=== PATIENT | female | born 1970 | race Caucasian/White ===

== ENCOUNTER 2021-01-18 09:29 | Emergency (ER) | payer MEDICARE, BC ==
[2021-01-18 09:35] VITALS: RESP 16
[2021-01-18] MEDS ORDERED: SODIUM CHLORIDE 0.9% 1,000 ML IV STA (10:01)
[2021-01-18] MEDS ORDERED: PANTOPRAZOLE 40 MG/10 ML VIAL IVP STA (10:01)
[2021-01-18] MEDS ORDERED: ONDANSETRON 4 MG/2 ML VIAL IVP STA (10:01)
[2021-01-18] MEDS ORDERED: KETOROLAC 15 MG/ML 1 ML VIAL IVP STA (10:01)
[2021-01-18 10:21] LABS: Appearance,Urine Clear (Clear); Bilirubin,Urine Negative (Negative); Blood,Urine Negative (Negative); Color,Urine Colorless; Glucose,Urine (UA) Negative (Negative); Ketones,Urine Negative (Negative); Leukocyte Esterase,Urine Negative (Negative); Nitrite,Urine Negative (Negative); PH, Urine 6.5 (5.0-8.0); Protein,Urine Negative (Negative); Specific Gravity,Urine 1.006 (1.001-1.035); Urobilinogen,Urine <2.0 mg/dL (<2.0)
[2021-01-18 10:29] LABS: ALT 16 U/L (4-34); AST 25 U/L (14-36); African American GFR (CKD) >90 (>60 ml/min/1.73 sqM); Albumin 5.1 g/dL (3.5-5.0); Alkaline Phosphatase 83 U/L (38-126); Amylase 42 U/L (30-110); Anion Gap 12 mmol/L; Blood Urea Nitrogen 19 mg/dL (7-17); Calcium 10.8 mg/dL (8.4-10.2); Carbon Dioxide 27 mmol/L (22-30); Chloride 100 mmol/L (98-107); Glucose 134 mg/dL (74-99); Lipase 99 U/L (23-300); Non-African American GFR(CKD) >90 (>60 ml/min/1.73 sqM); Potassium 4.8 mmol/L (3.5-5.1); Sodium 139 mmol/L (137-145); Total Bilirubin 0.5 mg/dL (0.2-1.3); Total Protein 8.2 g/dL (6.3-8.2)
[2021-01-18 10:30] LABS: Basophils % (A) 1 %; Eosinophils # (A) 0.1 k/uL (0-0.7); Eosinophils % (A) 1 %; HCT 42.5 % (34.0-46.0); HGB 14.7 gm/dL (11.4-16.0); Lymphocytes # (A) 1.9 k/uL (1.0-4.8); Lymphocytes % (A) 22 %; MCH 31.3 pg (25.0-35.0); MCHC 34.6 g/dL (31.0-37.0); MCV 90.6 fL (80.0-100.0); Monocytes # (A) 0.2 k/uL (0-1.0); Monocytes % (A) 3 %; Neutrophils % (A) 72 %; Platelet Count 350 k/uL (150-450); RBC 4.69 m/uL (3.80-5.40); RDW 12.8 % (11.5-15.5); WBC 8.4 k/uL (3.8-10.6)
--- NOTE | 2021-01-18 10:47 | XR ---
KUB HISTORY: Abdominal pain, gastroparesis Frontal KUB and 2 images correlated to prior abdomen dated 02/23/2013, CT 02/23/2013 Surgical clips are again noted the right upper quadrant. Lung bases are clear. There is a mild spinal curvature. No evident bowel obstruction or pneumoperitoneum. No pathologic calcification, suspect va scular calcifications in the right hemipelvis. IMPRESSION: Nonobstructive bowel gas pattern
--- NOTE | 2021-01-18 11:06 | ED ---
Nausea/Vomiting/Diarrhea HPI - General Chief complaint: Nausea/Vomiting/Diarrhea Stated complaint: ABD PAIN Time Seen by Provider: 01/18/21 09:46 Source: patient Mode of arrival: ambulatory Limitations: no limitations - History of Present Illness Initial comments: Patient is a 50-year-old female with history of recent diagnosis of gastroparesis, presenting to emergency Department with complaints of left-sided abdominal pain as well as some nausea and vomiting over the last 2 days. Patient states she's been having abdominal pain over the past 1-2 years, in the same area states that the little bit worse over the last few days. She does have history of diverticulitis as well but states it does not feel like that. She denies a fever or chills. She denies having diarrhea. Admits to history of cholecystectomy, hysterectomy, no other abdominal surgeries. She states she has an appointment with Dr. Thomas next week regarding possible upper and lower GI scope. She has spoken with a surgeon as well, Dr. Barrientos who referred her to the GI specialist. She denies any chest pain, no shortness of breath. She's been having normal bowel movements. She denies any further complaints at this time. Upon arrival to the ER, her vital signs are stable. - Related Data Home Medications Medication Instructions Recorded Confirmed Gabapentin 600 mg PO TID 02/04/15 01/18/21 metFORMIN HCL ER [Glucophage Xr] 500 mg PO BID 08/05/15 01/18/21 ALPRAZolam [Xanax] 1 mg PO TID PRN 01/18/21 01/18/21 Baclofen [Lioresal] 10 mg PO TID 01/18/21 01/18/21 Budesonide/Formoterol Fumarate 2 puff INHALATION RT-BID 01/18/21 01/18/21 [Symbicort 160-4.5 Mcg Inhaler] Gemfibrozil [Lopid] 600 mg PO BID 01/18/21 01/18/21 Glatiramer Acetate [Copaxone] 40 mg SQ TUTHSA 01/18/21 01/18/21 HYDROcodone/APAP 10-325MG [[place] 1 tab PO QID 01/18/21 01/18/21 10-325] Levothyroxine Sodium [Synthroid] 100 mcg PO DAILY 01/18/21 01/18/21 Magnesium Oxide [Mag-Ox] 400 mg PO DAILY 01/18/21 01/18/21 Meloxicam [Mobic] 15 mg PO DAILY 01/18/21 01/18/21 Previous Rx's Medication Instructions Recorded Ondansetron Odt [Zofran Odt] 4 mg PO Q8HR PRN #10 tab 01/18/21 Allergies Allergy/AdvReac Type Severity Reaction Status Date / Time sulfamethoxazole Allergy Unknown Verified 01/18/21 09:32 [From Bactrim] trimethoprim [From Bactrim] Allergy Unknown Verified 01/18/21 09:32 Review of Systems ROS Statement: Those systems with pertinent positive or pertinent negative responses have been documented in the HPI. ROS Other: All systems not noted in ROS Statement are negative. Past Medical History Past Medical History: Diabetes Mellitus, Fibromyalgia, Hyperlipidemia, Neurologic Disorder, Osteoarthritis (OA), Respiratory Disorder, Thyroid Disorder Additional Past Medical History / Comment(s): COPD. Sleep apnea. Multiple Sclerosis History of Any Multi-Drug Resistant Organisms: None Reported Past Surgical History: Bladder Surgery, Cholecystectomy, Hysterectomy, Or thopedic Surgery Additional Past Surgical History / Comment(s): right knee surgery. bladder sling. Bartholin gland removal Past Psychological History: Anxiety, Depression Smoking Status: Current every day smoker Past Alcohol Use History: None Reported Past Drug Use History: None Reported General Exam - General Exam Comments Initial Comments: GENERAL: Patient is well-developed and well-nourished. Patient is nontoxic and in no acute distress. HEAD: Atraumatic, normocephalic. EYES: Pupils equal round and reactive to light, extraocular movements intact, sclera anicteric, conjunctiva are normal. Eyelids were unremarkable. ENT: TMs normal, nares patent, oropharynx clear without exudates. Moist mucous membranes. NECK: Normal range of motion, supple without lymphadenopathy or JVD. LUNGS: Unlabored respirations. Breath sounds clear to auscultation bilaterally and equal. No wheezes rales or rhonchi. HEART: Regular rate and rhythm without murmurs, rubs or gallops. ABDOMEN: Soft, some mild left-sided tenderness on palpation, normoactive bowel sounds. No guarding, no rebound. No masses appreciated. : Deferred MUSCULOSKELETAL: Normal extremities with adequate strength and normal range of motion, no pitting or edema. No clubbing or cyanosis. NEUROLOGICAL: Patient is alert and oriented x 3. Motor and sensory are also intact. Cranial nerves II through XII grossly intact. Symmetrical smile. Normal speech, normal gait. PSYCH: Normal mood, normal affect. SKIN: Warm, Dry, normal turgor, no rashes or lesions noted. Limitations: no limitations Course Vital Signs 01/18/21 09:33 Temperature 97.6 F Pulse Rate 68 Respiratory 16 Rate Blood Pressure 142/86 O2 Sat by Pulse 98 Oximetry Medical Decision Making - Medical Decision Making Patient is a 50-year-old female here for an increase and left-sided abdominal pain over the past few days as well as some nausea and vomiting. She's had years of abdominal pain, does have an appointment with GI, Dr. Thomas in a few days. Her vital signs are stable. Her labs are stable, no signs of acute process, urine is normal. KUB shows a nonspecific gas pattern. Patient did receive some fluids and pain control. She is resting comfortably, doesn't improve in her symptoms. I discussed with patient her symptoms could be related to gas pains, nausea and vomiting could be viral in nature or related to her gastroparesis. I will give her prescription for Zofran. She will follow up [facility] in a few days. She is stable for discharge and she is in agreement with this plan of care. Return parameters were discussed with the patient she verbalized understanding. Case discussed with Dr. Garcia. - Lab Data Result diagrams: 01/18/21 10:27 01/18/21 10:03 Lab Results 01/18/21 01/18/21 01/18/21 Range/Units 10:03 10:03 10:03 WBC (3.8-10.6) k/uL RBC (3.80-5.40) m/uL Hgb (11.4-16.0) gm/dL Hct (34.0-46.0) % MCV (80.0-100.0) fL MCH (25.0-35.0) pg MCHC (31.0-37.0) g/dL RDW (11.5-15.5) % Plt Count (150-450) k/uL MPV Neutrophils % % Lymphocytes % % Monocytes % % Eosinophils % % Basophils % % Neutrophils # (1.3-7.7) k/uL Lymphocytes # (1.0-4.8) k/uL Monocytes # (0-1.0) k/uL Eosinophils # (0-0.7) k/uL Basophils # (0-0.2) k/uL Sodium 139 (137-145) mmol/L Potassium 4.8 (3.5-5.1) mmol/L Chloride 100 (98-107) mmol/L Carbon Dioxide 27 (22-30) mmol/L Anion Gap 12 mmol/L BUN 19 H (7-17) mg/dL Creatinine 0.68 (0.52-1.04) mg/dL Est GFR (CKD-EPI)AfAm >90 (>60 ml/min/1.73 sqM) Est GFR (CKD-EPI)NonAf >90 (>60 ml/min/1.73 sqM) Glucose 134 H (74-99) mg/dL Plasma Lactic Acid Brent 1.5 (0.7-2.0) mmol/L Calcium 10.8 H (8.4-10.2) mg/dL Total Bilirubin 0.5 (0.2-1.3) mg/dL AST 25 (14-36) U/L ALT 16 (4-34) U/L Alkaline Phosphatase 83 (38-126) U/L Total Protein 8.2 (6.3-8.2) g/dL Albumin 5.1 H (3.5-5.0) g/dL Amylase 42 (30-110) U/L Lipase 99 (23-300) U/L Urine Color Colorless Urine Appearance Clear (Clear) Urine pH 6.5 (5.0-8.0) Ur Specific [place] 1.006 (1.001-1.035) Urine Protein Negative (Negative) Urine Glucose (UA) Negative (Negative) Urine Ketones Negative (Negative) Urine Blood Negative (Negative) Urine Nitrite Negative (Negative) Urine Bilirubin Negative (Negative) Urine Urobilinogen <2.0 (<2.0) mg/dL Ur Leukocyte Esterase Negative (Negative) 01/18/21 Range/Units 10:27 WBC 8.4 (3.8-10.6) k/uL RBC 4.69 (3.80-5.40) m/uL Hgb 14.7 (11.4-16.0) gm/dL Hct 42.5 (34.0-46.0) % MCV 90.6 (80.0-100.0) fL MCH 31.3 (25.0-35.0) pg MCHC 34.6 (31.0-37.0) g/dL RDW 12.8 (11.5-15.5) % Plt Count 350 (150-450) k/uL MPV 8.0 Neutrophils % 72 % Lymphocytes % 22 % Monocytes % 3 % Eosinophils % 1 % Basophils % 1 % Neutrophils # 6.0 (1.3-7.7) k/uL Lymphocytes # 1.9 (1.0-4.8) k/uL Monocytes # 0.2 (0-1.0) k/uL Eosinophils # 0.1 (0-0.7) k/uL Basophils # 0.0 (0-0.2) k/uL Sodium (137-145) mmol/L Potassium (3.5-5.1) mmol/L Chloride (98-107) mmol/L Carbon Dioxide (22-30) mmol/L Anion Gap mmol/L BUN (7-17) mg/dL Creatinine (0.52-1.04) mg/dL Est GFR (CKD-EPI)AfAm (>60 ml/min/1.73 sqM) Est GFR (CKD-EPI)NonAf (>60 ml/min/1.73 sqM) Glucose (74-99) mg/dL Plasma Lactic Acid Brent (0.7-2.0) mmol/L Calcium (8.4-10.2) mg/dL Total Bilirubin (0.2-1.3) mg/dL AST (14-36) U/L ALT (4-34) U/L Alkaline Phosphatase (38-126) U/L Total Protein (6.3-8.2) g/dL Albumin (3.5-5.0) g/dL Amylase (30-110) U/L Lipase (23-300) U/L Urine Color Urine Appearance (Clear) Urine pH (5.0-8.0) Ur Specific [place] (1.001-1.035) Urine Protein (Negative) Urine Glucose (UA) (Negative) Urine Ketones (Negative) Urine Blood (Negative) Urine Nitrite (Negative) Urine Bilirubin (Negative) Urine Urobilinogen (<2.0) mg/dL Ur Leukocyte Esterase (Negative) Disposition Clinical Impression: Nausea & vomiting, Left sided abdominal pain Disposition: HOME SELF-CARE Condition: Stable Instructions (If sedation given, give patient instructions): Acute Nausea and Vomiting (ED) Additional Instructions: Please return to the Emergency Department if symptoms worsen or any other concerns. May take Zofran for any additional nausea. Follow-up with your GI doctor this week as discussed. Prescriptions: Ondansetron Odt [Zofran Odt] 4 mg PO Q8HR PRN #10 tab PRN Reason: Nausea Is patient prescribed a controlled substance at d/c from ED?: No Referrals: Hitesh Woodard MD [Primary Care Provider] - 1-2 days Time of Disposition: 11:22
[2021-01-18 11:55] VITALS: BP 127/82; PULSE 85; TEMP 97.9
== END 2021-01-18 11:53 | disposition home or self-care (01) ==
LOC: EC 09:29
DX: R11.2 Nausea with vomiting, unspecified (principal); R10.9 Unspecified abdominal pain; E11.43 Type 2 diabetes mellitus with diabetic autonomic (poly)neuropathy; E78.5 Hyperlipidemia, unspecified; F17.200 Nicotine dependence, unspecified, uncomplicated; F32.9 Major depressive disorder, single episode, unspecified; F41.9 Anxiety disorder, unspecified; J44.9 Chronic obstructive pulmonary disease, unspecified; M19.90 Unspecified osteoarthritis, unspecified site; Z79.84 Long term (current) use of oral hypoglycemic drugs
CPT/HCPCS: 36415; 80053; 82150; 83605; 83690; 85025; 81003; 74018; 99284; 96374; 96375; 96361; J2405; J1885; C9113

== ENCOUNTER 2021-03-09 07:34 | Day surgery (SDC) | payer MEDICARE, BC ==
[2021-03-06 09:34] VITALS: BMI 32.8
[~2021-03-09 07:34] MED LIST: LACTATED RINGERS 1,000 ML IV SCH; LIDOCAINE 1% (10MG/ML) FOR IV START INTRADERMA PRN
[2021-03-09 08:01] VITALS: TEMP 98
[2021-03-09 08:07] LABS: Glucose,Whole Blood 152 mg/dL (75-99)
[2021-03-09] MEDS ORDERED: ONDANSETRON 4 MG/2 ML VIAL ONE (08:07)
[2021-03-09] MEDS ORDERED: ONDANSETRON 4 MG/2 ML VIAL IVP ONE (08:09)
[2021-03-09] MEDS ORDERED: PROPOFOL 10 MG/ML 20 ML VIAL IV ONE (08:16)
--- NOTE | 2021-03-09 08:36 | P.PCN ---
Date of Procedure: 03/09/21 Description of Procedure: BRIEF HISTORY: Patient is a 50-year-old female presenting for outpatient esophagogastroduodenoscopy for evaluation of nausea with vomiting. Patient seen in the clinic where she reported projectile vomiting 2-3 times per week of food and liquids. Patient on Prilosec daily. She is also on Cambria for pain. She also reported symptoms of bloating and abdominal distention. Last EGD colonoscopy 4 years ago with the surgical service negative for any gastric outlet obstruction or ulcers and colon within normal limits. Patient is on ibuprofen therapy. PROCEDURE PERFORMED: Esophagogastroduodenoscopy with biopsy. PREOPERATIVE DIAGNOSIS: Nausea with vomiting. ESTIMATED BLOOD LOSS: Minimal. IV sedation per anesthesia. PROCEDURE: After informed consent was obtained, the patient was brought into the endoscopy unit. IV sedation was administered by Anesthesia under continuous monitoring. Initially the Olympus GIF-190 video endoscope was inserted into the mouth. Esophagus intubated without any difficulty. It was gradually advanced into the stomach and duodenum and carefully examined. The bulb and the second part of the duodenum appeared normal, with biopsies taken. The scope at this time was withdrawn to the stomach, adequately insufflated with air, and upon careful examination, mucosa of the antrum, body, cardia and the fundus was significant for mild punctate erythema in the antrum body and superficial erythema and linear erosions in the antrum suggestive of moderate gastritis with biopsies of antrum and body taken. There is also a superficial 3 mm linear nonbleeding antral ulcer without high-risk stigmata for bleeding which was biopsied. The scope was then withdrawn into the esophagus. The GE junction was located at 38 cm from the incisors. The esophagus appeared normal, with biopsies of the midesophagus and lower esophagus taken. There were no erosions or ulcerations seen and the patient tolerated the procedure well. IMPRESSION: 1. Small linear nonbleeding superficial antral ulcer. 2. Moderate gastritis. 3. Biopsies of the duodenum, antrum body, antral ulcer, lower esophagus and midesophagus. RECOMMENDATIONS: The findings of this examination were discussed with the patient and her family. Okay to resume diet. Okay to resume medications. Would recommend avoidance of NSAID medications. Continue Prilosec therapy. Await pathology from biopsies. Follow up in the GI clinic as scheduled. Limit Cambria use which can delay gastric emptying.
[2021-03-09 08:58] VITALS: BP 122/81; PULSE 74; RESP 16
[2021-03-09] MEDS ORDERED: MAG HYDROX/AL HYDROX/SIMETH 30 ML CUP PO PRN (09:00)
== END 2021-03-09 09:31 | disposition home or self-care (01) ==
LOC: ORWHC2ENDO 07:34
PROVIDERS: ATTEND Internal Medicine
DX: K25.7 Chronic gastric ulcer without hemorrhage or perforation (principal); J44.9 Chronic obstructive pulmonary disease, unspecified; G35 Multiple sclerosis; E07.9 Disorder of thyroid, unspecified; Z72.0 Tobacco use; Z90.49 Acquired absence of other specified parts of digestive tract; Z90.710 Acquired absence of both cervix and uterus; Z98.890 Other specified postprocedural states; Z85.41 Personal history of malignant neoplasm of cervix uteri; Z79.84 Long term (current) use of oral hypoglycemic drugs; Z79.890 Hormone replacement therapy; Z79.891 Long term (current) use of opiate analgesic; Z79.899 Other long term (current) drug therapy; Z79.51 Long term (current) use of inhaled steroids; Z88.2 Allergy status to sulfonamides
CPT/HCPCS: 81025; 88305; 43239; J2405; J2704

== ENCOUNTER → 2023-02-10 | Outpatient (CLI) | payer MEDICARE, BC ==
--- NOTE | 2023-02-11 09:20 | CT ---
EXAMINATION TYPE: CT left knee - [facility] Protocol DATE OF EXAM: 02/10/2023 COMPARISON: None HISTORY: Pre-surgical planning for Left Knee. CT DLP: 1081 mGycm Automated exposure control for dose reduction was used. Contrast: None Technique: Axial images 1 mm thick sections through the left knee. 2 mm thick sections are obtained t hrough the left ankle and left hip. Reconstructed images in the coronal and sagittal planes are obtai sami. FINDINGS: Left hip: Femoral head articulates with the acetabulum. No acute fractures evident. Osteoarthritic de generative changes noted at the bilateral narrowing of joint spaces. Left knee: Small joint effusion is present. There is loss of the medial compartment joint space. Late ral compartment joint space has some narrowing. Minimal narrowing of the lateral portion of the awan lofemoral joint space may be present. Left ankle: No suspicious acute osseous abnormality. Joint spaces appear preserved. [facility] protocol was utilized. IMPRESSION: 1. DEGENERATIVE CHANGES LEFT KNEE. 2. CT for [facility] SURGERY PLANNING
== END | disposition home or self-care (01) ==
LOC: RADCTMAIN 16:05
PROVIDERS: ATTEND Orthopaedic Surgery
DX: Z01.818 Encounter for other preprocedural examination (principal); M17.0 Bilateral primary osteoarthritis of knee; F17.200 Nicotine dependence, unspecified, uncomplicated; M21.061 Valgus deformity, not elsewhere classified, right knee; M21.062 Valgus deformity, not elsewhere classified, left knee; E11.9 Type 2 diabetes mellitus without complications; G35 Multiple sclerosis; J98.4 Other disorders of lung

== ENCOUNTER → 2023-02-10 | Outpatient (CLI) | payer MEDICARE, BC ==
[2023-02-10 17:20] LABS: INR 0.9 (<1.2); Partial Thromboplastin Time 23.1 sec (22.0-30.0); Prothrombin Time 10.1 sec (9.0-12.0)
[2023-02-10 20:55] LABS: HGB 14.6 g/dL (12.0-15.0); MCH 30.4 pg (27.0-32.0); MCHC 32.4 g/dL (32.0-37.0); MCV 93.6 fL (80.0-97.0); NRBC Per 100 WBC 0 /100 WBCS (0.0-0.0); Platelet Count 288 X 10*3/uL (140-440); RBC 4.81 X 10*6/uL (4.10-5.20); RDW 13.2 % (11.5-14.5); WBC 6.15 X 10*3/uL (4.50-10.00)
[2023-02-10 21:21] LABS: ALT 13 U/L (8-44); AST 13 U/L (13-35); African American GFR (CKD) 97.6 (60.0-200.0); Albumin 4.5 g/dL (3.8-4.9); Albumin/Globulin Ratio 1.96 (1.60-3.17); Alkaline Phosphatase 69 U/L (41-126); BUN/Creat Ratio 21.75 Ratio (12.00-20.00); Blood Urea Nitrogen 17.4 mg/dL (9.0-27.0); Calcium 9.7 mg/dL (8.7-10.3); Carbon Dioxide 26.3 mmol/L (20.0-27.5); Chloride 101 mmol/L (96-109); Globulin 2.3 g/dL (1.6-3.3); Glucose 85 mg/dL (70-110); Non-African American GFR(CKD) 84.2 (60.0-200.0); Potassium 5.3 mmol/L (3.5-5.5); Sodium 140 mmol/L (135-145); Total Bilirubin <0.15 mg/dL (0.30-1.20); Total Protein 6.8 g/dL (6.2-8.2)
[2023-02-10 23:01] LABS: Appearance,Urine Clear (Clear); Bilirubin,Urine Negative (Negative); Blood,Urine Negative (Negative); Color,Urine Yellow (Yellow); Ketones,Urine Trace mg/dL (Negative); Nitrite,Urine Negative (Negative); PH, Urine 5.5 (5.0-8.0); Specific Gravity,Urine 1.025 (1.001-1.030)
[2023-02-10 23:09] LABS: Bacteria,Urine None Seen /HPF (None Seen)
== END | disposition home or self-care (01) ==
LOC: LABPAT 15:11
PROVIDERS: ATTEND Orthopaedic Surgery
DX: Z01.812 Encounter for preprocedural laboratory examination (principal); M17.12 Unilateral primary osteoarthritis, left knee; R94.31 Abnormal electrocardiogram [ECG] [EKG]
CPT/HCPCS: 80053; 81001; 83036; 85027; 85610; 85730; 87070; 93005

== ENCOUNTER 2023-03-02 13:22 | Observation (INO) | payer MEDICARE, BC ==
[~2023-03-02 13:22] MED LIST changes: +ACETAMINOPHEN TAB 500 MG TAB PO PRN; +DEXAMETHASONE SOD PHOSPHATE 10 MG/ML 1 ML VIAL IV PRN; +DOCUSATE 100 MG CAP PO PRN; +FAMOTIDINE 20 MG/2 ML VIAL IVP PRN; +KETOROLAC 15 MG/ML 1 ML VIAL IVP PRN; -LACTATED RINGERS 1,000 ML IV SCH; +MIDAZOLAM 2 MG/2 ML VIAL IV PRN; +ONDANSETRON 4 MG/2 ML VIAL IVP PRN; +TRANEXAMIC ACID IN NACL,ISO-OS 1,000 MG in SALINE 1 100ML.BAG IV PRN; +TRANEXAMIC ACID IN NACL,ISO-OS 1,000 MG in SALINE 1 100ML.BAG IVPB PRN; +fentaNYL (PF) 50 MCG/ML 2 ML AMP IVP PRN; +oxyCODONE ER 10 MG TAB.ER.12H PO PRN
[2023-03-02] MEDS ORDERED: LACTATED RINGERS 1,000 ML IV ONE ×2 (13:41→16:30)
[2023-03-02 14:13] LABS: Glucose,Whole Blood 106 mg/dL (70-110)
[2023-03-02] MEDS ORDERED: fentaNYL (PF) 50 MCG/ML 2 ML AMP IVP ONE (14:44)
[2023-03-02] MEDS ORDERED: MIDAZOLAM 2 MG/2 ML VIAL IVP ONE (14:44)
--- NOTE | 2023-03-02 14:56 | P.ANPRN ---
Procedure Note - Anesthesia - Nerve Block Performed Left Adductor Canal Single Time Out Performed: Yes Date of Procedure: 03/02/23 Procedure Start Time: 14:43 Procedure Stop Time: 14:49 Location of Patient: PreOp Indication: Acute Post-Operative Pain, Requested by Surgeon Specifically requested for management of pain by DrChristi: Kristian Arceo Sedation Type: Sedate with meaningful contact maintained Preparation: Sterile Prep Position: Supine Needle Types: Pajunk Needle Gauge: 21 Ultrasound used to visualize needle placement: Yes Ultrasound used to observe medication spread: Yes Injectate: 0.5% Ropivacaine (see comment for volume) (15 ML +15 ML ns + 4MG dEXAMETHASON) Blood Aspirated: No Pain Paresthesia on Injection Noted: No Resistance on Injection: Normal Image Stored and Saved: Yes Events: Uneventful and Well Tolerated
--- NOTE | 2023-03-02 14:58 | P.ANPRN ---
Procedure Note - Anesthesia - Nerve Block Performed Left iPack Single Time Out Performed: Yes Date of Procedure: 03/02/23 Procedure Start Time: 14:50 Procedure Stop Time: 14:56 Location of Patient: PreOp Indication: Acute Post-Operative Pain, Requested by Surgeon Specifically requested for management of pain by DrChristi: Kristian Arceo Sedation Type: Sedate with meaningful contact maintained Preparation: Sterile Prep Position: Right Lateral Needle Types: Pajunk Needle Gauge: 21 Ultrasound used to visualize needle placement: Yes Ultrasound used to observe medication spread: Yes Injectate: 0.5% Ropivacaine (see comment for volume) (15 ml + 15 ml NS + 4 mg Dexamethason) Blood Aspirated: No Pain Paresthesia on Injection Noted: No Resistance on Injection: Normal Image Stored and Saved: Yes Events: Uneventful and Well Tolerated
[2023-03-02] MEDS ORDERED: ROPIVACAINE 5 MG/ML 30 ML VIAL ONE (15:43)
[2023-03-02] MEDS ORDERED: ePHEDrine 50 MG/ML 1 ML VIAL ONE (15:43)
[2023-03-02] MEDS ORDERED: ROCURONIUM 10 MG/ML (5 ML VIAL) IV ONE (15:43)
[2023-03-02] MEDS ORDERED: KETAMINE 10 MG/ML 20 ML VIAL ONE (15:43)
[2023-03-02] MEDS ORDERED: fentaNYL (PF) 50 MCG/ML 2 ML AMP ONE (15:43)
[2023-03-02] MEDS ORDERED: DEXAMETHASONE SOD PHOSPHATE 4 MG/ML 1 ML VIAL ONE (15:43)
[2023-03-02] MEDS ORDERED: LIDOCAINE 2% INJ 20 MG/ML (2 ML VIAL) ONE (15:43)
[2023-03-02] MEDS ORDERED: NEOSTIGMINE 1 MG/ML 10 ML VIAL ONE (15:43)
[2023-03-02] MEDS ORDERED: LIDOCAINE 4% LTA KIT (4 ML) TOPICAL ONE (15:43)
[2023-03-02] MEDS ORDERED: GLYCOPYRROLATE 0.2 MG/ML 2 ML VIAL ONE (15:43)
[2023-03-02] MEDS ORDERED: PHENYLEPHRINE-0.9% NACL SYG 1,000 MCG/10 ML SYRINGE ONE (15:43)
[2023-03-02] MEDS ORDERED: MIDAZOLAM 2 MG/2 ML VIAL ONE (15:43)
[2023-03-02] MEDS ORDERED: TRANEXAMIC ACID IN NACL,ISO-OS 1,000 MG/100 ML BAG ONE (15:43)
[2023-03-02] MEDS ORDERED: SODIUM CHLORIDE 0.9% (PF) 10 ML VIAL ONE (15:43)
[2023-03-02] MEDS ORDERED: PROPOFOL 10 MG/ML 20 ML VIAL IV ONE (15:43)
[2023-03-02] MEDS ORDERED: SUCCINYLCHOLINE CHLORIDE 200 MG/10 ML VIAL IV ONE (15:43)
[2023-03-02] MEDS: ROPIVACAINE/EPI/CLONIDINE/KET 50 ML SYRINGE MISCELLANE PRN ×2 (16:21→17:02)
--- NOTE | 2023-03-02 17:51 | P.OP ---
Date of Procedure: 03/02/23 Preoperative Diagnosis: 1. Severe left knee osteoarthritis 2. Type 2 diabetes with preoperative hemoglobin A1c level of 6.2 3. Current cigarette smoker (was able to significantly reduce her smoking prior to surgery) 4. Chronic pain on [place] 10/325 at baseline Postoperative Diagnosis: Same Procedure(s) Performed: Left total knee replacement Implants: 1. [place] [employer] CR Femur Size #4 2. [place] [employer] [place] Tibial Base Size #4 3. [place] [employer] CS poly Size #9 4. [place] [employer] all poly patella, Size #29 Anesthesia: GETA, regional Surgeon: Kristian Arceo Banking Services Officer #1: Gail Morales Estimated Blood Loss (ml): 100 IV fluids (ml): 1,100 Pathology: none sent Condition: stable Disposition: PACU Indications for Procedure: I met with the patient preoperatively in the office setting and discussed treatment of their symptomatic knee arthritis. They failed a long course of nonsurgical treatment and requested to proceed with an elective total knee replacement. I long discussion with her and her risk factors including well- controlled type 2 diabetes and smoking. At the time of our first meeting I told the patient to quit smoking prior to having an elective knee replacement. She followed up with me 6 weeks later and had decreased the amount she was smoking, but stated that she was unable to fully quit. She stated that she wanted a knee replacement and understood the elevated risk from smoking. I was very blunt with her and told her that her risk of infection and wound healing is higher. Because she had severe arthritis, had failed nonsurgical treatment, was able to cut down her cigarette smoking, and understood the risks I elected to proceed. Again the patient voiced her understanding of her elevated risk as well as my recommendation to fully quit smoking, but again stated that she was unable to fully quit and requested proceeding with surgery. She was well aware of her elevated risk. The patient was strongly encouraged to quit smoking in the per ioperative period. We also discussed her increased risk of pain control following surgery given that she takes [place] 10/325 at baseline. We discussed that taking her chronic pain medications preoperatively is also a risk factor for having a complication as well as decreased satisfaction. I was again very blunt with her on this. She voiced her understanding of this, but again stated she wanted to proceed with surgery. He made a well-informed decision to proceed with a total knee replacement, and I spent a great deal of time counseling her on her specific risk factors. I discussed the potential risks and complications at length and gave them ample time to ask questions. Risks discussed included: risks from anesthesia, superficial site surgical infection, acute and/or chronic periprosthetic joint infection, delayed wound healing, drainage, wound necrosis, instability, stiffness, stiffness requiring manipulation and/or revision surgery, damage to local blood vessels or nerves, aseptic loosening of the implants, extensor mechanism issues including disruption, patellar maltracking, avascular necrosis etc., continued or worsened knee pain, generalized dissatisfaction with surgical outcome, need for revision surgery, an inability to regain preinjury level of function, DVT, PE, other medical complications, and possibly loss of life or limb. The patient voiced their understanding that while these are the most common complications other less common complications are possible. They provided both their verbal and written consent to go forward with surgery. Operative Findings: Severe full-thickness cartilage loss in the medial and patellofemoral joint space. Partial thickness loss of cartilage in the lateral compartment Description of Procedure: The patient was identified in preoperative holding and the correct operative extremity was verified and marked with a marker. I reviewed the consent form with the patient at length. All of their questions were answered. The patient was given a block by anesthesia. They were then brought back to the operating room. They were transferred onto the operating room table where a general anesthetic, preoperative antibiotics, and tranexamic acid were administered by anesthesia. A tourniquet was applied to the proximal aspect of the operative extremity. The contralateral extremity was padded under the heel and secured to the operating room table with a nonsterile blue towel and tape. The ipsilateral arm was carefully draped across the patient's chest and secured with a pillow and foam. A post was applied over the lateral aspect of the ipsilateral thigh and a bolster was placed under the ipsilateral foot. I verified that the operative extremity was stable and the knee was flexed to 90. The operative extremity was then placed in a leg rock, nonsterile drapes were applied, and the extremity was prepped and draped sterilely in the standard sterile fashion. Prior to starting surgery timeout was performed identifying the correct patient, operative extremity, and procedure. The leg was then elevated, exsanguinated with an Esmarch bandage, and the tourniquet was inflated. An anterior midline incision was made sharply with a scalpel. Once I had dissected deep to the superficial fascial layer medial and lateral flaps were elevated. A medial parapatellar arthrotomy was created. Upon opening the knee joint there were diffuse arthritic changes in all 3 compartments. The anterior horn of the medial meniscus were sharply released and a medial release was performed around the posterior medial corner of the knee to facilitate retractor placement. The fat pad was excised with electrocautery. The patella was found to be severely arthritic and a provisional cut was made with a sagittal saw to facilitate mobilization of the extensor mechanism during the procedure. Remnants of the ACL and PCL were then excised from the notch. 4 mm pins were then placed within the incision in the medial distal femur and proximal tibia. Arrays were applied to the pins and I verified they were completely tightened. The knee was then registered with the [employer] robot and manipulations in implant position were made to balance the knee and opitmize implant position. Using the [employer] robotic saw all cuts were made in accordance with our plan. After all bony fragments had been removed the cuts were verified with the planar probe. The tibia was then subluxed forward and sized. The knee was brought into flexion and a lamina hat ironer was placed to allow removal of the meniscal remnants both medially and laterally as well as posterior osteophytes. Local anesthetic was then infiltrated around the joint capsule. Trial implants were then placed within the knee. Range of motion and collateral ligament tension was then evaluated. Adjustments in implant size and position were then made accordingly. Once the knee was felt to be appropriately balanced the John pins were removed. The patella was then recut, sized, and punched. A trial patellar button was then placed. With the trial components in place, the patella tracked midline. The femur was then drilled and the trial component removed. The trial tibial component was then appropriately rotated, pinned, and prepared for the keel. All trial components were then removed from the knee. The knee was thoroughly irrigated with pulsatile lavage. Cement was prepared via vacuum mixing in a bowl on the back table. I then hand pressurized cement into the femur and tibia and placed the implants beginning with the tibial base tray and poly liner, femoral component, and finally the patellar button. All extruded cement was removed including from the pin sites. Once the cement had hardened the knee was evaluated one final time with the final polyethylene liner in place. The knee had full extension and flexion and felt stable to varus and valgus stress throughout the arc of motion. The tourniquet was released and with the tourniquet down the patella tracked midline. All bleeders were controlled with electrocautery. The knee was then soaked for 3 minutes with a dilute Betadine soak. The knee was thoroughly irrigated using 3 L of sterile saline and pulsatile lavage. The extensor mechanism was then reapproximated using pop off Vicryl sutures followed by a running barbed suture. The knee was then closed in layers with a 0 strata fix for the deep fascial layer, 2-0 strata fix for the superficial subcutaneous layer and Monocryl and Steri-Strips for the skin. A sterile dressing was applied. I verified that all instrument, sponge, and sharp counts were correct. The patient was then transferred off the operating room table, extubated, and brought to recovery having tolerated the procedure well. Gail Morales PA-C was required as a skilled assistant front office manager due to the complexity of the procedure for patient positioning, draping, retraction, placement of hardware, and closure of wound. PLAN: The patient can weight-bear as tolerated on the operative extremity. DVT prophylaxis with aspirin 81 mg twice a day based on preoperative risk stratification. Follow-up in the office in 2 weeks for wound check and x-rays of the knee including an AP and lateral.
[2023-03-02] MEDS ORDERED: NALOXONE 0.4 MG/ML 1 ML VIAL IV PRN (18:06)
[2023-03-02] MEDS ORDERED: hydrOXYzine pamoate 25 MG CAP PO PRN (18:06)
[2023-03-02] MEDS ORDERED: HYDROmorphone 0.5 MG/0.5 ML SYRINGE IVP PRN (18:06)
[2023-03-02] MEDS: HYDROmorphone 0.5 MG/0.5 ML SYRINGE IVP PRN ×2 (18:25→18:36)
--- NOTE | 2023-03-02 18:59 | XR ---
EXAMINATION TYPE: XR knee complete LT DATE OF EXAM: 03/02/2023 6:30 PM INDICATION: Patient age:Female; 52 years old; Reason for study: post op; COMPARISON: CT 02/10/2023. TECHNIQUE: The left knee(s) was examined in Frontal, lateral projections. FINDINGS: Status post total knee arthroplasty changes with hardware in appropriate alignment and in tact. No evidence of fracture. Subcutaneous lucencies and lucencies within the joint consistent with surgical changes. IMPRESSION: Status post total knee arthroplasty changes with hardware intact and appropriate alignment. No fractu res identified.
[2023-03-02] MEDS: HYDROmorphone 1 MG/ML 1 ML SYRINGE IVP PRN ×2 (19:49→22:45)
[2023-03-02] MEDS: LACTATED RINGERS 1,000 ML IV SCH ×2 (19:51→23:10)
[2023-03-02] MEDS: HYDROcodone/APAP 10-325MG 1 EACH TAB PO PRN (20:45)
[2023-03-02] MEDS ORDERED: SENNOSIDES-DOCUSATE SODIUM 1 EACH TAB PO SCH (21:00)
[2023-03-02] MEDS ORDERED: GABAPENTIN 300 MG CAP PO PRN (21:16)
[2023-03-02] MEDS: ASPIRIN 81 MG PO SCH (21:44)
[2023-03-02] MEDS: BACLOFEN 10 MG TAB PO PRN (21:44)
[2023-03-02 21:51] LABS: Glucose,Whole Blood 159 mg/dL (70-110)
[2023-03-02] MEDS ORDERED: MAGNESIUM OXIDE 400 MG TAB PO SCH (22:35)
[2023-03-02] MEDS ORDERED: ALPRAZolam 1 MG TAB PO PRN (23:56)
[2023-03-03] MEDS: LACTATED RINGERS 1,000 ML IV SCH ×3 (00:05→13:29)
[2023-03-03 01:57] VITALS: RESP 16
[2023-03-03] MEDS: HYDROcodone/APAP 10-325MG 1 EACH TAB PO PRN ×2 (02:36→07:37)
[2023-03-03 05:42] LABS: Glucose,Whole Blood 129 mg/dL (70-110)
[2023-03-03] MEDS: HYDROmorphone 0.5 MG/0.5 ML SYRINGE IVP PRN ×2 (06:15→11:51)
[2023-03-03] MEDS ORDERED: LEVOTHYROXINE 112 MCG TAB PO SCH (06:30)
[2023-03-03 07:14] LABS: Basophils % (A) 0 %; Eosinophils % (A) 0 %; HCT 38.5 % (34.0-46.0); HGB 12.5 gm/dL (11.4-16.0); Lymphocytes # (A) 1.3 k/uL (1.0-4.8); Lymphocytes % (A) 10 %; MCH 30.6 pg (25.0-35.0); MCHC 32.6 g/dL (31.0-37.0); MCV 93.9 fL (80.0-100.0); Mean Platelet Volume 8.6; Monocytes # (A) 0.4 k/uL (0-1.0); Monocytes % (A) 3 %; Neutrophils # (A) 11.5 k/uL (1.3-7.7); Neutrophils % (A) 86 %; Platelet Count 259 k/uL (150-450); RDW 13.8 % (11.5-15.5); WBC 13.3 k/uL (3.8-10.6)
[2023-03-03 07:27] VITALS: BP 101/60; PULSE 64; TEMP 98
[2023-03-03] MEDS ORDERED: metFORMIN 500 MG TAB PO SCH (07:30)
[2023-03-03] MEDS ORDERED: PANTOPRAZOLE 40 MG TABLET PO SCH (07:30)
[2023-03-03] MEDS: ASPIRIN 81 MG PO SCH (07:37)
[2023-03-03] MEDS ORDERED: SYMBICORT 160-4.5 MCG INHALER INHALATION SCH (08:00)
[2023-03-03] MEDS ORDERED: oxyCODONE-APAP 5-325MG 1 EACH TAB PO PRN (08:35)
--- NOTE | 2023-03-03 08:51 | P.DS ---
Providers Date of admission: 03/03/23 08:00 Expected date of discharge: 03/03/23 Attending physician: Kristian Arceo Consults: 03/02/23 18:06 Consult Physician Routine Consulting Provider: Gordo Mulligan Consult Reason/Comments: medical management Do you want consulting provider notified?: Yes Primary care physician: Hitesh Woodard [facility] Course: This is a 52-year-old female who has been followed in our office by Dr. Arceo for continued complaints of left knee pain due to left knee osteoarthritis. Treatment options were discussed, and patient elected to undergo a left total knee arthroplasty. Patient was seen pre-operatively by Dr. Woodard and cleared for surgery. Patient underwent a left total knee arthroplasty on 03/02/[address] Arceo. The procedure was performed without complication or sequelae. The patient is doing fairly well postoperatively. Vital signs and labs are stable on postoperative day #1. Patient was examined bedside this morning with Dr. Arceo. Patient states she is well. She is experiencing moderate pain in the knee. She takes chronic [place] 10/325mg as prescribed by Dr. Woodard. Therefore her oral pain medication is increased to Percocet 5/325mg this morning. Patient is comfortable being discharged home today. Patient has no new complaints this morning. On examination, the patient is sitting up in bed in no apparent distress. She is alert and orientated 3. On inspection of the left knee, there is a clean, dry, intact surgical dressing in place. Patient has good strength and ROM of the left ankle and toes. Motor and sensory function is intact of the left lower extremity. The dorsalis pedis pulse is easily palpable, the left lower extremity is warm and well perfused with brisk capillary refill. Calf is soft and non-tender to palpation. Patient is discharged home with home health care today in good condition, pending medical clearance. Patient will follow-up with Dr. Arceo in the office in 2 weeks. Please see med rec for accurate list of discharge medication. Plan - Discharge Summary Discharge Rx Participant: No New Discharge Prescriptions: New Docusate [Colace] 100 mg PO BID #60 capsule Omeprazole 40 mg PO DAILY 30 Days #30 cap Diclofenac Sodium [Voltaren] 75 mg PO BID 30 Days #60 tab Aspirin 81 mg PO BID 30 Days #60 tab No Action Gabapentin 600 mg PO TID PRN PRN Reason: Pain metFORMIN HCL ER [Glucophage Xr] 500 mg PO QAM Levothyroxine Sodium [Synthroid] 112 mcg PO DAILY Baclofen [Lioresal] 20 mg PO TID PRN PRN Reason: muscle spasms ALPRAZolam [Xanax] 1 mg PO TID PRN PRN Reason: Anxiety Budesonide/Formoterol Fumarate [Symbicort 160-4.5 Mcg Inhaler] 2 puff INHALATION RT-BID Magnesium Oxide [Mag-Ox] 400 mg PO HS HYDROcodone/APAP 10-325MG [[place] 10-325] 1 tab PO QID PRN PRN Reason: Pain Ibuprofen 800 mg PO Q8H PRN PRN Reason: Pain Omeprazole Magnesium [PriLOSEC OTC] 20 mg PO QAM Discharge Medication List Gabapentin 600 mg PO TID PRN 02/04/15 [History] metFORMIN HCL ER [Glucophage Xr] 500 mg PO QAM 08/05/15 [History] ALPRAZolam [Xanax] 1 mg PO TID PRN 01/18/21 [History] Baclofen [Lioresal] 20 mg PO TID PRN 01/18/21 [History] Budesonide/Formoterol Fumarate [Symbicort 160-4.5 Mcg Inhaler] 2 puff INHALATION RT-BID 01/18/21 [History] HYDROcodone/APAP 10-325MG [[place] 10-325] 1 tab PO QID PRN 01/18/21 [History] Levothyroxine Sodium [Synthroid] 112 mcg PO DAILY 01/18/21 [History] Magnesium Oxide [Mag-Ox] 400 mg PO HS 01/18/21 [History] Ibuprofen 800 mg PO Q8H PRN 03/06/21 [History] Omeprazole Magnesium [PriLOSEC OTC] 20 mg PO QAM 02/28/23 [History] Aspirin 81 mg PO BID 30 Days #60 tab 03/03/23 [Rx] Diclofenac Sodium [Voltaren] 75 mg PO BID 30 Days #60 tab 03/03/23 [Rx] Docusate [Colace] 100 mg PO BID #60 capsule 03/03/23 [Rx] Omeprazole 40 mg PO DAILY 30 Days #30 cap 03/03/23 [Rx] Follow up Appointment(s)/Referral(s): Kristian Arceo MD [Medical Doctor] - 2 Weeks Activity/Diet/Wound Care/Special Instructions: Weight bear to tolerance on operative extremity with a walker. Keep operative dressing in place until follow-up in the office. Call the office if dressing becomes saturated or falls off. May shower over dressing. Take pain medications as prescribed. If additional pain medication is needed, please call Dr. Woodard's office. Take aspirin 81mg twice a day x 4 weeks for blood clot prevention. Follow-up in the office in two weeks at [facility]. Call the office with any questions or concerns, Discharge Disposition: HOME WITH HOME HEALTH SERVICES
[2023-03-03] MEDS ORDERED: NICOTINE 21MG/24HR PATCH TRANSDERM SCH (09:00)
[2023-03-03] MEDS: BACLOFEN 10 MG TAB PO PRN (10:01)
[2023-03-03 11:16] LABS: Glucose,Whole Blood 121 mg/dL (70-110)
[2023-03-03] MEDS ORDERED: MAGNESIUM OXIDE 400 MG TAB PO SCH (21:00)
[2023-03-04] MEDS ORDERED: LEVOTHYROXINE 112 MCG TAB PO SCH (06:30)
[2023-03-04] MEDS ORDERED: PANTOPRAZOLE 40 MG TABLET PO SCH (07:30)
[2023-03-04] MEDS ORDERED: metFORMIN 500 MG TAB PO SCH (09:00)
== END 2023-03-03 14:16 | disposition home health service (06) ==
LOC: OR 13:22 → 4SSUR 18:06 → OR 03-03 08:00 → 4SSUR 03-03 08:00
PROVIDERS: ADMIT Orthopaedic Surgery; ATTEND Orthopaedic Surgery
DX: M17.12 Unilateral primary osteoarthritis, left knee (principal); G89.18 Other acute postprocedural pain; E11.9 Type 2 diabetes mellitus without complications; G89.29 Other chronic pain; F17.210 Nicotine dependence, cigarettes, uncomplicated; Z79.891 Long term (current) use of opiate analgesic
CPT/HCPCS: 94760; 97162; 64447; 64999; 85025; 73562; 27447; G0378; C1776; C1713; C1751; J2250; J0330; J1100; J2710; J0690 ×2; J2405; J3010; J1170 ×3; J2795; J1885; J2370; J2704; J2001

== ENCOUNTER 2023-03-04 00:36 | Observation (INO) | payer MEDICARE, BC ==
[2023-03-04] MEDS ORDERED: HYDROmorphone 1 MG/ML 1 ML SYRINGE IVP STA (01:13)
[2023-03-04 01:38] LABS: Basophils % (A) 0 %; Eosinophils # (A) 0.1 k/uL (0-0.7); Eosinophils % (A) 1 %; HGB 13.1 gm/dL (11.4-16.0); Lymphocytes % (A) 22 %; MCH 31.6 pg (25.0-35.0); MCHC 34.5 g/dL (31.0-37.0); MCV 91.6 fL (80.0-100.0); Mean Platelet Volume 8.3; Monocytes # (A) 0.4 k/uL (0-1.0); Monocytes % (A) 5 %; Neutrophils # (A) 6.2 k/uL (1.3-7.7); Neutrophils % (A) 70 %; Platelet Count 215 k/uL (150-450); RBC 4.15 m/uL (3.80-5.40); RDW 13.7 % (11.5-15.5); WBC 8.9 k/uL (3.8-10.6)
[2023-03-04 01:57] LABS: ALT 19 U/L (4-34); AST 23 U/L (14-36); African American GFR (CKD) >90 (>60 ml/min/1.73 sqM); Albumin 3.9 g/dL (3.5-5.0); Alkaline Phosphatase 61 U/L (38-126); Anion Gap 9 mmol/L; Blood Urea Nitrogen 18 mg/dL (7-17); Calcium 8.7 mg/dL (8.4-10.2); Carbon Dioxide 26 mmol/L (22-30); Chloride 98 mmol/L (98-107); Glucose 121 mg/dL (74-99); Non-African American GFR(CKD) >90 (>60 ml/min/1.73 sqM); Sodium 133 mmol/L (137-145); Total Bilirubin 0.7 mg/dL (0.2-1.3); Total Protein 6.5 g/dL (6.3-8.2)
[2023-03-04] MEDS ORDERED: NALOXONE 0.4 MG/ML 1 ML VIAL IV PRN (02:04)
--- NOTE | 2023-03-04 02:06 | ED ---
Extremity Problem HPI - General Chief complaint: Extremity Problem,Nontraumatic Stated complaint: Post Op Complication Time Seen by Provider: 03/04/23 01:02 Source: patient Mode of arrival: wheelchair Limitations: no limitations - History of Present Illness Initial comments: Patient is a 52-year-old female presenting with chief complaint of knee pain pos t total arthroplasty. Surgery took place on 03/02 and patient was discharged earlier this afternoon. She states that she was having unmanageable pain at home. She is currently on Percocet. Patient was chronically on [place] prior to this. She does admit to some swelling and bruising which appears consistent with the postop state. Patient states that she left earlier than advised by her surgical team as she was scared of being in the hospital, but wishes to be readmitted for pain management. - Related Data Home Medications Medication Instructions Recorded Confirmed Gabapentin 600 mg PO TID PRN 02/04/15 03/02/23 metFORMIN HCL ER [Glucophage Xr] 500 mg PO QAM 08/05/15 03/02/23 ALPRAZolam [Xanax] 1 mg PO TID PRN 01/18/21 03/02/23 Baclofen [Lioresal] 20 mg PO TID PRN 01/18/21 03/02/23 Budesonide/Formoterol Fumarate 2 puff INHALATION RT-BID 01/18/21 03/02/23 [Symbicort 160-4.5 Mcg Inhaler] HYDROcodone/APAP 10-325MG [[place] 1 tab PO QID PRN 01/18/21 03/02/23 10-325] Levothyroxine Sodium [Synthroid] 112 mcg PO DAILY 01/18/21 03/02/23 Magnesium Oxide [Mag-Ox] 400 mg PO HS 01/18/21 03/02/23 Ibuprofen 800 mg PO Q8H PRN 03/06/21 03/02/23 Omeprazole Magnesium [PriLOSEC OTC] 20 mg PO QAM 02/28/23 03/02/23 Previous Rx's Medication Instructions Recorded Aspirin 81 mg PO BID 30 Days #60 tab 03/03/23 Diclofenac Sodium [Voltaren] 75 mg PO BID 30 Days #60 tab 03/03/23 Docusate [Colace] 100 mg PO BID #60 capsule 03/03/23 Omeprazole 40 mg PO DAILY 30 Days #30 cap 03/03/23 oxyCODONE HCL/ACETAMINOPHEN 1 tab PO Q6HR PRN 7 Days #28 tab 03/03/23 [Percocet 5-325 mg] Allergies Allergy/AdvReac Type Severity Reaction Status Date / Time sulfamethoxazole Allergy Swelling/turned Verified 03/04/23 00:48 [From Bactrim] red trimethoprim [From Bactrim] Allergy swelling/turned Verified 03/04/23 00:48 red Review of Systems ROS Statement: Those systems with pertinent positive or pertinent negative responses have been documented in the HPI. ROS Other: All systems not noted in ROS Statement are negative. Past Medical History Past Medical History: Cancer, COPD, Diabetes Mellitus, Fibromyalgia, Neurologic Disorder, Osteoarthritis (OA), Skin Disorder, Sleep Apnea/CPAP/BIPAP, Thyroid Disorder Additional Past Medical History / Comment(s): Multiple Sclerosis, occasionally has flare up of MS that causes gastroparesis, keratosis pilaris, hx cervical cancer, supposed to uses CPAP History of Any Multi-Drug Resistant Organisms: None Reported Past Surgical History: Bladder Surgery, Cholecystectomy, Hysterectomy, Orthopedic Surgery Additional Past Surgical History / Comment(s): right knee arthroscopy, bladder sling, Bartholin gland removal, colonoscopy Past Anesthesia/Blood Transfusion Reactions: Previous Problems w/ Anesthesia Additional Past Anesthesia/Blood Transfusion Reaction / Comment(s): "I woke up alot with twilight", pt. adopted Past Psychological History: Anxiety Smoking Status: Current every day smoker Past Alcohol Use History: None Reported Past Drug Use History: None Reported - Past Family History Mother History Unknown: Yes Family Medical History: Cancer Additional Family Medical History / Comment(s): esophageal General Exam Limitations: no limitations General appearance: alert, in no apparent distress Head exam: Present: atraumatic, normocephalic, normal inspection Eye exam: Present: normal appearance, EOMI. Absent: scleral icterus, henry orbital swelling Neck exam: Present: normal inspection, full ROM Left Knee exam: Present: tenderness, swelling. Absent: full ROM Neurovascular tendon exam: Present: no vascular compromise Neurological exam: Present: alert, oriented X3, CN II-XII intact Psychiatric exam: Present: normal affect, normal mood Skin exam: Present: warm, dry, intact, normal color. Absent: rash Course Vital Signs 03/04/23 00:44 Temperature 97.7 F Pulse Rate 72 Respiratory 18 Rate Blood Pressure 151/91 O2 Sat by Pulse 98 Oximetry Medical Decision Making - Medical Decision Making Was pt. sent in by a medical professional or institution (DARINEL Reddy, [employer]ETAKER, urgent care, hospital, or prison...) When possible be specific @ -No Did you speak to anyone other than the patient for history (EMS, parent, family, police, friend...)? What history was obtained from this source @ -No Did you review nursing and triage notes (agree or disagree)? Why? @ -I reviewed and agree with nursing and triage notes Were old charts reviewed (outside hosp., previous admission, EMS record, old EKG, old radiological studies, urgent care reports/EKG's, prison records)? Report findings @ -No old charts were reviewed Differential Diagnosis (chest pain, altered mental status, abdominal pain women, abdominal pain men, vaginal bleeding, weakness, fever, dyspnea, syncope, headache, dizziness, GI bleed, back pain, seizure, CVA, palpatations, mental health, musculoskeletal)? @ -Postoperative pain, DVT, arterial occlusion, this is not an all inclusive list EKG interpreted by me (3pts min.). @ -As above X-rays interpreted by me (1pt min.). @ -None done CT interpreted by me (1pt min.). @ -None done U/S interpreted by me (1pt. min.). @ -None done What testing was considered but not performed or refused? (CT, X-rays, U/S, labs)? Why? @ -None What meds were considered but not given or refused? Why? @ -None Did you discuss the management of the patient with other professionals (professionals i.e. DARINEL Reddy, [employer]ER, lab, RT, psych nurse, social science research assistant, supervisor rough end, teacher, physics technical officer, foster care case manager)? Give summary @ -Case discussed with Dr. Ashley who advised admission as an observation for pain management Was smoking cessation discussed for >3mins.? @ -No Was critical care preformed (if so, how long)? @ -No Were there social determinants of health that impacted care today? How? (Homelessness, low income, unemployed, alcoholism, drug addiction, transportation, low edu. Level, literacy, decrease access to med. care, nursing home, rehab)? @ -No Was there de-escalation of care discussed even if they declined (Discuss DNR or withdrawal of care, Hospice)? DNR status @ -No What co-morbidities impacted this encounter? (DM, HTN, Smoking, COPD, CAD, Cancer, CVA, ARF, Chemo, Hep., AIDS, mental health diagnosis, sleep apnea, morbid obesity)? @ -None Was patient admitted / discharged? Hospital course, mention meds given and route, prescriptions, significant lab abnormalities, going to OR and other pertinent info. @ -52-year-old female presenting with chief complaint of left knee pain, she is 2 days postop total left knee arthroplasty. She is currently on Percocet at home which she states is not helping the pain. On physical examination there is some swelling and bruising noted which appears consistent with postop state. Extremity is pink and warm, normal capillary refill and distal pulses. No discharge. Patient claims that she left earlier than her surgical team advised her to leave because she was never spoking in the hospital. Lab work shows no leukocytosis. Case discussed with Dr. Ashley who accepts admission of this patient. Patient is agreeable to this plan. I discussed this case my attending Dr. Oneill. Undiagnosed new problem with uncertain prognosis? @ -No Drug Therapy requiring intensive monitoring for toxicity (Heparin, Nitro, Insulin, Cardizem)? @ -No Were any procedures done? @ -No Diagnosis/symptom? @ -Uncontrolled postop pain Acute, or Chronic, or Acute on Chronic? @ -Acute Uncomplicated (without systemic symptoms) or Complicated (systemic symptoms)? @ -Complicated Side effects of treatment? @ -No Exacerbation, Progression, or Severe Exacerbation? @ -No Poses a threat to life or bodily function? How? (Chest pain, [place], [place], pneumonia, PE, COPD, DKA, ARF, appy, cholecystitis, CVA, Diverticulitis, Homicidal, Suicidal, threat to staff... and all critical care pts) @ -No - Lab Data Result diagrams: 03/04/23 01:27 03/04/23 01:27 Lab Results 03/04/23 03/04/23 Range/Units 01: 01:27 WBC 8.9 (3.8-10.6) k/uL RBC 4.15 (3.80-5.40) m/uL Hgb 13.1 (11.4-16.0) gm/dL Hct 38.0 (34.0-46.0) % MCV 91.6 (80.0-100.0) fL MCH 31.6 (25.0-35.0) pg MCHC 34.5 (31.0-37.0) g/dL RDW 13.7 (11.5-15.5) % Plt Count 215 (150-450) k/uL MPV 8.3 Neutrophils % 70 % Lymphocytes % 22 % Monocytes % 5 % Eosinophils % 1 % Basophils % 0 % Neutrophils # 6.2 (1.3-7.7) k/uL Lymphocytes # 2.0 (1.0-4.8) k/uL Monocytes # 0.4 (0-1.0) k/uL Eosinophils # 0.1 (0-0.7) k/uL Basophils # 0.0 (0-0.2) k/uL Sodium 133 L (137-145) mmol/L Potassium 4.0 (3.5-5.1) mmol/L Chloride 98 (98-107) mmol/L Carbon Dioxide 26 (22-30) mmol/L Anion Gap 9 mmol/L BUN 18 H (7-17) mg/dL Creatinine 0.65 (0.52-1.04) mg/dL Est GFR (CKD-EPI)AfAm >90 (>60 ml/min/1.73 sqM) Est GFR (CKD-EPI)NonAf >90 (>60 ml/min/1.73 sqM) Glucose 121 H (74-99) mg/dL Calcium 8.7 (8.4-10.2) mg/dL Total Bilirubin 0.7 (0.2-1.3) mg/dL AST 23 (14-36) U/L ALT 19 (4-34) U/L Alkaline Phosphatase 61 (38-126) U/L Total Protein 6.5 (6.3-8.2) g/dL Albumin 3.9 (3.5-5.0) g/dL Disposition Clinical Impression: Inadequate pain control Dis[facility] Condition: Good Time of Disposition: 02:06
[2023-03-04] MEDS: HYDROmorphone 1 MG/ML 1 ML SYRINGE IVP PRN ×5 (02:29→20:17)
[2023-03-04] MEDS: NICOTINE 14MG/24HR PATCH TRANSDERM SCH (14:01)
--- NOTE | 2023-03-04 18:51 | P.HPOR ---
History of Present Illness H&P Date: 03/04/23 This patient is a 52- year old female who underwent a left total knee arthroplasty on 03/02/23. There were no complications and the patient tolerated the procedure well. Patient was ultimately discharged home on post-op day #1 after passing physical therapy. Patient was discharged home on Percocet 5/325mg, as she takes [place] 10/325mg q4-6 hours daily as prescribed by her PCP. Patient's PCP is Dr. Woodard and she has a pain contract with him. Patient returned to the emergency department early this morning around 1am due to increasing pain in the knee after her nerve block wore off from anesthesia. Patient was admitted for pain control. Patient is examined bedside this afternoon in the emergency department with Dr. Arceo. Patient states she went home too early yesterday and her pain was difficult to control once she was home. Patient had no falls or injuries. Otherwise she feels well. Her pain is controlled at this time in the emergency department. Past Medical History Past Medical History: Cancer, COPD, Diabetes Mellitus, Fibromyalgia, Neurologic Disorder, Osteoarthritis (OA), Skin Disorder, Sleep Apnea/CPAP/BIPAP, Thyroid Disorder Additional Past Medical History / Comment(s): Multiple Sclerosis, occasionally has flare up of MS that causes gastroparesis, keratosis pilaris, hx cervical cancer, supposed to uses CPAP History of Any Multi-Drug Resistant Organisms: None Reported Past Surgical History: Bladder Surgery, Cholecystectomy, Hysterectomy, Orthopedic Surgery Additional Past Surgical History / Comment(s): right knee arthroscopy, bladder sling, Bartholin gland removal, colonoscopy Past Anesthesia/Blood Transfusion Reactions: Previous Problems w/ Anesthesia Additional Past Anesthesia/Blood Transfusion Reaction / Comment(s): "I woke up alot with twilight", pt. adopted Past Psychological History: Anxiety Smoking Status: Current every day smoker Past Alcohol Use History: None Reported Past Drug Use History: None Reported - Past Family History Mother History Unknown: Yes Family Medical History: Cancer Additional Family Medical History / Comment(s): esophageal Medications and Allergies Home Medications Medication Instructions Recorded Confirmed Type Gabapentin 600 mg PO TID PRN 02/04/15 03/04/23 History ALPRAZolam [Xanax] 1 mg PO TID PRN 01/18/21 03/04/23 History Baclofen [Lioresal] 20 mg PO TID PRN 01/18/21 03/04/23 History Budesonide/Formoterol Fumarate 2 puff INHALATION RT-BID 01/18/21 03/04/23 History [Symbicort 160-4.5 Mcg Inhaler] HYDROcodone/APAP 10-325MG [[place] 1 tab PO QID PRN 01/18/21 03/04/23 History 10-325] Levothyroxine Sodium [Synthroid] 112 mcg PO DAILY 01/18/21 03/04/23 History Magnesium Oxide [Mag-Ox] 400 mg PO HS 01/18/21 03/04/23 History Ibuprofen 800 mg PO Q8H PRN 03/06/21 03/04/23 History Omeprazole Magnesium [PriLOSEC OTC] 20 mg PO QAM 02/28/23 03/04/23 History Aspirin 81 mg PO BID 30 Days #60 tab 03/03/23 03/04/23 Rx Diclofenac Sodium [Voltaren] 75 mg PO BID 30 Days #60 tab 03/03/23 03/04/23 Rx Docusate [Colace] 100 mg PO BID #60 capsule 03/03/23 03/04/23 Rx oxyCODONE HCL/ACETAMINOPHEN 1 tab PO Q6HR PRN 7 Days #28 tab 03/03/23 03/04/23 Rx [Percocet 5-325 mg] Doxycycline Monohydrate 100 mg PO BID 14 Days #28 cap 03/04/23 Rx metFORMIN HCL 500 mg PO DAILY 03/04/23 03/04/23 History Allergies Allergy/AdvReac Type Severity Reaction Status Date / Time sulfamethoxazole Allergy Swelling/turned Verified 03/04/23 07:45 [From Bactrim] red trimethoprim [From Bactrim] Allergy swelling/turned Verified 03/04/23 07:45 red Physical Examination On examination, patient is sitting up on the gurney is no apparent distress. She is alert and orientated x3. is bedside. Her head appears normocephalic and atraumatic. Her breathing appears nonlabored. She appears comfortable. Focused examination of the left knee is conducted. On inspection of the left knee, there is a clean, dry, intact surgical dressing in place with no bleeding or drainage through the dressing. Small area of ecchymosis at the medial knee. Mild swelling. Motor and sensory function is intact of the left lower extremity. Left lower extremity is warm and well perfused with brisk capillary refill distally. Calf is soft and nontender to palpation. Results - Labs Labs: Abnormal Lab Results - Last 24 Hours (Table) 03/04/23 Range/Units 01:27 Sodium 133 L (137-145) mmol/L BUN 18 H (7-17) mg/dL Glucose 121 H (74-99) mg/dL H & H 03/04/23 Range/Units 01:27 Hgb 13.1 (11.4-16.0) gm/dL Hct 38.0 (34.0-46.0) % Result Diagrams: 03/04/23 01:27 03/04/23 01:27 Assessment and Plan Assessment: Status-post left total knee arthroplasty on 03/02/23. Post-op day #3 Chronic pain, managed on [place] 10/325mg per pain contract with Dr. Woodard Plan: - Patient will be admitted overnight for pain control. She was instructed to wean off of IV diluadid as tolerated while inpatient and transition to oral Percocet. - We will consult physical therapy for evaluation while inpatient. Patient may weight bear to tolerance on operative extremity with a walker. - Continue aspirin 81mg BID for DVT prophylaxis. - Patient will be started on doxycycline 100mg BID for wound healing prophylaxis. - Anticipate discharge home tomorrow if pain controlled.
[2023-03-04] MEDS: DOXYCYCLINE 100 MG CAP PO SCH (20:17)
[2023-03-04] MEDS: ASPIRIN 81 MG PO SCH (20:17)
[2023-03-05] MEDS: HYDROmorphone 1 MG/ML 1 ML SYRINGE IVP PRN ×2 (00:42→07:56)
[2023-03-05] MEDS: ASPIRIN 81 MG PO SCH ×2 (08:01→20:16)
[2023-03-05] MEDS: DOXYCYCLINE 100 MG CAP PO SCH ×2 (08:02→20:16)
[2023-03-05] MEDS: NICOTINE 14MG/24HR PATCH TRANSDERM SCH (08:02)
--- NOTE | 2023-03-05 09:53 | P.DS ---
Providers Date of admission: 03/04/23 02:05 Expected date of discharge: 03/05/23 Attending physician: Kristian Arceo Consults: 03/04/23 18:32 Consult Physician Routine Consulting Provider: Hitesh Woodard Consult Reason/Comments: medical management Do you want consulting provider notified?: Yes Primary care physician: Hitesh Chavez Kut - Discharge Diagnosis(es) (1) S/P total knee arthroplasty Current Visit: Yes Status: Acute (2) Inadequate pain control Current Visit: Yes Status: Acute (3) Osteoarthritis of left knee Current Visit: No Status: Acute Hospital Course: This is a 52-year-old female who is status post left total knee arthroplasty on 03/02/[address] Arceo. Patient was admitted on 03/04/2023 for pain control. Patient states that her pain is much more manageable and she has been ambulating well with a walker. On day of discharge patient's knee incision is healing well. There is minimal erythema. There is no drainage noted at this time. There is minimal soft tissue swelling to the knee. Patient has full foot and ankle motion without difficulty or pain. Calf is soft and nontender to palpation. Neurovascular status to the left lower extremity is intact. Patient is discharged home in good condition. Please see med rec for accurate list of home medications. Patient Condition at Discharge: Good Plan - Discharge Summary Discharge Rx Participant: No New Discharge Prescriptions: New Doxycycline Monohydrate 100 mg PO BID 14 Days #28 cap No Action Gabapentin 600 mg PO TID PRN PRN Reason: Pain Levothyroxine Sodium [Synthroid] 112 mcg PO DAILY Baclofen [Lioresal] 20 mg PO TID PRN PRN Reason: muscle spasms ALPRAZolam [Xanax] 1 mg PO TID PRN PRN Reason: Anxiety Docusate [Colace] 100 mg PO BID #60 capsule Diclofenac Sodium [Voltaren] 75 mg PO BID 30 Days #60 tab oxyCODONE HCL/ACETAMINOPHEN [Percocet 5-325 mg] 1 tab PO Q6HR PRN 7 Days #28 tab PRN Reason: Pain metFORMIN HCL 500 mg PO DAILY Budesonide/Formoterol Fumarate [Symbicort 160-4.5 Mcg Inhaler] 2 puff INHALATION RT-BID Magnesium Oxide [Mag-Ox] 400 mg PO HS HYDROcodone/APAP 10-325MG [[place] 10-325] 1 tab PO QID PRN PRN Reason: Pain Ibuprofen 800 mg PO Q8H PRN PRN Reason: Pain Omeprazole Magnesium [PriLOSEC OTC] 20 mg PO QAM Aspirin 81 mg PO BID 30 Days #60 tab Discharge Medication List Gabapentin 600 mg PO TID PRN 02/04/15 [History] ALPRAZolam [Xanax] 1 mg PO TID PRN 01/18/21 [History] Baclofen [Lioresal] 20 mg PO TID PRN 01/18/21 [History] Budesonide/Formoterol Fumarate [Symbicort 160-4.5 Mcg Inhaler] 2 puff INHALATION RT-BID 01/18/21 [History] HYDROcodone/APAP 10-325MG [[place] 10-325] 1 tab PO QID PRN 01/18/21 [History] Levothyroxine Sodium [Synthroid] 112 mcg PO DAILY 01/18/21 [History] Magnesium Oxide [Mag-Ox] 400 mg PO HS 01/18/21 [History] Ibuprofen 800 mg PO Q8H PRN 03/06/21 [History] Omeprazole Magnesium [PriLOSEC OTC] 20 mg PO QAM 02/28/23 [History] Aspirin 81 mg PO BID 30 Days #60 tab 03/03/23 [Rx] Diclofenac Sodium [Voltaren] 75 mg PO BID 30 Days #60 tab 03/03/23 [Rx] Docusate [Colace] 100 mg PO BID #60 capsule 03/03/23 [Rx] oxyCODONE HCL/ACETAMINOPHEN [Percocet 5-325 mg] 1 tab PO Q6HR PRN 7 Days #28 tab 03/03/23 [Rx] Doxycycline Monohydrate 100 mg PO BID 14 Days #28 cap 03/04/23 [Rx] metFORMIN HCL 500 mg PO DAILY 03/04/23 [History] Follow up Appointment(s)/Referral(s): Hitesh Woodard MD [Primary Care Provider] - 1-2 days Kristian Arceo MD [Medical Doctor] - 2 Weeks Activity/Diet/Wound Care/Special Instructions: Weight bear to tolerance on operative extremity with a walker. Keep operative dressing in place until follow-up in the office. Call the office if dressing becomes saturated or falls off. May shower over dressing. Take pain medications as prescribed. If additional pain medication is needed, please call Dr. Woodard. Take aspirin 81mg twice a day x 4 weeks for blood clot prevention. Take antibiotics as prescribed. Ice, elevate operative knee for swelling and pain control. Follow-up in the office at [facility] in two weeks. Call the office with any questions or concerns, Discharge Disposition: HOME WITH HOME HEALTH SERVICES
[2023-03-05] MEDS: oxyCODONE-APAP 5-325MG 1 EACH TAB PO PRN ×2 (10:21→14:24)
[2023-03-05] MEDS ORDERED: ALPRAZolam 1 MG TAB PO PRN (10:43)
[2023-03-05 12:14] VITALS: BMI 30.9
[2023-03-05] MEDS: PANTOPRAZOLE 40 MG TABLET PO SCH (13:01)
[2023-03-05] MEDS: LEVOTHYROXINE 112 MCG TAB PO SCH (13:01)
[2023-03-05 13:21] LABS: Glucose,Whole Blood 207 mg/dL (70-110)
[2023-03-05] MEDS: INSULIN ASPART (NovoLOG) 100 UNIT/ML VIAL SQ SCH ×3 (14:27→20:14)
[2023-03-05 17:23] LABS: Glucose,Whole Blood 104 mg/dL (70-110)
[2023-03-05] MEDS ORDERED: KETOROLAC 15 MG/ML 1 ML VIAL IVP PRN (17:55)
[2023-03-05] MEDS: HYDROmorphone 0.5 MG/0.5 ML SYRINGE IVP PRN ×2 (18:17→21:51)
[2023-03-05 19:09] VITALS: RESP 16
[2023-03-05] MEDS: SYMBICORT 160-4.5 MCG INHALER INHALATION SCH (19:41)
[2023-03-05 20:16] LABS: Glucose,Whole Blood 197 mg/dL (70-110)
[2023-03-05] MEDS ORDERED: GABAPENTIN 300 MG CAP PO PRN (21:04)
--- NOTE | 2023-03-05 21:08 | P.CONS ---
History of Present Illness - Reason for Consult Consult date: 03/05/23 Medical management - Chief Complaint Left knee pain - History of Present Illness Patient is a 52-year-old female with a past medical history of hypothyroidism, diabetes type 2 [id number], fibromyalgia, COPD, osteoarthritis, obstructive sleep apnea on CPAP, multiple sclerosis with occasional flareup of her MS, anxiety and currently everyday smoker presented to ER with complaints of worsening knee pain. Patient had left total knee arthroplasty on 03/02/2023 and was discharged on 03/03/2023. Patient was on nerve block while in the hospital. On the same night patient had worsening pain about 1 AM and return to ER. Patient was discharged on Percocet 01/26/2025. She also takes [place] 10 every every 6 hourly as prescribed by her primary care physician. Patient otherwise denies any worsening swelling of the knee. No fever no chills. No cough or sputum production. No nausea vomiting abdominal pain. No headache or dizziness or lightheadedness. No chest pain or shortness of breath. On admission blood pressure 151/91., Pulse 72 respiratory 18 and pulse ox 98% on room air. Laboratory data showed WBC 8.9 hemoglobin 13.1 and platelets 215. Sodium 133 potassium 4.0 chloride 98 bicarb is 26 BUN 18 and creatinine 0.65 and blood sugar 121. Liver Anjeso not elevated. Patient was admitted to hospital for pain management. Review of Systems Constitutional: Patient denies any fever or chills . no Generalized weakness. Abdomen: Patient denied any nausea or vomiting or abd. pain Cardiovascular: Patient denies any chest pain or short of breath no pal pitations. Respiratory: patient denied any cough . no sputum production. No shortness of breath Neurologic: Patient denied any numbness or tingling headache. Musculoskeletal: Patient denies any complaints of joint swelling or deformity. Left knee pain. Skin: Negative Psychiatric: Negative Endocrine: No heat or cold intolerance. No recent weight gain. Genitourinary: No dysuria or hematuria. All other 14 point ROS negative except the above Past Medical History Past Medical History: Cancer, COPD, Diabetes Mellitus, Fibromyalgia, Neurologic Disorder, Osteoarthritis (OA), Skin Disorder, Sleep Apnea/CPAP/BIPAP, Thyroid Disorder Additional Past Medical History / Comment(s): Multiple Sclerosis, occasionally has flare up of MS that causes gastroparesis, keratosis pilaris, hx cervical cancer, supposed to uses CPAP History of Any Multi-Drug Resistant Organisms: None Reported Past Surgical History: Bladder Surgery, Cholecystectomy, Hysterectomy, Orthopedic Surgery Additional Past Surgical History / Comment(s): right knee arthroscopy, bladder sling, Bartholin gland removal, colonoscopy Past Anesthesia/Blood Transfusion Reactions: Previous Problems w/ Anesthesia Additional Past Anesthesia/Blood Transfusion Reaction / Comm: "I woke up alot with twilight", pt. adopted Past Psychological History: Anxiety Smoking Status: Current every day smoker Past Alcohol Use History: None Reported Additional Past Alcohol Use History / Comment(s): down to 1/2ppd from 1PPD, has smoked for 40 yrs Past Drug Use History: None Reported - Past Family History Mother History Unknown: Yes Family Medical History: Cancer Additional Family Medical History / Comment(s): esophageal Medications and Allergies Home Medications Medication Instructions Recorded Confirmed Type Gabapentin 600 mg PO TID PRN 02/04/15 03/04/23 History ALPRAZolam [Xanax] 1 mg PO TID PRN 01/18/21 03/04/23 History Baclofen [Lioresal] 20 mg PO TID PRN 01/18/21 03/04/23 History Budesonide/Formoterol Fumarate 2 puff INHALATION RT-BID 01/18/21 03/04/23 History [Symbicort 160-4.5 Mcg Inhaler] HYDROcodone/APAP 10-325MG [[place] 1 tab PO QID PRN 01/18/21 03/04/23 History 10-325] Levothyroxine Sodium [Synthroid] 112 mcg PO DAILY 01/18/21 03/04/23 History Magnesium Oxide [Mag-Ox] 400 mg PO HS 01/18/21 03/04/23 History Ibuprofen 800 mg PO Q8H PRN 03/06/21 03/04/23 History Omeprazole Magnesium [PriLOSEC OTC] 20 mg PO QAM 02/28/23 03/04/23 History Aspirin 81 mg PO BID 30 Days #60 tab 03/03/23 03/04/23 Rx Diclofenac Sodium [Voltaren] 75 mg PO BID 30 Days #60 tab 03/03/23 03/04/23 Rx Docusate [Colace] 100 mg PO BID #60 capsule 03/03/23 03/04/23 Rx oxyCODONE HCL/ACETAMINOPHEN 1 tab PO Q6HR PRN 7 Days #28 tab 03/03/23 03/04/23 Rx [Percocet 5-325 mg] Doxycycline Monohydrate 100 mg PO BID 14 Days #28 cap 03/04/23 Rx metFORMIN HCL 500 mg PO DAILY 03/04/23 03/04/23 History Allergies Allergy/AdvReac Type Severity Reaction Status Date / Time sulfamethoxazole Allergy Swelling/turned Verified 03/04/23 07:45 [From Bactrim] red trimethoprim [From Bactrim] Allergy swelling/turned Verified 03/04/23 07:45 red Physical Exam Vitals: Vital Signs Temp Pulse Pulse Resp BP BP Pulse Ox 03/05/23 08:00 83 16 03/05/23 07:00 98.1 F 83 16 132/75 91 L 03/05/23 02:10 98.1 F 79 18 116/72 92 L 03/04/23 23:51 18 03/04/23 20:58 98.2 F 85 16 123/81 95 03/04/23 20:00 88 16 140/78 94 L 03/04/23 18:41 97.9 F 81 18 140/97 94 L 03/04/23 16:00 97.8 F 81 17 131/90 94 L 03/04/23 12:25 97.9 F 83 19 157/92 92 L Intake and Output 03/04/23 03/05/23 03/05/23 22:59 06:59 14:59 Other: Voiding Method Toilet Toilet # Voids 1 Weight 81.647 kg PHYSICAL EXAMINATION: Patient is lying in the bed comfortably, no acute distress, awake alert and oriented.. HEENT: Normocephalic. Neck is supple. Pupils reactive. Nostrils clear. Oral cavity is moist. Neck reveals no JVD, carotid bruits, or thyromegaly. CHEST EXAMINATION: Trachea is central. Symmetrical expansion. Lung robb clear to auscultation and percussion. CARDIAC: Normal S1, S2 with no gallops. No murmurs ABDOMEN: Soft. Bowel sounds present. Nontender. No organomegaly. No abdominal bruits. Extremities: Trace left lower extremity edema. No clubbing or cyanosis Neurologically awake, alert, oriented x3 with well-coordinated movements. No fo vanessa deficits noted Skin: No rash or skin lesions. Psychiatric: Coperative. Nonsuicidal, Musculoskeletal: Left knee surgical site intact. Minimal swelling. Decreased range of motion. No calf tenderness. Results CBC & Chem 7: 03/04/23 01:27 03/04/23 01:27 Assessment and Plan Assessment: Left knee pain. Increased pain after wearing off nerve block. Controlled now. Status post left total knee arthroplasty on 03/02/2023. Uncomplicated course. Chronic pain and fibromyalgia. Patient does take [place] 10 4 times daily at home as needed. Diabetes type 2 [id number] COPD Multiple sclerosis with occasional flareup that Cardis gastroparesis History of cervical cancer Obstructive sleep apnea not using CPAP at home Anxiety Currently everyday smoker DVT prophylaxis with aspirin twice daily Plan: Patient will be continued on Percocet 5 every 4 hourly as needed for pain. Patient was also given IV Dilaudid and will be weaned off. Patient is currently able to ambulate with walker. Encourage incentive spirometry. PT OT consult for evaluation. Continue with insulin sliding scale. Metformin is on hold while in hospital.. GI and DVT prophylaxis. We will continue to follow and further recommendations based on the clinical course. Discussed with the patient and her at bedside in detail. Thank you for your consult.
[2023-03-06] MEDS: HYDROmorphone 0.5 MG/0.5 ML SYRINGE IVP PRN (01:35)
[2023-03-06] MEDS: INSULIN ASPART (NovoLOG) 100 UNIT/ML VIAL SQ SCH (06:12)
[2023-03-06] MEDS: oxyCODONE-APAP 5-325MG 1 EACH TAB PO PRN ×2 (06:12→10:11)
[2023-03-06] MEDS: LEVOTHYROXINE 112 MCG TAB PO SCH (06:13)
[2023-03-06 06:14] LABS: Glucose,Whole Blood 107 mg/dL (70-110)
[2023-03-06 07:59] VITALS: BP 137/74; PULSE 60; TEMP 97.6
[2023-03-06] MEDS: ASPIRIN 81 MG PO SCH (08:00)
[2023-03-06] MEDS: NICOTINE 14MG/24HR PATCH TRANSDERM SCH ×2 (08:00→08:03)
[2023-03-06] MEDS: PANTOPRAZOLE 40 MG TABLET PO SCH (08:00)
[2023-03-06] MEDS: DOXYCYCLINE 100 MG CAP PO SCH (08:00)
--- NOTE | 2023-03-06 08:33 | P.PN ---
Subjective Patient pain is much better this morning. She is comfortable and has no complaints. Objective - Vital Signs Vital signs: Vital Signs Temp 97.6 F 03/06/23 07:00 Pulse 60 03/06/23 07:00 Resp 16 03/06/23 07:00 BP 137/74 03/06/23 07:00 Pulse Ox 93 L 03/06/23 07:00 FiO2 Intake & Output 03/05/23 03/06/23 03/06/23 18:59 06:59 18:59 Intake Total 120 Balance 120 Weight 81.647 kg Intake: Oral 120 Other: Voiding Method Toilet Toilet # Voids 1 2 - Exam The patient is resting comfortably in her bed. She is alert and able to answer questions. A focused exam of the left lower extremity was conducted. On inspection of the knee there is a clean dressing no drainage. There is mild swelling and resolving ecchymosis. She has a minimal effusion. Her thigh and calf are soft. Distally motor and sensory function are intact. - Labs CBC & Chem 7: 03/04/23 01:27 03/04/23 01:27 Labs: Abnormal Lab Results - Last 24 Hours (Table) 03/05/23 03/05/23 Range/Units 13:20 20:01 POC Glucose (mg/dL) 207 H 197 H (70-110) mg/dL Assessment and Plan Plan: Patient seems significantly improve this morning. Her pain is much better controlled. She would like to discharge home later this morning.
[2023-03-06] MEDS: SYMBICORT 160-4.5 MCG INHALER INHALATION SCH (08:54)
== END 2023-03-06 10:39 | disposition home health service (06) ==
LOC: EC 00:36 → 6NMEDSUR 02:05
PROVIDERS: ADMIT Orthopaedic Surgery; ATTEND Orthopaedic Surgery
DX: G89.18 Other acute postprocedural pain (principal); Z96.652 Presence of left artificial knee joint; M17.12 Unilateral primary osteoarthritis, left knee; J44.9 Chronic obstructive pulmonary disease, unspecified; E11.9 Type 2 diabetes mellitus without complications; M79.7 Fibromyalgia; M19.90 Unspecified osteoarthritis, unspecified site; G35 Multiple sclerosis; E03.9 Hypothyroidism, unspecified; G47.33 Obstructive sleep apnea (adult) (pediatric); L85.8 Other specified epidermal thickening; Z85.41 Personal history of malignant neoplasm of cervix uteri; Z90.49 Acquired absence of other specified parts of digestive tract; Z90.710 Acquired absence of both cervix and uterus; Z98.890 Other specified postprocedural states; F41.9 Anxiety disorder, unspecified; F17.210 Nicotine dependence, cigarettes, uncomplicated; Z80.0 Family history of malignant neoplasm of digestive organs; Z79.84 Long term (current) use of oral hypoglycemic drugs; Z79.82 Long term (current) use of aspirin; Z79.890 Hormone replacement therapy; Z79.51 Long term (current) use of inhaled steroids; Z79.899 Other long term (current) drug therapy; Z88.2 Allergy status to sulfonamides
CPT/HCPCS: 96376 ×2; 96367; 96375; 96374; 99284; 36415; 80053; 85025; 83036; G0378 ×3; S4990 ×2; J1170 ×4; J1885

== ENCOUNTER → 2023-03-15 | Outpatient (CLI) | payer MEDICARE, BC ==
--- NOTE | 2023-03-15 15:24 | US ---
EXAMINATION TYPE: US venous doppler duplex LE LT DATE OF EXAM: 03/15/2023 3:05 PM COMPARISON: NONE CLINICAL INDICATION: Female, 52 years old with history of I80.9 PHLEBITI Z47.1 PHLEBITIS AND THROMBOP HLEBITIS OF UNSP; SIDE PERFORMED: Left TECHNIQUE: The lower extremity deep venous system is examined utilizing real time linear array sonog morenita with graded compression, doppler sonography and color-flow sonography. VESSELS IMAGED: Common Femoral Vein Deep Femoral Vein Greater Saphenous Vein * Femoral Vein Popliteal Vein Small Saphenous Vein * Proximal Calf Veins (* superficial vessels) Left Leg: Negative for DVT Schedule Analyst notes: Incidental note is made of very complex fluid collection left pop fossa measuring 5.4 x 1.5 x 3.6 cm. IMPRESSION: 1. No evidence for DVT within the left lower extremity imaged from the groin to the upper calf. 2. 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
== END | disposition home or self-care (01) ==
LOC: RADUSWWP 14:44
PROVIDERS: ATTEND Orthopaedic Surgery
DX: Z48.89 Encounter for other specified surgical aftercare (principal); M71.22 Synovial cyst of popliteal space [Baker], left knee; I80.9 Phlebitis and thrombophlebitis of unspecified site; F17.200 Nicotine dependence, unspecified, uncomplicated; Z47.1 Aftercare following joint replacement surgery

== ENCOUNTER 2023-09-02 17:25 | Inpatient (IN) | payer BC, MEDICARE ==
[2023-09-02] MEDS ORDERED: HEPARIN SODIUM 1,000 UN/ML (10ML VL) IV ONE (17:29)
[2023-09-02] MEDS ORDERED: ATORVASTATIN 80 MG TAB PO STA (17:30)
--- NOTE | 2023-09-02 17:35 | ED ---
Chest Pain HPI - General Chief Complaint: Chest Pain Stated Complaint: CHEST PAIN Time Seen by Provider: 09/02/23 17:29 Source: patient, EMS Mode of arrival: EMS Limitations: no limitations - History of Present Illness Initial Comments: 52-year-old female presents emergency department reporting chest pain. States that she's had some intermittent chest pain for the past 3 weeks however got acutely worse about 2 hours ago. She describes it as a squeezing pressure in her chest with radiation to her jaw and shoulder. She became extremely diaphoretic and called EMS. Originally EKG was normal. Second EKG demonstrated STEMI. Patient has no previous cardiac history. She was given 4 chewable aspirins. Pain is graded as 7 out of 10 at this time. [place] abdominal pain. No ripping or tearing sensation to her back. No shortness of breath. No other alleviating, precipitating or modifying factors - Related Data Home Medications Medication Instructions Recorded Confirmed Gabapentin 600 mg PO Q6H PRN 02/04/15 09/02/23 ALPRAZolam [Xanax] 1 mg PO TID PRN 01/18/21 09/02/23 Baclofen [Lioresal] 20 - 30 mg PO HS PRN 01/18/21 09/02/23 Budesonide/Formoterol Fumarate 2 puff INHALATION RT-BID 01/18/21 09/02/23 [Symbicort 160-4.5 Mcg Inhaler] HYDROcodone/APAP 10-325MG [[place] 1 tab PO QID PRN 01/18/21 09/02/23 10-325] Ibuprofen 800 mg PO Q8H PRN 03/06/21 09/02/23 Omeprazole Magnesium [PriLOSEC OTC] 20 mg PO DAILY 02/28/23 09/02/23 metFORMIN HCL 500 mg PO DAILY 03/04/23 09/02/23 Albuterol Sulfate [Ventolin HFA] 2 puff INHALATION RT-QID PRN 09/02/23 09/02/23 Levothyroxine Sodium [Synthroid] 112 mcg PO DAILY 09/02/23 09/02/23 QUEtiapine [SEROquel] 100 mg PO HS 09/02/23 09/02/23 Allergies Allergy/AdvReac Type Severity Reaction Status Date / Time sulfamethoxazole Allergy Swelling/turned Verified 09/02/23 20:44 [From Bactrim] red trimethoprim [From Bactrim] Allergy swelling/turned Verified 09/02/23 20:44 red Review of Systems ROS Statement: Those systems with pertinent positive or pertinent negative responses have been documented in the HPI. ROS Other: All systems not noted in ROS Statement are negative. Past Medical History Past Medical History: Cancer, COPD, Diabetes Mellitus, Fibromyalgia, Neurologic Disorder, Osteoarthritis (OA), Skin Disorder, Sleep Apnea/CPAP/BIPAP, Thyroid Disorder Additional Past Medical History / Comment(s): Multiple Sclerosis, occasionally has flare up of MS that causes gastroparesis, keratosis pilaris, hx cervical cancer, supposed to uses CPAP History of Any Multi-Drug Resistant Organisms: None Reported Past Surgical History: Bladder Surgery, Cholecystectomy, Hysterectomy, Orthopedic Surgery Additional Past Surgical History / Comment(s): right knee arthroscopy, bladder sling, Bartholin gland removal, colonoscopy Past Anesthesia/Blood Transfusion Reactions: Previous Problems w/ Anesthesia Additional Past Anesthesia/Blood Transfusion Reaction / Comment(s): "I woke up alot with twilight", pt. adopted Past Psychological History: Anxiety Smoking Status: Current every day smoker Past Alcohol Use History: None Reported Past Drug Use History: None Reported - Past Family History Mother History Unknown: Yes Family Medical History: Cancer Additional Family Medical History / Comment(s): esophageal General Exam Limitations: no limitations General appearance: alert, in no apparent distress Head exam: Present: atraumatic, normocephalic, normal inspection Eye exam: Present: normal appearance, PERRL, EOMI. Absent: scleral icterus, conjunctival injection, periorbital swelling ENT exam: Present: normal exam, mucous membranes moist Neck exam: Present: normal inspection. Absent: tenderness, meningismus, lymphadenopathy Respiratory exam: Present: normal lung sounds bilaterally. Absent: respiratory distress, wheezes, rales, rhonchi, stridor Cardiovascular Exam: Present: regular rate, normal rhythm, normal heart sounds. Absent: systolic murmur, diastolic murmur, rubs, gallop, clicks GI/Abdominal exam: Present: soft, normal bowel sounds. Absent: distended, tenderness, guarding, rebound, rigid Extremities exam: Present: normal inspection, full ROM, normal capillary refill. Absent: tenderness, pedal edema, joint swelling, calf tenderness Back exam: Present: normal inspection Neurological exam: Present: alert, oriented X3, CN II-XII intact Psychiatric exam: Present: normal affect, normal mood Skin exam: Present: warm, dry, intact, normal color. Absent: rash Course Vital Signs 09/02/23 09/02/23 17:27 17:35 Pulse Rate 55 L 87 Respiratory 20 20 Rate Blood Pressure 136/86 145/91 O2 Sat by Pulse 96 Oximetry Chest Pain MDM - MDM Was pt. sent in by a medical professional or institution (, PA, DIGITAL COURT REPORTER, urgent care, hospital, or retirement...) When possible be specific @ -No Did you speak to anyone other than the patient for history (EMS, parent, family, police, friend...)? What history was obtained from this source @ -EMS Did you review nursing and triage notes (agree or disagree)? Why? @ -I reviewed and agree with nursing and triage notes Were old charts reviewed (outside hosp., previous admission, EMS record, old EKG, old radiological studies, urgent care reports/EKG's, retirement records)? Report findings @ -No old charts were reviewed Differential Diagnosis (chest pain, altered mental status, abdominal pain women, abdominal pain men, vaginal bleeding, weakness, fever, dyspnea, syncope, headache, dizziness, GI bleed, back pain, seizure, CVA, palpatations, mental health, musculoskeletal)? @ -Differential Chest Pain: Stable Angina, Unstable Angina, STEMI, NSTEMI Aortic Dissection, Pneumothorax, Musculoskeletal, Esophageal Spasm GERD, Cholecystitis, Pancreatitis, Zoster, this is not meant to be an all-inclusive list. EKG interpreted by me (3pts min.). @ -Yes and demonstrates sinus rhythm with a rate of 51. DC interval 127. QRS 106. QTC of 412. ST segment elevation 2, 3, aVF with reciprocal depressions in 1, aVL and V2 X-rays interpreted by me (1pt min.). @ -yes and demonstrates no acute process CT interpreted by me (1pt min.). @ -None done U/S interpreted by me (1pt. min.). @ -None done What testing was considered but not performed or refused? (CT, X-rays, U/S, labs)? Why? @ -None What meds were considered but not given or refused? Why? @ -nitro but patient is inferior wall GA Did you discuss the management of the patient with other professionals (professionals i.e. , PA, DIGITAL COURT REPORTER, lab, RT, psych nurse, health and social care teacher, wire wrapper machine operator, teacher, hydrographical technical officer, ed case manager)? Give summary @ -Dr. delgado Was smoking cessation discussed for >3mins.? @ -No Was critical care preformed (if so, how long)? @ -yes, 35 minutes Were there social determinants of health that impacted care today? How? (Homelessness, low income, unemployed, alcoholism, drug addiction, transportation, low edu. Level, literacy, decrease access to med. care, intermediate, rehab)? @ -No Was there de-escalation of care discussed even if they declined (Discuss DNR or withdrawal of care, Hospice)? DNR status @ -[No What co-morbidities impacted this encounter? (DM, HTN, Smoking, COPD, CAD, Cancer, CVA, ARF, Chemo, Hep., AIDS, mental health diagnosis, sleep apnea, morbid obesity)? @ -None Was patient admitted / discharged? Hospital course, mention meds given and route, prescriptions, significant lab abnormalities, going to OR and other pertinent info. @ -Upon arrival patient was placed in a trauma 1. Thorough history and physical exam was performed. Prehospital EKG demonstrated a STEMI EKG. It STEMI is activated prehospital. Patient does arrive and another EKG is obtained which continues to demonstrate ST segment elevation. Patient did receive 80 mg of atorvastatin, 4000 units of heparin and 4 mg of morphine. Chest x-rays performed. Lab studies are obtained. Dr. Delgado does present to the emergency department. Patient is taken to cath laboratory technician 3 in stable condition Undiagnosed new problem with uncertain prognosis? @ -No Drug Therapy requiring intensive monitoring for toxicity (Heparin, Nitro, Insulin, Cardizem)? @ -heparin Were any procedures done? @ -No Diagnosis/symptom? @ -acute chest pain, stemi Acute, or Chronic, or Acute on Chronic? @ -acute Uncomplicated (without systemic symptoms) or Complicated (systemic symptoms)? @ -complicated Side effects of treatment? @ -No Exacerbation, Progression, or Severe Exacerbation? @ -No Poses a threat to life or bodily function? How? (Chest pain, [place], [place], pneumonia, PE, COPD, DKA, ARF, appy, cholecystitis, CVA, Diverticulitis, Homicidal, Suicidal, threat to staff... and all critical care pts) @ -yes, patient presents with stemi changes Disposition Clinical Impression: Chest pain, ST elevation myocardial infarction (STEMI) Disposition: ADMITTED IP TO THIS HOSP Condition: Serious Is patient prescribed a controlled substance at d/c from ED?: No Time of Disposition: 17:43 Decision to Admit Reason: Admit from EC Decision Date: 09/02/23 Decision Time: 17:43
[2023-09-02] MEDS ORDERED: NALOXONE 0.4 MG/ML 1 ML VIAL IV PRN (17:43)
[2023-09-02] MEDS ORDERED: MORPHINE SULFATE 4 MG/ML SYRINGE IVP STA (17:43)
[2023-09-02] MEDS ORDERED: IV FLUID CONTINUATION 1,000 ML IV ONE (17:50)
[2023-09-02 17:53] LABS: Basophils # (A) 0.1 k/uL (0-0.2); Basophils % (A) 1 %; Eosinophils # (A) 0.1 k/uL (0-0.7); Eosinophils % (A) 1 %; HCT 44.3 % (34.0-46.0); HGB 14.7 gm/dL (11.4-16.0); Lymphocytes # (A) 1.5 k/uL (1.0-4.8); Lymphocytes % (A) 16 %; MCH 30.6 pg (25.0-35.0); MCHC 33.2 g/dL (31.0-37.0); MCV 92.2 fL (80.0-100.0); Mean Platelet Volume 8.1; Monocytes # (A) 0.3 k/uL (0-1.0); Monocytes % (A) 3 %; Neutrophils # (A) 7.5 k/uL (1.3-7.7); Neutrophils % (A) 79 %; Platelet Count 267 k/uL (150-450); RBC 4.81 m/uL (3.80-5.40); RDW 14.1 % (11.5-15.5); WBC 9.5 k/uL (3.8-10.6)
[2023-09-02] MEDS ORDERED: fentaNYL (PF) 50 MCG/ML 2 ML AMP ONE (17:54)
[2023-09-02] MEDS ORDERED: HEPARIN SODIUM 1,000 UN/ML (10ML VL) ONE (17:54)
[2023-09-02] MEDS ORDERED: LIDOCAINE 1% INJ 10MG/ML (20 ML MDV) SQ ONE (17:55)
[2023-09-02] MEDS ORDERED: fentaNYL (PF) 50 MCG/ML 2 ML AMP IVP ONE (17:56)
[2023-09-02] MEDS ORDERED: VERAPAMIL SYRINGE (5 MG/10 ML) INTRAARTER ONE (17:56)
[2023-09-02 17:58] LABS: ALT 14 U/L (4-34); AST 21 U/L (14-36); African American GFR (CKD) >90 (>60 ml/min/1.73 sqM); Albumin 4.4 g/dL (3.5-5.0); Alkaline Phosphatase 83 U/L (38-126); Anion Gap 13 mmol/L; Blood Urea Nitrogen 11 mg/dL (7-17); Calcium 9.3 mg/dL (8.4-10.2); Carbon Dioxide 22 mmol/L (22-30); Chloride 104 mmol/L (98-107); Glucose 209 mg/dL (74-99); INR 0.9 (<1.2); Non-African American GFR(CKD) >90 (>60 ml/min/1.73 sqM); Partial Thromboplastin Time 23.9 sec (22.0-30.0); Prothrombin Time 10.4 sec (10.0-12.5); Sodium 139 mmol/L (137-145); Total Bilirubin 0.5 mg/dL (0.2-1.3); Total Protein 7.1 g/dL (6.3-8.2)
[2023-09-02] MEDS: HEPARIN SODIUM 1,000 UN/ML (10ML VL) IV ONE ×5 (18:02→18:56)
--- NOTE | 2023-09-02 18:02 | XR ---
EXAMINATION TYPE: XR chest 1V portable DATE OF EXAM: 09/02/2023 Comparison: None Clinical History: 52-year-old female chest pain Findings: Heart normal size. Aorta and pulmonary vasculature are within normal limits. Hazy peripheral lung den sities relating to overlying soft tissue. No consolidation or pleural effusion. Impression: No acute cardiopulmonary process.
[2023-09-02] MEDS ORDERED: TICAGRELOR 90 MG TAB ONE (18:05)
[2023-09-02] MEDS ORDERED: TICAGRELOR 90 MG TAB PO ONE (18:07)
[2023-09-02] MEDS: MIDAZOLAM 2 MG/2 ML VIAL IVP ONE ×2 (18:26→18:33)
[2023-09-02] MEDS ORDERED: IOPAMIDOL-370 200ML BTL INJ ONE ×2 (18:51)
[2023-09-02] MEDS ORDERED: RX INFO: IV CONTRAST WAS GIVEN 1 EACH MISC MISCELLANE PRN (19:05)
[2023-09-02] MEDS ORDERED: MAG HYDROX/AL HYDROX/SIMETH 30 ML CUP PO PRN (19:05)
[2023-09-02] MEDS ORDERED: ATROPINE SULFATE 0.1 MG/ML 10ML SYRINGE IV PRN (19:05)
[2023-09-02] MEDS ORDERED: NITROGLYCERIN SL TABS 0.4 MG TAB SUBLINGUAL PRN (19:05)
--- NOTE | 2023-09-02 19:13 | P.CRDCN ---
History of Present Illness Consult date: 09/02/23 History of present illness: History of Present Illness: The patient is a 52-year-old female with known history of MS, diabetes, chronic tobacco use who presented with symptoms of chest discomfort and ST elevation in the inferior leads. The patient has been having discomfort on and off for the last 2 weeks and felt it was related to her MS. Today she had worsening di scomfort, radiating to her jaw with diaphoresis and dizziness. She has no prior documented history of CAD, CHF or significant arrhythmia. She is limited in her activity because of her MS, has mild dyspnea on exertion but no prior history of exertional chest discomfort. She denies any PND, orthopnea or peripheral edema. In the emergency room her EKG showed sinus mechanism with significant ST el evation inferior leads with ST depression anteriorly. She was hemodynamically stable. Medications: Levothyroxine, metformin 500 mg daily, omeprazole, ibuprofen, hydrocodone, Neurontin, Voltaren, aspirin, Xanax Review of Systems: Respiratory: She has a history of dyspnea on exertion and chronic obstructive lung disease GI: No nausea or vomiting . No history of peptic ulcer disease. No recent GI b leed. : No hematuria or dysuria. Nervous System: No stroke or seizure. She has a history of MS Physical Examination: 52-year-old female, alert and oriented in mild to moderate discomfort,Blood pr essure 145/90, Heart rate 80 Head: Normocephalic. Eyes: Sclerae nonicteric. Neck: Good carotid upstroke, no bruit, no jugular venous distention. Lungs: Clear to auscultation. Heart: Regular rate and rhythm, S1-S2, no S3, no rub. No murmur. Abdomen: Soft nontender, positive bowel sounds no organomegaly. Extremities: No edema, intact distal pulses. Labs: Hemoglobin 14.7, potassium 4.0, BUN 11, creatinine 0.61, glucose 209, troponin 0.025. Chest x-ray with no acute infiltrate EKG: Sinus mechanism, rate of [address] elevation in leads [address] depression in 1, aVL V1 and V2 Impression: 1. Acute inferior myocardial infarction 2. History of MS 3. Chronic tobacco use 4. History of diabetes Plan: 1. Proceed with emergent cardiac catheterization 2. The risks and the complications were discussed with the patient and she is in full understanding and agreement 3. Obtain an echocardiogram with Doppler 4. Smoking cessation 5. Depending on her progress further recommendations will be made, thank you for this consult we will follow with you. Past Medical History Past Medical History: Cancer, COPD, Diabetes Mellitus, Fibromyalgia, Neurologic Disorder, Osteoarthritis (OA), Skin Disorder, Sleep Apnea/CPAP/BIPAP, Thyroid Disorder Additional Past Medical History / Comment(s): Multiple Sclerosis, occasionally has flare up of MS that causes gastroparesis, keratosis pilaris, hx cervical cancer, supposed to uses CPAP History of Any Multi-Drug Resistant Organisms: None Reported Past Surgical History: Bladder Surgery, Cholecystectomy, Hysterectomy, Orthopedic Surgery Additional Past Surgical History / Comment(s): right knee arthroscopy, bladder sling, Bartholin gland removal, colonoscopy Past Anesthesia/Blood Transfusion Reactions: Previous Problems w/ Anesthesia Additional Past Anesthesia/Blood Transfusion Reaction / Comment(s): "I woke up alot with twilight", pt. adopted Past Psychological History: Anxiety Smoking Status: Current every day smoker Past Alcohol Use History: None Reported Past Drug Use History: None Reported - Past Family History Mother History Unknown: Yes Family Medical History: Cancer Additional Family Medical History / Comment(s): esophageal Medications and Allergies Home Medications Medication Instructions Recorded Confirmed Type Gabapentin 600 mg PO TID PRN 02/04/15 03/04/23 History ALPRAZolam [Xanax] 1 mg PO TID PRN 01/18/21 03/04/23 History Baclofen [Lioresal] 20 mg PO TID PRN 01/18/21 03/04/23 History Budesonide/Formoterol Fumarate 2 puff INHALATION RT-BID 01/18/21 03/04/23 History [Symbicort 160-4.5 Mcg Inhaler] HYDROcodone/APAP 10-325MG [[place] 1 tab PO QID PRN 01/18/21 03/04/23 History 10-325] Levothyroxine Sodium [Synthroid] 112 mcg PO DAILY 01/18/21 03/04/23 History Magnesium Oxide [Mag-Ox] 400 mg PO HS 01/18/21 03/04/23 History Ibuprofen 800 mg PO Q8H PRN 03/06/21 03/04/23 History Omeprazole Magnesium [PriLOSEC OTC] 20 mg PO QAM 02/28/23 03/04/23 History Aspirin 81 mg PO BID 30 Days #60 tab 03/03/23 03/04/23 Rx Diclofenac Sodium [Voltaren] 75 mg PO BID 30 Days #60 tab 03/03/23 03/04/23 Rx Docusate [Colace] 100 mg PO BID #60 capsule 03/03/23 03/04/23 Rx oxyCODONE HCL/ACETAMINOPHEN 1 tab PO Q6HR PRN 7 Days #28 tab 03/03/23 03/04/23 Rx [Percocet 5-325 mg] Doxycycline Monohydrate 100 mg PO BID 14 Days #28 cap 03/04/23 Rx metFORMIN HCL 500 mg PO DAILY 03/04/23 03/04/23 History Allergies Allergy/AdvReac Type Severity Reaction Status Date / Time sulfamethoxazole Allergy Swelling/turned Verified 03/04/23 07:45 [From Bactrim] red trimethoprim [From Bactrim] Allergy swelling/turned Verified 03/04/23 07:45 red Physical Exam Vitals: Vital Signs Pulse Resp BP Pulse Ox 09/02/23 17:35 87 20 145/91 09/02/23 17:27 55 L 20 136/86 96 Intake and Output 09/02/23 09/02/23 09/02/23 06:59 14:59 22:59 Intake Total 850 Balance 850 Intake: IV 850 Other: Weight 83.915 kg Results 09/02/23 17:33 09/02/23 17:33 Cardiac Enzymes 09/02/23 09/02/23 Range/Units 17:33 17:33 AST 21 (14-36) U/L Troponin I 0.025 (0.000-0.034) ng/mL Coagulation 09/02/23 Range/Units 17:33 PT 10.4 (10.0-12.5) sec APTT 23.9 (22.0-30.0) sec CBC 09/02/23 Range/Units 17:33 WBC 9.5 (3.8-10.6) k/uL RBC 4.81 (3.80-5.40) m/uL Hgb 14.7 (11.4-16.0) gm/dL Hct 44.3 (34.0-46.0) % Plt Count 267 (150-450) k/uL Comprehensive Metabolic Panel 09/02/23 Range/Units 17:33 Sodium 139 (137-145) mmol/L Potassium 4.0 (3.5-5.1) mmol/L Chloride 104 (98-107) mmol/L Carbon Dioxide 22 (22-30) mmol/L BUN 11 (7-17) mg/dL Creatinine 0.61 (0.52-1.04) mg/dL Glucose 209 H (74-99) mg/dL Calcium 9.3 (8.4-10.2) mg/dL AST 21 (14-36) U/L ALT 14 (4-34) U/L Alkaline Phosphatase 83 (38-126) U/L Total Protein 7.1 (6.3-8.2) g/dL Albumin 4.4 (3.5-5.0) g/dL Current Medications Generic Name Dose Route Start Last Admin Trade Name Freq PRN Reason Stop Dose Admin Al Hydroxide/Mg Hydroxide 30 ml 09/02/23 19:05 Mag Hydrox/Al Hydrox/Simeth 30 Ml Cup PO Q4HR PRN Heartburn Atropine Sulfate 0.5 mg 09/02/23 19:05 Atropine Sulfate 0.1 Mg/Ml 10ml Syringe IV ONCE PRN Symptomatic Bradycardia Sodium Chloride 1,000 ml/ IV 1,000 mls @ 83.915 mls/hr 09/02/23 19:15 Solution IV 09/02/23 23:16 .[id number] CINTHIA 1 ML/KG/HR Miscellaneous Information 1 each 09/02/23 19:05 Rx Info: Iv Contrast Was Given 1 Each Misc MISCELLANE 09/04/23 19:05 DAILY PRN Per Protocol Naloxone HCl 0.2 mg 09/02/23 17:43 Naloxone 0.4 Mg/Ml 1 Ml Vial IV Q2M PRN Opioid Reversal Nitroglycerin 0.4 mg 09/02/23 19:05 Nitroglycerin Sl Tabs 0.4 Mg Tab SUBLINGUAL Q5M PRN Chest Pain Zolpidem Tartrate 5 mg 09/02/23 19:05 Zolpidem 5 Mg Tab PO HS PRN Insomnia Intake and Output 09/02/23 09/02/23 09/02/23 06:59 14:59 22:59 Intake Total 850 Balance 850 Intake: IV 850 Other: Weight 83.915 kg Patient Weight 09/03/23 06:59 Weight 83.915 kg 09/02/23 17:33 12/08/23 17:33
[2023-09-02] MEDS ORDERED: SODIUM CHLORIDE 0.9% 1,000 ML in EMPTY BAG 1 BAG IV SCH (19:15)
[2023-09-02 19:20] LABS: Glucose,Whole Blood 139 mg/dL (70-110)
--- NOTE | 2023-09-02 19:21 | P.CARDCATH ---
Date of Procedure: 09/02/23 Description of Procedure: Cardiac Catheterization: The patient is a 52-year-old female with history of MS, diabetes and chronic tobacco use who presented with an acute inferior wall myocardial infarction Recommendations were made regarding cardiac catheterization, the risks and the complications were discussed with the patient who is in full understanding and agreement. Procedure Description: Patient was brought to rn cardiac cath in fasting semi-sedated state after receiving Fentanyl and Benadryl achieiving moderate conscious sedated state. Using Xylocaine Anesthesia and modified Seldinger technique, a 6-American sheath was introduced in the right radial artery . Subsequently, selective coronary angiography was performed using a 6-American FR 4 and 6-American EBU 3.75 guiding catheter. Multiple views of the coronary artery including hemiaxial views were obtained. The 6-American pigtail catheter was used to cross the aortic valve and LVEDP was calculated. PCI: Using the 6-American EBU 3.75 guiding catheter and after cannulating the left main a 0.014 BMW J-wire was positioned in the distal left circumflex. Subsequently 3.0 x 12 mm Treck balloon was advanced and 2 inflations at 8 ailyn were done. Subsequently an [employer] eye IVUS catheter was introduced and imaging were obtained, after removing the catheter 3.5 x 18 mm Xience franklyn point stent was deployed at 16 ailyn. Subsequently repeat IVUS was performed. After removing the catheter a 4.0 x 15 mm NC Treck was advanced and one inflation at 10 ailyn was done. Subsequently the wire was removed and images were obtained and revealed stable successful stenting. Following that, catheter and sheath were removed. Hemostasis was obtained with deployment of vascular band . There was no immediate complication. Patient was returned to room in stable condition. Of note, the patient received a total of 10,000 units of intravenous heparin as well as intra-arterial verapamil. She received an oral loading dose of Brilinta. Her ACT was followed. Her chest discomfort resolved and her EKG changes resolved. Findings: Left main: This is a large-size vessel, bifurcating into LAD and left circumflex, left main has no high-grade stenosis. LAD: This is a large-size vessel, reaching to the apex, giving rise to a large diagonal branch proximally. The LAD and its branches have no evidence of significant obstructive disease Left circumflex: This is a large dominant vessel, giving rise to a large OM in the midsegment it has 20-30% plaque proximally. Prior to the bifurcation distally to PDA and PLV there is a 99% stenosis with slow flow. RCA: This is a nondominant vessel moderate caliber that has a 30-40% plaque in the midsegment prior to the takeoff of the acute marginal branch. The rest of the vessel has no high-grade stenosis Left Ventriculogram: Not performed Hemodynamics: There was no gradient across the aortic valve, LVEDP was 14-16 mmHg Conclusion: 1. Severe stenosis in the distal dominant left circumflex with slow flow distally 2. Mild disease in the mid nondominant right 3. Successful stenting of dominant Circumflex with reduction of stenosis from 99% to less than 5% with intravascular ultrasound imaging Recommendations: The patient will continue on aspirin and Brilinta for one year with no interruption in addition to aggressive coronary risk modification, attempting to maintain LDL below 70 mg/dL. The findings and the recommendations were discussed with the patient and the family and they were in full understanding and agreement. Duration of sedation is 57 minutes.
[2023-09-02] MEDS ORDERED: HYDROcodone/APAP 10-325MG 1 EACH TAB PO PRN (20:37)
[2023-09-02] MEDS ORDERED: BACLOFEN 10 MG TAB PO PRN ×2 (20:38→21:13)
[2023-09-02] MEDS: TICAGRELOR 90 MG TAB PO SCH (21:07)
[2023-09-02] MEDS: METOPROLOL TARTRATE 25 MG TAB PO SCH (21:07)
[2023-09-02] MEDS: ATORVASTATIN 80 MG TAB PO SCH (21:07)
[2023-09-02] MEDS ORDERED: ALBUTEROL NEBULIZED 2.5 MG/3 ML INHALATION PRN (21:13)
[2023-09-02] MEDS ORDERED: ALPRAZolam 1 MG TAB PO PRN (21:13)
[2023-09-02] MEDS: ZOLPIDEM 5 MG TAB PO PRN (21:44)
[2023-09-03] MEDS: GABAPENTIN 300 MG CAP PO PRN ×4 (03:38→21:05)
[2023-09-03] MEDS: ALPRAZolam 1 MG TAB PO PRN ×3 (03:48→18:57)
[2023-09-03] MEDS: QUEtiapine 100 MG TAB PO SCH ×2 (05:58→21:09)
[2023-09-03 06:17] LABS: Chol/HDL Ratio 6.16 Ratio; LDL Cholesterol,Calculated 153.5 mg/dL (0.0-131.0)
[2023-09-03] MEDS ORDERED: LEVOTHYROXINE 100 MCG TAB PO SCH (06:30)
[2023-09-03 06:55] LABS: African American GFR (CKD) >90 (>60 ml/min/1.73 sqM); Anion Gap 7 mmol/L; Blood Urea Nitrogen 9 mg/dL (7-17); Calcium 8.8 mg/dL (8.4-10.2); Carbon Dioxide 24 mmol/L (22-30); Chloride 109 mmol/L (98-107); Glucose 106 mg/dL (74-99); Non-African American GFR(CKD) >90 (>60 ml/min/1.73 sqM); Potassium 3.8 mmol/L (3.5-5.1); Sodium 140 mmol/L (137-145)
[2023-09-03] MEDS: PANTOPRAZOLE 40 MG TABLET PO SCH (08:31)
[2023-09-03] MEDS: LEVOTHYROXINE 112 MCG TAB PO SCH (08:31)
[2023-09-03] MEDS: SYMBICORT 160-4.5 MCG INHALER INHALATION SCH ×2 (08:37→20:02)
[2023-09-03] MEDS ORDERED: Potassium Replacement Protocol 1 EACH MISC MISCELLANE PRN (08:49)
[2023-09-03] MEDS ORDERED: POTASSIUM CHLORIDE ER 20 MEQ TAB.ER PO SCH (09:00)
[2023-09-03 09:20] LABS: HCT 38.4 % (34.0-46.0); HGB 12.9 gm/dL (11.4-16.0); MCHC 33.5 g/dL (31.0-37.0); MCV 92.5 fL (80.0-100.0); Mean Platelet Volume 8.5; Platelet Count 235 k/uL (150-450); RBC 4.15 m/uL (3.80-5.40); RDW 14.2 % (11.5-15.5); WBC 7.1 k/uL (3.8-10.6)
[2023-09-03 09:21] LABS: Magnesium 1.7 mg/dL (1.6-2.3)
--- NOTE | 2023-09-03 09:34 | P.PN ---
Subjective Progress Note Date: 09/03/23 PROGRESS NOTE The patient is a 52-year-old female with history of MS, diabetes and chronic tobacco use who presented with an acute inferior wall myocardial infarction, underwent cardiac catheterization and had subtotal occlusion of the distal dominant circumflex and underwent stenting of that vessel. She is doing well this morning, denied any chest discomfort, dizziness or palpitations. She continues to be in sinus mechanism. Hemodynamically she is stable. Medications: Aspirin, Lipitor 80 mg daily, levothyroxine, metoprolol 25 mg twice a day, Brilinta 90 mg twice a day PHYSICAL EXAMINATION: Blood pressure 139/70 heart rate 60 LUNGS: Clear to auscultation HEART: Regular rate and rhythm, S1, S2. No S3. No systolic murmur ABDOMEN: Soft, nontender, no organomegaly EXTREMETIES: No edema, right radial pulse intact LAB: Potassium 3.8, BUN 9, creatinine 0.51. Hemoglobin 12.9. Cholesterol 231, LDL 153 IMPRESSION: 1. Status post stenting of the distal dominant left circumflex in the setting of an acute myocardial infarction 2. History of MS 3. History of diabetes 4. Chronic tobacco use 5. Hyperlipidemia PLAN: 1. Continue present regimen 2. Start Lisinopril 2.5 mg daily 3. Increase physical activity 4. Obtain an echocardiogram with Doppler 5. Transfer to telemetry 6. Smoking cessation Objective - Vital Signs Vital signs: Vital Signs Temp 98 F 09/03/23 04:00 Pulse 61 09/03/23 09:00 Resp 16 09/03/23 09:00 BP 139/70 09/03/23 09:00 Pulse Ox 94 L 09/03/23 09:00 FiO2 Intake & Output 09/02/23 09/03/23 09/03/23 18:59 06:59 18:59 Intake Total 955 478 4964 Output Total 1650 0 Balance 850 -801 1333 Weight 83.915 kg 86.1 kg Intake: IV 850 1010 Invasive Line 2 10 Sodium Chloride 0.9% 1, 1000 000 ml In Empty Bag 1 bag @ 1 ML/KG/HR 83.915 mls/ hr IV .[id number] [facility] Rx#: [id number] Intake, IV Titration 849 83 Amount Sodium Chloride 0.9% 1, 849 83 000 ml In Empty Bag 1 bag @ 1 ML/KG/HR 83.915 mls/ hr IV .[id number] [facility] Rx#: [id number] Oral 240 Output: Urine 1650 0 Other: Voiding Method Bedside Commode - Labs CBC & Chem 7: 09/03/23 05:56 09/03/23 05:56 Labs: Abnormal Lab Results - Last 24 Hours (Table) 09/02/23 09/02/23 09/02/23 Range/Units 17:33 17:33 19:18 Chloride (98-107) mmol/L Creatinine (0.52-1.04) mg/dL Glucose 209 H (74-99) mg/dL POC Glucose (mg/dL) 139 H (70-110) mg/dL Triglycerides 200.00 H (0.00-149.00) mg/dL Cholesterol 231.00 H (0.00-200.00) mg/dL LDL Cholesterol, Calc 153.5 H (0.0-131.0) mg/dL HDL Cholesterol 37.50 L (40.00-60.00) mg/dL 09/03/23 Range/Units 05:56 Chloride 109 H (98-107) mmol/L Creatinine 0.51 L (0.52-1.04) mg/dL Glucose 106 H (74-99) mg/dL POC Glucose (mg/dL) (70-110) mg/dL Triglycerides (0.00-149.00) mg/dL Cholesterol (0.00-200.00) mg/dL LDL Cholesterol, Calc (0.0-131.0) mg/dL HDL Cholesterol (40.00-60.00) mg/dL
[2023-09-03] MEDS: NICOTINE 21MG/24HR PATCH TRANSDERM SCH (09:48)
[2023-09-03] MEDS: METOPROLOL TARTRATE 25 MG TAB PO SCH ×2 (09:49→21:05)
[2023-09-03] MEDS: TICAGRELOR 90 MG TAB PO SCH ×2 (09:49→21:05)
[2023-09-03] MEDS: HYDROcodone/APAP 10-325MG 1 EACH TAB PO PRN ×3 (09:49→21:06)
[2023-09-03] MEDS: ASPIRIN 81 MG PO SCH (09:50)
[2023-09-03] MEDS ORDERED: Magnesium Replacement Protocol 1 EACH MISC MISCELLANE PRN (09:58)
[2023-09-03] MEDS ORDERED: MAGNESIUM SULFATE-D5W PMX 1 GM in DEXTROSE/WATER 1 100ML.BAG IVPB ONE (10:00)
--- NOTE | 2023-09-03 13:37 | CA ---
Transthoracic Echo Report Name: Chloe Nichols Age: 52 Gender: F : 1970 Exam Date: 09/03/2023 10:56 Exam Location: [place] [facility] Ht (in): 64 Wt (lb): 185 Ordering Physician: Luzmaria Meléndez MD ([id number]) Attending/Referring Phys: Elder Counselor Jannette Jain [facility] Procedure CPT: Indications: [place] Cardiac Hx: Technical Quality: Fair Contrast 1: Definity Total Dose (mL): 6 Contrast 2: Total Dose (mL): MEASUREMENTS (Male / Female) Normal Values 2D ECHO LV Diastolic Diameter PLAX 4.9 cm 4.2 - 5.9 / 3.9 - 5.3 cm LV Systolic Diameter PLAX 3.5 cm IVS Diastolic Thickness 0.9 cm 0.6 - 1.0 / 0.6 - 0.9 cm LVPW Diastolic Thickness 1.0 cm 0.6 - 1.0 / 0.6 - 0.9 cm LV Relative Wall Thickness 0.4 Aortic Root Diameter 3.3 cm M-MODE Aortic Root Diameter MM 2.9 cm LA Systolic Diameter MM 3.6 cm LA Ao Ratio MM 1.2 DOPPLER AV Peak Velocity 126.0 cm/s AV Peak Gradient 6.3 mmHg AV Mean Velocity 92.8 cm/s AV Mean Gradient 3.8 mmHg AV Velocity Time Integral 27.8 cm LVOT Peak Velocity 124.4 cm/s LVOT Peak Gradient 6.2 mmHg LVOT Velocity Time Integral 27.4 cm Mitral E Point Velocity 69.6 cm/s Mitral A Point Velocity 80.6 cm/s Mitral E to A Ratio 0.9 MV Deceleration Time 204.7 ms LV E' Lateral Velocity 9.3 cm/s Mitral E to LV E' Lateral Ratio 7.5 LV E' Septal Velocity 8.1 cm/s Mitral E to LV E' Septal Ratio 8.6 TR Peak Velocity 177.0 cm/s TR Peak Gradient 12.5 mmHg Right Atrial Pressure 15.0 mmHg Pulmonary Artery Systolic Pressu 27.5 mmHg Right Ventricular Systolic Press 27.5 mmHg FINDINGS Left Ventricle Left ventricular cavity size normal. Left ventricular wall thickness normal. Low normal left ventricular systolic function. Left ventricular ejection fraction is estimated at 50-55%. Hypokinetic inferior wall. Inferoseptal wall appears hypoinetic. Right Ventricle Mild right ventricular dilatation. Right Atrium Moderate right atrial dilatation. Left Atrium Left atrial size at the upper limits of normal. Mitral Valve Mild thickening/calcification of the posterior mitral valve leaflet. No mitral regurgitation. Aortic Valve Trileaflet aortic valve. No aortic valve stenosis or regurgitation. Tricuspid Valve Structurally normal tricuspid valve. Trace tricuspid regurgitation. Pulmonic Valve Pulmonic valve not well visualized. Trace pulmonic regurgitation. Pericardium No pericardial effusion. Aorta Normal size aortic root and proximal ascending aorta. CONCLUSIONS Definity ECHO contrast used for improved visualization of the endocardial borders (inadequate visualization of two or more contiguous segments). 1. Normal left ventricular size with mildly impaired left ventricle systolic function with segmental wall motion abnormality 2. Trace tricuspid and pulmonic regurgitation Previewed by: Dr. Luzmaria Meléndez MD (Electronically Signed) Final Date: 03 September 2023 13:36
[2023-09-03 14:18] VITALS: BMI 32.5
--- NOTE | 2023-09-03 15:51 | P.HPIM ---
History of Present Illness H&P Date: 09/02/23 Chief Complaint: Chest discomfort 52-year-old female presents emergency department reporting chest pain. States that she's had some intermittent chest pain for the past 3 weeks however got acutely worse about 2 hours ago. She describes it as a squeezing pressure in her chest with radiation to her jaw and shoulder. She became extremely diaphoretic and called EMS. Originally EKG was normal. Second EKG demonstrated STEMI. Patient has no previous cardiac history. She was given 4 chewable aspirins. Pain is graded as 7 out of 10 at this time. [place] abdominal pain. No ripping or tearing sensation to her back. No shortness of breath. No other alleviating, precipitating or modifying factors Labs: Hemoglobin 14.7, potassium 4.0, BUN 11, creatinine 0.61, glucose 209, troponin 0.025. Chest x-ray with no acute infiltrate EKG: Sinus mechanism, rate of [address] elevation in leads [address] depression in 1, aVL V1 and V2 Given changes on EKG, cardiology recommended emergent cardiac catheterization for acute inferior [place] Past Medical History Past Medical History: Cancer, COPD, Diabetes Mellitus, Fibromyalgia, Neurologic Disorder, Osteoarthritis (OA), Skin Disorder, Sleep Apnea/CPAP/BIPAP, Thyroid Disorder Additional Past Medical History / Comment(s): Multiple Sclerosis, occasionally has flare up of MS that causes gastroparesis, keratosis pilaris, hx cervical cancer, supposed to uses CPAP History of Any Multi-Drug Resistant Organisms: None Reported Past Surgical History: Bladder Surgery, Cholecystectomy, Hysterectomy, Orthope dic Surgery Additional Past Surgical History / Comment(s): right knee arthroscopy, bladder sling, Bartholin gland removal, colonoscopy Past Anesthesia/Blood Transfusion Reactions: Previous Problems w/ Anesthesia Additional Past Anesthesia/Blood Transfusion Reaction / Comment(s): "I woke up alot with twilight", pt. adopted Past Psychological History: Anxiety Smoking Status: Current every day smoker Past Alcohol Use History: None Reported Past Drug Use History: None Reported - Past Family History Mother History Unknown: Yes Family Medical History: Cancer Additional Family Medical History / Comment(s): esophageal Medications and Allergies Home Medications Medication Instructions Recorded Confirmed Type Gabapentin 600 mg PO Q6H PRN 02/04/15 09/02/23 History ALPRAZolam [Xanax] 1 mg PO TID PRN 01/18/21 09/02/23 History Baclofen [Lioresal] 20 - 30 mg PO HS PRN 01/18/21 09/02/23 History Budesonide/Formoterol Fumarate 2 puff INHALATION RT-BID 01/18/21 09/02/23 History [Symbicort 160-4.5 Mcg Inhaler] HYDROcodone/APAP 10-325MG [Hardy 1 tab PO QID PRN 01/18/21 09/02/23 History 10-325] Ibuprofen 800 mg PO Q8H PRN 03/06/21 09/02/23 History Omeprazole Magnesium [PriLOSEC OTC] 20 mg PO DAILY 02/28/23 09/02/23 History metFORMIN HCL 500 mg PO DAILY 03/04/23 09/02/23 History Albuterol Sulfate [Ventolin HFA] 2 puff INHALATION RT-QID PRN 09/02/23 09/02/23 History Levothyroxine Sodium [Synthroid] 112 mcg PO DAILY 09/02/23 09/02/23 History QUEtiapine [SEROquel] 100 mg PO HS 09/02/23 09/02/23 History Allergies Allergy/AdvReac Type Severity Reaction Status Date / Time sulfamethoxazole Allergy Swelling/turned Verified 09/02/23 20:44 [From Bactrim] red trimethoprim [From Bactrim] Allergy swelling/turned Verified 09/02/23 20:44 red Physical Exam Vitals: Vital Signs Pulse Resp BP Pulse Ox 09/02/23 21:00 59 L 13 140/88 97 09/02/23 20:00 70 12 148/100 92 L 09/02/23 19:13 70 15 92 L 09/02/23 17:35 87 20 145/91 09/02/23 17:27 55 L 20 136/86 96 Intake and Output 09/02/23 09/02/23 09/02/23 06:59 14:59 22:59 Intake Total 850 Balance 850 Intake: IV 850 Other: Weight 83.915 kg General appearance: alert, in no apparent distress Head exam: Present: atraumatic, normocephalic, normal inspection Eye exam: Present: normal appearance, PERRL, EOMI. Absent: scleral icterus, conjunctival injection, periorbital swelling ENT exam: Present: normal exam, mucous membranes moist Neck exam: Present: normal inspection. Absent: tenderness, meningismus, lymphadenopathy Respiratory exam: Present: normal lung sounds bilaterally. Absent: respiratory distress, wheezes, rales, rhonchi, stridor Cardiovascular Exam: Present: regular rate, normal rhythm, normal heart sounds. Absent: systolic murmur, diastolic murmur, rubs, gallop, clicks GI/Abdominal exam: Present: soft, normal bowel sounds. Absent: distended, tenderness, guarding, rebound, rigid Extremities exam: Present: normal inspection, full ROM, normal capillary refill. Absent: tenderness, pedal edema, joint swelling, calf tenderness Neurological exam: Present: alert, oriented X3, CN II-XII intact Skin exam: Present: warm, dry, intact, normal color. Absent: rash Results CBC & Chem 7: 09/03/23 05:56 09/03/23 05:56 Labs: Abnormal Lab Results - Last 24 Hours (Table) 09/02/23 09/02/23 Range/Units 17:33 19:18 Glucose 209 H (74-99) mg/dL POC Glucose (mg/dL) 139 H (70-110) mg/dL Assessment and Plan Assessment: 1. Chest pain; acute inferior myocardial infarction - Patient was taken to emergent cardiac catheterization given ST elevation in leads 2, [address] depression in lead 1, aVL, V1 and V2 - Patient is status post cardiac catheterization which reveals severe stenosis and distal dominant left circumflex with slow flow distally - Patient is status post successful stenting of left circumflex with reduction of stenosis from 99% to less than 5% with intravascular ultrasound imaging - Patient is to continue aspirin and Proventil for one year without any interruption with aggressive coronary risk modification; keep the LDL before 70 2. Hyperglycemia without acidosis/diabetes mellitus type 2; patient takes metformin at home which has been placed on hold; monitor Accu-Cheks every before meals and at bedtime insulin sliding scale 3. Hypertension; metoprolol 25 mg twice a day, lisinopril 2.5 mg twice a day 3. Hypothyroidism; levothyroxin 112 MCG daily 4. COPD/asthma; continue home inhalers therapy with Symbicort and albuterol inhaler 5. Fibromyalgia/osteoarthritis; baclofen 20 mg by mouth daily at bedtime when necessary, ibuprofen 800 mg every 8 hours when necessary; Hardy 10 mg by mouth 4 times a day when necessary 6. Insomnia; Seroquel 100 mg by mouth daily at bedtime 7. Hyperlipidemia; patient is currently on Lipitor 80 mg by mouth daily at bedtime DVT prophylaxis; SCDs/IV heparin CODE STATUS; full code
--- NOTE | 2023-09-03 16:22 | P.PN ---
Subjective Progress Note Date: 09/03/23 52-year-old female presents emergency department reporting chest pain. States that she's had some intermittent chest pain for the past 3 weeks however got acutely worse about 2 hours ago. She describes it as a squeezing pressure in her chest with radiation to her jaw and shoulder. She became extremely diaphoretic and called EMS. Originally EKG was normal. Second EKG demonstrated STEMI. Patient has no previous cardiac history. She was given 4 chewable aspirins. Pain is graded as 7 out of 10 at this time. [place] abdominal pain. No ripping or tearing sensation to her back. No shortness of breath. No other alleviating, precipitating or modifying factors Labs: Hemoglobin 14.7, potassium 4.0, BUN 11, creatinine 0.61, glucose 209, troponin 0.025. Chest x-ray with no acute infiltrate EKG: Sinus mechanism, rate of [address] elevation in leads [address] depression in 1, aVL V1 and V2 Given changes on EKG, cardiology recommended emergent cardiac catheterization for acute inferior [place] - Patient was taken to emergent cardiac catheterization given ST elevation in leads 2, [address] depression in lead 1, aVL, V1 and V2 - Patient is status post cardiac catheterization which reveals severe stenosis and distal dominant left circumflex with slow flow distally - Patient is status post successful stenting of left circumflex with reduction of stenosis from 99% to less than 5% with intravascular ultrasound imaging - Patient is to continue aspirin and Proventil for one year without any interruption with aggressive coronary risk modification; keep the LDL before 70 Objective - Vital Signs Vital signs: Vital Signs Temp 98 F 09/03/23 04:00 Pulse 70 09/03/23 08:00 Resp 16 09/03/23 08:00 BP 129/77 09/03/23 08:00 Pulse Ox 94 L 09/03/23 08:00 FiO2 Intake & Output 09/02/23 09/03/23 09/03/23 18:59 06:59 18:59 Intake Total 199 556 8846 Output Total 1650 0 Balance 850 -801 1093 Weight 83.915 kg 86.1 kg Intake: IV 850 1010 Invasive Line 2 10 Sodium Chloride 0.9% 1, 1000 000 ml In Empty Bag 1 bag @ 1 ML/KG/HR 83.915 mls/ hr IV .[id number] [facility] Rx#: [id number] Intake, IV Titration 849 83 Amount Sodium Chloride 0.9% 1, 849 83 000 ml In Empty Bag 1 bag @ 1 ML/KG/HR 83.915 mls/ hr IV .[id number] [facility] Rx#: [id number] Output: Urine 1650 0 Other: Voiding Method Bedside Commode - Exam General appearance: alert, in no apparent distress Head exam: Present: atraumatic, normocephalic, normal inspection Eye exam: Present: normal appearance, PERRL, EOMI. Absent: scleral icterus, conjunctival injection, periorbital swelling ENT exam: Present: normal exam, mucous membranes moist Neck exam: Present: normal inspection. Absent: tenderness, meningismus, lymphadenopathy Respiratory exam: Present: normal lung sounds bilaterally. Absent: respiratory distress, wheezes, rales, rhonchi, stridor Cardiovascular Exam: Present: regular rate, normal rhythm, normal heart sounds. Absent: systolic murmur, diastolic murmur, rubs, gallop, clicks GI/Abdominal exam: Present: soft, normal bowel sounds. Absent: distended, tenderness, guarding, rebound, rigid Extremities exam: Present: normal inspection, full ROM, normal capillary refill. Absent: tenderness, pedal edema, joint swelling, calf tenderness Neurological exam: Present: alert, oriented X3, CN II-XII intact Skin exam: Present: warm, dry, intact, normal color. Absent: rash - Labs CBC & Chem 7: 09/03/23 05:56 09/03/23 05:56 Labs: Abnormal Lab Results - Last 24 Hours (Table) 09/02/23 09/02/23 09/02/23 Range/Units 17:33 17:33 19:18 Chloride (98-107) mmol/L Creatinine (0.52-1.04) mg/dL Glucose 209 H (74-99) mg/dL POC Glucose (mg/dL) 139 H (70-110) mg/dL Triglycerides 200.00 H (0.00-149.00) mg/dL Cholesterol 231.00 H (0.00-200.00) mg/dL LDL Cholesterol, Calc 153.5 H (0.0-131.0) mg/dL HDL Cholesterol 37.50 L (40.00-60.00) mg/dL 09/03/23 Range/Units 05:56 Chloride 109 H (98-107) mmol/L Creatinine 0.51 L (0.52-1.04) mg/dL Glucose 106 H (74-99) mg/dL POC Glucose (mg/dL) (70-110) mg/dL Triglycerides (0.00-149.00) mg/dL Cholesterol (0.00-200.00) mg/dL LDL Cholesterol, Calc (0.0-131.0) mg/dL HDL Cholesterol (40.00-60.00) mg/dL Assessment and Plan Assessment: 1. Chest pain; acute inferior myocardial infarction - Patient was taken to emergent cardiac catheterization given ST elevation in leads 2, [address] depression in lead 1, aVL, V1 and V2 - Patient is status post cardiac catheterization which reveals severe stenosis and distal dominant left circumflex with slow flow distally - Patient is status post successful stenting of left circumflex with reduction of stenosis from 99% to less than 5% with intravascular ultrasound imaging - Patient is to continue aspirin and Proventil for one year without any interr uption with aggressive coronary risk modification; keep the LDL before 70 2. Hyperglycemia without acidosis/diabetes mellitus type 2; patient takes metformin at home which has been placed on hold; monitor Accu-Cheks every before meals and at bedtime insulin sliding scale 3. Hypertension; metoprolol 25 mg twice a day, lisinopril 2.5 mg twice a day 3. Hypothyroidism; levothyroxin 112 MCG daily 4. COPD/asthma; continue home inhalers therapy with Symbicort and albuterol inhaler 5. Fibromyalgia/osteoarthritis; baclofen 20 mg by mouth daily at bedtime when necessary, ibuprofen 800 mg every 8 hours when necessary; [place] 10 mg by mouth 4 times a day when necessary 6. Insomnia; Seroquel 100 mg by mouth daily at bedtime 7. Hyperlipidemia; patient is currently on Lipitor 80 mg by mouth daily at bedtime DVT prophylaxis; SCDs/IV heparin CODE STATUS; full code
[2023-09-03 16:28] LABS: Glucose,Whole Blood 164 mg/dL (70-110)
[2023-09-03] MEDS ORDERED: DEXTROSE 50% SYRINGE 50 ML IVP PRN ×2 (19:33)
[2023-09-03 20:21] LABS: Glucose,Whole Blood 132 mg/dL (70-110)
[2023-09-03] MEDS: INSULIN ASPART (NovoLOG) 100 UNIT/ML VIAL SQ SCH (20:50)
[2023-09-03] MEDS ORDERED: BACLOFEN 10 MG TAB PO PRN (21:00)
[2023-09-03] MEDS: ATORVASTATIN 80 MG TAB PO SCH (21:05)
[2023-09-03] MEDS: ZOLPIDEM 5 MG TAB PO PRN (21:07)
[2023-09-04] MEDS: GABAPENTIN 300 MG CAP PO PRN ×2 (04:31→20:45)
[2023-09-04] MEDS: ALPRAZolam 1 MG TAB PO PRN ×2 (04:32→13:44)
[2023-09-04 06:12] LABS: Glucose,Whole Blood 118 mg/dL (70-110)
[2023-09-04] MEDS: INSULIN ASPART (NovoLOG) 100 UNIT/ML VIAL SQ SCH ×4 (06:21→20:32)
[2023-09-04] MEDS: PANTOPRAZOLE 40 MG TABLET PO SCH (06:21)
[2023-09-04] MEDS: LEVOTHYROXINE 112 MCG TAB PO SCH (06:21)
[2023-09-04] MEDS: HYDROcodone/APAP 10-325MG 1 EACH TAB PO PRN ×2 (08:54→15:35)
[2023-09-04] MEDS: METOPROLOL TARTRATE 25 MG TAB PO SCH ×2 (08:54→20:45)
[2023-09-04] MEDS: TICAGRELOR 90 MG TAB PO SCH ×2 (08:56→20:45)
[2023-09-04] MEDS: ASPIRIN 81 MG PO SCH (08:56)
[2023-09-04] MEDS: NICOTINE 21MG/24HR PATCH TRANSDERM SCH (08:56)
[2023-09-04 09:00] LABS: African American GFR (CKD) >90 (>60 ml/min/1.73 sqM); Anion Gap 9 mmol/L; Blood Urea Nitrogen 10 mg/dL (7-17); Calcium 9.4 mg/dL (8.4-10.2); Carbon Dioxide 24 mmol/L (22-30); Chloride 107 mmol/L (98-107); Glucose 161 mg/dL (74-99); Magnesium 1.7 mg/dL (1.6-2.3); Non-African American GFR(CKD) >90 (>60 ml/min/1.73 sqM); Potassium 4.2 mmol/L (3.5-5.1); Sodium 140 mmol/L (137-145)
[2023-09-04] MEDS: SYMBICORT 160-4.5 MCG INHALER INHALATION SCH ×2 (09:29→20:49)
[2023-09-04 11:39] LABS: Glucose,Whole Blood 123 mg/dL (70-110)
--- NOTE | 2023-09-04 13:40 | P.PN ---
Subjective Progress Note Date: 09/04/23 PROGRESS NOTE The patient is a 52-year-old female with history of MS, diabetes and chronic tobacco use who presented with an acute inferior wall myocardial infarction, underwent cardiac catheterization and had subtotal occlusion of the distal dominant circumflex and underwent stenting of that vessel. She is doing well this morning, denied any chest discomfort, dizziness or palpitations. She continues to be in sinus mechanism. Hemodynamically she is stable. September 04: The patient feels well this morning, she denies any chest discomfort, dizziness or palpitations. She denies any nausea or vomiting. She continues to be in sinus mechanism. Her echocardiogram showed an ejection fraction of 50-55% Medications: Aspirin, Lipitor 80 mg daily, levothyroxine, metoprolol 25 mg twice a day, Brilinta 90 mg twice a day, lisinopril 2.5 mg daily PHYSICAL EXAMINATION: Blood pressure 137/83 heart rate 62 LUNGS: Clear to auscultation HEART: Regular rate and rhythm, S1, S2. No S3. No systolic murmur ABDOMEN: Soft, nontender, no organomegaly EXTREMETIES: No edema, LAB: Potassium 4.2, BUN 10, creatinine 0.61. IMPRESSION: 1. Status post stenting of the distal dominant left circumflex in the setting of an acute myocardial infarction 2. History of MS 3. History of diabetes 4. Chronic tobacco use 5. Hyperlipidemia PLAN: 1. Continue present regimen 2. Increase physical activity 3. If stable discharged home tomorrow in follow-up as an outpatient. Objective - Vital Signs Vital signs: Vital Signs Temp 98.0 F 09/04/23 08:48 Pulse 62 09/04/23 11:30 Resp 18 09/04/23 11:30 BP 137/83 09/04/23 11:30 Pulse Ox 95 09/04/23 11:30 FiO2 Intake & Output 09/03/23 09/04/23 09/04/23 18:59 06:59 18:59 Intake Total 1943 354 Output Total 500 0 Balance 1443 0 354 Weight 86.1 kg Intake: IV 1020 Invasive Line 2 10 Invasive Line 3 10 Sodium Chloride 0.9% 1, 1000 000 ml In Empty Bag 1 bag @ 1 ML/KG/HR 83.915 mls/ hr IV .[id number] [facility] Rx#: [id number] Intake, IV Titration 83 Amount Sodium Chloride 0.9% 1, 83 000 ml In Empty Bag 1 bag @ 1 ML/KG/HR 83.915 mls/ hr IV .[id number] [facility] Rx#: [id number] Oral 840 354 Output: Urine 500 0 Other: Voiding Method Toilet Toilet # Voids 4 - Labs CBC & Chem 7: 09/03/23 05:56 09/04/23 08:05 Labs: Abnormal Lab Results - Last 24 Hours (Table) 09/03/23 09/03/23 09/04/23 Range/Units 16:25 20:19 06:11 Glucose (74-99) mg/dL POC Glucose (mg/dL) 164 H 132 H 118 H (70-110) mg/dL 09/04/23 09/04/23 Range/Units 08:05 11:37 Glucose 161 H (74-99) mg/dL POC Glucose (mg/dL) 123 H (70-110) mg/dL
[2023-09-04 16:38] LABS: Glucose,Whole Blood 109 mg/dL (70-110)
[2023-09-04 20:18] LABS: Glucose,Whole Blood 137 mg/dL (70-110)
[2023-09-04] MEDS: QUEtiapine 100 MG TAB PO SCH (20:45)
[2023-09-04] MEDS: ATORVASTATIN 80 MG TAB PO SCH (20:45)
[2023-09-04] MEDS: ZOLPIDEM 5 MG TAB PO PRN (23:09)
[2023-09-04 23:58] VITALS: RESP 18
--- NOTE | 2023-09-05 05:37 | P.PN ---
Subjective Progress Note Date: 09/04/23 52-year-old female presents emergency department reporting chest pain. States that she's had some intermittent chest pain for the past 3 weeks however got acutely worse about 2 hours ago. She describes it as a squeezing pressure in her chest with radiation to her jaw and shoulder. She became extremely diaphoretic and called EMS. Originally EKG was normal. Second EKG demonstrated STEMI. Patient has no previous cardiac history. She was given 4 chewable aspirins. Pain is graded as 7 out of 10 at this time. [place] abdominal pain. No ripping or tearing sensation to her back. No shortness of breath. No other alleviating, precipitating or modifying factors Labs: Hemoglobin 14.7, potassium 4.0, BUN 11, creatinine 0.61, glucose 209, troponin 0.025. Chest x-ray with no acute infiltrate EKG: Sinus mechanism, rate of [address] elevation in leads [address] depression in 1, aVL V1 and V2 Given changes on EKG, cardiology recommended emergent cardiac catheterization for acute inferior [place] - Patient was taken to emergent cardiac catheterization given ST elevation in leads 2, [address] depression in lead 1, aVL, V1 and V2 - Patient is status post cardiac catheterization which reveals severe stenosis and distal dominant left circumflex with slow flow distally - Patient is status post successful stenting of left circumflex with reduction of stenosis from 99% to less than 5% with intravascular ultrasound imaging - Patient is to continue aspirin and Proventil for one year without any interruption with aggressive coronary risk modification; keep the LDL before 70 09/04/2023 patient is seen and evaluated in room at bedside; feels well this morning, she denies any chest discomfort, dizziness or palpitations. She denies any nausea or vomiting. She continues to be in sinus mechanism. Her echocardiogram showed an ejection fraction of 50-55% VS are reviwed and remain stable Cardiology recommending to increase activity; DC in next 24 hrs Objective - Vital Signs Vital signs: Vital Signs Temp 98.0 F 09/04/23 08:48 Pulse 62 09/04/23 11:30 Resp 18 09/04/23 11:30 BP 137/83 09/04/23 11:30 Pulse Ox 95 09/04/23 11:30 FiO2 Intake & Output 09/03/23 09/04/23 09/04/23 18:59 06:59 18:59 Intake Total 1943 354 Output Total 500 0 Balance 1443 0 354 Weight 86.1 kg Intake: IV 1020 Invasive Line 2 10 Invasive Line 3 10 Sodium Chloride 0.9% 1, 1000 000 ml In Empty Bag 1 bag @ 1 ML/KG/HR 83.915 mls/ hr IV .[id number] [facility] Rx#: [id number] Intake, IV Titration 83 Amount Sodium Chloride 0.9% 1, 83 000 ml In Empty Bag 1 bag @ 1 ML/KG/HR 83.915 mls/ hr IV .[id number] [facility] Rx#: [id number] Oral 840 354 Output: Urine 500 0 Other: Voiding Method Toilet Toilet # Voids 4 - Exam General appearance: alert, in no apparent distress Head exam: Present: atraumatic, normocephalic, normal inspection Eye exam: Present: normal appearance, PERRL, EOMI. Absent: scleral icterus, conjunctival injection, periorbital swelling ENT exam: Present: normal exam, mucous membranes moist Neck exam: Present: normal inspection. Absent: tenderness, meningismus, lymphadenopathy Respiratory exam: Present: normal lung sounds bilaterally. Absent: respiratory distress, wheezes, rales, rhonchi, stridor Cardiovascular Exam: Present: regular rate, normal rhythm, normal heart sounds. Absent: systolic murmur, diastolic murmur, rubs, gallop, clicks GI/Abdominal exam: Present: soft, normal bowel sounds. Absent: distended, tenderness, guarding, rebound, rigid Extremities exam: Present: normal inspection, full ROM, normal capillary refill. Absent: tenderness, pedal edema, joint swelling, calf tenderness Neurological exam: Present: alert, oriented X3, CN II-XII intact Skin exam: Present: warm, dry, intact, normal color. Absent: rash - Labs CBC & Chem 7: 09/03/23 05:56 09/04/23 08:05 Labs: Abnormal Lab Results - Last 24 Hours (Table) 09/03/23 09/03/23 09/04/23 Range/Units 16:25 20:19 06:11 Glucose (74-99) mg/dL POC Glucose (mg/dL) 164 H 132 H 118 H (70-110) mg/dL 12/10/23 12/10/23 Range/Units 08:05 11:37 Glucose 161 H (74-99) mg/dL POC Glucose (mg/dL) 123 H (70-110) mg/dL Assessment and Plan Assessment: 1. Chest pain; acute inferior myocardial infarction - Patient was taken to emergent cardiac catheterization given ST elevation in leads 2, [address] depression in lead 1, aVL, V1 and V2 - Patient is status post cardiac catheterization which reveals severe stenosis and distal dominant left circumflex with slow flow distally - Patient is status post successful stenting of left circumflex with reduction of stenosis from 99% to less than 5% with intravascular ultrasound imaging - Patient is to continue aspirin and Proventil for one year without any interruption with aggressive coronary risk modification; keep the LDL before 70 2. Hyperglycemia without acidosis/diabetes mellitus type 2; patient takes metformin at home which has been placed on hold; monitor Accu-Cheks every before meals and at bedtime insulin sliding scale 3. Hypertension; metoprolol 25 mg twice a day, lisinopril 2.5 mg twice a day 3. Hypothyroidism; levothyroxin 112 MCG daily 4. COPD/asthma; continue home inhalers therapy with Symbicort and albuterol inhaler 5. Fibromyalgia/osteoarthritis; baclofen 20 mg by mouth daily at bedtime when necessary, ibuprofen 800 mg every 8 hours when necessary; [place] 10 mg by mouth 4 times a day when necessary 6. Insomnia; Seroquel 100 mg by mouth daily at bedtime 7. Hyperlipidemia; patient is currently on Lipitor 80 mg by mouth daily at bedtime DVT prophylaxis; SCDs/IV heparin CODE STATUS; full code
[2023-09-05 06:02] LABS: Glucose,Whole Blood 112 mg/dL (70-110)
[2023-09-05] MEDS: INSULIN ASPART (NovoLOG) 100 UNIT/ML VIAL SQ SCH (06:16)
[2023-09-05] MEDS: LEVOTHYROXINE 112 MCG TAB PO SCH (06:16)
[2023-09-05] MEDS: PANTOPRAZOLE 40 MG TABLET PO SCH (06:16)
[2023-09-05] MEDS: SYMBICORT 160-4.5 MCG INHALER INHALATION SCH (07:45)
[2023-09-05] MEDS: ASPIRIN 81 MG PO SCH (08:47)
[2023-09-05] MEDS: NICOTINE 21MG/24HR PATCH TRANSDERM SCH (08:48)
[2023-09-05] MEDS: METOPROLOL TARTRATE 25 MG TAB PO SCH (08:48)
[2023-09-05] MEDS: TICAGRELOR 90 MG TAB PO SCH (08:48)
[2023-09-05] MEDS: GABAPENTIN 300 MG CAP PO PRN (08:52)
[2023-09-05] MEDS: HYDROcodone/APAP 10-325MG 1 EACH TAB PO PRN (08:52)
[2023-09-05 08:59] VITALS: BP 143/84; PULSE 67; TEMP 97.9
[2023-09-05] MEDS: ALPRAZolam 1 MG TAB PO PRN (09:13)
[2023-09-05 11:28] LABS: Glucose,Whole Blood 111 mg/dL (70-110)
--- NOTE | 2023-09-05 13:22 | P.PN ---
Subjective HISTORY OF PRESENT ILLNESS: The patient is a 52-year-old female with history of MS, diabetes and chronic tobacco use who presented with an acute inferior wall myocardial infarction, underwent cardiac catheterization and had subtotal occlusion of the distal dominant circumflex and underwent stenting of that vessel. She is doing well this morning, denied any chest discomfort, dizziness or palpitations. She continues to be in sinus mechanism. Hemodynamically she is stable. September 04: The patient feels well this morning, she denies any chest discomfort, dizziness or palpitations. She denies any nausea or vomiting. She continues to be in sinus mechanism. Her echocardiogram showed an ejection fraction of 50-55% 09/05/2023 Patient examined this morning at the bedside. Sitting up in chair. Patient's spouse is present. Patient denies chest pain or pressure. She reports mild shortness of breath. Echocardiogram completed revealing ejection fraction 50- 55% PHYSICAL EXAM: VITAL SIGNS: Reviewed. GENERAL: Well-developed in no acute distress. NECK: Supple. No JVD or thyromegaly LUNGS: Respirations even and unlabored. Lungs essentially clear to auscultation bilaterally. HEART: Regular rate and rhythm. S1 and S2 heard. EXTREMITIES: Normal range of motion. No clubbing or cyanosis. Peripheral pulses intact. No lower extremity edema ASSESSMENT: 1. Status post stenting of the distal dominant left circumflex in the setting of an acute myocardial infarction 2. History of MS 3. History of diabetes 4. Chronic tobacco use 5. Hyperlipidemia PLAN: Patient is complaining of mild shortness of breath this morning. This may be secondary to Brilinta. We will continue Brilinta at this time and this can be reevaluated on an outpatient basis Continue aspirin and statin therapy Continue additional cardiac medications Patient is stable for discharge home today from a cardiac standpoint She is to follow up post discharge in the office Nurse practitioner note has been reviewed by physician. Signing provider agrees with the documented findings, assessment, and plan of care. Objective - Vital Signs Vital signs: Vital Signs Temp 97.9 F 09/05/23 08:00 Pulse 67 09/05/23 08:00 Resp 18 09/05/23 08:00 BP 143/84 09/05/23 08:00 Pulse Ox 96 09/05/23 08:00 FiO2 Intake & Output 09/04/23 09/05/23 09/05/23 18:59 06:59 18:59 Intake Total 590 10 Balance 590 10 Intake: IV 10 0.9 10 Oral 590 Other: Voiding Method Toilet Toilet # Voids 4 1 - Labs CBC & Chem 7: 09/03/23 05:56 09/04/23 08:05 Labs: Abnormal Lab Results - Last 24 Hours (Table) 09/04/23 09/04/23 09/04/23 Range/Units 08:05 11:37 20:16 Glucose 161 H (74-99) mg/dL POC Glucose (mg/dL) 123 H 137 H (70-110) mg/dL 09/05/23 Range/Units 06:00 Glucose (74-99) mg/dL POC Glucose (mg/dL) 112 H (70-110) mg/dL
--- NOTE | 2023-09-07 20:47 | P.DS ---
Providers Date of admission: 09/02/23 17:43 Attending physician: Sushil Egan MD Consults: 09/02/23 17:29 Consult Physician Stat Consulting Provider: Mckayal Cardenas Consult Reason/Comments: stemi Do you want consulting provider notified?: Already Contacted 09/02/23 19:05 Consult Physician Routine Consulting Provider: Mckayla Cardenas Consult Reason/Comments: Post Interventional Patient Do you want consulting provider notified?: Already Contacted Primary care physician: Hitesh Woodard [facility] Course: Final Diagnosis -Chest pain; acute inferior myocardial infarction with stenting to the distal circumflex. -Hyperglycemia without acidosis/diabetes mellitus type 2 -Hypertension -Hypothyroidism -COPD/asthma -Fibromyalgia/osteoarthritis -Insomnia -Hyperlipidemia -Chronic tobacco use counseled on smoking cessation -History of MS Discharge Disposition Patient is stable for discharge home. Has been cleared by cardiology and recommending close follow up outpatient in 1 to 2 weeks. Patient will discharge on dual antiplatelet therapy with aspirin and brilinta in addition to high intensity statin therapy. Recommend total smoking cessation. Follow up with PCP 1 to 2 days. Hospital Course This is a 52-year-old female presents emergency department reporting chest pain. States that she's had some intermittent chest pain for the past 3 weeks however got acutely worse. She describes it as a squeezing pressure in her chest with radiation to her jaw and shoulder. She became extremely diaphoretic and called EMS. Originally EKG was normal. Second EKG demonstrated STEMI. Patient has no previous cardiac history. She was given 4 chewable aspirins. Pain is graded as 7 out of 10 at this time. On admission, Hemoglobin 14.7, potassium 4.0, BUN 11, creatinine 0.61, glucose 209, troponin 0.025. Chest x-ray with no acute infiltrate. EKG:Sinus mechanism, rate of [address] elevation in leads [address] depression in 1, aVL V1 and V2 Given changes on EKG, cardiology recommended emergent cardiac catheterization for acute inferior IA. Patient was taken for emergent cath with findings of subtotal occlusion of the distal dominant circumflex and underwent stenting of the distal circumflex. She is on dual antiplatelet therapy with aspirin 81 mg daily and brilinta 90 mg BID. Patient had echocardiogram done revealing EF 50- 55%. She was monitored post cath with no further reports of chest pain. No shortness of breath. Lungs are clear, S1 S2 auscultated alert x 3 no focal neurological deficits. Discharged home. Please see medication reconciliation for a list of current medications. Thank you for allowing us to participate in the care of this patient. The impression and plan of care has been dictated by Cece Hernandez, Nurse Practitioner as directed. Dr. Bobby MD I have performed a history and physical examination and medical decision making of this patient, discussed the same with the dictator, and agree with the dictators assessment and plan as written, documented as a scribe. Based on total visit time, I have performed more than 50% of this visit. Patient Condition at Discharge: Stable Plan - Discharge Summary New Discharge Prescriptions: New Atorvastatin [Lipitor] 80 mg PO HS 30 Days #30 tab lisinopriL [Zestril] 2.5 mg PO BID 30 Days #30 tab Aspirin 81 mg PO DAILY tab Ticagrelor [Brilinta] 90 mg PO BID 30 Days #60 tab Metoprolol Tartrate [Lopressor] 25 mg PO BID 30 Days #60 tab Continue Gabapentin 600 mg PO Q6H PRN PRN Reason: Pain Baclofen [Lioresal] 20 - 30 mg PO HS PRN PRN Reason: muscle spasms ALPRAZolam [Xanax] 1 mg PO TID PRN PRN Reason: Anxiety metFORMIN HCL 500 mg PO DAILY QUEtiapine [SEROquel] 100 mg PO HS Levothyroxine Sodium [Synthroid] 112 mcg PO DAILY Budesonide/Formoterol Fumarate [Symbicort 160-4.5 Mcg Inhaler] 2 puff INHALATION RT-BID HYDROcodone/APAP 10-325MG [[place] 10-325] 1 tab PO QID PRN PRN Reason: Pain Ibuprofen 800 mg PO Q8H PRN PRN Reason: Pain Omeprazole Magnesium [PriLOSEC OTC] 20 mg PO DAILY Albuterol Sulfate [Ventolin HFA] 2 puff INHALATION RT-QID PRN PRN Reason: Shortness Of Breath Discharge Medication List Gabapentin 600 mg PO Q6H PRN 02/04/15 [History] ALPRAZolam [Xanax] 1 mg PO TID PRN 01/18/21 [History] Baclofen [Lioresal] 20 - 30 mg PO HS PRN 01/18/21 [History] Budesonide/Formoterol Fumarate [Symbicort 160-4.5 Mcg Inhaler] 2 puff INHALATION RT-BID 01/18/21 [History] HYDROcodone/APAP 10-325MG [[place] 10-325] 1 tab PO QID PRN 01/18/21 [History] Ibuprofen 800 mg PO Q8H PRN 03/06/21 [History] Omeprazole Magnesium [PriLOSEC OTC] 20 mg PO DAILY 02/28/23 [History] metFORMIN HCL 500 mg PO DAILY 03/04/23 [History] Albuterol Sulfate [Ventolin HFA] 2 puff INHALATION RT-QID PRN 09/02/23 [History] Levothyroxine Sodium [Synthroid] 112 mcg PO DAILY 09/02/23 [History] QUEtiapine [SEROquel] 100 mg PO HS 09/02/23 [History] Aspirin 81 mg PO DAILY tab 09/04/23 [Rx] Atorvastatin [Lipitor] 80 mg PO HS 30 Days #30 tab 09/04/23 [Rx] Metoprolol Tartrate [Lopressor] 25 mg PO BID 30 Days #60 tab 09/04/23 [Rx] Ticagrelor [Brilinta] 90 mg PO BID 30 Days #60 tab 09/04/23 [Rx] lisinopriL [Zestril] 2.5 mg PO BID 30 Days #30 tab 09/04/23 [Rx] Follow up Appointment(s)/Referral(s): Luzmaria Meléndez MD [STAFF PHYSICIAN] - 1 Week Hitesh Woodard [Primary Care Provider] - 1-2 days Patient Instructions/Handouts: *[facility] - After Heart Catheterization - Science Specialist Instructions Discharge Disposition: HOME SELF-CARE
== END 2023-09-05 13:01 | disposition home or self-care (01) | DRG 322 ==
LOC: EC 17:25 → SUPCPDRO 17:25 → 2SICU 17:43 → 3SCARD 09-03 21:34
PROVIDERS: ADMIT Internal Medicine; ATTEND Internal Medicine
PROC: B240ZZ3 Ultrasonography of Single Coronary Artery, Intravascular (ICD-10-PCS; 2023-09-02)
PROC: 027034Z Dilation of Coronary Artery, One Artery with Drug-eluting Intraluminal Device, Percutaneous Approach (ICD-10-PCS; principal; 2023-09-02 17:41)
PROC: 4A023N7 Measurement of Cardiac Sampling and Pressure, Left Heart, Percutaneous Approach (ICD-10-PCS; 2023-09-02 17:41)
PROC: B2111ZZ Fluoroscopy of Multiple Coronary Arteries using Low Osmolar Contrast (ICD-10-PCS; 2023-09-02 17:41)
DX: I21.19 ST elevation (STEMI) myocardial infarction involving other coronary artery of inferior wall (principal); F17.210 Nicotine dependence, cigarettes, uncomplicated; E03.9 Hypothyroidism, unspecified; K31.84 Gastroparesis; G35 Multiple sclerosis; E11.65 Type 2 diabetes mellitus with hyperglycemia; Z79.84 Long term (current) use of oral hypoglycemic drugs; E78.5 Hyperlipidemia, unspecified; F41.9 Anxiety disorder, unspecified; G47.00 Insomnia, unspecified; I25.10 Atherosclerotic heart disease of native coronary artery without angina pectoris; G47.30 Sleep apnea, unspecified; I10 Essential (primary) hypertension; J44.9 Chronic obstructive pulmonary disease, unspecified; M79.7 Fibromyalgia; M19.90 Unspecified osteoarthritis, unspecified site; Z71.3 Dietary counseling and surveillance; Z28.310 Unvaccinated for COVID-19; Z85.41 Personal history of malignant neoplasm of cervix uteri; Z79.82 Long term (current) use of aspirin; Z79.899 Other long term (current) drug therapy; Z79.890 Hormone replacement therapy; Z79.51 Long term (current) use of inhaled steroids; Z90.710 Acquired absence of both cervix and uterus
CPT/HCPCS: 36415; 71045; 80048; 80053; 80061; 83036; 83735; 84443; 84484; 85025; 85027; 85610; 85730; 92978; 93306; 93458; 94640; 96374; 96375; 99291

== ENCOUNTER 2023-11-02 16:26 | Inpatient (IN) | payer MEDICARE, OTHER ==
--- NOTE | 2023-11-02 17:04 | ED ---
General Adult HPI - General Chief complaint: Shortness of Breath Stated complaint: sob, weakness Time Seen by Provider: 11/02/23 16:45 Source: patient, family, RN notes reviewed, old records reviewed Mode of arrival: wheelchair Limitations: no limitations - History of Present Illness Initial comments: Is a 52-year-old female who presents emergency department complaining of shortness of breath. Has been ongoing for the last 2 weeks. Is a history sign ificant for diabetes, COPD, prior AL with 1 cardiac stent. States she is completing a course of steroids as well as finished a course of azithromycin last week for bronchitis. States she is once again getting worse. Endorses a nonproductive cough currently but was previously productive. Had fevers last week but those have also resolved. Is more short of breath with any form of exertion. Is not on oxygen at home. Denies any chest pain. Denies any abdominal pain, nausea, vomiting, diarrhea. Denies any other acute complaints at this time. Does endorse rhinorrhea. Presents for further evaluation. States she has been compliant with all medications. Denies any lower extremity edema or swelling. - Related Data Home Medications Medication Instructions Recorded Confirmed Gabapentin 600 mg PO Q6H 02/04/15 11/02/23 ALPRAZolam [Xanax] 1 mg PO TID PRN 01/18/21 11/02/23 Baclofen [Lioresal] 20 - 30 mg PO HS PRN 01/18/21 11/02/23 Budesonide/Formoterol Fumarate 2 puff INHALATION RT-BID 01/18/21 11/02/23 [Symbicort 160-4.5 Mcg Inhaler] HYDROcodone/APAP 10-325MG [[place] 1 tab PO Q4H PRN MDD 5 tabs 01/18/21 11/02/23 10-325] Omeprazole Magnesium [PriLOSEC OTC] 20 mg PO DAILY 02/28/23 11/02/23 metFORMIN HCL 500 mg PO DAILY 03/04/23 11/02/23 Albuterol Sulfate [Ventolin HFA] 2 puff INHALATION RT-QID PRN 09/02/23 11/02/23 Levothyroxine Sodium [Synthroid] 112 mcg PO DAILY 09/02/23 11/02/23 Codeine Phosphate/Guaifenesin 5 ml PO Q6H PRN 11/02/23 11/02/23 [Codeine Phosphate/Guaifenesin 10-100 mg/5 ml] Magnesium Oxide [Magox 400] 400 mg PO HS 11/02/23 11/02/23 Nitroglycerin Sl Tabs [Nitrostat] 0.4 mg SUBLINGUAL Q5M PRN 11/02/23 11/02/23 QUEtiapine FUMARATE [SEROquel] 200 mg PO HS 11/02/23 11/02/23 lisinopriL [Zestril] 5 mg PO HS 11/02/23 11/02/23 predniSONE See Taper PO DIRECTED 11/02/23 11/02/23 Previous Rx's Medication Instructions Recorded Aspirin 81 mg PO DAILY tab 09/04/23 Atorvastatin [Lipitor] 80 mg PO HS 30 Days #30 tab 09/04/23 Metoprolol Tartrate [Lopressor] 25 mg PO BID 30 Days #60 tab 09/04/23 Ticagrelor [Brilinta] 90 mg PO BID 30 Days #60 tab 09/04/23 Allergies Allergy/AdvReac Type Severity Reaction Status Date / Time sulfamethoxazole Allergy Swelling/turned Verified 11/02/23 21:01 [From Bactrim] red trimethoprim [From Bactrim] Allergy swelling/turned Verified 11/02/23 21:01 red Review of Systems ROS Statement: Those systems with pertinent positive or pertinent negative responses have been documented in the HPI. Review of Systems: CONST: Denies fever EYES: Denies blurry vision ENT: Denies nasal congestion C/V: Denies Chest pain RESP: Endorses shortness of breath GI: Denies abdominal pain : Denies dysuria SKIN: Denies rash. MSK: Denies joint pain. NEURO: Denies headache ROS Other: All systems not noted in ROS Statement are negative. Past Medical History Past Medical History: Cancer, COPD, Diabetes Mellitus, Fibromyalgia, Myocardial Infarction (AL), Neurologic Disorder, Osteoarthritis (OA), Skin Disorder, Sleep Apnea/CPAP/BIPAP, Thyroid Disorder Additional Past Medical History / Comment(s): Multiple Sclerosis, occasionally has flare up of MS that causes gastroparesis, keratosis pilaris, hx cervical cancer, supposed to uses CPAP History of Any Multi-Drug Resistant Organisms: None Reported Past Surgical History: Bladder Surgery, Cholecystectomy, Heart Catheterization With Stent, Hysterectomy, Orthopedic Surgery Additional Past Surgical History / Comment(s): right knee arthroscopy, bladder sling, Bartholin gland removal, colonoscopy Past Anesthesia/Blood Transfusion Reactions: Previous Problems w/ Anesthesia Additional Past Anesthesia/Blood Transfusion Reaction / Comment(s): "I woke up alot with twilight", pt. adopted Past Psychological History: Anxiety Smoking Status: Current every day smoker Past Alcohol Use History: None Reported Past Drug Use History: None Reported - Past Family History Mother History Unknown: Yes Family Medical History: Cancer Additional Family Medical History / Comment(s): esophageal General Exam - General Exam Comments Initial Comments: General: Appears in no acute distress. HEAD: Normal with no signs of head trauma. EYES: PERRLA, EOMI, conjunctiva normal, no discharge. ENT: Hearing grossly intact, normal oropharynx. RESPIRATORY: Diminished breath sounds bilaterally with bilateral end expiratory wheezing. Hypoxia on room air 91 to 93%. No significant increased work of breathing at rest. C/V: Regular rate and rhythm. S1 and S2 auscultated, no edema, peripheral pulses 2+ and intact throughout ABD: Abd is soft, nontender, nondistended EXT: Normal range of motion, no obvious deformity SKIN: No rashes or lesions observed on exposed skin. NEURO: Alert and oriented x 4. Limitations: no limitations Course Vital Signs 11/02/23 11/02/23 11/02/23 16:35 17:47 18:54 Temperature 99.1 F Pulse Rate 72 64 67 Respiratory 16 22 22 Rate Blood Pressure 155/93 129/96 150/99 O2 Sat by Pulse 91 L 91 L 88 L Oximetry 11/02/23 11/02/23 11/02/23 19:00 20:00 20:07 Temperature Pulse Rate 85 88 Respiratory Rate Blood Pressure O2 Sat by Pulse 92 L Oximetry 11/02/23 11/02/23 20:51 21:45 Temperature Pulse Rate 72 75 Respiratory 20 22 Rate Blood Pressure 158/88 151/94 O2 Sat by Pulse 90 L 91 L Oximetry Medical Decision Making - Medical Decision Making Was pt. sent in by a medical professional or institution (, PA, MANUFACTURING ENGINEERING TECHNICIAN, urgent care, hospital, or correction...) When possible be specific @ -No Did you speak to anyone other than the patient for history (EMS, parent, family, police, friend...)? What history was obtained from this source @ -No Did you review nursing and triage notes (agree or disagree)? Why? @ -I reviewed and agree with nursing and triage notes Were old charts reviewed (outside hosp., previous admission, EMS record, old EKG, old radiological studies, urgent care reports/EKG's, correction records)? Report findings @ -Old chart reviewed Differential Diagnosis (chest pain, altered mental status, abdominal pain women, abdominal pain men, vaginal bleeding, weakness, fever, dyspnea, syncope, headache, dizziness, GI bleed, back pain, seizure, CVA, palpatations, mental health, musculoskeletal)? @ -Differential Dyspnea: Coronary syndrome, arrhythmia, tamponade, asthma, COPD, pulmonary embolism, pneumonia, pneumothorax, pulmonary effusion, anaphylaxis, diabetic ketoacidosis, flailed chest, pulmonary contusion, diaphragmatic rupture, anemia, neuromuscula r, this is not meant to be an all-inclusive list. EKG interpreted by me (3pts min.). @ -As above X-rays interpreted by me (1pt min.). @ -Chest x-ray reveals no obvious acute cardiopulmonary process. CT interpreted by me (1pt min.). @ -None done U/S interpreted by me (1pt. min.). @ -None done What testing was considered but not performed or refused? (CT, X-rays, U/S, labs)? Why? @ -None What meds were considered but not given or refused? Why? @ -None Did you discuss the management of the patient with other professionals (professionals i.e. , PA, MANUFACTURING ENGINEERING TECHNICIAN, lab, RT, psych nurse, high school social science teacher, provider network analyst, teacher, public records officer, case packer)? Give summary @ -Spoke with the admitting physician, Dr. Gotti who accepted the admission and was in agreement with the plan. Was smoking cessation discussed for >3mins.? @ -No Was critical care preformed (if so, how long)? @ -Yes, 36 minutes. Were there social determinants of health that impacted care today? How? (Homelessness, low income, unemployed, alcoholism, drug addiction, transportation, low edu. Level, literacy, decrease access to med. care, snf, rehab)? @ -No Was there de-escalation of care discussed even if they declined (Discuss DNR or withdrawal of care, Hospice)? DNR status @ -No What co-morbidities impacted this encounter? (DM, HTN, Smoking, COPD, CAD, Cancer, CVA, ARF, Chemo, Hep., AIDS, mental health diagnosis, sleep apnea, morbid obesity)? @ -None Was patient admitted / discharged? Hospital course, mention meds given and route, prescriptions, significant lab abnormalities, going to OR and other pertinent info. @ -Based on the patient's presentation and physical exam, presents with what appears to be infectious etiology versus COPD exacerbation for current symptoms. She was mildly hypoxic on room air with diminished breath sounds and diffuse wheezing throughout both lungs robb. Patient will be given IV Solu-Medrol, breathing treatments, small fluid bolus as well as IV magnesium. Patient was in agreement this plan. We will obtain cardiopulmonary workup. Patient was in agreement this plan. Vital signs other than any mild hypoxia are within acceptable limits. EKG shows no signs of acute ischemia.Chest x-ray shows no obvious acute cardiopulmonary process. Patient's laboratory studies remarkable for mild leukocytosis of 14.3, mild hypomagnesemia of 1.5 which was replenished. Remainder of labs unremarkable. On reevaluation patient remains wheezy. Is now requiring oxygen at 2 to 4 L to maintain adequate oxygenation above 91 to 92%. I discussed with the patient and I would like to admit the patient for hypoxic respiratory failure secondary to COPD exacerbation. She was in agreement this plan. Will continue with DuoNebs, IV steroids, admit the patient with pulmonology consulted. She was in agreement this plan. I spoke with Dr. Gotti who accepted the admission. Undiagnosed new problem with uncertain prognosis? @ -No Drug Therapy requiring intensive monitoring for toxicity (Heparin, Nitro, Insulin, Cardizem)? @ -No Were any procedures done? @ -No Diagnosis/symptom? @ -COPD exacerbation, hypoxic respiratory failure Acute, or Chronic, or Acute on Chronic? @ -Acute Uncomplicated (without systemic symptoms) or Complicated (systemic symptoms)? @ -Complicated Side effects of treatment? @ -None Exacerbation, Progression, or Severe Exacerbation] @ -Exacerbation Poses a threat to life or bodily function? @ -Yes - Lab Data Result diagrams: 11/02/23 17:35 11/02/23 17:35 Lab Results 11/02/23 11/02/23 11/02/23 Range/Units 17:35 17:35 17:35 WBC 14.3 H (3.8-10.6) k/uL RBC 4.28 (3.80-5.40) m/uL Hgb 13.3 (11.4-16.0) gm/dL Hct 38.6 (34.0-46.0) % MCV 90.3 (80.0-100.0) fL MCH 31.2 (25.0-35.0) pg MCHC 34.5 (31.0-37.0) g/dL RDW 13.3 (11.5-15.5) % Plt Count 381 (150-450) k/uL MPV 7.6 Neutrophils % 85 % Lymphocytes % 12 % Monocytes % 3 % Eosinophils % 0 % Basophils % 0 % Neutrophils # 12.1 H (1.3-7.7) k/uL Lymphocytes # 1.7 (1.0-4.8) k/uL Monocytes # 0.4 (0-1.0) k/uL Eosinophils # 0.0 (0-0.7) k/uL Basophils # 0.0 (0-0.2) k/uL PT 10.4 (10.0-12.5) sec INR 0.9 (<1.2) APTT 22.0 (22.0-30.0) sec Sodium 141 (137-145) mmol/L Potassium 3.9 (3.5-5.1) mmol/L Chloride 111 H (98-107) mmol/L Carbon Dioxide 21 L (22-30) mmol/L Anion Gap 9 mmol/L BUN 13 (7-17) mg/dL Creatinine 0.54 (0.52-1.04) mg/dL Est GFR (CKD-EPI)AfAm >90 (>60 ml/min/1.73 sqM) Est GFR (CKD-EPI)NonAf >90 (>60 ml/min/1.73 sqM) Glucose 133 H (74-99) mg/dL Plasma Lactic Acid Brent (0.7-2.0) mmol/L Calcium 9.0 (8.4-10.2) mg/dL Magnesium 1.5 L (1.6-2.3) mg/dL Total Bilirubin 0.6 (0.2-1.3) mg/dL AST 17 (14-36) U/L ALT 14 (4-34) U/L Alkaline Phosphatase 94 (38-126) U/L NT-Pro-B Natriuret Pep 180 pg/mL Total Protein 6.7 (6.3-8.2) g/dL Albumin 3.8 (3.5-5.0) g/dL Urine Color Urine Appearance (Clear) Urine pH (5.0-8.0) Ur Specific [place] (1.001-1.035) Urine Protein (Negative) Urine Glucose (UA) (Negative) Urine Ketones (Negative) Urine Blood (Negative) Urine Nitrite (Negative) Urine Bilirubin (Negative) Urine Urobilinogen (<2.0) mg/dL Ur Leukocyte Esterase (Negative) Influenza Type A (PCR) (Not Detectd) Influenza Type B (PCR) (Not Detectd) RSV (PCR) (Not Detectd) SARS-CoV-2 (PCR) (Not Detectd) 11/02/23 11/02/23 11/02/23 Range/Units 17:35 17:35 18:53 WBC (3.8-10.6) k/uL RBC (3.80-5.40) m/uL Hgb (11.4-16.0) gm/dL Hct (34.0-46.0) % MCV (80.0-100.0) fL MCH (25.0-35.0) pg MCHC (31.0-37.0) g/dL RDW (11.5-15.5) % Plt Count (150-450) k/uL MPV Neutrophils % % Lymphocytes % % Monocytes % % Eosinophils % % Basophils % % Neutrophils # (1.3-7.7) k/uL Lymphocytes # (1.0-4.8) k/uL Monocytes # (0-1.0) k/uL Eosinophils # (0-0.7) k/uL Basophils # (0-0.2) k/uL PT (10.0-12.5) sec INR (<1.2) APTT (22.0-30.0) sec Sodium (137-145) mmol/L Potassium (3.5-5.1) mmol/L Chloride (98-107) mmol/L Carbon Dioxide (22-30) mmol/L Anion Gap mmol/L BUN (7-17) mg/dL Creatinine (0.52-1.04) mg/dL Est GFR (CKD-EPI)AfAm (>60 ml/min/1.73 sqM) Est GFR (CKD-EPI)NonAf (>60 ml/min/1.73 sqM) Glucose (74-99) mg/dL Plasma Lactic Acid Brent 1.2 (0.7-2.0) mmol/L Calcium (8.4-10.2) mg/dL Magnesium (1.6-2.3) mg/dL Total Bilirubin (0.2-1.3) mg/dL AST (14-36) U/L ALT (4-34) U/L Alkaline Phosphatase (38-126) U/L NT-Pro-B Natriuret Pep pg/mL Total Protein (6.3-8.2) g/dL Albumin (3.5-5.0) g/dL Urine Color Yellow Urine Appearance Clear (Clear) Urine pH 6.0 (5.0-8.0) Ur Specific [place] 1.021 (1.001-1.035) Urine Protein Trace H (Negative) Urine Glucose (UA) Negative (Negative) Urine Ketones Negative (Negative) Urine Blood Negative (Negative) Urine Nitrite Negative (Negative) Urine Bilirubin Negative (Negative) Urine Urobilinogen <2.0 (<2.0) mg/dL Ur Leukocyte Esterase Negative (Negative) Influenza Type A (PCR) Not Detected (Not Detectd) Influenza Type B (PCR) Not Detected (Not Detectd) RSV (PCR) Not Detected (Not Detectd) SARS-CoV-2 (PCR) Not Detected (Not Detectd) - EKG Data -: EKG Interpreted by Me EKG Comments: 12-lead Electrocardiogram Interpretation Note EKG was reviewed and interpreted by myself. 12-lead ECG performed at 1655 is interpreted by me as revealing normal sinus rhythm at a rate of 65 beats per minute. [place] is normal. [place] interval is 146 ms, QRS duration is 89 ms, QTc is 425 ms.. There were no ST or T wave abnormalities to suggest myocardial ischemia or injury. R wave progression across the precordium was satisfactory. By my interpretation this EKG is non-diagnostic for acute ischemia. Critical Care Time Critical Care Time: Yes Total Critical Care Time: 36 Disposition Clinical Impression: COPD (chronic obstructive pulmonary disease), Hypoxic respiratory failure Disposition: ADMITTED IP TO THIS HOSP Condition: Stable Time of Disposition: 20:25
[2023-11-02] MEDS: SODIUM CHLORIDE 0.9% 500 ML 500 ML IV STA (17:39)
[2023-11-02] MEDS: methylPREDNISolone SOD SUCCI 125 MG/2 ML VIAL IV STA (17:41)
[2023-11-02] MEDS: MAGNESIUM SULFATE-D5W PMX 1 GM in DEXTROSE/WATER 1 100ML.BAG IVPB STA (17:46)
[2023-11-02 18:06] LABS: Basophils % (A) 0 %; Eosinophils % (A) 0 %; HCT 38.6 % (34.0-46.0); HGB 13.3 gm/dL (11.4-16.0); Lymphocytes # (A) 1.7 k/uL (1.0-4.8); Lymphocytes % (A) 12 %; MCH 31.2 pg (25.0-35.0); MCHC 34.5 g/dL (31.0-37.0); MCV 90.3 fL (80.0-100.0); Mean Platelet Volume 7.6; Monocytes # (A) 0.4 k/uL (0-1.0); Monocytes % (A) 3 %; Neutrophils # (A) 12.1 k/uL (1.3-7.7); Neutrophils % (A) 85 %; Platelet Count 381 k/uL (150-450); RBC 4.28 m/uL (3.80-5.40); RDW 13.3 % (11.5-15.5); WBC 14.3 k/uL (3.8-10.6)
[2023-11-02 18:23] LABS: ALT 14 U/L (4-34); AST 17 U/L (14-36); African American GFR (CKD) >90 (>60 ml/min/1.73 sqM); Albumin 3.8 g/dL (3.5-5.0); Alkaline Phosphatase 94 U/L (38-126); Anion Gap 9 mmol/L; Blood Urea Nitrogen 13 mg/dL (7-17); Carbon Dioxide 21 mmol/L (22-30); Chloride 111 mmol/L (98-107); Glucose 133 mg/dL (74-99); Magnesium 1.5 mg/dL (1.6-2.3); Non-African American GFR(CKD) >90 (>60 ml/min/1.73 sqM); Potassium 3.9 mmol/L (3.5-5.1); Sodium 141 mmol/L (137-145); Total Bilirubin 0.6 mg/dL (0.2-1.3); Total Protein 6.7 g/dL (6.3-8.2)
[2023-11-02 18:31] LABS: NT-Pro-B-Type Natriuretic Pept 180 pg/mL
--- NOTE | 2023-11-02 18:33 | XR ---
EXAMINATION TYPE: XR chest 2V DATE OF EXAM: 11/02/2023 5:59 PM CLINICAL INDICATION:Female, 52 years old with history of difficulty breathing; [facility] COMPARISON: Chest radiographs from 09/02/2023 TECHNIQUE: XR chest 2V Frontal and lateral views of the chest. FINDINGS: Lungs/Pleura: There is flattening of the diaphragm with increased lucency of the lungs. No evidence o f pneumothorax, pleural effusion or focal consolidation. Pulmonary vascularity: Unremarkable. Heart/mediastinum: Cardiomediastinal silhouette is unremarkable. Musculoskeletal: No acute osseous pathology. IMPRESSION: 1. No acute cardiopulmonary disease process. 2. COPD changes.
[2023-11-02 18:35] LABS: INR 0.9 (<1.2); Prothrombin Time 10.4 sec (10.0-12.5)
[2023-11-02] MEDS: IPRATROPIUM-ALBUTEROL 3 ML NEB INHALATION STA ×2 (19:05→20:00)
[2023-11-02 19:12] LABS: Appearance,Urine Clear (Clear); Bilirubin,Urine Negative (Negative); Blood,Urine Negative (Negative); Color,Urine Yellow; Glucose,Urine (UA) Negative (Negative); Ketones,Urine Negative (Negative); Leukocyte Esterase,Urine Negative (Negative); Nitrite,Urine Negative (Negative); Protein,Urine Trace (Negative); Specific Gravity,Urine 1.021 (1.001-1.035); Urobilinogen,Urine <2.0 mg/dL (<2.0)
[2023-11-02] MEDS ORDERED: ACETAMINOPHEN TAB 325 MG TAB PO PRN (20:53)
[2023-11-02] MEDS ORDERED: NALOXONE 0.4 MG/ML 1 ML VIAL IV PRN (20:53)
[2023-11-02] MEDS ORDERED: IPRATROPIUM-ALBUTEROL 3 ML NEB INHALATION PRN (21:16)
[2023-11-02] MEDS: methylPREDNISolone SOD SUCCI 40 MG/ML 1 ML VIAL IV SCH (21:38)
[2023-11-02] MEDS: GABAPENTIN 300 MG CAP PO SCH (21:49)
[2023-11-02] MEDS: ALPRAZolam 1 MG TAB PO PRN (21:49)
[2023-11-02] MEDS: HYDROcodone/APAP 10-325MG 1 EACH TAB PO PRN (21:50)
[2023-11-03] MEDS ORDERED: IPRATROPIUM-ALBUTEROL 3 ML NEB INHALATION SCH
[2023-11-03] MEDS: QUEtiapine 200 MG TAB PO SCH (00:02)
[2023-11-03] MEDS: HEPARIN SODIUM,PORCINE 5,000 UNIT/ML 1 ML VIAL SQ SCH (00:24)
[2023-11-03] MEDS: AZITHROMYCIN 500 MG in SODIUM CHLORIDE 0.9% 250 ML IVPB STA (01:12)
--- NOTE | 2023-11-03 03:12 | P.CNPUL ---
History of Present Illness Consult date: 11/03/23 Requesting physician: Levy Oneill Reason for consult: COPD Chief complaint: Shortness of breath History of present illness: I am seeing this patient in no consultation today November 03 2023 in the emergency room after she failed outpatient treatment for suspected acute bronchitis and COPD exacerbation. Patient is a 52-year-old white female with past medical history significant for COPD, coronary artery disease with recent heart catheterization and stent, diabetes mellitus, hypertension, hyperlipidemia, hypothyroidism, obstructive sleep apnea noncompliant with CPAP, fibromyalgia, multiple sclerosis, and current ongoing tobacco smoker. Her primary care provider is Dr. Woodard. Patient states that over the last 2 weeks she has been short of breath especially on exertion. She cannot walk further than from the couch to the bathroom without severe distress. She has had a couple ne ar syncopal events on exertion and when short of breath. Significant other is at bedside and reports that she had hallucinations when short of breath earlier. She has been wheezing, and "cannot get enough air even when taking a deep breath". Endorses cough that originally was productive with green sputum, but now is minimally productive with clear sputum. She reports high fevers earlier in the week of greater than 101 F, but is afebrile currently. She has history of COPD. She continues smoke 1 pack/day. She is not oxygen dependent at home. She utilizes a combination of Symbicort maintenance inhaler and as needed albuterol rescue inhaler. She did originally go to her primary care provider for these symptoms and was given a course of azithromycin and prednisone. Her cough and purulent sputum have improved, otherwise, still short of breath and presented to emergency room yesterday evening. She was found to be hypoxic on arrival, and is currently on 5 L nasal cannula. She is comfortable. Not in any distress. Chest x-ray on arrival did not show any acute cardiopulmonary infi ltrates. Negative for influenza, RSV, COVID. CBC on arrival: WC count of 14.3, hemoglobin 13.3, hematocrit 38.6, platelets 381. BMP on arrival: Sodium 141, potassium 3.9, chloride 111, serum bicarb 21, BUN 13, creatinine 0.54, glucose 133. Lactic acid level 1.2. Troponin less than 0.012. NT proBNP 180. EKG on arrival shows normal sinus rhythm, no obvious acute ischemic changes. Urinalysis remarkable. Vital signs are stable. Review of Systems REVIEW OF SYSTEMS: CONSTITUTIONAL: Denies any recent significant weight loss or weight gain. EYES: Denies change in vision. EARS, NOSE, MOUTH, THROAT: Denies headaches, denies sore throat. CARDIOVASCULAR: Denies chest pain, palpitations or syncopal episodes. Denies orthopnea, PND, or lower extremity swelling. Admits a couple of near syncopal events with exertion earlier in the week. RESPIRATORY: see HPI. GASTROINTESTINAL: Admits reduced appetite. Denies abdominal pain, nausea and vomiting, or diarrhea GENITOURINARY: Denies hematuria, denies infections. MUSKULOSKELETAL: Denies pain, denies swelling. INTEGUMENTARY: Denies rash, denies eczema. NEUROLOGICAL: Denies recent memory loss, no recent seizure activity. PSYCHIATRIC: Denies anxiety, denies depression. HEMATOLOGIC/LYMPHATIC: Denies anemia, denies enlarged lymph node Past Medical History Past Medical History: Cancer, COPD, Diabetes Mellitus, Fibromyalgia, Myocardial Infarction ([place]), Neurologic Disorder, Osteoarthritis (OA), Skin Disorder, Sleep Apnea/CPAP/BIPAP, Thyroid Disorder Additional Past Medical History / Comment(s): Multiple Sclerosis, occasionally has flare up of MS that causes gastroparesis, keratosis pilaris, hx cervical cancer, supposed to uses CPAP, chronic back and knee pain Last Myocardial Infarction Date:: 09/02/2023 History of Any Multi-Drug Resistant Organisms: None Reported Past Surgical History: Bladder Surgery, Cholecystectomy, Heart Catheterization With Stent, Hysterectomy, Orthopedic Surgery Additional Past Surgical History / Comment(s): left knee arthroscopy, bladder sling, Bartholin gland removal, colonoscopy Past Anesthesia/Blood Transfusion Reactions: Previous Problems w/ Anesthesia Additional Past Anesthesia/Blood Transfusion Reaction / Comment(s): "I woke up alot with twilight", pt. adopted Date of Last Stent Placement:: 09/02/2023 Past Psychological History: Anxiety Smoking Status: Current every day smoker Past Alcohol Use History: None Reported Additional Past Alcohol Use History / Comment(s): down to 1/2ppd from 1PPD, has smoked for 40 yrs Past Drug Use History: None Reported - Past Family History Mother History Unknown: Yes Family Medical History: Cancer Additional Family Medical History / Comment(s): esophageal Medications and Allergies Home Medications Medication Instructions Recorded Confirmed Type Gabapentin 600 mg PO Q6H 02/04/15 11/02/23 History ALPRAZolam [Xanax] 1 mg PO TID PRN 01/18/21 11/02/23 History Baclofen [Lioresal] 20 - 30 mg PO HS PRN 01/18/21 11/02/23 History Budesonide/Formoterol Fumarate 2 puff INHALATION RT-BID 01/18/21 11/02/23 Hist ory [Symbicort 160-4.5 Mcg Inhaler] HYDROcodone/APAP 10-325MG [[place] 1 tab PO Q4H PRN MDD 5 tabs 01/18/21 11/02/23 History 10-325] Omeprazole Magnesium [PriLOSEC OTC] 20 mg PO DAILY 02/28/23 11/02/23 History metFORMIN HCL 500 mg PO DAILY 03/04/23 11/02/23 History Albuterol Sulfate [Ventolin HFA] 2 puff INHALATION RT-QID PRN 09/02/23 11/02/23 History Levothyroxine Sodium [Synthroid] 112 mcg PO DAILY 09/02/23 11/02/23 History Aspirin 81 mg PO DAILY tab 09/04/23 11/02/23 Rx Atorvastatin [Lipitor] 80 mg PO HS 30 Days #30 tab 09/04/23 11/02/23 Rx Metoprolol Tartrate [Lopressor] 25 mg PO BID 30 Days #60 tab 09/04/23 11/02/23 Rx Ticagrelor [Brilinta] 90 mg PO BID 30 Days #60 tab 09/04/23 11/02/23 Rx Codeine Phosphate/Guaifenesin 5 ml PO Q6H PRN 11/02/23 11/02/23 History [Codeine Phosphate/Guaifenesin 10-100 mg/5 ml] Magnesium Oxide [Magox 400] 400 mg PO HS 11/02/23 11/02/23 History Nitroglycerin Sl Tabs [Nitrostat] 0.4 mg SUBLINGUAL Q5M PRN 11/02/23 11/02/23 History QUEtiapine FUMARATE [SEROquel] 200 mg PO HS 11/02/23 11/02/23 History lisinopriL [Zestril] 5 mg PO HS 11/02/23 11/02/23 History predniSONE See Taper PO DIRECTED 11/02/23 11/02/23 History Allergies Allergy/AdvReac Type Severity Reaction Status Date / Time sulfamethoxazole Allergy Swelling/turned Verified 11/02/23 21:01 [From Bactrim] red trimethoprim [From Bactrim] Allergy swelling/turned Verified 11/02/23 21:01 red Physical Exam Vitals: Vital Signs Temp Pulse Pulse Resp BP BP Pulse Ox 11/03/23 00:58 97.7 F 74 16 150/92 91 L 11/02/23 23:30 68 22 149/92 90 L 11/02/23 22:00 76 22 156/87 90 L 11/02/23 21:45 75 22 151/94 91 L 11/02/23 20:51 72 20 158/88 90 L 11/02/23 20:07 88 11/02/23 20:00 85 11/02/23 19:00 92 L 11/02/23 18:54 67 22 150/99 88 L 11/02/23 17:47 64 22 129/96 91 L 11/02/23 16:35 99.1 F 72 16 155/93 91 L Intake and Output 11/02/23 11/02/23 11/03/23 14:59 22:59 06:59 Other: Weight 81.647 kg 81.647 kg GENERAL EXAM: Alert, 52-year-old white female, comfortable in no apparent distress. HEAD: Normocephalic and atraumatic EYES: Normal reaction of pupils, equal size. NOSE: Clear with pink turbinates. THROAT: No erythema or exudates. NECK: No masses, no JVD. CHEST: No chest wall deformity. LUNGS: Equal air entry with mild expiratory wheezes heard throughout. On 5 L/min nasal cannula. No conversational dyspnea or accessory muscle use while at rest.. CVS: S1 and S2 normal with no audible murmur, regular rhythm. No extra heart sounds ABDOMEN: No hepatosplenomegaly, active bowel sounds, no guarding or rigidity. SPINE: No scoliosis or deformity SKIN: No rashes CENTRAL NERVOUS SYSTEM: No focal deficits, tone is normal in all 4 extremities. EXTREMITIES: There is no peripheral edema, clubbing, or cyanosis. Peripheral pulses are intact. Results - Laboratory Findings CBC and BMP: 11/02/23 17:35 11/02/23 17:35 PT/INR, D-dimer PT 10.4 sec (10.0-12.5) 11/02/23 17:35 INR 0.9 (<1.2) 11/02/23 17:35 Abnormal lab findings: Abnormal Labs 11/02/23 11/02/23 11/02/23 17:35 17:35 18:53 WBC 14.3 H Neutrophils # 12.1 H Chloride 111 H Carbon Dioxide 21 L Glucose 133 H Magnesium 1.5 L Urine Protein Trace H - Diagnostic Findings Chest x-ray: image reviewed Assessment and Plan Assessment: Acute hypoxemic respiratory failure, secondary to acute COPD exacerbation and acute tracheobronchitis. Chest x-ray shows no acute cardiopulmonary process. No focal infiltrates or evidence of pneumonia. Negative for influenza, RSV, COVID. Leukocytosis Coronary artery disease, with recent heart catheterization done on 09/02/23, and successful stenting to the left circumflex artery. Maintained on dual antiplatelet medications Diabetes mellitus type 2 Hyperlipidemia Hypertension Hypothyroidism Obstructive sleep apnea, noncompliant with CPAP Obesity, with a BMI of 30.9 kg/m History of multiple sclerosis Chronic ongoing tobacco dependence, with over 90-[id number] history. Plan: Patient's medications, labs, chest x-ray reviewed Continue supplemental oxygen to maintain oxygen saturation greater than 92%. Patient started on medications including DuoNebs [id number], Symbicort inhaler, and IV Solu-Medrol Empiric antibiotic was added, procalcitonin level pending. Smoking cessation counseling performed. Nicotine replacement offered. Dual antiplatelet medications have been resumed. Will continue to follow I have personally seen and examined the patient, performed the documentation and the assessment and plan as written. Number of minutes spent on the visit:20 Time with Patient: Greater than 30
[2023-11-03] MEDS: methylPREDNISolone SOD SUCCI 40 MG/ML 1 ML VIAL IV SCH (03:55)
[2023-11-03] MEDS: LEVOTHYROXINE 112 MCG TAB PO SCH (06:07)
[2023-11-03 06:08] LABS: Basophils % (A) 0 %; Eosinophils % (A) 0 %; HCT 37.4 % (34.0-46.0); HGB 12.6 gm/dL (11.4-16.0); Lymphocytes # (A) 1.2 k/uL (1.0-4.8); Lymphocytes % (A) 14 %; MCHC 33.6 g/dL (31.0-37.0); MCV 92.3 fL (80.0-100.0); Mean Platelet Volume 7.6; Monocytes # (A) 0.1 k/uL (0-1.0); Monocytes % (A) 2 %; Neutrophils # (A) 7.3 k/uL (1.3-7.7); Neutrophils % (A) 84 %; Platelet Count 383 k/uL (150-450); RBC 4.05 m/uL (3.80-5.40); RDW 13.2 % (11.5-15.5); WBC 8.6 k/uL (3.8-10.6)
[2023-11-03 06:24] LABS: African American GFR (CKD) >90 (>60 ml/min/1.73 sqM); Anion Gap 6 mmol/L; Blood Urea Nitrogen 15 mg/dL (7-17); Calcium 8.9 mg/dL (8.4-10.2); Carbon Dioxide 21 mmol/L (22-30); Chloride 111 mmol/L (98-107); Glucose 143 mg/dL (74-99); Non-African American GFR(CKD) >90 (>60 ml/min/1.73 sqM); Potassium 4.6 mmol/L (3.5-5.1); Sodium 138 mmol/L (137-145)
[2023-11-03] MEDS ORDERED: DEXTROSE 50% SYRINGE 50 ML IVP PRN ×2 (07:51)
[2023-11-03] MEDS: SYMBICORT 160-4.5 MCG INHALER INHALATION SCH (08:41)
[2023-11-03] MEDS: IPRATROPIUM-ALBUTEROL 3 ML NEB INHALATION SCH (08:41)
[2023-11-03] MEDS: ASPIRIN 81 MG PO SCH (09:51)
[2023-11-03] MEDS: NICOTINE 21MG/24HR PATCH TRANSDERM SCH (09:51)
[2023-11-03] MEDS: metFORMIN 500 MG TAB PO SCH (09:51)
[2023-11-03] MEDS: TICAGRELOR 90 MG TAB PO SCH (09:51)
[2023-11-03] MEDS: METOPROLOL TARTRATE 25 MG TAB PO SCH (09:51)
[2023-11-03] MEDS ORDERED: NITROGLYCERIN SL TABS 0.4 MG TAB SUBLINGUAL PRN (10:48)
[2023-11-03 11:02] VITALS: BMI 30.9
--- NOTE | 2023-11-03 11:58 | HP ---
HISTORY AND PHYSICAL CHIEF COMPLAINT: Shortness of breath and hallucinations. HISTORY OF PRESENT ILLNESS: A 52-year-old woman with a past medical history of multiple medical problems, was being followed by primary care physician. The patient has increased shortness of breath. The patient came to [facility], is being treated for COPD exacerbation. Chest x-ray, which I reviewed personally showed increased bronchovascular markings without evidence of definite pneumonia. The COVID-19 and viral titers have been negative at this time. The patient also had hallucinations and some change in mental status also, so a CT scan of the brain has been ordered. There is no history of any fever, rigors, or chills. PAST MEDICAL HISTORY: Reviewed, include COPD, diabetes mellitus, fibromyalgia, multiple sclerosis. The rest of the history and chart was also reviewed. HOME MEDICATIONS: Reviewed, include Zestril, dose and rest of medications reviewed. ALLERGIES: Reviewed, include Bactrim. FAMILY HISTORY: History of esophageal cancer. SOCIAL HISTORY: History of anxiety, smoking. REVIEW OF SYSTEMS: 14-point review is negative as mentioned. PHYSICAL EXAMINATION: VITAL SIGNS: Pulse is 85, blood pressure n HEENT: Conjunctivae normal. NECK: No jugular venous distention. Breathing efforts are markedly increased. ABDOMEN: Soft. Nontender NERVOUS SYSTEM: Diffusely weak. SKIN: No ulcer, rash, bleeding. JOINTS: No active deforming arthropathy. LABORATORY DATA: Reviewed. Chest x-ray reviewed personally. ASSESSMENT: 1. Chronic obstructive pulmonary disease, acute exacerbation, acute hypoxic respiratory failure. 2. Change in mental status, metabolic encephalopathy. 3. Increased WBC. 4. Diabetes type 2. 5. History of multiple sclerosis. 6. History of sleep apnea. 7. History of coronary artery disease, stent. 8. Multiple complex medical issues. RECOMMENDATIONS AND DISCUSSION: This 52-year-old woman presented with multiple complex medical issues, we will monitor the patient closely. We will institute intensive bronchodilator treatment as well as IV steroids, Pulmonary consultation. The patient also has some hallucinations. Exact etiology is unknown at this time. The patient is severely hypoxic, but however, I would recommend a CT brain and assess neuro checks and as well as Neurology consultation, also to rule out the possibility of acute stroke. Otherwise, home medications will be continued once they are confirmed. Overall prognosis extremely guarded because of the multiple complex medical issues as listed above, and the patient will require definitely inpatient stay with more than 2 nights and further recommendations to follow. The patient is severely hypoxic at this time with significant respiratory issues MMODL / IJN: [id number] / OMAYRA
[2023-11-03 12:37] LABS: Glucose,Whole Blood 145 mg/dL (70-110)
[2023-11-03] MEDS: INSULIN ASPART (NovoLOG) 100 UNIT/ML VIAL SQ SCH (12:39)
--- NOTE | 2023-11-03 12:52 | CT ---
EXAMINATION TYPE: CT brain wo con CT DLP: 1121 mGycm, Automated exposure control for dose reduction was used. DATE OF EXAM: 11/03/2023 12:15 PM COMPARISON: None. CLINICAL INDICATION:Female, 52 years old with history of stroke, stroke TECHNIQUE: Brain: Axial CT images of the brain were obtained with coronal and sagittal reformats created and rev iewed. Contrast used: None. Oral contrast used: None. FINDINGS: Brain: Extra-axial spaces: No abnormal extra-axial fluid collections. Calcification within the pineal gland. Ventricular system: Within normal limits calcified lesion in the floor the fourth ventricle. Possibly relating to intraventricular calcified meningioma. Cerebral parenchyma: No acute intraparenchymal hemorrhage or mass effect. The rees-white junction is well differentiated. Cerebellum: Unremarkable. Mass effect: No evidence of midline shift. Intracranial vasculature: unremarkable Soft tissues: Normal. Calvarium/osseous structures: No depressed skull fracture. Paranasal sinuses and mastoid air cells: Mild scattered paranasal sinus disease. Visualized orbits: Orbital contents are intact. IMPRESSION: 1. No acute intracranial process. 2. calcified lesion in the floor the fourth ventricle. Possibly relating to intraventricular calcifi ed meningioma.
[2023-11-03] MEDS: LORazepam 1 MG TAB PO PRN (14:18)
--- NOTE | 2023-11-03 15:34 | P.CNPUL ---
History of Present Illness Consult date: 11/03/23 Reason for consult: dyspnea History of present illness: I am seeing this patient for worsening shortness of breath and COPD exacerbation. The patient is known to have COPD. She is presenting with increased dyspnea cough chest tightness and wheezing. She is a chronic smoker and she was smoking up to 2 packs of cigarettes a day and currently she is down to 1 pack of cigarettes a day as the patient had a recent coronary event, acute myocardial infarction requiring cardiac catheterization and stenting. The patient also has history of obstructive sleep apnea intolerant to CPAP therapy, history of diabetes mellitus type 2, hypertension hyperlipidemia and hypothyroidism and history of fibromyalgia. She is also known to have multiple sclerosis. In terms of her COPD, the patient started having some sickness approximately a week ago. She was having fevers on outpatient basis with a Tmax of 101 and currently she is afebrile. No nausea. No emesis. No hemoptysis or pleurisy. Her viral panel at the time of admission was negative. CBC was showing a white cell count of 14.3 which dropped down to 8.6 with a hemoglobin 12.6 and a platelet count of 383. BUN is a 50 with a creatinine of 0.5And his sodium level is at 138. Procalcitonin level is negative. Troponin less than 0.01. Meanwhile, the patient also given a chest x-ray that showed no acute abnormalities and the patient chest x-ray was consistent with COPD. CAT scan of the brain was also done on 11/03/2023 and a CAT scan of the brain showed no acute intracranial process. The patient did have also a calcified lesion in the floor of the fourth ventricle probably a calcified meningioma. At this point in time, the patient is on DuoNeb updrafts, Symbicort as maintenance, IV Solu-Medrol 40 mg every 8 hours and she was also offered a nicotine patch. Her outpatient med ication will resume including the aspirin and Brilinta as the patient has undergone a recent cardiac evaluation and stenting and she has a fresh stent in place. Catheterization was done on 09/02/2023 and the patient was found to have severe stenosis in the distal dominant circumflex and the patient underwent a successful stenting of the circumflex. Review of Systems CONSTITUTIONAL: Denies any recent significant weight loss or weight gain. EYES: Denies change in vision. EARS, NOSE, MOUTH, THROAT: Denies headaches, denies sore throat. CARDIOVASCULAR: Denies chest pain, palpitations or syncopal episodes. Denies orthopnea, PND, or lower extremity swelling. Admits a couple of near syncopal events with exertion earlier in the week. RESPIRATORY: see HPI. GASTROINTESTINAL: Admits reduced appetite. Denies abdominal pain, nausea and vomiting, or diarrhea GENITOURINARY: Denies hematuria, denies infections. MUSKULOSKELETAL: Denies pain, denies swelling. INTEGUMENTARY: Denies rash, denies eczema. NEUROLOGICAL: Denies recent memory loss, no recent seizure activity. PSYCHIATRIC: Denies anxiety, denies depression. HEMATOLOGIC/LYMPHATIC: Denies anemia, denies enlarged lymph node Past Medical History Past Medical History: Coronary Artery Disease (CAD), Cancer, COPD, Diabetes Mellitus, Fibromyalgia, Myocardial Infarction ([place]), Neurologic Disorder, Osteoarthritis (OA), Skin Disorder, Sleep Apnea/CPAP/BIPAP, Thyroid Disorder Additional Past Medical History / Comment(s): Multiple Sclerosis, occasionally has flare up of MS that causes gastroparesis, keratosis pilaris, hx cervical cancer, supposed to uses CPAP, chronic back and knee pain Last Myocardial Infarction Date:: 09/02/2023 History of Any Multi-Drug Resistant Organisms: None Reported Past Surgical History: Bladder Surgery, Cholecystectomy, Heart Catheterization With Stent, Hysterectomy, Orthopedic Surgery Additional Past Surgical History / Comment(s): left knee arthroscopy, bladder sling, Bartholin gland removal, colonoscopy Past Anesthesia/Blood Transfusion Reactions: Previous Problems w/ Anesthesia Additional Past Anesthesia/Blood Transfusion Reaction / Comment(s): "I woke up a lot with twilight", pt. adopted Date of Last Stent Placement:: 09/02/2023 Past Psychological History: Anxiety Smoking Status: Current every day smoker Past Alcohol Use History: None Reported Additional Past Alcohol Use History / Comment(s): down to 1/2ppd from 1PPD, has smoked for 40 yrs Past Drug Use History: None Reported - Past Family History Mother History Unknown: Yes Family Medical History: Cancer Additional Family Medical History / Comment(s): esophageal Medications and Allergies Home Medications Medication Instructions Recorded Confirmed Type Gabapentin 600 mg PO Q6H 02/04/15 11/02/23 History ALPRAZolam [Xanax] 1 mg PO TID PRN 01/18/21 11/02/23 History Baclofen [Lioresal] 20 - 30 mg PO HS PRN 01/18/21 11/02/23 History Budesonide/Formoterol Fumarate 2 puff INHALATION RT-BID 01/18/21 11/02/23 History [Symbicort 160-4.5 Mcg Inhaler] HYDROcodone/APAP 10-325MG [[place] 1 tab PO Q4H PRN MDD 5 tabs 01/18/21 11/02/23 History 10-325] Omeprazole Magnesium [PriLOSEC OTC] 20 mg PO DAILY 02/28/23 11/02/23 History metFORMIN HCL 500 mg PO DAILY 03/04/23 11/02/23 History Albuterol Sulfate [Ventolin HFA] 2 puff INHALATION RT-QID PRN 09/02/23 11/02/23 History Levothyroxine Sodium [Synthroid] 112 mcg PO DAILY 09/02/23 11/02/23 History Aspirin 81 mg PO DAILY tab 09/04/23 11/02/23 Rx Atorvastatin [Lipitor] 80 mg PO HS 30 Days #30 tab 09/04/23 11/02/23 Rx Metoprolol Tartrate [Lopressor] 25 mg PO BID 30 Days #60 tab 09/04/23 11/02/23 Rx Ticagrelor [Brilinta] 90 mg PO BID 30 Days #60 tab 09/04/23 11/02/23 Rx Codeine Phosphate/Guaifenesin 5 ml PO Q6H PRN 11/02/23 11/02/23 History [Codeine Phosphate/Guaifenesin 10-100 mg/5 ml] Magnesium Oxide [Magox 400] 400 mg PO HS 11/02/23 11/02/23 History Nitroglycerin Sl Tabs [Nitrostat] 0.4 mg SUBLINGUAL Q5M PRN 11/02/23 11/02/23 History QUEtiapine FUMARATE [SEROquel] 200 mg PO HS 11/02/23 11/02/23 History lisinopriL [Zestril] 5 mg PO HS 11/02/23 11/02/23 History predniSONE See Taper PO DIRECTED 11/02/23 11/02/23 History Allergies Allergy/AdvReac Type Severity Reaction Status Date / Time sulfamethoxazole Allergy Swelling/turned Verified 11/02/23 21:01 [From Bactrim] red trimethoprim [From Bactrim] Allergy swelling/turned Verified 11/02/23 21:01 red Physical Exam Vitals: Vital Signs Temp Pulse Pulse Resp BP BP Pulse Ox 11/03/23 08:52 86 11/03/23 08:42 85 90 L 11/03/23 07:34 97.8 F 77 16 155/91 93 L 11/03/23 01:00 16 11/03/23 00:58 97.7 F 74 16 150/92 91 L 11/02/23 23:30 68 22 149/92 90 L 11/02/23 22:00 76 22 156/87 90 L 11/02/23 21:45 75 22 151/94 91 L 11/02/23 20:51 72 20 158/88 90 L 11/02/23 20:07 88 11/02/23 20:00 85 11/02/23 19:00 92 L 11/02/23 18:54 67 22 150/99 88 L 11/02/23 17:47 64 22 129/96 91 L 11/02/23 16:35 99.1 F 72 16 155/93 91 L Intake and Output 11/03/23 11/03/23 11/03/23 06:59 14:59 22:59 Intake Total 750 Balance 750 Intake: Intake, IV Titration 250 Amount Azithromycin 500 mg In 250 Sodium Chloride 0.9% 250 ml @ 250 mls/hr IVPB ONCE STA Rx#:[id number] Oral 500 Other: Voiding Method Toilet Toilet # Voids 1 Weight 81.647 kg 81.647 kg GENERAL EXAM: Alert, 52-year-old white female, comfortable in no apparent distress. HEAD: Normocephalic and atraumatic EYES: Normal reaction of pupils, equal size. NOSE: Clear with pink turbinates. THROAT: No erythema or exudates. NECK: No masses, no JVD. CHEST: No chest wall deformity. LUNGS: Equal air entry with mild expiratory wheezes heard throughout. On 5 L/min nasal cannula. No conversational dyspnea or accessory muscle use while at rest.. CVS: S1 and S2 normal with no audible murmur, regular rhythm. No extra heart sounds ABDOMEN: No hepatosplenomegaly, active bowel sounds, no guarding or rigidity. SPINE: No scoliosis or deformity SKIN: No rashes CENTRAL NERVOUS SYSTEM: No focal deficits, tone is normal in all 4 extremities. EXTREMITIES: There is no peripheral edema, clubbing, or cyanosis. Peripheral pulses are intact. Results - Laboratory Findings CBC and BMP: 11/03/23 05:30 11/03/23 05:30 PT/INR, D-dimer PT 10.4 sec (10.0-12.5) 11/02/23 17:35 INR 0.9 (<1.2) 11/02/23 17:35 Abnormal lab findings: Abnormal Labs 11/02/23 11/02/23 11/02/23 17:35 17:35 18:53 WBC 14.3 H Neutrophils # 12.1 H Chloride 111 H Carbon Dioxide 21 L Creatinine Glucose 133 H POC Glucose (mg/dL) Magnesium 1.5 L Urine Protein Trace H 11/03/23 11/03/23 05:30 12:34 WBC Neutrophils # Chloride 111 H Carbon Dioxide 21 L Creatinine 0.50 L Glucose 143 H POC Glucose (mg/dL) 145 H Magnesium Urine Protein - Diagnostic Findings Chest x-ray: image reviewed Assessment and Plan Plan: Acute exacerbation of COPD with secondary shortness of breath. The patient is known to have COPD and her current presentation is typical of acute COPD exacerbation. Viral panel has been negative. Chest x-ray showing no acute cardiopulmonary process. Acute hypoxic respiratory failure the patient is currently on 5 L of oxygen by nasal cannula with a pulse ox of 90%. Shortness of breath secondary to above History of smoking Diabetes mellitus type 2 Coronary artery disease with recent cardiac catheterization and stenting of a dominant critical lesion of the circumflex with good results and the patient is currently on a combination of aspirin and Brilinta Hypertension Hyperlipidemia Hypothyroidism Obstructive sleep apnea the patient is not tolerant to CPAP therapy History of multiple sclerosis Fibromyalgia Plan The patient will be titrated on oxygen flow to maintain saturation above 90%. Continue bronchodilators with DuoNeb updrafts [id number] 4 times a day Continue IV Solu-Medrol 40 mg every 6 hours Empiric antibiotic coverage and the patient is currently on Zithromax monitor the blood sugars and watch for any signs of hyperglycemia new cessation with systemic steroid use Resume home medication of significance the cardiac medication including aspirin and Brilinta and the patient will be kept on metoprolol 25 mg p.o. twice a day Continue thyroid hormone replacement Add Symbicort as maintenance and the patient will need outpatient PFT and further adjustments on the maintenance medications based on the severity of her COPD. Smoking cessation counseling was done. She was offered a nicotine patch. Will continue to follow.
[2023-11-03 17:48] LABS: Glucose,Whole Blood 177 mg/dL (70-110)
[2023-11-03 20:25] LABS: Glucose,Whole Blood 225 mg/dL (70-110)
[2023-11-03] MEDS: lisinopriL 5 MG TAB PO SCH (21:22)
[2023-11-03] MEDS: MAGNESIUM OXIDE 400 MG TAB PO SCH (21:23)
[2023-11-03] MEDS: ATORVASTATIN 80 MG TAB PO SCH (21:23)
[2023-11-04] MEDS: AZITHROMYCIN 500 MG in SODIUM CHLORIDE 0.9% 250 ML IVPB SCH (00:09)
[2023-11-04 07:02] LABS: Glucose,Whole Blood 183 mg/dL (70-110)
[2023-11-04] MEDS: PANTOPRAZOLE 40 MG TABLET PO SCH (08:14)
--- NOTE | 2023-11-04 08:54 | P.CNNES ---
History of Present Illness Consult date: 11/03/23 Requesting physician: Gordo Mulligan Reason for Consult: Hallucinations History of Present Illness: Patient is a 52-year-old female with history of COPD, tobacco use, diabetes, came to the hospital because of worsening shortness of breath. Patient states that 2 weeks ago, on 10/21/2023 at around 1 PM patient became acutely confused. Patient states that the day before, on she suffered from sinus infection, saw her primary physician, who gave her a Z-Og. Has been also had fever that day. Patient remembers that on 10/21/2023, she was sleeping, woke up and could not get out of bed. Got onto the knees, started taking bed sheets off and was walking on her knees, could not stand up. She spoke to her on the phone, and apparently she was not making sense. She does not remember what he was asking, and what she was saying. Patient's mentions that nothing she was saying was making any sense, like she was in her own world. The words were correct, and there was no slurred speech, but she was just talking out of context. Apparently patient had a fever of 103 at that time. Patient was home alone at that time, just went back to the bed and slept. When she woke up later, she was mentally fine. Patient denies any slurred speech, facial droop, loss of vision, focal numbness, tingling or focal weakness. She continued to have temperature between 100-103.8 on Tuesday and Tuesday, and by 10/24/2023, the fever had gone. Patient was doing well, but developed some difficulty breathing for the last 4 days, which progressively got worse, to the point that she was not able to go or walk from 1 room to another. She was afraid to go to sleep, as she was gasping, like drowning in the pool. Therefore she came to the ER. Neurology was consulted for that episode of confusion, which happened 2 weeks ago. Patient has history of diabetes for 10 years on metformin. Denies hypertension. Patient has COPD. She has smoked 1 pack/day for 43 years, denies any alcohol use. Patient's blood test shows WBC 14.3 hemoglobin 13.3 platelets are normal. PT PTT normal. Electrolytes are normal, renal functions, hepatic panel, troponin, UA is normal. Influenza screen, RSV and coronavirus PCR normal. CT head revealed no acute intracranial process. Calcified lesion in the floor of the fourth ventricle. Possible relating to intraventricular calcified meningioma. I personally reviewed CT head and agree with the findings. This calcification is present in the previous MRI of the brain from 2014 and 2012 as well. No hydrocephalus. Patient states that she has been diagnosed with multiple sclerosis in 2009 although symptoms have been present for a long time before. Patient follows up with Dr. Carlson, at the [facility]. Patient was started on Copaxone in 2012, which she took for about 7-1/2 years. She stopped taking it after COVID. Patient used to get a lot of pneumonia while taking Copaxone and she stopped having pneumonia since then. Patient uses a walking stick for last 10 years. Review of Systems Constitutional: Denies chills, Denies fever Eyes: denies blurred vision, denies diplopia, denies pain, denies loss of peripheral vision Ears: deny: decreased hearing, ear discharge Ears, nose, mouth and throat: Reports sore throat, Denies headache, Denies vertigo Cardiovascular: Reports shortness of breath, Denies chest pain Respiratory: Reports cough, Reports cough with sputum, Denies excessive sputum Gastrointestinal: Denies abdominal pain, Denies diarrhea, Denies nausea, Denies vomiting Genitourinary: Denies dysuria, Denies hematuria, Denies urgency, Denies urinary frequency Musculoskeletal: Reports low back pain, Denies myalgias, Denies neck pain Integumentary: Denies pruritus, Denies rash Neurological: Reports as per HPI, Reports balance difficulties, Denies visual changes Psychiatric: Reports anxiety, Denies depression Endocrine: Reports fatigue, Denies weight change Past Medical History Past Medical History: Cancer, COPD, Diabetes Mellitus, Fibromyalgia, Myocardial Infarction ([place]), Neurologic Disorder, Osteoarthritis (OA), Skin Disorder, Sleep Apnea/CPAP/BIPAP, Thyroid Disorder Additional Past Medical History / Comment(s): Multiple Sclerosis, occasionally has flare up of MS that causes gastroparesis, keratosis pilaris, hx cervical cancer, supposed to uses CPAP, chronic back and knee pain Last Myocardial Infarction Date:: 09/02/2023 History of Any Multi-Drug Resistant Organisms: None Reported Past Surgical History: Bladder Surgery, Cholecystectomy, Heart Catheterization With Stent, Hysterectomy, Orthopedic Surgery Additional Past Surgical History / Comment(s): left knee arthroscopy, bladder sling, Bartholin gland removal, colonoscopy Past Anesthesia/Blood Transfusion Reactions: Previous Problems w/ Anesthesia Additional Past Anesthesia/Blood Transfusion Reaction / Comment(s): "I woke up alot with twilight", pt. adopted Date of Last Stent Placement:: 09/02/2023 Past Psychological History: Anxiety Smoking Status: Current every day smoker Past Alcohol Use History: None Reported Additional Past Alcohol Use History / Comment(s): down to 1/2ppd from 1PPD, has smoked for 40 yrs Past Drug Use History: None Reported - Past Family History Mother History Unknown: Yes Family Medical History: Cancer Additional Family Medical History / Comment(s): esophageal Medications and Allergies Home Medications Medication Instructions Recorded Confirmed Type Gabapentin 600 mg PO Q6H 02/04/15 11/02/23 History ALPRAZolam [Xanax] 1 mg PO TID PRN 01/18/21 11/02/23 History Baclofen [Lioresal] 20 - 30 mg PO HS PRN 01/18/21 11/02/23 History Budesonide/Formoterol Fumarate 2 puff INHALATION RT-BID 01/18/21 11/02/23 History [Symbicort 160-4.5 Mcg Inhaler] HYDROcodone/APAP 10-325MG [Grant 1 tab PO Q4H PRN MDD 5 tabs 01/18/21 11/02/23 History 10-325] Omeprazole Magnesium [PriLOSEC OTC] 20 mg PO DAILY 02/28/23 11/02/23 History metFORMIN HCL 500 mg PO DAILY 03/04/23 11/02/23 History Albuterol Sulfate [Ventolin HFA] 2 puff INHALATION RT-QID PRN 09/02/23 11/02/23 History Levothyroxine Sodium [Synthroid] 112 mcg PO DAILY 09/02/23 11/02/23 History Aspirin 81 mg PO DAILY tab 09/04/23 11/02/23 Rx Atorvastatin [Lipitor] 80 mg PO HS 30 Days #30 tab 09/04/23 11/02/23 Rx Metoprolol Tartrate [Lopressor] 25 mg PO BID 30 Days #60 tab 09/04/23 11/02/23 Rx Ticagrelor [Brilinta] 90 mg PO BID 30 Days #60 tab 09/04/23 11/02/23 Rx Codeine Phosphate/Guaifenesin 5 ml PO Q6H PRN 11/02/23 11/02/23 History [Codeine Phosphate/Guaifenesin 10-100 mg/5 ml] Magnesium Oxide [Magox 400] 400 mg PO HS 11/02/23 11/02/23 History Nitroglycerin Sl Tabs [Nitrostat] 0.4 mg SUBLINGUAL Q5M PRN 11/02/23 11/02/23 History QUEtiapine FUMARATE [SEROquel] 200 mg PO HS 11/02/23 11/02/23 History lisinopriL [Zestril] 5 mg PO HS 11/02/23 11/02/23 History predniSONE See Taper PO DIRECTED 11/02/23 11/02/23 History Allergies Allergy/AdvReac Type Severity Reaction Status Date / Time sulfamethoxazole Allergy Swelling/turned Verified 11/02/23 21:01 [From Bactrim] red trimethoprim [From Bactrim] Allergy swelling/turned Verified 11/02/23 21:01 red Physical Examination - Vital Signs Vital Signs: Vital Signs Temp Pulse Pulse Resp BP BP Pulse Ox 11/03/23 08:52 86 11/03/23 08:42 85 90 L 11/03/23 07:34 97.8 F 77 16 155/91 93 L 11/03/23 01:00 16 11/03/23 00:58 97.7 F 74 16 150/92 91 L 11/02/23 23:30 68 22 149/92 90 L 11/02/23 22:00 76 22 156/87 90 L 11/02/23 21:45 75 22 151/94 91 L 11/02/23 20:51 72 20 158/88 90 L 11/02/23 20:07 88 11/02/23 20:00 85 11/02/23 19:00 92 L 11/02/23 18:54 67 22 150/99 88 L 11/02/23 17:47 64 22 129/96 91 L 11/02/23 16:35 99.1 F 72 16 155/93 91 L Intake and Output 11/02/23 11/03/23 11/03/23 22:59 06:59 14:59 Intake Total 750 Balance 750 Intake: Intake, IV Titration 250 Amount Azithromycin 500 mg In 250 Sodium Chloride 0.9% 250 ml @ 250 mls/hr IVPB ONCE STA Rx#:[id number] Oral 500 Other: Voiding Method Toilet Toilet # Voids 1 Weight 81.647 kg 81.647 kg 81.647 kg Patient is a middle aged female, very pleasant, in no acute distress. She is slightly short of breath, and using oxygen by nasal cannula Patient is alert awake oriented to time place and person. Patient knows it is October and the year is 2023 and that she is in [facility] in [place]. She knows name of the current president. Speech and language functions are normal. Patient can name and repeat very well. No aphasia or dysarthria. Attention, concentration and fund of knowledge is adequate. On cranial nerve examination, pupils are equal, round and reacting to light, visual robb are full on confrontation, with no neglect on double simultaneous stimulation. Extraocular muscles are intact with no nystagmus. Face is symmetric, tongue protrudes to the midline. Palatal elevation and sensation normal, hearing and shoulder shrug normal, facial sensation normal. On muscle strength testing, there is no pronator drift and the strength is normal in arms and legs distally and proximally. Deep tendon reflexes are symmetric 1+ to 2+ and plantars downgoing. Sensory to touch is equal with no neglect on double simultaneous stimulation. Cerebellar function showed no ataxia for [id number] testing. No dysdiadochokinesia. No ataxia for [id number] testing on either side. Tone and bulk of muscles normal. Gait deferred.. On general examination, there is no carotid bruit or murmur, S1-S2 audible. Chest is clear on consultation. Abdomen is soft nontender. No organomegaly, bowel sounds present. Peripheral pulses are present. No peripheral edema. Results - Laboratory Findings CBC and BMP: 11/03/23 05:30 11/03/23 05:30 Abnormal Lab Findings: Abnormal Labs 11/02/23 11/02/23 11/02/23 17:35 17:35 18:53 WBC 14.3 H Neutrophils # 12.1 H Chloride 111 H Carbon Dioxide 21 L Creatinine Glucose 133 H POC Glucose (mg/dL) Magnesium 1.5 L Urine Protein Trace H 11/03/23 11/03/23 05:30 12:34 WBC Neutrophils # Chloride 111 H Carbon Dioxide 21 L Creatinine 0.50 L Glucose 143 H POC Glucose (mg/dL) 145 H Magnesium Urine Protein Assessment and Plan Assessment: * 52-year-old female, came with 4-day history of shortness of breath, likely due to COPD exacerbation. Patient had an episode of acute confusion, most likely delirium about 2 weeks ago on 10/21/2023, likely due to acute viral infection with high fever of 103. The delirium was short lasting and resolved after she went to sleep and woke up. At present her examination is nonfocal. * History of multiple sclerosis * Acute exacerbation of COPD * Diabetes * Hypertension * COPD * CAD * Tobacco use Plan: * Patient had a delirium, likely due to acute viral infection with high fever. Patient did not have any focal neurological symptoms otherwise with it. Patient's current neurological examination is normal. CT head was reviewed, showed no acute process. * No other neurological workup needed at this time. * Recommend patient follow-up with her neurologist as routine for her MS. No need for expedited appointment. * Neurologically clear. We will sign off. Thank you for the consult.
[2023-11-04 11:02] LABS: Basophils # (A) 0 X 10*3/uL (0.00-0.10); Basophils % (A) 0 %; Eosinophils # (A) 0 X 10*3/uL (0.04-0.35); Eosinophils % (A) 0 %; HCT 35.5 % (37.2-46.3); HGB 11.6 g/dL (12.0-15.0); Lymphocytes # (A) 0.89 X 10*3/uL (0.90-5.00); Lymphocytes % (A) 7.2 %; MCH 30.2 pg (27.0-32.0); MCHC 32.7 g/dL (32.0-37.0); MCV 92.4 FL (80.0-97.0); Mean Platelet Volume 10.1 FL (9.5-12.2); Monocytes # (A) 0.17 X 10*3/uL (0.20-1.00); Monocytes % (A) 1.4 %; NRBC Per 100 WBC 0 X 10*3/uL (0.00-0.01); Neutrophils # (A) 11.31 X 10*3/uL (1.80-7.70); Platelet Count 355 X 10*3/uL (140-440); RBC 3.84 X 10*6/uL (4.10-5.20); RDW 13.6 % (11.5-14.5); WBC 12.42 X 10*3/uL (4.50-10.00)
[2023-11-04 11:27] LABS: BUN/Creat Ratio 24.67 Ratio (12.00-20.00); Blood Urea Nitrogen 14.8 mg/dL (9.0-27.0); Calcium 9.5 mg/dL (8.7-10.3); Carbon Dioxide 22.9 mmol/L (21.6-31.8); Chloride 105 mmol/L (96-109); Glucose 190 mg/dL (70-110); Potassium 5.3 mmol/L (3.5-5.5); Sodium 140 mmol/L (135-145)
[2023-11-04 12:10] LABS: Glucose,Whole Blood 222 mg/dL (70-110)
--- NOTE | 2023-11-04 12:31 | CDI ---
Documentation Clarification Form Date: From: Ursula Cruz Phone: [phone] Admit Date: 11/02/2023 08:58:00 PM Patient Name: Chloe Nichols Visit Number: [id number] Discharge Date: ATTENTION: The Clinical Documentation Specialists (CDI) and [facility] Coding Staff appreciate your assistance in clarifying documentation. Please respond to the clarification below the line at the bottom and electronically sign. The CDI & [facility] Coding staff will review the response and follow-up if needed. Please note: Queries are made part of the Legal Health Record. If you have any questions, please contact the author of this message via ITS. Dr. Gordo Mulligan Conflicting documentation has been found in the medical record. As attending physician, please provide clarification. "Change in mental status, metabolic encephalopathy." - Per H&P on 11/03 "delirium" - Per Neurology Consult note on Note on 11/03 History/Risk Factors: "52-year-old woman with a past medical history of multiple medical problems, was being followed by primary care physician. The patient has increased shortness of breath. The patient came to [facility], is being treated for COPD exacerbation." - Per H&P on 11/03 Clinical Indicators: "Patient had a delirium, likely due to acute viral infection with high fever. Patient did not have any focal neurological symptoms otherwise with it. Patient's current neurological examination is normal. CT head was reviewed, showed no acute process." - Per Neurology Consult note on 11/03 "reports high fevers earlier in the week of greater than 101 F, but is afebrile currently." - Per Pulmonology note on 11/03 "patient also had hallucinations and some change in mental status" " patient is severely hypoxic" - Per H&P on 11/03 Treatment: Per Pulmonology note on 11/03 "Continue supplemental oxygen to maintain oxygen saturation greater than 92%. Patient started on medications including DuoNebs [id number], Symbicort inhaler, and IV Solu-Medrol Empiric antibiotic was added, procalcitonin level pending" "No other neurological workup needed at this time" - Per Neurology note on 11/03 Please clarify which diagnosis is most appropriate: [ ] Delerium [ ] Metabolic Encephalopathy [ ] Other (please specify) [ ] Unable to determine Delerium MTDD
--- NOTE | 2023-11-04 15:05 | P.PN ---
Subjective Progress Note Date: 11/04/23 I am seeing this patient for worsening shortness of breath and COPD exacerbation. The patient is known to have COPD. She is presenting with increased dyspnea cough chest tightness and wheezing. She is a chronic smoker and she was smoking up to 2 packs of cigarettes a day and currently she is down to 1 pack of cigarettes a day as the patient had a recent coronary event, acute myocardial infarction requiring cardiac catheterization and stenting. The patient also has history of obstructive sleep apnea intolerant to CPAP therapy, history of diabetes mellitus type 2, hypertension hyperlipidemia and hypothyroidism and history of fibromyalgia. She is also known to have multiple sclerosis. In terms of her COPD, the patient started having some sickness approximately a week ago. She was having fevers on outpatient basis with a Tmax of 101 and currently she is afebrile. No nausea. No emesis. No hemoptysis or pleurisy. Her viral panel at the time of admission was negative. CBC was showing a white cell count of 14.3 which dropped down to 8.6 with a hemoglobin 12.6 and a platelet count of 383. BUN is a 50 with a creatinine of 0.5And his sodium level is at 138. Procalcitonin level is negative. Troponin less than 0.01. Meanwhile, the patient also given a chest x-ray that showed no acute abnormalities and the patient chest x-ray was consistent with COPD. CAT scan of the brain was also done on 11/03/2023 and a CAT scan of the brain showed no acute intracranial process. The patient did have also a calcified lesion in the floor of the fourth ventricle probably a calcified meningioma. At this point in time, the patient is on DuoNeb updrafts, Symbicort as maintenance, IV Solu-Medrol 40 mg every 8 hours and she was also offered a nicotine patch. Her outpatient medication will resume including the aspirin and Brilinta as the patient has undergone a recent cardiac evaluation and stenting and she has a fresh stent in place. Catheterization was done on 09/02/2023 and the patient was found to have severe stenosis in the distal dominant circumflex and the patient underwent a succ essful stenting of the circumflex. On today's evaluation of 11/04/2023, the patient is being seen for a follow-up. The patient is feeling slightly improved compared to yesterday. No chest pain. She is predominantly hospitalized for an acute stroke exacerbation she remains on bronchodilators and steroids.Her D-dimer is at 0.75. Sodium is at 140 with a potassium level of 5.3, BUN is at 14 with a creatinine of 0.6. The white cell count is at 12.4 with a hemoglobin of 11.6 and a platelet count of 355. Remains on DuoNeb updrafts, IV Solu-Medrol 40 every 8 hours and the rest of the cardiac medications remain unchanged. Objective - Vital Signs Vital signs: Vital Signs Temp 97.8 F 11/04/23 07:02 Pulse 90 11/04/23 08:09 Resp 17 11/04/23 07:02 BP 114/70 11/04/23 07:02 Pulse Ox 91 L 11/04/23 07:02 FiO2 Intake & Output 11/03/23 11/04/23 11/04/23 18:59 06:59 18:59 Intake Total 850 Balance 850 Weight 81.647 kg Intake: Intake, IV Titration 250 Amount Azithromycin 500 mg In 250 Sodium Chloride 0.9% 250 ml @ 250 mls/hr IVPB DAILY@0000 [facility] Rx#: [id number] Oral 600 Other: Voiding Method Toilet Toilet Toilet # Voids 2 2 - Exam GENERAL EXAM: Alert, 52-year-old white female, comfortable in no apparent distress. HEAD: Normocephalic and atraumatic EYES: Normal reaction of pupils, equal size. NOSE: Clear with pink turbinates. THROAT: No erythema or exudates. NECK: No masses, no JVD. CHEST: No chest wall deformity. LUNGS: Equal air entry with mild expiratory wheezes heard throughout. On 5 L/min nasal cannula. No conversational dyspnea or accessory muscle use while at rest.. CVS: S1 and S2 normal with no audible murmur, regular rhythm. No extra heart sounds ABDOMEN: No hepatosplenomegaly, active bowel sounds, no guarding or rigidity. SPINE: No scoliosis or deformity SKIN: No rashes CENTRAL NERVOUS SYSTEM: No focal deficits, tone is normal in all 4 extremities. EXTREMITIES: There is no peripheral edema, clubbing, or cyanosis. Peripheral pulses are intact. - Labs CBC & Chem 7: 11/04/23 06:42 11/04/23 06:42 Labs: Abnormal Lab Results - Last 24 Hours (Table) 11/03/23 11/03/23 11/03/23 Range/Units 12:34 17:43 20:23 POC Glucose (mg/dL) 145 H 177 H 225 H (70-110) mg/dL 11/04/23 Range/Units 07:02 POC Glucose (mg/dL) 183 H (70-110) mg/dL Assessment and Plan Plan: Acute exacerbation of COPD with secondary shortness of breath. The patient is known to have COPD and her current presentation is typical of acute COPD exacerbation. Viral panel has been negative. Chest x-ray showing no acute cardiopulmonary process. Clinically improving compared to yesterday Acute hypoxic respiratory failure the patient is currently on 5 L of oxygen by nasal cannula with a pulse ox of 90%. Shortness of breath secondary to above History of smoking Diabetes mellitus type 2 Coronary artery disease with recent cardiac catheterization and stenting of a dominant critical lesion of the circumflex with good results and the patient is currently on a combination of aspirin and Brilinta Hypertension Hyperlipidemia Hypothyroidism Obstructive sleep apnea the patient is not tolerant to CPAP therapy History of multiple sclerosis Fibromyalgia Plan Clinically improving and will continue the same treatment for now without any significant changes. The patient will be titrated on oxygen flow to maintain saturation above 90%. Continue bronchodilators with DuoNeb updrafts [id number] 4 times a day Continue IV Solu-Medrol 40 mg every 6 hours Continue empiric antibiotic coverage and the patient is currently on Zithromax Continue to monitor the blood sugars and watch for any signs of hyperglycemia new cessation with systemic steroid use Resume home medication of significance the cardiac medication including aspirin and Brilinta and the patient will be kept on metoprolol 25 mg p.o. twice a day Continue thyroid hormone replacement Continue Symbicort as maintenance and the patient will need outpatient PFT and further adjustments on the maintenance medications based on the severity of her COPD. Smoking cessation counseling was done. She was offered a nicotine patch. Will continue to follow.
[2023-11-04 17:22] LABS: Glucose,Whole Blood 217 mg/dL (70-110)
[2023-11-04 20:09] LABS: Glucose,Whole Blood 274 mg/dL (70-110)
--- NOTE | 2023-11-04 20:51 | PN ---
PROGRESS NOTE DATE OF SERVICE: 11/04/2023 SUBJECTIVE: This is a 52-year-old woman who was admitted with COPD exacerbation, still on 5 L nasal cannula. No chest pain, no palpitations, no fever. CT brain was not showing any acute abnormality. PHYSICAL EXAMINATION: VITAL SIGNS: Pulse is 84, blood pressure is 140/70, respirations 17. CHEST: Clear to auscultation. CARDIOVASCULAR: S1, S2. ABDOMEN: Soft. CHEST: Bilateral scattered rhonchi and crackles. ABDOMEN: Soft. NERVOUS SYSTEM: No focal deficits. LABORATORY DATA: WBC 12.4, rest of the labs are noted. ASSESSMENT: 1. Chronic obstructive pulmonary disease acute exacerbation with acute hypoxic respiratory failure. 2. Change in mental status and acute metabolic encephalopathy. 3. Metabolic encephalopathy with delirium. 4. Increased WBC. 5. Diabetes mellitus, type 2. 6. History of multiple sclerosis. 7. History of sleep apnea. 8. History of CAD stent. 9. Multiple complex medical issues. RECOMMENDATIONS: Recommended to continue current management, continue symptomatic treatment, otherwise continue with IV steroids. I will repeat labs, guarded prognosis. Further recommendations to follow. MMODL / IJN: [id number] /
[2023-11-05 07:48] LABS: Glucose,Whole Blood 204 mg/dL (70-110)
[2023-11-05 08:52] VITALS: BP 109/64; RESP 17; TEMP 97.7
[2023-11-05 09:21] VITALS: PULSE 92
[2023-11-05 11:38] LABS: Basophils # (A) 0 X 10*3/uL (0.00-0.10); Basophils % (A) 0 %; Eosinophils # (A) 0 X 10*3/uL (0.04-0.35); Eosinophils % (A) 0 %; HGB 11.6 g/dL (12.0-15.0); Lymphocytes # (A) 0.92 X 10*3/uL (0.90-5.00); Lymphocytes % (A) 7.4 %; MCH 31.1 pg (27.0-32.0); MCHC 33.1 g/dL (32.0-37.0); MCV 93.8 FL (80.0-97.0); Mean Platelet Volume 10.4 FL (9.5-12.2); Monocytes # (A) 0.31 X 10*3/uL (0.20-1.00); Monocytes % (A) 2.5 %; NRBC Per 100 WBC 0 X 10*3/uL (0.00-0.01); Neutrophils # (A) 11.09 X 10*3/uL (1.80-7.70); Neutrophils % (A) 89.5 %; Platelet Count 333 X 10*3/uL (140-440); RBC 3.73 X 10*6/uL (4.10-5.20); RDW 13.7 % (11.5-14.5)
--- NOTE | 2023-11-05 12:12 | P.PN ---
Subjective Progress Note Date: 11/05/23 I am seeing this patient for worsening shortness of breath and COPD exacerbation. The patient is known to have COPD. She is presenting with increased dyspnea cough chest tightness and wheezing. She is a chronic smoker and she was smoking up to 2 packs of cigarettes a day and currently she is down to 1 pack of cigarettes a day as the patient had a recent coronary event, acute myocardial infarction requiring cardiac catheterization and stenting. The patient also has history of obstructive sleep apnea intolerant to CPAP therapy, history of diabetes mellitus type 2, hypertension hyperlipidemia and hypothyroidism and history of fibromyalgia. She is also known to have multiple sclerosis. In terms of her COPD, the patient started having some sickness approximately a week ago. She was having fevers on outpatient basis with a Tmax of 101 and currently she is afebrile. No nausea. No emesis. No hemoptysis or pleurisy. Her viral panel at the time of admission was negative. CBC was showing a white cell count of 14.3 which dropped down to 8.6 with a hemoglobin 12.6 and a platelet count of 383. BUN is a 50 with a creatinine of 0.5And his sodium level is at 138. Procalcitonin level is negative. Troponin less than 0.01. Meanwhile, the patient also given a chest x-ray that showed no acute abnormalities and the patient chest x-ray was consistent with COPD. CAT scan of the brain was also done on 11/03/2023 and a CAT scan of the brain showed no acute intracranial process. The patient did have also a calcified lesion in the floor of the fourth ventricle probably a calcified meningioma. At this point in time, the patient is on DuoNeb updrafts, Symbicort as maintenance, IV Solu-Medrol 40 mg every 8 hours and she was also offered a nicotine patch. Her outpatient medication will resume including the aspirin and Brilinta as the patient has undergone a recent cardiac evaluation and stenting and she has a fresh stent in place. Catheterization was done on 09/02/2023 and the patient was found to have severe stenosis in the distal dominant circumflex and the patient underwent a succ essful stenting of the circumflex. On today's evaluation of 11/04/2023, the patient is being seen for a follow-up. The patient is feeling slightly improved compared to yesterday. No chest pain. She is predominantly hospitalized for an acute stroke exacerbation she remains on bronchodilators and steroids.Her D-dimer is at 0.75. Sodium is at 140 with a potassium level of 5.3, BUN is at 14 with a creatinine of 0.6. The white cell count is at 12.4 with a hemoglobin of 11.6 and a platelet count of 355. Remains on DuoNeb updrafts, IV Solu-Medrol 40 every 8 hours and the rest of the cardiac medications remain unchanged. On 11/05/2023, I am seeing the patient for a follow-up. The patient is feeling better. Less short of breath is progressing and wheezing the patient is currently on room air oxygen. No chest pain. No other complaints. The patient seems to be ready to go home today. She has a nebulizer at home and she is also using Symbicort as maintenance and she will be utilizing a prednisone burst taper at time of discharge.Labs from today shows WC count 12.4 with a hemoglobin 11.6 and a platelet count of 333. Objective - Vital Signs Vital signs: Vital Signs Temp 97.7 F 11/05/23 07:23 Pulse 92 11/05/23 09:06 Resp 17 11/05/23 07:23 BP 109/64 11/05/23 07:23 Pulse Ox 96 11/05/23 07:23 FiO2 Intake & Output 11/04/23 11/05/23 11/05/23 18:59 06:59 18:59 Output Total 400 Balance -400 Weight 79.8 kg Output: Urine 400 Other: Voiding Method Toilet Toilet Toilet # Voids 1 - Exam GENERAL EXAM: Alert, 52-year-old white female, comfortable in no apparent distress. HEAD: Normocephalic and atraumatic EYES: Normal reaction of pupils, equal size. NOSE: Clear with pink turbinates. THROAT: No erythema or exudates. NECK: No masses, no JVD. CHEST: No chest wall deformity. LUNGS: Equal air entry with mild expiratory wheezes heard throughout. . No conversational dyspnea or accessory muscle use while at rest.. CVS: S1 and S2 normal with no audible murmur, regular rhythm. No extra heart sounds ABDOMEN: No hepatosplenomegaly, active bowel sounds, no guarding or rigidity. SPINE: No scoliosis or deformity SKIN: No rashes CENTRAL NERVOUS SYSTEM: No focal deficits, tone is normal in all 4 extremities. EXTREMITIES: There is no peripheral edema, clubbing, or cyanosis. Peripheral pulses are intact. - Labs CBC & Chem 7: 11/05/23 06:32 11/04/23 06:42 Labs: Abnormal Lab Results - Last 24 Hours (Table) 11/04/23 11/04/23 11/04/23 Range/Units 06:42 06:42 06:42 WBC 12.42 H (4.50-10.00) X 10*3/uL RBC 3.84 L (4.10-5.20) X 10*6/uL Hgb 11.6 L (12.0-15.0) g/dL Hct 35.5 L (37.2-46.3) % Immature Gran # 0.05 H (0.00-0.04) X 10*3/uL Neutrophils # 11.31 H (1.80-7.70) X 10*3/uL Lymphocytes # 0.89 L (0.90-5.00) X 10*3/uL Monocytes # 0.17 L (0.20-1.00) X 10*3/uL Eosinophils # 0 L (0.04-0.35) X 10*3/uL D-Dimer (<0.60) mg/L FEU Anion Gap 12.10 H (4.00-12.00) mmol/L BUN/Creatinine Ratio 24.67 H (12.00-20.00) Ratio Glucose 190 H (70-110) mg/dL POC Glucose (mg/dL) (70-110) mg/dL Hemoglobin A1c 7.0 H (<=6.0) % 11/04/23 11/04/23 11/04/23 Range/Units 12:08 13:15 17:21 WBC (4.50-10.00) X 10*3/uL RBC (4.10-5.20) X 10*6/uL Hgb (12.0-15.0) g/dL Hct (37.2-46.3) % Immature Gran # (0.00-0.04) X 10*3/uL Neutrophils # (1.80-7.70) X 10*3/uL Lymphocytes # (0.90-5.00) X 10*3/uL Monocytes # (0.20-1.00) X 10*3/uL Eosinophils # (0.04-0.35) X 10*3/uL D-Dimer 0.75 H (<0.60) mg/L FEU Anion Gap (4.00-12.00) mmol/L BUN/Creatinine Ratio (12.00-20.00) Ratio Glucose (70-110) mg/dL POC Glucose (mg/dL) 222 H 217 H (70-110) mg/dL Hemoglobin A1c (<=6.0) % 11/04/23 11/05/23 Range/Units 19:56 07:21 WBC (4.50-10.00) X 10*3/uL RBC (4.10-5.20) X 10*6/uL Hgb (12.0-15.0) g/dL Hct (37.2-46.3) % Immature Gran # (0.00-0.04) X 10*3/uL Neutrophils # (1.80-7.70) X 10*3/uL Lymphocytes # (0.90-5.00) X 10*3/uL Monocytes # (0.20-1.00) X 10*3/uL Eosinophils # (0.04-0.35) X 10*3/uL D-Dimer (<0.60) mg/L FEU Anion Gap (4.00-12.00) mmol/L BUN/Creatinine Ratio (12.00-20.00) Ratio Glucose (70-110) mg/dL POC Glucose (mg/dL) 274 H 204 H (70-110) mg/dL Hemoglobin A1c (<=6.0) % Assessment and Plan Plan: Acute exacerbation of COPD with secondary shortness of breath. The patient is known to have COPD and her current presentation is typical of acute COPD exacerbation. Viral panel has been negative. Chest x-ray showing no acute cardiopulmonary process. Clinically much improved over the past 48 hours Acute hypoxic respiratory failure secondary to COPD exacerbation and patient saturations improved and she is currently on room air Shortness of breath secondary to above History of smoking Diabetes mellitus type 2 Coronary artery disease with recent cardiac catheterization and stenting of a dominant critical lesion of the circumflex with good results and the patient is currently on a combination of aspirin and Brilinta Hypertension Hyperlipidemia Hypothyroidism Obstructive sleep apnea the patient is not tolerant to CPAP therapy History of multiple sclerosis Fibromyalgia Plan Patient is to be discharged home today Continue bronchodilators with DuoNeb updrafts [id number] 4 times a day Prednisone burst taper Symbicort as maintenance Smoking cessation counseling was done. She was offered a nicotine patch. Will continue to follow.
[2023-11-05 12:38] LABS: Blood Urea Nitrogen 14.7 mg/dL (9.0-27.0); Calcium 9.3 mg/dL (8.7-10.3); Carbon Dioxide 22.4 mmol/L (21.6-31.8); Chloride 104 mmol/L (96-109); Glucose 189 mg/dL (70-110); Potassium 5.1 mmol/L (3.5-5.5); Sodium 140 mmol/L (135-145)
--- NOTE | 2023-11-05 18:52 | DS ---
DISCHARGE SUMMARY FINAL DIAGNOSES: 1. Chronic obstructive pulmonary disease acute exacerbation with acute hypoxic respiratory failure. 2. Change in mental status and acute metabolic encephalopathy, multifactorial. 3. Delirium, acute. 4. Increased WBC. 5. Diabetes mellitus, type 2. 6. History of multiple sclerosis. 7. History of sleep apnea. 8. History of CAD stent. 9. Multiple complex medical issues. DISCHARGE DISPOSITION: The patient will be discharged in stable condition and guarded prognosis. The patient is extremely keen on going home. HISTORY OF PRESENT ILLNESS: A 52-year-old woman with a past medical history of multiple medical problems, admitted with COPD acute exacerbation, treated with bronchodilators, steroids, antibiotics, improved significantly. Dr. Pryor saw the patient. PHYSICAL EXAMINATION: VITAL SIGNS: Stable. CARDIOVASCULAR: S1, S2. RESPIRATIONS: A few scattered rhonchi and crackles. The patient will be discharged home in stable condition and guarded prognosis. Pulse ox was 89% to 90% on room air. Recommend to follow up with Dr. Woodard and recommend to continue with bronchodilators and taper steroids and Zithromax. Follow up with Dr. Pryor as recommended. MMODL / IJN: [id number] /
== END 2023-11-05 11:50 | disposition home or self-care (01) | DRG 189 ==
LOC: EC 16:26 → 5NMEDONC 20:58
PROVIDERS: ADMIT Internal Medicine; ATTEND Internal Medicine
DX: J96.01 Acute respiratory failure with hypoxia (principal); G93.41 Metabolic encephalopathy; F05 Delirium due to known physiological condition; J44.0 Chronic obstructive pulmonary disease with (acute) lower respiratory infection; J44.1 Chronic obstructive pulmonary disease with (acute) exacerbation; E11.43 Type 2 diabetes mellitus with diabetic autonomic (poly)neuropathy; K31.84 Gastroparesis; G35 Multiple sclerosis; E03.9 Hypothyroidism, unspecified; I10 Essential (primary) hypertension; E66.9 Obesity, unspecified; Z68.30 Body mass index [BMI] 30.0-30.9, adult; D32.9 Benign neoplasm of meninges, unspecified; Z28.310 Unvaccinated for COVID-19; J20.9 Acute bronchitis, unspecified; I25.10 Atherosclerotic heart disease of native coronary artery without angina pectoris; E78.5 Hyperlipidemia, unspecified; E83.42 Hypomagnesemia; G47.33 Obstructive sleep apnea (adult) (pediatric); M79.7 Fibromyalgia; I25.2 Old myocardial infarction; F41.9 Anxiety disorder, unspecified; G89.29 Other chronic pain; M54.9 Dorsalgia, unspecified; M25.569 Pain in unspecified knee; M19.90 Unspecified osteoarthritis, unspecified site; Z91.199 Patient's noncompliance with other medical treatment and regimen due to unspecified reason; F17.210 Nicotine dependence, cigarettes, uncomplicated; Z79.82 Long term (current) use of aspirin; Z79.51 Long term (current) use of inhaled steroids; Z79.890 Hormone replacement therapy; Z79.02 Long term (current) use of antithrombotics/antiplatelets; Z79.84 Long term (current) use of oral hypoglycemic drugs; Z79.899 Other long term (current) drug therapy; Z95.5 Presence of coronary angioplasty implant and graft; Z85.41 Personal history of malignant neoplasm of cervix uteri; Z71.3 Dietary counseling and surveillance; Z88.1 Allergy status to other antibiotic agents; Z88.2 Allergy status to sulfonamides
CPT/HCPCS: 36415; 70450; 71046; 80048; 80053; 81003; 83036; 83605; 83735; 83880; 84145; 84484; 85025; 85379; 85610; 85730; 87636; 93005; 94640; 94760; 96365; 96375; 99291

== ENCOUNTER → 2023-11-23 | Outpatient (CLI) | payer MEDICARE, OTHER ==
--- NOTE | 2023-11-24 19:43 | MM ---
Reason for Exam: Screening (asymptomatic). Last mammogram was performed 2 year(s) and 1 month(s) ago. Patient History: Menarche at age 8. First Full-Term at age 29. Late child-bearing (after 29). Left ovary removed at age 39. Right ovary removed at age 39. Hysterectomy at age 39. Postmenopausal. Risk Values: [place] 5 year model risk: 1.7%. NCI Lifetime model risk: 12.6%. Prior Study Comparison: 04/22/2017 Bilateral Screening Mammogram, [facility]. 10/19/2021 Bilateral Screening Mammogram, [facility]. Tissue Density: The breast tissue is heterogeneously dense. This may lower the sensitivity of mammography. Findings: Analyzed By CAD. There is no suspicious group of microcalcifications or new suspicious mass in either breast. Overall Assessment: Negative, BI-RAD 1 Management: Screening Mammogram of both breasts in 1 year. . Patient should continue monthly self-breast exams. A clinical breast exam by your physician is recommended on an annual basis. This exam should not preclude additional follow-up of suspicious palpable abnormalities. Note on [place] scores and lifetime risk: 1. A [place] score greater than 3% is considered moderate risk. If this is the case, consider specialist referral to assess eligibility for a risk reducing agent. 2. If overall lifetime risk for the development of breast cancer is 20% or higher, the patient may qualify for future screening with alternating mammogram and breast MRI. Electronically signed and approved by: Jorge Infante M.D. Radiologist
== END | disposition home or self-care (01) ==
LOC: RADMAMWWP 14:27
PROVIDERS: ATTEND Family Medicine
DX: Z12.31 Encounter for screening mammogram for malignant neoplasm of breast (principal); Z78.0 Asymptomatic menopausal state
CPT/HCPCS: 77063; 77067

== ENCOUNTER → 2023-12-19 | Outpatient (CLI) | payer MEDICARE, OTHER ==
[2023-12-19 22:25] LABS: ALT 10 U/L (8-44); AST 14 U/L (13-35); Albumin 4.3 g/dL (3.8-4.9); Albumin/Globulin Ratio 1.87 Ratio (1.60-3.17); Alkaline Phosphatase 93 U/L (41-126); BUN/Creat Ratio 15.86 Ratio (12.00-20.00); Blood Urea Nitrogen 11.1 mg/dL (9.0-27.0); Calcium 9.8 mg/dL (8.7-10.3); Chloride 107 mmol/L (96-109); Chol/HDL Ratio 3.64 Ratio; Globulin 2.3 g/dL (1.6-3.3); Glucose 112 mg/dL (70-110); LDL Cholesterol,Calculated 76.9 mg/dL (0.0-131.0); Potassium 4.5 mmol/L (3.5-5.5); Sodium 145 mmol/L (135-145); Total Bilirubin 0.3 mg/dL (0.3-1.2); Total Protein 6.6 g/dL (6.2-8.2)
== END | disposition home or self-care (01) ==
LOC: LABWHC1 14:50
PROVIDERS: ATTEND Internal Medicine Interventional Cardiology
DX: E78.2 Mixed hyperlipidemia (principal)
CPT/HCPCS: 36415; 80053; 80061

== ENCOUNTER → 2024-02-06 | Outpatient (CLI) | payer MEDICARE, OTHER ==
--- NOTE | 2024-02-06 13:41 | XR ---
EXAMINATION TYPE: XR chest 2V DATE OF EXAM: 02/06/2024 1:28 PM CLINICAL INDICATION:Female, 53 years old with history of J44.9 CHRONIC OBS PULM DISEASE; COMPARISON: Chest radiographs from 11/02/2023 TECHNIQUE: XR chest 2V Frontal and lateral views of the chest. FINDINGS: Lungs/Pleura: There is no evidence of pleural effusion, focal consolidation, or pneumothorax. Pulmonary vascularity: Unremarkable. Heart/mediastinum: Cardiomediastinal silhouette is unremarkable. Musculoskeletal: No acute osseous pathology. IMPRESSION: No acute cardiopulmonary disease/process.
--- NOTE | 2024-02-06 14:18 | CTL ---
EXAMINATION TYPE: CT Low Dose Lung DATE OF EXAM ORDERED: 02/06/2024 HISTORY: . Low Dose CT Lung Screening CT DLP: 135.[address] CTDI: 3.8 mGy IV CONTRAST USED: None. SCREENING VISIT: First visit COMPARISON: None. TECHNIQUE: Low dose computed tomography scan was performed through the chest at 1 millimeter thick se ctions and reconstructed images in the coronal plane at [address] DIAGNOSTIC QUALITY: Satisfactory FINDINGS: LUNG NODULES: Left superiorly measuring 5.6 mm image 54. No additional distinct pulmonary nodule seen at this time. LUNGS: COPD: Severity: Mild Fibrosis: Severity:None Lymph nodes: None Other findings: None RIGHT PLEURAL SPACE: Effusion: None Calcification: None Thickening: None Pneumothorax: None LEFT PLEURAL SPACE: Effusion: None Calcification: None Thickening: None Pneumothorax: None HEART: Heart Size: Mildly enlarged Coronary calcification: Mild Pericardial effusion: None OTHER FINDINGS: Upper abdomen: No significant abnormality Bony thorax: Degenerative changes Supraclavicular region: No significant abnormalityOther: No significant abnormalityI IMPRESSION: Nodule left upper lobe measuring less than [address] CHEST RECOMMENDATION: Follow-up screening in one year CT LUNG RAD: LUNG RAD CATEGORY 2 benign appearance and/or behavior.
== END | disposition home or self-care (01) ==
LOC: RADCTMAIN 13:04
PROVIDERS: ATTEND Family Medicine
DX: Z12.2 Encounter for screening for malignant neoplasm of respiratory organs (principal); J44.9 Chronic obstructive pulmonary disease, unspecified; F17.210 Nicotine dependence, cigarettes, uncomplicated; R91.1 Solitary pulmonary nodule
CPT/HCPCS: 71046; 71271

== ENCOUNTER → 2024-03-07 | Outpatient (CLI) | payer MEDICARE, OTHER ==
[2024-03-07 14:44] VITALS: BP 131/84; PULSE 68; RESP 16; TEMP 97.9
--- NOTE | 2024-03-07 15:22 | P.SLEEP ---
History of Present Illness DATE: 03/07/2024 CONSULTATION/NEW PATIENT EVALUATION HISTORY OF PRESENT ILLNESS/SLEEP-WAKE EVALUATION: 53-year-old lady had been e valuated in the sleep center for possible obstructive sleep apnea hypopnea syndrome. Patient has history of obstructive sleep apnea diagnosed in another institution about 14 years ago, but at that time she was not able to use CPAP treatment. SLEEP SCHEDULE: Usually sleep schedule from 1011 PM to 11 AM. FALLING ASLEEP: Patient has significant problems with falling asleep, improved while on treatment with Seroquel at bedtime. DURING SLEEP: Patient snores and wakes up from sleep up to 3 times with nocturia. Positive history of hypnogogical hallucinations and sleep off paralysis, no cataplexy. DURING THE DAY/WAKE STATE: During the day patient has difficulties to pay attention, has problems with memory, concentration, anxiety. [place] sleepiness scale is 3. Usually patient does not take naps. PAST MEDICAL HISTORY: Coronary artery disease, COPD, MS. PAST SURGICAL HISTORY: Please see below. MEDICATIONS: Please see below. SOCIAL HISTORY: Please see below, positive history of smoking for 40 pack years, continues to smoke. FAMILY HISTORY: Please see below. REVIEW OF SYSTEMS: Snoring, multiple awakenings from sleep. No fevers. No double vision. No recent chest pain. No shortness of breath. No abdominal pain. No bleeding episodes. No blood in urine. No seizure episodes. PHYSICAL EXAMINATION: GENERAL: A pleasant patient without any distress. VITAL SIGNS: Please see below, weight 180 pounds, BMI 33.1. HEENT: PERRLA, EOMI. Evaluation of oropharynx showed tongue protrudes midline, low position of soft palate Mallampati 3. NECK: Supple. No JVD. Thyroid is not palpable. 17 inches in circumference. LUNGS: Clear to percussion and to auscultation. Good air exchange. No wheezing or rhonchi. HEART: S1, S2 regular. No murmurs, gallops or rubs. ABDOMEN: Soft and nontender. Bowel sounds are present. No organomegaly appreciated. EXTREMITIES: No clubbing or cyanosis. GATE KEEPER: Awake, alert, and oriented x3. Cranial nerves 2 to 7 intact. There is no fasciculation or atrophy noted. No focal deficits observed. ASSESSMENT: 1. Snoring, multiple awakenings from sleep, low position of soft palate Mallampati 3, wide neck 17 inches in circumference, history of obstructive sleep apnea in the past. Obstructive sleep apnea hypopnea syndrome. 2. History of coronary artery disease, status post heart attack. 3. Smoker for 40 pack years, continues to smoke, COPD. 4. History of MS. 5 history of sleep off paralysis. 6 . History of hypnogogical hallucinations. 7. History of nasal septum deviation. 8. Status post total hysterectomy. 9 . Status post left knee replacement. 10. Status post cholecystectomy. PLAN: 1. Home sleep apnea test Polysomnography for evaluation of patient's breathing during sleep. 2. CPAP/BiPAP titration if sleep study confirms obstructive sleep apnea- hypopnea syndrome. 3. Preferable position during sleep on the side. 4. No driving if patient feels any sleepiness. Patient is aware of civil and criminal liability for unsafe driving. 5. Sleep hygiene with regular sleep time for at least 7.5-8 hours. 6. Watching weight. Thank you very much for referring this patient for consultation. Sincerely, Glen Landry MD, PhD, FAASM. Diplomat of [place] [employer], Sleep Medicine Board by [place] [employer] [place] [employer] Manager of [facility] [place] Past Medical History Past Medical History: Cancer, COPD, Diabetes Mellitus, Fibromyalgia, Myocardial Infarction ([place]), Neurologic Disorder, Osteoarthritis (OA), Skin Disorder, Sleep Apnea/CPAP/BIPAP, Thyroid Disorder Additional Past Medical History / Comment(s): Multiple Sclerosis, occasionally has flare up of MS that causes gastroparesis, keratosis pilaris, hx cervical cancer, supposed to uses CPAP, chronic back and knee pain Last Myocardial Infarction Date:: 09/02/2023 History of Any Multi-Drug Resistant Organisms: None Reported Past Surgical History: Bladder Surgery, Cholecystectomy, Heart Catheterization With Stent, Hysterectomy, Orthopedic Surgery Additional Past Surgical History / Comment(s): left knee arthroscopy, bladder sling, Bartholin gland removal, colonoscopy Past Anesthesia/Blood Transfusion Reactions: Previous Problems w/ Anesthesia Additional Past Anesthesia/Blood Transfusion Reaction / Comment(s): "I woke up alot with twilight", pt. adopted Date of Last Stent Placement:: 09/02/2023 Past Psychological History: Anxiety Smoking Status: Current every day smoker Past Alcohol Use History: None Reported Additional Past Alcohol Use History / Comment(s): down to 1/2ppd from 1PPD, has smoked for 40 yrs Past Drug Use History: None Reported - Past Family History Mother History Unknown: Yes Family Medical History: Cancer Additional Family Medical History / Comment(s): esophageal Medications and Allergies Home Medications Medication Instructions Recorded Confirmed Type Gabapentin 600 mg PO Q6H 02/04/15 03/07/24 History ALPRAZolam [Xanax] 1 mg PO TID PRN 01/18/21 03/07/24 History Baclofen [Lioresal] 20 - 30 mg PO HS PRN 01/18/21 03/07/24 History Budesonide/Formoterol Fumarate 2 puff INHALATION RT-BID 01/18/21 03/07/24 History [Symbicort 160-4.5 Mcg Inhaler] HYDROcodone/APAP 10-325MG [[place] 1 tab PO Q4H PRN MDD 5 tabs 01/18/21 03/07/24 History 10-325] Omeprazole Magnesium [PriLOSEC OTC] 20 mg PO DAILY 02/28/23 03/07/24 History metFORMIN HCL 500 mg PO DAILY 03/04/23 03/07/24 History Albuterol Sulfate [Ventolin HFA] 2 puff INHALATION RT-QID PRN 09/02/23 11/02/23 History Levothyroxine Sodium [Synthroid] 112 mcg PO DAILY 09/02/23 03/07/24 History Aspirin 81 mg PO DAILY tab 09/04/23 11/02/23 Rx Atorvastatin [Lipitor] 80 mg PO HS 30 Days #30 tab 09/04/23 03/07/24 Rx Metoprolol Tartrate [Lopressor] 25 mg PO BID 30 Days #60 tab 09/04/23 03/07/24 Rx Ticagrelor [Brilinta] 90 mg PO BID 30 Days #60 tab 09/04/23 11/02/23 Rx Codeine Phosphate/Guaifenesin 5 ml PO Q6H PRN 11/02/23 11/02/23 History [Codeine Phosphate/Guaifenesin 10-100 mg/5 ml] Magnesium Oxide [Magox 400] 400 mg PO HS 11/02/23 03/07/24 History Nitroglycerin Sl Tabs [Nitrostat] 0.4 mg SUBLINGUAL Q5M PRN 11/02/23 11/02/23 History QUEtiapine FUMARATE [SEROquel] 200 mg PO HS 11/02/23 03/07/24 History lisinopriL [Zestril] 5 mg PO HS 11/02/23 11/02/23 History Azithromycin [Zithromax] 500 mg IV DAILY #5 each 11/05/23 Rx Ipratropium-Albuterol Nebulize 3 ml INHALATION RT-QID #120 each 11/05/23 Rx [Duoneb 0.5 mg-3 mg/3 ml Soln] predniSONE 10 mg PO DIRECTED #30 tab 11/05/23 Rx predniSONE See Taper PO DIRECTED #0 11/05/23 11/02/23 Rx Aspirin EC [Ecotrin Low Dose] 81 mg PO DAILY 03/07/24 03/07/24 History Ezetimibe [Zetia] 10 mg PO DAILY 03/07/24 03/07/24 History Ticagrelor [Brilinta] 90 mg PO BID 03/07/24 03/07/24 History Allergies Allergy/AdvReac Type Severity Reaction Status Date / Time sulfamethoxazole Allergy Swelling/turned Verified 11/02/23 21:01 [From Bactrim] red trimethoprim [From Bactrim] Allergy swelling/turned Verified 11/02/23 21:01 red Physical Exam Vitals: Vital Signs Temp Pulse Resp BP Pulse Ox 03/07/24 14:43 97.9 F 68 16 131/84 94 L Intake and Output 03/07/24 03/07/24 03/07/24 06:59 14:59 22:59 Other: Weight 81.647 kg Sleep Note - Sleep Data ESS Total: 3 - Sleep Note Sleep Note: Temperature: 97.9 F Pulse Rate: 68 Respiratory Rate: 16 Blood Pressure: 131/84 SpO2: 94 Height: 5 ft 2 in Weight: 81.647 kg BMI: Neck Circumference: 17
== END ==
LOC: 3 N SLEEP 14:15
PROVIDERS: ATTEND Internal Medicine
DX: G47.33 Obstructive sleep apnea (adult) (pediatric) (principal); J44.9 Chronic obstructive pulmonary disease, unspecified; F17.210 Nicotine dependence, cigarettes, uncomplicated; Z86.79 Personal history of other diseases of the circulatory system; Z90.49 Acquired absence of other specified parts of digestive tract; Z87.39 Personal history of other diseases of the musculoskeletal system and connective tissue; Z90.710 Acquired absence of both cervix and uterus; Z96.652 Presence of left artificial knee joint; Z87.09 Personal history of other diseases of the respiratory system; Z86.59 Personal history of other mental and behavioral disorders; Z79.899 Other long term (current) drug therapy; Z79.51 Long term (current) use of inhaled steroids; Z88.2 Allergy status to sulfonamides; Z88.1 Allergy status to other antibiotic agents
CPT/HCPCS: 99211

== ENCOUNTER → 2024-03-30 | Outpatient (CLI) | payer MEDICARE, OTHER ==
[2024-03-30 19:19] LABS: ALT 15 U/L (8-44); AST 21 U/L (13-35); LDL Cholesterol,Calculated 41.2 mg/dL (0.0-131.0)
== END | disposition home or self-care (01) ==
LOC: LABWHC1 11:56
PROVIDERS: ATTEND Internal Medicine Interventional Cardiology
DX: E11.9 Type 2 diabetes mellitus without complications (principal); E78.2 Mixed hyperlipidemia; E55.9 Vitamin D deficiency, unspecified
CPT/HCPCS: 36415; 80061; 82306; 83036; 84450; 84460

== ENCOUNTER 2024-04-08 19:42 | Outpatient (CLI) | payer MEDICARE, OTHER ==
--- NOTE | 2024-04-11 11:32 | P.PCN ---
Description of Procedure: POLYSOMNOGRAPHY REPORT PROCEDURE(S)/DATE(S): Polysomnography 04/08/2024 CLINICAL: Patient has been seen in the sleep center for evaluation of obstructive sleep apnea-hypopnea syndrome. Please see my consultation. Sleep study has been done for evaluation of patient breathing during the sleep. PROCEDURE: The standard montage for clinical polysomnography included the electroencephalogram, the electrooculogram, the mentalis surface electromyography and Lead II cardiography. The respiratory battery consisted of measurements of nasal/buccal air flow, pressure transducer measurements from nose, thoracic and/or abdominal effort and intercostal surface electromyography. Video monitoring has been done to check for any parasomnia events. Nocturnal oxyhemoglobin saturations were obtained by finger oximetry. Step-soto titration with positive airway pressure was utilized to control the respiratory events, if necessary. RESULTS: During the diagnostic sleep study sleep efficiency was normal 88.8%. Latency to sleep onset was normal 18.5 min. Sleep architecture showed stage NI was slightly short 4.3%, Delta sleep was short 2.1%, REM sleep was short 9.3%. Respiratory channel showed 89 obstructive apneas, 0 mixed apneas, 1 central apneas, 132 hypopneas with lowest oxygen level 82%. Total apnea hypopnea index was 31.0. Heart rate was in the range between 55 and 63, average 59 by computer calculation. EMG showed 0 periodic limb movements per hour with 0 micro-arousals per hour. IMPRESSIONS: 1. Severe obstructive sleep apnea hypopnea syndrome. 2. No significant periodic limb movements have been documented. 3. Loud snoring have been documented. Please see other impressions from consultation PLAN: 1. The patient will have PAP titration for correction of respiratory abnormalities during the sleep. 2. Losing weight program. 3. Sleep hygiene with regular time in bed for at least 7-1/2 hours. 4. No driving if feeling sleepiness. Thank you very much for allowing me to participate in the management of your patient. Sincerely, Glen Landry MD, PhD, FAASM. Diplomat of [place] [employer], Sleep Medicine Board by [place] [employer] Grade Setter of [facility] [place]
== END 2024-04-09 05:30 | disposition home or self-care (01) ==
LOC: 3 N SLEEP 19:42
PROVIDERS: ATTEND Internal Medicine
DX: G47.33 Obstructive sleep apnea (adult) (pediatric) (principal); F17.200 Nicotine dependence, unspecified, uncomplicated; Z88.2 Allergy status to sulfonamides; Z88.1 Allergy status to other antibiotic agents
CPT/HCPCS: 95810

== ENCOUNTER 2024-04-29 19:45 | Outpatient (CLI) | payer MEDICARE, OTHER ==
--- NOTE | 2024-05-18 15:58 | SLS ---
SLEEP STUDY NAME OF PROCEDURE: CPAP titration. CLINICAL: Titration with positive air pressure has been done for correction of respiratory abnormalities during sleep. DESCRIPTION OF PROCEDURE: The standard montage for clinical polysomnography included the electroencephalogram, the electroculogram, the mentalis surface electromyography, and lead II cardiography. The respiratory battery consisted of measurements of nasal/buccal air flow, pressure transducer measurements from nose, thoracic, and abdominal effort. Video monitoring has been done to check for any parasomnia events. Nocturnal oxyhemoglobin saturations were obtained by finger oximetry. Stepwise CPAP titration has been done for correction of respiratory abnormalities during sleep. Raw data of sleep recording has been reviewed and is adequate. RESULTS: Total recording time 473 minutes. Total sleep time 419 minutes. Sleep efficiency close to the normal 88.5%. Latency to sleep onset was normal at 15.5 minutes. Sleep architecture showed short stage I of sleep, only 1.1%. Delta sleep, in good range, 17.2%. REM sleep was decreased to 8.5%. CPAP titration done up to the pressure 11 cm of water, then the patient was switched to BiPAP. BiPAP titrated from 10 over 5 cm of water to 12 over 8 cm of water. At the pressure 6, apnea-hypopnea index was 4.7, but the patient was at that pressure only for 12 minutes. With the high pressure, the patient developed more central apneas. EMG did not show any significant periodic limb movements. Heart rate in the range between 48 and 71, average 60. IMPRESSION: 1. Severe obstructive sleep apnea-hypopnea syndrome. Apnea-hypopnea index 31 with oxygen desaturation to 82%, improved on CPAP. With high level of pressure, the patient developed more central apneas. 2. No significant periodic limb movements have been documented. PLAN: 1. We will start treatment with AutoPAP with a low range of pressure, 5 to 10 cm of water. 2. I will see the patient for followup visit to evaluate clinical response on treatment, compliance with treatment, and make any necessary adjustments related to mask fitting, pressure, and humidification. 3. If the patient will have central sleep apneas on treatment with CPAP, the patient will need a test with BiPAP ST mode unit. 4. Sleep hygiene with time in bed for at least 8 hours. 5. No driving if feeling sleepiness. 6. Watching and losing weight. Thank you very much for allowing me to participate in management of your patient. Sincerely, Glen Landry MD, PhD, FAASM Diplomat of [employer] Sleep Medicine Board of [place] Radiology Technologist [facility] [place]. MMODL / ANGELN: [id number] / MTDD
== END 2024-04-30 05:20 | disposition home or self-care (01) ==
LOC: 3 N SLEEP 19:45
PROVIDERS: ATTEND Internal Medicine
CPT/HCPCS: 95811

== ENCOUNTER 2024-06-03 18:48 | Observation (INO) | payer MEDICARE, OTHER ==
[2024-06-03 18:56] VITALS: TEMP 97.8
--- NOTE | 2024-06-03 19:23 | XR ---
EXAMINATION TYPE: XR chest 2V DATE OF EXAM: 06/03/2024 7:19 PM CLINICAL INDICATION: Female, 53 years old with history of Chest Pain; COMPARISON: Chest radiographs from 02/06/2024 TECHNIQUE: XR chest 2V Frontal view of the chest. FINDINGS: Lungs/Pleura: There is no evidence of pleural effusion, focal consolidation, or pneumothorax. Pulmonary vascularity: Unremarkable. Heart/mediastinum: Cardiomediastinal silhouette is unremarkable. Musculoskeletal: No acute osseous pathology. Other findings: None IMPRESSION: No acute cardiopulmonary disease/process.
--- NOTE | 2024-06-03 19:29 | ED ---
General Adult HPI - General Chief complaint: Chest Pain Stated complaint: heart issues/R side jaw pain Time Seen by Provider: 06/03/24 18:56 Source: patient, RN notes reviewed, old records reviewed Mode of arrival: ambulatory Limitations: no limitations - History of Present Illness Initial comments: 53-year-old female with history of CAD, diabetes, current smoker presenting for evaluation of chest pain and jaw pain. Pain has been intermittent with exertion over the past 1 week. Patient has taken 9 total doses of nitroglycerin this week with some improvement. Patient is compliant with aspirin and Brilinta which she takes after acute LA in August 2023 with stent placed in the circumflex artery. Patient reports associated diaphoresis. No lower extremity pain or swelling. - Related Data Home Medications Medication Instructions Recorded Confirmed Gabapentin 600 mg PO Q6H 02/04/15 06/03/24 ALPRAZolam [Xanax] 1 mg PO TID PRN 01/18/21 06/03/24 Baclofen [Lioresal] 20 mg PO TID PRN 01/18/21 06/03/24 Budesonide/Formoterol Fumarate 2 puff INHALATION RT-BID 01/18/21 06/03/24 [Symbicort 160-4.5 Mcg Inhaler] HYDROcodone/APAP 10-325MG [[place] 1 tab PO 5XD 01/18/21 06/03/24 10-325] Omeprazole Magnesium [PriLOSEC OTC] 20 mg PO DAILY@89902/28/23 06/03/24 metFORMIN HCL 500 mg PO DAILY@89903/04/23 06/03/24 Albuterol Sulfate [Ventolin HFA] 2 puff INHALATION RT-QID PRN 09/02/23 06/03/24 Levothyroxine Sodium [Synthroid] 112 mcg PO DAILY@89909/02/23 06/03/24 Magnesium Oxide [Magox 400] 400 mg PO HS 11/02/23 06/03/24 Nitroglycerin Sl Tabs [Nitrostat] 0.4 mg SUBLINGUAL Q5M PRN 11/02/23 06/03/24 QUEtiapine FUMARATE [SEROquel] 200 mg PO HS@209911/02/23 06/03/24 Ezetimibe [Zetia] 10 mg PO HS@209903/07/24 06/03/24 Aspirin 81 mg PO DAILY@89906/03/24 06/03/24 Atorvastatin [Lipitor] 80 mg PO HS@209906/03/24 06/03/24 Ipratropium-Albuterol Nebulize 3 ml INHALATION RT-QID PRN 06/03/24 06/03/24 [Duoneb 0.5 mg-3 mg/3 ml Soln] Metoprolol Tartrate [Lopressor] 25 mg PO BID@899,209906/03/24 06/03/24 Ondansetron Odt [Zofran Odt] 4 mg PO Q8H PRN 06/03/24 06/03/24 Ticagrelor [Brilinta] 90 mg PO BID@899,209906/03/24 06/03/24 Allergies Allergy/AdvReac Type Severity Reaction Status Date / Time sulfamethoxazole Allergy Swelling/turned Verified 06/03/24 19:48 [From Bactrim] red trimethoprim [From Bactrim] Allergy swelling/turned Verified 06/03/24 19:48 red Review of Systems ROS Statement: Those systems with pertinent positive or pertinent negative responses have been documented in the HPI. ROS Other: All systems not noted in ROS Statement are negative. Past Medical History Past Medical History: Cancer, COPD, Diabetes Mellitus, Fibromyalgia, Myocardial Infarction (LA), Neurologic Disorder, Osteoarthritis (OA), Skin Disorder, Sleep Apnea/CPAP/BIPAP, Thyroid Disorder Additional Past Medical History / Comment(s): Multiple Sclerosis, occasionally has flare up of MS that causes gastroparesis, keratosis pilaris, hx cervical cancer, supposed to uses CPAP, chronic back and knee pain Last Myocardial Infarction Date:: 09/02/2023 History of Any Multi-Drug Resistant Organisms: None Reported Past Surgical History: Bladder Surgery, Cholecystectomy, Heart Catheterization With Stent, Hysterectomy, Orthopedic Surgery Additional Past Surgical History / Comment(s): left knee arthroscopy, bladder sling, Bartholin gland removal, colonoscopy Past Anesthesia/Blood Transfusion Reactions: Previous Problems w/ Anesthesia Additional Past Anesthesia/Blood Transfusion Reaction / Comment(s): "I woke up alot with twilight", pt. adopted Date of Last Stent Placement:: 09/02/2023 Past Psychological History: Anxiety Smoking Status: Current every day smoker Past Alcohol Use History: None Reported Past Drug Use History: None Reported - Past Family History Mother History Unknown: Yes Family Medical History: Cancer Additional Family Medical History / Comment(s): esophageal General Exam Limitations: no limitations General appearance: alert, in no apparent distress Head exam: Present: atraumatic, normocephalic Eye exam: Present: normal appearance, PERRL ENT exam: Present: normal exam Neck exam: Present: normal inspection. Absent: tenderness, meningismus Respiratory exam: Present: normal lung sounds bilaterally. Absent: respiratory distress, wheezes Cardiovascular Exam: Present: regular rate, normal rhythm GI/Abdominal exam: Present: soft. Absent: distended, tenderness, guarding Extremities exam: Present: normal inspection, normal capillary refill. Absent: pedal edema, calf tenderness Neurological exam: Present: alert, oriented X3, CN II-XII intact. Absent: motor sensory deficit Psychiatric exam: Present: normal affect, normal mood Skin exam: Present: warm, dry, intact. Absent: cyanosis, diaphoretic Course Vital Signs 06/03/24 06/03/24 06/03/24 18:54 19:25 20:08 Temperature 97.8 F Pulse Rate 69 68 Pulse Rate [ 65 Testing And Regulating Technician ] Respiratory 20 18 Rate Blood Pressure 131/74 110/79 O2 Sat by Pulse 99 Oximetry Medical Decision Making - Medical Decision Making Was pt. sent in by a medical professional or institution (DARIENL Reddy, FINISHED CARPET INSPECTOR, urgent care, hospital, or assisted...) When possible be specific @ -No Did you speak to anyone other than the patient for history (EMS, parent, family, police, friend...)? What history was obtained from this source @ -No Did you review nursing and triage notes (agree or disagree)? Why? @ -I reviewed and agree with nursing and triage notes Were old charts reviewed (outside hosp., previous admission, EMS record, old EKG, old radiological studies, urgent care reports/EKG's, assisted records)? Report findings @ -No old charts were reviewed Differential Chest Pain: Stable Angina, Unstable Angina, STEMI, NSTEMI Aortic Dissection, Pneumothorax, Musculoskeletal, Esophageal Spasm GERD, Cholecystitis, Pancreatitis, Zoster, this is not meant to be an all-inclusive list. EKG interpreted by me (3pts min.). @ -Sinus rhythm with a rate of 72, IL interval 141, QRS duration 90, QTc 434 X-rays interpreted by me (1pt min.). @ -Chest x-ray negative for acute cardiopulmonary disease CT interpreted by me (1pt min.). @ -None done U/S interpreted by me (1pt. min.). @ -None done What testing was considered but not performed or refused? (CT, X-rays, U/S, labs)? Why? @ -None What meds were considered but not given or refused? Why? @ -None Did you discuss the management of the patient with other professionals (professionals i.e. , PA, FINISHED CARPET INSPECTOR, lab, RT, psych nurse, socially responsible investment adviser, forder operator, teacher, strike warfare/missile systems officer, shoe caser)? Give summary @ -Mila KEYS Was smoking cessation discussed for >3mins.? @ -No Was critical care preformed (if so, how long)? @ -No Were there social determinants of health that impacted care today? How? (Homelessness, low income, unemployed, alcoholism, drug addiction, transportation, low edu. Level, literacy, decrease access to med. care, group home, rehab)? @ -No Was there de-escalation of care discussed even if they declined (Discuss DNR or withdrawal of care, Hospice)? DNR status @ -No What co-morbidities impacted this encounter? (DM, HTN, Smoking, COPD, CAD, Cancer, CVA, ARF, Chemo, Hep., AIDS, mental health diagnosis, sleep apnea, morbid obesity)? @ -CAD, diabetes, tobacco use Was patient admitted / discharged? Hospital course, mention meds given and route, prescriptions, significant lab abnormalities, going to OR and other pertinent info. @53-year-old female presenting with chest pain throughout the past week. EKG is sinus without ST segment changes or definitive signs of ischemia. Chest x-ray is clear. She has normal CBC, normal CMP, negative troponin. Patient has significant risk factors. She is chest pain-free while in the emergency department. She will be observed overnight for serial cardiac enzymes, telemetry, cardiology consultation. Undiagnosed new problem with uncertain prognosis? @ -No Drug Therapy requiring intensive monitoring for toxicity (Heparin, Nitro, Insulin, Cardizem)? @ -No Were any procedures done? @ -No Diagnosis/symptom? @ -Chest pain rule out Acute, or Chronic, or Acute on Chronic? @ -[Acute Uncomplicated (without systemic symptoms) or Complicated (systemic symptoms)? @ -Default Side effects of treatment? @ -No Exacerbation, Progression, or Severe Exacerbation? @ -No Poses a threat to life or bodily function? How? (Chest pain, USA, LA, pneumonia, PE, COPD, DKA, ARF, appy, cholecystitis, CVA, Diverticulitis, Homicidal, Suicidal, threat to staff... and all critical care pts) @ -Yes, ACS, LA - Lab Data Result diagrams: 06/03/24 19:31 06/03/24 19:31 Lab Results 06/03/24 06/03/24 06/03/24 Range/Units 19:31 19:31 19:31 WBC 6.5 (3.8-10.6) k/uL RBC 4.17 (3.80-5.40) m/uL Hgb 13.5 (11.4-16.0) gm/dL Hct 39.7 (34.0-46.0) % MCV 95.3 (80.0-100.0) fL MCH 32.3 (25.0-35.0) pg MCHC 33.9 (31.0-37.0) g/dL RDW 14.3 (11.5-15.5) % Plt Count 290 (150-450) k/uL MPV 7.7 Neutrophils % 61 % Lymphocytes % 29 % Monocytes % 4 % Eosinophils % 3 % Basophils % 1 % Neutrophils # 4.0 (1.3-7.7) k/uL Lymphocytes # 1.9 (1.0-4.8) k/uL Monocytes # 0.3 (0-1.0) k/uL Eosinophils # 0.2 (0-0.7) k/uL Basophils # 0.1 (0-0.2) k/uL PT 10.0 (10.0-12.5) sec INR 0.9 (<1.2) APTT 24.1 (22.0-30.0) sec Sodium 138 (137-145) mmol/L Potassium 4.5 (3.5-5.1) mmol/L Chloride 106 (98-107) mmol/L Carbon Dioxide 28 (22-30) mmol/L Anion Gap 4 mmol/L BUN 11 (7-17) mg/dL Creatinine 0.70 (0.52-1.04) mg/dL Est GFR (CKD-EPI)AfAm >90 (>60 ml/min/1.73 sqM) Est GFR (CKD-EPI)NonAf >90 (>60 ml/min/1.73 sqM) Glucose 93 (74-99) mg/dL Calcium 9.1 (8.4-10.2) mg/dL Magnesium 1.8 (1.6-2.3) mg/dL Total Bilirubin 0.8 (0.2-1.3) mg/dL AST 31 (14-36) U/L ALT 20 (4-34) U/L Alkaline Phosphatase 69 (38-126) U/L Troponin I (0.000-0.034) ng/mL Total Protein 6.4 (6.3-8.2) g/dL Albumin 4.0 (3.5-5.0) g/dL 06/03/24 Range/Units 19:31 WBC (3.8-10.6) k/uL RBC (3.80-5.40) m/uL Hgb (11.4-16.0) gm/dL Hct (34.0-46.0) % MCV (80.0-100.0) fL MCH (25.0-35.0) pg MCHC (31.0-37.0) g/dL RDW (11.5-15.5) % Plt Count (150-450) k/uL MPV Neutrophils % % Lymphocytes % % Monocytes % % Eosinophils % % Basophils % % Neutrophils # (1.3-7.7) k/uL Lymphocytes # (1.0-4.8) k/uL Monocytes # (0-1.0) k/uL Eosinophils # (0-0.7) k/uL Basophils # (0-0.2) k/uL PT (10.0-12.5) sec INR (<1.2) APTT (22.0-30.0) sec Sodium (137-145) mmol/L Potassium (3.5-5.1) mmol/L Chloride (98-107) mmol/L Carbon Dioxide (22-30) mmol/L Anion Gap mmol/L BUN (7-17) mg/dL Creatinine (0.52-1.04) mg/dL Est GFR (CKD-EPI)AfAm (>60 ml/min/1.73 sqM) Est GFR (CKD-EPI)NonAf (>60 ml/min/1.73 sqM) Glucose (74-99) mg/dL Calcium (8.4-10.2) mg/dL Magnesium (1.6-2.3) mg/dL Total Bilirubin (0.2-1.3) mg/dL AST (14-36) U/L ALT (4-34) U/L Alkaline Phosphatase (38-126) U/L Troponin I <0.012 (0.000-0.034) ng/mL Total Protein (6.3-8.2) g/dL Albumin (3.5-5.0) g/dL Disposition Clinical Impression: Chest pain Disposition: ADMITTED IP TO THIS [facility] Condition: Stable Is patient prescribed a controlled substance at d/c from ED?: No Referrals: Hitesh Woodard [Primary Care Provider] - 1-2 days Time of Disposition: 20:16
[2024-06-03 19:40] LABS: Basophils # (A) 0.1 k/uL (0-0.2); Basophils % (A) 1 %; Eosinophils # (A) 0.2 k/uL (0-0.7); Eosinophils % (A) 3 %; HCT 39.7 % (34.0-46.0); HGB 13.5 gm/dL (11.4-16.0); Lymphocytes # (A) 1.9 k/uL (1.0-4.8); Lymphocytes % (A) 29 %; MCH 32.3 pg (25.0-35.0); MCHC 33.9 g/dL (31.0-37.0); MCV 95.3 fL (80.0-100.0); Mean Platelet Volume 7.7; Monocytes # (A) 0.3 k/uL (0-1.0); Monocytes % (A) 4 %; Neutrophils % (A) 61 %; Platelet Count 290 k/uL (150-450); RBC 4.17 m/uL (3.80-5.40); RDW 14.3 % (11.5-15.5); WBC 6.5 k/uL (3.8-10.6)
[2024-06-03 19:52] LABS: ALT 20 U/L (4-34); AST 31 U/L (14-36); African American GFR (CKD) >90 (>60 ml/min/1.73 sqM); Alkaline Phosphatase 69 U/L (38-126); Anion Gap 4 mmol/L; Blood Urea Nitrogen 11 mg/dL (7-17); Calcium 9.1 mg/dL (8.4-10.2); Carbon Dioxide 28 mmol/L (22-30); Chloride 106 mmol/L (98-107); Glucose 93 mg/dL (74-99); INR 0.9 (<1.2); Magnesium 1.8 mg/dL (1.6-2.3); Non-African American GFR(CKD) >90 (>60 ml/min/1.73 sqM); Partial Thromboplastin Time 24.1 sec (22.0-30.0); Potassium 4.5 mmol/L (3.5-5.1); Sodium 138 mmol/L (137-145); Total Bilirubin 0.8 mg/dL (0.2-1.3); Total Protein 6.4 g/dL (6.3-8.2)
[2024-06-03] MEDS: ASPIRIN 325 MG TAB PO STA (20:04)
[2024-06-03] MEDS: NICOTINE 21MG/24HR PATCH TRANSDERM STA (20:09)
[2024-06-03] MEDS ORDERED: ACETAMINOPHEN TAB 325 MG TAB PO PRN (20:11)
[2024-06-03] MEDS ORDERED: ONDANSETRON 4 MG/2 ML VIAL IVP PRN (20:11)
[2024-06-03] MEDS ORDERED: NALOXONE 0.4 MG/ML 1 ML VIAL IV PRN (20:11)
[2024-06-03] MEDS ORDERED: MORPHINE SULFATE 4 MG/ML SYRINGE IV PRN (20:11)
[2024-06-03] MEDS ORDERED: NITROGLYCERIN SL TABS 0.4 MG TAB SUBLINGUAL PRN (20:12)
[2024-06-03] MEDS ORDERED: IPRATROPIUM-ALBUTEROL 3 ML NEB INHALATION PRN (20:13)
[2024-06-03] MEDS: ATORVASTATIN 80 MG TAB PO SCH (20:24)
[2024-06-03] MEDS: TICAGRELOR 90 MG TAB PO SCH (20:24)
[2024-06-03] MEDS: EZETIMIBE 10 MG TAB PO SCH (20:25)
[2024-06-03] MEDS: QUEtiapine 200 MG TAB PO SCH (20:25)
[2024-06-03] MEDS: METOPROLOL TARTRATE 25 MG TAB PO SCH (20:25)
[2024-06-03] MEDS: MAGNESIUM OXIDE 400 MG TAB PO SCH (20:25)
[2024-06-03] MEDS: GABAPENTIN 300 MG CAP PO SCH (20:26)
[2024-06-03 20:34] VITALS: BP 145/81; PULSE 66; RESP 16
[2024-06-03 22:53] LABS: Glucose,Whole Blood 102 mg/dL (70-110)
[2024-06-04] MEDS ORDERED: SYMBICORT 160-4.5 MCG INHALER INHALATION SCH (08:00)
[2024-06-04] MEDS ORDERED: NICOTINE 21MG/24HR PATCH TRANSDERM SCH (09:00)
[2024-06-04] MEDS ORDERED: LEVOTHYROXINE 112 MCG TAB PO SCH (09:00)
[2024-06-04] MEDS ORDERED: metFORMIN 500 MG TAB PO SCH (09:00)
[2024-06-04] MEDS ORDERED: ASPIRIN 81 MG PO SCH (09:00)
== END 2024-06-03 23:00 | disposition left against medical advice (07) ==
LOC: EC 18:48 → 6NMEDSUR 20:11
PROVIDERS: ADMIT Hospitalist; ATTEND Hospitalist
DX: R07.89 Other chest pain (principal); R68.84 Jaw pain; R61 Generalized hyperhidrosis; I25.10 Atherosclerotic heart disease of native coronary artery without angina pectoris; E11.9 Type 2 diabetes mellitus without complications; F17.200 Nicotine dependence, unspecified, uncomplicated; I25.2 Old myocardial infarction; Z79.51 Long term (current) use of inhaled steroids; Z79.84 Long term (current) use of oral hypoglycemic drugs; Z79.890 Hormone replacement therapy; Z79.82 Long term (current) use of aspirin; Z79.02 Long term (current) use of antithrombotics/antiplatelets; Z79.891 Long term (current) use of opiate analgesic; Z79.899 Other long term (current) drug therapy; Z88.1 Allergy status to other antibiotic agents; Z88.2 Allergy status to sulfonamides; Z53.29 Procedure and treatment not carried out because of patient's decision for other reasons
CPT/HCPCS: 36415; 71046; 80053; 83735; 84484; 85025; 85610; 85730; 93005; 99285

== ENCOUNTER 2024-06-04 20:01 | Observation (INO) | payer MEDICARE, OTHER ==
--- NOTE | 2024-06-04 20:54 | ED ---
Chest Pain HPI - General Source: patient, RN notes reviewed Mode of arrival: wheelchair Limitations: no limitations <Angelique Gaviria - Last Filed: 06/04/24 20:51> <Sheryl Lakhani - Last Filed: 06/05/24 01:26> - General Chief Complaint: Chest Pain Stated Complaint: Dizziness,Jaw Pain Time Seen by Provider: 06/04/24 20:51 - History of Present Illness Initial Comments: Quick [id number] female presenting with chest pain x 1 day. States she was having sharp pain in the center of her chest yesterday which brought her to the ER for evaluation. States she left AMA before workup was complete. Today, she began to have the chest pain again this afternoon with radiation to the jaw. States she took 3 nitroglycerin at home which relieved the chest pain. She does have a history of [place] with stent placement 10 months ago. She is on thinners. (Angelique Gaviria) Patient is a 53-year-old female past medical history of fibromyalgia, multiple sclerosis, CAD status post stenting, current smoker presenting today for chest pain. Patient states she presented yesterday for similar, was admitted and ultimately left AGAINST MEDICAL ADVICE due to not receiving her requested Xanax. States that in August of last year she had a heart attack and sees Dr. Meléndez. Over the last week has had multiple episodes of left-sided chest pain that have radiated down from her jaw. This afternoon at 6 PM she began having right sided jaw pain that radiated down to her chest and across her shoulders. She took 3 sublingual nitroglycerin which relieved her pain. Takes Brilinta. Has an appointment scheduled with Dr. Meléndez this coming today however is concerned due to the amount of times she has had chest pain this week. She is a current smoker and states that she will only stop smoking when she dies. Endorses associated shortness of breath. Denies cough, fevers, nausea, abdominal pain. Endorses lower extremity swelling and diaphoresis. No new focal numbness or weakness though does note that earlier this week when she had chest pain she did feel it radiating down her left arm with associated numbness that has since resolved. (Sheryl Lakhani) - Related Data Home Medications Medication Instructions Recorded Confirmed Gabapentin 600 mg PO Q6H 02/04/15 06/03/24 ALPRAZolam [Xanax] 1 mg PO TID PRN 01/18/21 06/03/24 Baclofen [Lioresal] 20 mg PO TID PRN 01/18/21 06/03/24 Budesonide/Formoterol Fumarate 2 puff INHALATION RT-BID 01/18/21 06/03/24 [Symbicort 160-4.5 Mcg Inhaler] HYDROcodone/APAP 10-325MG [[place] 1 tab PO 5XD 01/18/21 06/03/24 10-325] Omeprazole Magnesium [PriLOSEC OTC] 20 mg PO DAILY@89902/28/23 06/03/24 metFORMIN HCL 500 mg PO DAILY@89903/04/23 06/03/24 Albuterol Sulfate [Ventolin HFA] 2 puff INHALATION RT-QID PRN 09/02/23 06/03/24 Levothyroxine Sodium [Synthroid] 112 mcg PO DAILY@89909/02/23 06/03/24 Magnesium Oxide [Magox 400] 400 mg PO HS 11/02/23 06/03/24 Nitroglycerin Sl Tabs [Nitrostat] 0.4 mg SUBLINGUAL Q5M PRN 11/02/23 06/03/24 QUEtiapine FUMARATE [SEROquel] 200 mg PO HS@209911/02/23 06/03/24 Ezetimibe [Zetia] 10 mg PO HS@209903/07/24 06/03/24 Aspirin 81 mg PO DAILY@89906/03/24 06/03/24 Atorvastatin [Lipitor] 80 mg PO HS@209906/03/24 06/03/24 Ipratropium-Albuterol Nebulize 3 ml INHALATION RT-QID PRN 06/03/24 06/03/24 [Duoneb 0.5 mg-3 mg/3 ml Soln] Metoprolol Tartrate [Lopressor] 25 mg PO BID@899,209906/03/24 06/03/24 Ondansetron Odt [Zofran Odt] 4 mg PO Q8H PRN 06/03/24 06/03/24 Ticagrelor [Brilinta] 90 mg PO BID@899,209906/03/24 06/03/24 Allergies Allergy/AdvReac Type Severity Reaction Status Date / Time sulfamethoxazole Allergy Swelling/turned Verified 06/04/24 20:12 [From Bactrim] red trimethoprim [From Bactrim] Allergy swelling/turned Verified 06/04/24 20:12 red Review of Systems ROS Other: All systems not noted in ROS Statement are negative. <Angelique Gaviria - Last Filed: 06/04/24 20:51> ROS Other: All systems not noted in ROS Statement are negative. <Sheryl Lakhani - Last Filed: 06/05/24 01:26> ROS Statement: Those systems with pertinent positive or pertinent negative responses have been documented in the HPI. EKG Findings - EKG Comments: EKG Findings:: Sinus rhythm, 70 bpm, [place] interval 143 ms, QRS duration 88 ms, QT/QTc 419/440 ms, normal axis, no ST elevations or depressions, no arrhythmia, no Brugada pattern <Sheryl Lakhani - Last Filed: 06/05/24 01:26> Past Medical History Past Medical History: Cancer, COPD, Diabetes Mellitus, Fibromyalgia, Myocardial Infarction ([place]), Neurologic Disorder, Osteoarthritis (OA), Skin Disorder, Sleep Apnea/CPAP/BIPAP, Thyroid Disorder Additional Past Medical History / Comment(s): Multiple Sclerosis, occasionally has flare up of MS that causes gastroparesis, keratosis pilaris, hx cervical cancer, supposed to uses CPAP, chronic back and knee pain Last Myocardial Infarction Date:: 09/02/2023 History of Any Multi-Drug Resistant Organisms: None Reported Past Surgical History: Bladder Surgery, Cholecystectomy, Heart Catheterization With Stent, Hysterectomy, Orthopedic Surgery Additional Past Surgical History / Comment(s): left knee arthroscopy, bladder sling, Bartholin gland removal, colonoscopy Past Anesthesia/Blood Transfusion Reactions: Previous Problems w/ Anesthesia Additional Past Anesthesia/Blood Transfusion Reaction / Comment(s): "I woke up alot with twilight", pt. adopted Date of Last Stent Placement:: 09/02/2023 Past Psychological History: Anxiety Smoking Status: Current every day smoker Past Alcohol Use History: None Reported Past Drug Use History: None Reported - Past Family History Mother History Unknown: Yes Family Medical History: Cancer Additional Family Medical History / Comment(s): esophageal <GaviriaAngelique - Last Filed: 06/04/24 20:51> General Exam Limitations: no limitations <GaivriaAngelique - Last Filed: 06/04/24 20:51> <Sheryl Lakhani - Last Filed: 06/05/24 01:26> - General Exam Comments Initial Comments: Visual Physical Exam Vital signs reviewed General: Well-appearing, nontoxic, no acute distress. Head: Normocephalic, atraumatic Eyes: PERRLA, EOMI ENT: Airway patent Chest: Nonlabored breathing Skin: No visual rash, normal skin tone Neuro: Alert and oriented 3 Musculoskeletal: No gross abnormalities (Angelique Gaviria) PE: CONSTITUTIONAL: No apparent distress, well appearing SKIN: Warm, dry, no jaundice, hives or petechiae EYES: Pupils are equally round, extraocular movements intact without nystagmus, clear conjunctiva, non-icteric sclera HENT: Normocephalic, atraumatic, moist mucus membranes, oropharynx clear without exudates NECK: , Full range of motion, normal appearance PULMONARY: Clear to auscultation without wheezes, rhonchi, or rales, normal excursion, no accessory muscle use and no stridor CARDIOVASCULAR: Regular rate, rhythm, normal S1 and S2. No appreciated murmurs, rubs or gallops. Strong radial pulses with intact distal perfusion. No lower extremity edema GASTROINTESTINAL: Soft, non-tender, non-distended, no palpable masses, no rebound or guarding. No hepatosplenomegaly GENITOURINARY: MUSCULOSKELETAL: Extremities have no gross deformity, no edema, redness, or swelling. NEUROLOGIC:_a/o x 3, GCS 15, normal mentation and speech. Moves all extremities x 4 without motor or sensory deficit PSYCHIATRIC:_normal mood and affect, thought process is clear and linear (Sheryl Lakhani) Course Vital Signs 06/04/24 06/04/24 06/05/24 20:12 23:00 00:00 Temperature 98.7 F Pulse Rate 74 68 57 L Pulse Rate [ Machine Stamper ] Respiratory 18 18 16 Rate Blood Pressure 154/89 94/66 O2 Sat by Pulse 96 96 93 L Oximetry 06/05/24 06/05/24 01:00 01:08 Temperature Pulse Rate 56 L Pulse Rate [ 57 L Machine Stamper ] Respiratory 16 Rate Blood Pressure 116/97 O2 Sat by Pulse 93 L Oximetry Chest Pain MDM <Angelique Gaviria - Last Filed: 06/04/24 20:51> <Sheryl Lakhani - Last Filed: 06/05/24 01:26> - MDM I completed the quick note portion of this chart signed Angelique Gaviria PA-C (Angelique Gaviria) Was pt. sent in by a medical professional or institution (DARINEL Reddy, DOCUMENT ADVISOR, urgent care, hospital, or intermediate...) When possible be specific @ -No Did you speak to anyone other than the patient for history (EMS, parent, family, police, friend...)? What history was obtained from this source @ -No Did you review nursing and triage notes (agree or disagree)? Why? @ -I reviewed and agree with nursing and triage notes Were old charts reviewed (outside hosp., previous admission, EMS record, old EKG, old radiological studies, urgent care reports/EKG's, intermediate records)? Report findings @ -Reviewed EKG from yesterday, did not show any significant changes from today Differential Diagnosis (chest pain, altered mental status, abdominal pain women, abdominal pain men, vaginal bleeding, weakness, fever, dyspnea, syncope, headache, dizziness, GI bleed, back pain, seizure, CVA, palpatations, mental health, musculoskeletal)? @Differential diagnosis remains broad over top considerations include ACS, peric arditis, pleuritis, costochondritis, pneumothorax, musculoskeletal, pneumonia, GERD, this is not all-inclusive list EKG interpreted by me (3pts min.). @Sinus rhythm, no ST elevations or depressions X-rays interpreted by me (1pt min.). @ -No cardiomegaly consolidations or pleural effusions CT interpreted by me (1pt min.). @ -None done U/S interpreted by me (1pt. min.). @ -None done What testing was considered but not performed or refused? (CT, X-rays, U/S, labs)? Why? @ -None What meds were considered but not given or refused? Why? @ -None Did you discuss the management of the patient with other professionals (professionals i.e. DARINEL Reddy, DOCUMENT ADVISOR, lab, RT, psych nurse, manager social responsibility, precinct police sergeant, teacher, workplace rehabilitation officer, ed case manager)? Give summary @ -No Was smoking cessation discussed for >3mins.? @ -No Was critical care preformed (if so, how long)? @ -No Were there social determinants of health that impacted care today? How? (Homelessness, low income, unemployed, alcoholism, drug addiction, tr ansportation, low edu. Level, literacy, decrease access to med. care, prison, rehab)? @ -No Was there de-escalation of care discussed even if they declined (Discuss DNR or withdrawal of care, Hospice)? @ -No What co-morbidities impacted this encounter? (DM, HTN, Smoking, COPD, CAD, Cancer, CVA, ARF, Chemo, Hep., AIDS, mental health diagnosis, sleep apnea, morbid obesity)? @ -CAD Was patient admitted / discharged? Hospital course, mention meds given and route, prescriptions, significant lab abnormalities, going to OR and other pertinent info. @ -Admitted, patient is a 53-year-old female past medical history of fibromyalgia, multiple sclerosis, CAD, current smoker presenting for chest pain that began in her jaw and radiated down to her chest and across her shoulders resolved with sublingual nitroglycerin. Admitted yesterday for the same but ultimately discharge AGAINST MEDICAL ADVICE after she did not receive requested Xanax. Troponin negative here. EKG without concerning findings or changes from prior. Discussed admission for observation due to elevated heart score of 4 versus discharge for close follow-up with Dr. Mar on Tuesday as scheduled, patient preferred admission. Discussed with Nathan Murrieta PA-C with [facility]. He kindly accepts for admission. Patient stated that her medications were reconciled yesterday and prior to her admission medications to be up-to-date. Home meds ordered. Of note after admission, pt's RN presented urine sample that was bright red. Pt reported to her started yesterday and endorsed associated dysuria. UA ordered in addition to renal ultrasound, pending at time of admission. Undiagnosed new problem with uncertain prognosis? @ -No Drug Therapy requiring intensive monitoring for toxicity (Heparin, Nitro, Insulin, Cardizem)? @ -No Were any procedures done? @ -No Diagnosis/symptom? @ -Chest pain Acute, or Chronic, or Acute on Chronic? @ -Acute Uncomplicated (without systemic symptoms) or Complicated (systemic symptoms)? @ -Complicated Side effects of treatment? @ -No Exacerbation, Progression, or Severe Exacerbation? @ -No Poses a threat to life or bodily function? How? (Chest pain, [place], [place], pneumonia, PE, COPD, DKA, ARF, appy, cholecystitis, CVA, Diverticulitis, Homicidal, Suicidal, threat to staff... and all critical care pts) @ -Potentially, if secondary to ACS (Sheryl Lakhani) Disposition <Angelique Gaviria - Last Filed: 06/04/24 20:51> <Sheryl Lakhani - Last Filed: 06/05/24 01:26> Clinical Impression: Chest pain, Hematuria Disposition: ADMITTED IP TO THIS HOSP Condition: Good
[2024-06-04 21:02] LABS: Basophils # (A) 0.1 k/uL (0-0.2); Basophils % (A) 1 %; Eosinophils # (A) 0.2 k/uL (0-0.7); Eosinophils % (A) 3 %; HCT 42.1 % (34.0-46.0); HGB 14.1 gm/dL (11.4-16.0); Lymphocytes % (A) 35 %; MCH 31.6 pg (25.0-35.0); MCHC 33.5 g/dL (31.0-37.0); MCV 94.6 fL (80.0-100.0); Mean Platelet Volume 8.4; Monocytes # (A) 0.2 k/uL (0-1.0); Monocytes % (A) 4 %; Neutrophils # (A) 3.2 k/uL (1.3-7.7); Neutrophils % (A) 55 %; Platelet Count 311 k/uL (150-450); RBC 4.45 m/uL (3.80-5.40); RDW 14.5 % (11.5-15.5); WBC 5.8 k/uL (3.8-10.6)
[2024-06-04 21:18] LABS: ALT 20 U/L (4-34); AST 27 U/L (14-36); African American GFR (CKD) >90 (>60 ml/min/1.73 sqM); Albumin 4.5 g/dL (3.5-5.0); Alkaline Phosphatase 85 U/L (38-126); Anion Gap 9 mmol/L; Blood Urea Nitrogen 10 mg/dL (7-17); Calcium 9.6 mg/dL (8.4-10.2); Carbon Dioxide 28 mmol/L (22-30); Chloride 103 mmol/L (98-107); Glucose 103 mg/dL (74-99); Magnesium 1.7 mg/dL (1.6-2.3); Non-African American GFR(CKD) >90 (>60 ml/min/1.73 sqM); Potassium 4.5 mmol/L (3.5-5.1); Sodium 140 mmol/L (137-145); Total Bilirubin 0.7 mg/dL (0.2-1.3); Total Protein 6.9 g/dL (6.3-8.2)
[2024-06-04 21:20] LABS: INR 0.9 (<1.2); Partial Thromboplastin Time 24.8 sec (22.0-30.0); Prothrombin Time 10.1 sec (10.0-12.5)
--- NOTE | 2024-06-04 21:23 | XR ---
EXAMINATION TYPE: XR chest 2V DATE OF EXAM: 06/04/2024 9:10 PM CLINICAL INDICATION: Female, 53 years old with history of Chest Pain; COMPARISON: Chest radiographs from 06/03/2024 TECHNIQUE: XR chest 2V Frontal view of the chest. FINDINGS: Lungs/Pleura: There is no evidence of pleural effusion, focal consolidation, or pneumothorax. Pulmonary vascularity: Unremarkable. Heart/mediastinum: Cardiomediastinal silhouette is unremarkable. Musculoskeletal: No acute osseous pathology. IMPRESSION: No acute cardiopulmonary disease/process.
[2024-06-04] MEDS ORDERED: NALOXONE 0.4 MG/ML 1 ML VIAL IV PRN (23:43)
[2024-06-04] MEDS ORDERED: ONDANSETRON 4 MG/2 ML VIAL IVP PRN (23:43)
[2024-06-04] MEDS ORDERED: CALCIUM CARBONATE 500 MG CHEWABLE PO PRN (23:43)
[2024-06-04] MEDS ORDERED: ACETAMINOPHEN TAB 325 MG TAB PO PRN (23:43)
[2024-06-04] MEDS ORDERED: NITROGLYCERIN SL TABS 0.4 MG TAB SUBLINGUAL PRN (23:44)
[2024-06-05] MEDS ORDERED: ALBUTEROL NEBULIZED 2.5 MG/3 ML INHALATION PRN
[2024-06-05] MEDS ORDERED: ONDANSETRON ODT 4 MG TAB PO PRN
[2024-06-05] MEDS ORDERED: MAG HYDROX/AL HYDROX/SIMETH 30 ML CUP PO PRN
[2024-06-05] MEDS: HYDROcodone/APAP 10-325MG 1 EACH TAB PO SCH (00:34)
[2024-06-05] MEDS: GABAPENTIN 300 MG CAP PO SCH (00:52)
[2024-06-05] MEDS: NICOTINE 21MG/24HR PATCH TRANSDERM SCH (00:52)
[2024-06-05 01:15] LABS: Glucose,Whole Blood 124 mg/dL (70-110)
[2024-06-05 01:20] LABS: Appearance,Urine Clear (Clear); Bacteria,Urine Rare /hpf; Bilirubin,Urine Negative (Negative); Blood,Urine Large (Negative); Color,Urine Light Red; Glucose,Urine (UA) Negative (Negative); Ketones,Urine Negative (Negative); Leukocyte Esterase,Urine Negative (Negative); Mucus,Urine Rare /hpf; Nitrite,Urine Negative (Negative); Protein,Urine Trace (Negative); RBC,Urine >182 /hpf (0-5); Specific Gravity,Urine 1.013 (1.001-1.035); Squamous Epithelial Cell,Urine 1 /hpf (0-4); Urobilinogen,Urine <2.0 mg/dL (<2.0); WBC,Urine 16 /hpf (0-5)
[2024-06-05] MEDS: LEVOTHYROXINE 112 MCG TAB PO SCH (06:24)
[2024-06-05] MEDS: BACLOFEN 10 MG TAB PO PRN (06:38)
[2024-06-05 08:10] LABS: Glucose,Whole Blood 139 mg/dL (70-110)
[2024-06-05] MEDS: SYMBICORT 160-4.5 MCG INHALER INHALATION SCH (08:18)
--- NOTE | 2024-06-05 08:22 | US ---
EXAMINATION TYPE: US renals and bladder DATE OF EXAM: 06/05/2024 COMPARISON: NONE CLINICAL INDICATION: Female, 53 years old with history of hematuria; UTI, hematuria EXAM MEASUREMENTS: Right Kidney: 11.3 x 5.0 x 5.9 cm Left Kidney: 13.2 x 4.2 x 4.5 cm Right Kidney: No evidence of hydro Left Kidney: No evidence of hydro, possible double collecting system. The lower pole obscured by brianne l gas shadowing and not well assessed. Bladder: wnl Bilateral Jets seen: Yes Slightly echogenic liver parenchyma may reflect mild fatty infiltration. IMPRESSION: 1. No hydronephrosis. Possible duplex left renal collecting system. 2. Incidentally, there may be mild hepatic steatosis
[2024-06-05] MEDS ORDERED: ALPRAZolam 0.25 MG TAB PO PRN (08:51)
[2024-06-05] MEDS ORDERED: ALPRAZolam 0.5 MG TAB PO PRN (08:51)
[2024-06-05] MEDS ORDERED: NITROGLYCERIN SL TABS 0.4 MG TAB SUBLINGUAL PRN (08:51)
[2024-06-05] MEDS ORDERED: ASPIRIN 81 MG PO SCH (09:00)
[2024-06-05] MEDS: ATORVASTATIN 80 MG TAB PO STA (09:13)
[2024-06-05] MEDS: ASPIRIN 325 MG TAB PO STA (09:13)
[2024-06-05] MEDS: TICAGRELOR 90 MG TAB PO SCH (09:13)
[2024-06-05] MEDS: METOPROLOL TARTRATE 25 MG TAB PO SCH (09:13)
[2024-06-05] MEDS: PANTOPRAZOLE 40 MG TABLET PO SCH (09:13)
[2024-06-05] MEDS: metFORMIN 500 MG TAB PO SCH (09:14)
[2024-06-05] MEDS ORDERED: IPRATROPIUM-ALBUTEROL 3 ML NEB INHALATION PRN (09:20)
--- NOTE | 2024-06-05 09:26 | P.HPIM ---
History of Present Illness He, patient is a 53-year-old presenting with complaints of chest pain sharp in nature radiating from the jaw to the chest left side of the chest EKG is within normal limits patient chest pain is exertional. Patient patient took multiple nitroglycerin which relieved her chest pain patient had an NC with stents and patient takes Brilinta at home. Patient's troponins are negative. Patient had associated diaphoresis with the chest pain. Patient is a smoker continues to smoke. As per the patient patient had some EKG changes while she was ambulating when EMS arrived. REVIEW OF SYSTEMS: All other systems are negative except those mentioned in the HPI PHYSICAL EXAMINATION: GENERAL: The patient is alert and oriented x3, not in any acute distress. Well developed, well nourished. HEENT: Pupils are round and equally reacting to light. EOMI. No scleral icterus. No conjunctival pallor. Normocephalic, atraumatic. No pharyngeal erythema. No thyromegaly. CARDIOVASCULAR: S1 and S2 present. No murmurs, rubs, or gallops. PULMONARY: Chest is clear to auscultation, expiratory wheezing on exam ABDOMEN: Soft, nontender, nondistended, normoactive bowel sounds. No palpable organomegaly. MUSCULOSKELETAL: No joint swelling or deformity. EXTREMITIES: No cyanosis, clubbing, or pedal edema. NEUROLOGICAL: Gross neurological examination did not reveal any focal deficits. SKIN: No rashes. Assessment and plan -Typical chest pain possibility of unstable angina: Cardiology evaluated the patient and patient is undergoing cardiac authorization today patient will be resumed on antiplatelet therapy statins. Smoking cessation counseling was provided -COPD with mild acute exacerbation patient will continue on inhaled steroids and we will order a DuoNeb nebulizations -Asymptomatic bacteriuria and hematuria. Patient had an ultrasound of the kidney which is within normal limits patient will not require antibiotics will require repeat urinalysis as an outpatient because of RBCs in the urine. -Type 2 diabetes mellitus metformin will be held and patient will be on sliding scale insulin -Fibromyalgia -Mild history of multiple sclerosis not in acute exacerbation but patient has frequent muscle spasms and patient is on high-dose of as needed muscle relaxers which will be resumed and continue -Sleep apnea -Hypothyroidism resume levothyroxine -Coronary disease with stents in the past DVT prophylaxis: Early ambulation Past Medical History Past Medical History: Cancer, COPD, Diabetes Mellitus, Fibromyalgia, Myocardial Infarction ([place]), Neurologic Disorder, Osteoarthritis (OA), Skin Disorder, Sleep Apnea/CPAP/BIPAP, Thyroid Disorder Additional Past Medical History / Comment(s): Multiple Sclerosis, occasionally has flare up of MS that causes gastroparesis, keratosis pilaris, hx cervical cancer, supposed to uses CPAP, chronic back and knee pain Last Myocardial Infarction Date:: 09/02/2023 History of Any Multi-Drug Resistant Organisms: None Reported Past Surgical History: Bladder Surgery, Cholecystectomy, Heart Catheterization With Stent, Hysterectomy, Orthopedic Surgery Additional Past Surgical History / Comment(s): left knee arthroscopy, bladder sling, Bartholin gland removal, colonoscopy Past Anesthesia/Blood Transfusion Reactions: Previous Problems w/ Anesthesia Additional Past Anesthesia/Blood Transfusion Reaction / Comment(s): "I woke up alot with twilight", pt. adopted Date of Last Stent Placement:: 09/02/2023 Past Psychological History: Anxiety Smoking Status: Current every day smoker Past Alcohol Use History: None Reported Past Drug Use History: None Reported - Past Family History Mother History Unknown: Yes Family Medical History: Cancer Additional Family Medical History / Comment(s): esophageal Medications and Allergies Home Medications Medication Instructions Recorded Confirmed Type Gabapentin 600 mg PO Q6H 02/04/15 06/05/24 History ALPRAZolam [Xanax] 1 mg PO TID PRN 01/18/21 06/05/24 History Baclofen [Lioresal] 20 mg PO TID PRN 01/18/21 06/05/24 History Budesonide/Formoterol Fumarate 2 puff INHALATION RT-BID 01/18/21 06/05/24 History [Symbicort 160-4.5 Mcg Inhaler] HYDROcodone/APAP 10-325MG [[place] 1 tab PO 5XD 01/18/21 06/05/24 History 10-325] Omeprazole Magnesium [PriLOSEC OTC] 20 mg PO DAILY@89902/28/23 06/05/24 History metFORMIN HCL 500 mg PO DAILY@89903/04/23 06/05/24 History Albuterol Sulfate [Ventolin HFA] 2 puff INHALATION RT-QID PRN 09/02/23 06/05/24 History Levothyroxine Sodium [Synthroid] 112 mcg PO DAILY@89909/02/23 06/05/24 History Magnesium Oxide [Magox 400] 400 mg PO HS 11/02/23 06/05/24 History Nitroglycerin Sl Tabs [Nitrostat] 0.4 mg SUBLINGUAL Q5M PRN 11/02/23 06/05/24 History QUEtiapine FUMARATE [SEROquel] 200 mg PO HS@209911/02/23 06/05/24 History Ezetimibe [Zetia] 10 mg PO HS@209903/07/24 06/05/24 History Aspirin 81 mg PO DAILY@89906/03/24 06/05/24 History Atorvastatin [Lipitor] 80 mg PO HS@209906/03/24 06/05/24 History Ipratropium-Albuterol Nebulize 3 ml INHALATION RT-QID PRN 06/03/24 06/05/24 History [Duoneb 0.5 mg-3 mg/3 ml Soln] Metoprolol Tartrate [Lopressor] 25 mg PO BID@899,209906/03/24 06/05/24 History Ondansetron Odt [Zofran Odt] 4 mg PO Q8H PRN 06/03/24 06/05/24 History Ticagrelor [Brilinta] 90 mg PO BID@00,209906/03/24 06/05/24 History Allergies Allergy/AdvReac Type Severity Reaction Status Date / Time sulfamethoxazole Allergy Swelling/turned Verified 06/05/24 08:02 [From Bactrim] red trimethoprim [From Bactrim] Allergy swelling/turned Verified 06/05/24 08:02 red Physical Exam Vitals: Vital Signs Temp Pulse Pulse Resp BP Pulse Ox 06/05/24 09:15 87 18 135/89 94 L 06/05/24 08:17 94 L 06/05/24 06:00 66 16 107/82 92 L 06/05/24 03:18 69 16 108/81 91 L 06/05/24 03:00 62 17 99/83 93 L 06/05/24 02:00 56 L 18 99/53 92 L 06/05/24 01:51 16 06/05/24 01:08 57 L 06/05/24 01:00 56 L 16 116/97 93 L 06/05/24 00:00 57 L 16 94/66 93 L 06/04/24 23:00 68 18 96 06/04/24 20:12 98.7 F 74 18 154/89 96 Intake and Output 06/04/24 06/05/24 06/05/24 22:59 06:59 14:59 Other: Weight 81.647 kg Results CBC & Chem 7: 06/04/24 20:27 06/04/24 20:27 Labs: Abnormal Lab Results - Last 24 Hours (Table) 06/04/24 06/04/24 06/05/24 Range/Units 20:27 23:30 01:14 Glucose 103 H (74-99) mg/dL POC Glucose (mg/dL) 124 H (70-110) mg/dL Urine Protein Trace H (Negative) Urine Blood Large H (Negative) Urine RBC >182 H (0-5) /hpf Urine WBC 16 H (0-5) /hpf Urine Bacteria Rare H (None) /hpf Urine Mucus Rare H (None) /hpf 06/05/24 Range/Units 08:08 Glucose (74-99) mg/dL POC Glucose (mg/dL) 139 H (70-110) mg/dL Urine Protein (Negative) Urine Blood (Negative) Urine RBC (0-5) /hpf Urine WBC (0-5) /hpf Urine Bacteria (None) /hpf Urine Mucus (None) /hpf
--- NOTE | 2024-06-05 09:30 | P.CRDCN ---
History of Present Illness History of present illness: HISTORY OF PRESENT ILLNESS: This is a 53-year-old female with a past medical history significant for coronary artery disease, hypertension, and hyperlipidemia. Patient follows in the office with Dr. Meléndez. We have been asked to see the patient in consultation for chest pain. Patient examined at the bedside in the emergency room. Patient presented to the hospital with a chief complaint of chest discomfort. She states her chest pain started last week. She reports having 2 episodes of chest pain that were very similar to the pain she experienced in August 2023 when she required stenting. She states that she took nitro at home with relief of her chest pain. She states this is the first time she has had to take her nitro since having her stent placed last year. At the time of examination, she denies chest pain or pressure. Vital signs are stable. DIAGNOSTICS: - EKG reveals sinus mechanism with no signs of acute ischemia - Chest xray negative for acute process - Laboratory data: WBC 5.8. Hemoglobin 14.1. Platelet count 311. Sodium 140. Potassium 4.5. BUN 10. Creatinine 0.70. Magnesium 1.7. Troponin negative x 3 - Current home cardiac medications include Brilinta 90 mg twice a day, metoprolol tartrate 25 mg twice a day, Zetia 10 mg at night, Lipitor 80 mg at night, aspirin 81 mg daily - Most recent echocardiogram obtained in August 2023 revealed ejection fraction 50 to 55%, hypokinetic inferior wall, inferior septal wall appears hypokinetic, trace tricuspid regurgitation - Cardiac catheterization history: August 2023 with stenting of the distal circumflex REVIEW OF SYSTEMS: At the time of my exam: CONSTITUTIONAL: Denies fever or chills. HEENT: Denies blurred vision, vision changes, or eye pain. Denies hemoptysis CARDIOVASCULAR: Denies chest pain. Denies orthopnea. Denies PND. Denies palpitations RESPIRATORY: Denies shortness of breath. GASTROINTESTINAL: Denies abdominal pain. Denies nausea or vomiting. HEMATOLOGIC: Denies bleeding disorders. GENITOURINARY: Denies any blood in urine. SKIN: Denies pruitis. Denies rash. PHYSICAL EXAM: VITAL SIGNS: Reviewed. GENERAL: Well-developed in no acute distress. HEENT: Head is normocephalic. Pupils are equal, round. Sclerae anicteric. Mucous membranes of the mouth are moist. Neck supple. No JVD or thyromegaly LUNGS: Respirations even and unlabored. Lungs essentially clear to auscultation bilaterally. HEART: Regular rate and rhythm. S1 and S2 heard. ABDOMEN: Soft. Nondistended. Nontender. EXTREMITIES: Normal range of motion. No clubbing or cyanosis. Peripheral pulses intact. No lower extremity edema NEUROLOGIC: Awake and alert. Oriented x 3. ASSESSMENT: Chest pain/unstable angina Coronary artery disease with previous stenting of the distal circumflex, 08/2023 Hypertension Hyperlipidemia Nicotine dependence PLAN: An acute coronary event has been ruled out Resume home cardiac medications Patient to undergo cardiac catheterization today with Dr. Meléndez Further recommendations pending patient course Nurse practitioner note has been reviewed by physician. Signing provider agrees with the documented findings, assessment, and plan of care documented by ROPE RIDER as a scribe. Past Medical History Past Medical History: Cancer, COPD, Diabetes Mellitus, Fibromyalgia, Myocardial Infarction (LA), Neurologic Disorder, Osteoarthritis (OA), Skin Disorder, Sleep Apnea/CPAP/BIPAP, Thyroid Disorder Additional Past Medical History / Comment(s): Multiple Sclerosis, occasionally has flare up of MS that causes gastroparesis, keratosis pilaris, hx cervical cancer, supposed to uses CPAP, chronic back and knee pain Last Myocardial Infarction Date:: 09/02/2023 History of Any Multi-Drug Resistant Organisms: None Reported Past Surgical History: Bladder Surgery, Cholecystectomy, Heart Catheterization With Stent, Hysterectomy, Orthopedic Surgery Additional Past Surgical History / Comment(s): left knee arthroscopy, bladder sling, Bartholin gland removal, colonoscopy Past Anesthesia/Blood Transfusion Reactions: Previous Problems w/ Anesthesia Additional Past Anesthesia/Blood Transfusion Reaction / Comment(s): "I woke up alot with twilight", pt. adopted Date of Last Stent Placement:: 09/02/2023 Past Psychological History: Anxiety Smoking Status: Current every day smoker Past Alcohol Use History: None Reported Past Drug Use History: None Reported - Past Family History Mother History Unknown: Yes Family Medical History: Cancer Additional Family Medical History / Comment(s): esophageal Medications and Allergies Home Medications Medication Instructions Recorded Confirmed Type Gabapentin 600 mg PO Q6H 02/04/15 06/05/24 History ALPRAZolam [Xanax] 1 mg PO TID PRN 01/18/21 06/05/24 History Baclofen [Lioresal] 20 mg PO TID PRN 01/18/21 06/05/24 History Budesonide/Formoterol Fumarate 2 puff INHALATION RT-BID 01/18/21 06/05/24 History [Symbicort 160-4.5 Mcg Inhaler] HYDROcodone/APAP 10-325MG [[place] 1 tab PO 5XD 01/18/21 06/05/24 History 10-325] Omeprazole Magnesium [PriLOSEC OTC] 20 mg PO DAILY@89902/28/23 06/05/24 History metFORMIN HCL 500 mg PO DAILY@89903/04/23 06/05/24 History Albuterol Sulfate [Ventolin HFA] 2 puff INHALATION RT-QID PRN 09/02/23 06/05/24 History Levothyroxine Sodium [Synthroid] 112 mcg PO DAILY@89909/02/23 06/05/24 History Magnesium Oxide [Magox 400] 400 mg PO HS 11/02/23 06/05/24 History Nitroglycerin Sl Tabs [Nitrostat] 0.4 mg SUBLINGUAL Q5M PRN 11/02/23 06/05/24 History QUEtiapine FUMARATE [SEROquel] 200 mg PO HS@209911/02/23 06/05/24 History Ezetimibe [Zetia] 10 mg PO HS@209903/07/24 06/05/24 History Aspirin 81 mg PO DAILY@89906/03/24 06/05/24 History Atorvastatin [Lipitor] 80 mg PO HS@209906/03/24 06/05/24 History Ipratropium-Albuterol Nebulize 3 ml INHALATION RT-QID PRN 06/03/24 06/05/24 History [Duoneb 0.5 mg-3 mg/3 ml Soln] Metoprolol Tartrate [Lopressor] 25 mg PO BID@899,209906/03/24 06/05/24 History Ondansetron Odt [Zofran Odt] 4 mg PO Q8H PRN 06/03/24 06/05/24 History Ticagrelor [Brilinta] 90 mg PO BID@899,209906/03/24 06/05/24 History Allergies Allergy/AdvReac Type Severity Reaction Status Date / Time sulfamethoxazole Allergy Swelling/turned Verified 06/05/24 08:02 [From Bactrim] red trimethoprim [From Bactrim] Allergy swelling/turned Verified 06/05/24 08:02 red Physical Exam Vitals: Vital Signs Temp Pulse Pulse Resp BP Pulse Ox 06/05/24 09:15 87 18 135/89 94 L 06/05/24 08:17 94 L 06/05/24 06:00 66 16 107/82 92 L 06/05/24 03:18 69 16 108/81 91 L 06/05/24 03:00 62 17 99/83 93 L 06/05/24 02:00 56 L 18 99/53 92 L 06/05/24 01:51 16 06/05/24 01:08 57 L 06/05/24 01:00 56 L 16 116/97 93 L 06/05/24 00:00 57 L 16 94/66 93 L 06/04/24 23:00 68 18 96 06/04/24 20:12 98.7 F 74 18 154/89 96 Intake and Output 06/04/24 06/05/24 06/05/24 22:59 06:59 14:59 Other: Weight 81.647 kg Results 06/04/24 20:27 06/04/24 20:27 Cardiac Enzymes 06/04/24 06/04/24 06/05/24 Range/Units 20:27 20:27 01:00 AST 27 (14-36) U/L Troponin I <0.012 <0.012 (0.000-0.034) ng/mL 06/05/24 Range/Units 02:25 AST (14-36) U/L Troponin I <0.012 (0.000-0.034) ng/mL Coagulation 06/04/24 Range/Units 20:27 PT 10.1 (10.0-12.5) sec APTT 24.8 (22.0-30.0) sec CBC 06/04/24 Range/Units 20:27 WBC 5.8 (3.8-10.6) k/uL RBC 4.45 (3.80-5.40) m/uL Hgb 14.1 (11.4-16.0) gm/dL Hct 42.1 (34.0-46.0) % Plt Count 311 (150-450) k/uL Comprehensive Metabolic Panel 06/04/24 Range/Units 20:27 Sodium 140 (137-145) mmol/L Potassium 4.5 (3.5-5.1) mmol/L Chloride 103 (98-107) mmol/L Carbon Dioxide 28 (22-30) mmol/L BUN 10 (7-17) mg/dL Creatinine 0.70 (0.52-1.04) mg/dL Glucose 103 H (74-99) mg/dL Calcium 9.6 (8.4-10.2) mg/dL AST 27 (14-36) U/L ALT 20 (4-34) U/L Alkaline Phosphatase 85 (38-126) U/L Total Protein 6.9 (6.3-8.2) g/dL Albumin 4.5 (3.5-5.0) g/dL Current Medications Generic Name Dose Route Start Last Admin Trade Name Freq PRN Reason Stop Dose Admin Acetaminophen 650 mg 06/04/24 23:43 Acetaminophen Tab 325 Mg Tab PO Q6HR PRN Mild Pain or Fever > 100.5 Hydrocodone Bitart/Acetaminophen 1 each 06/05/24 00:00 06/05/24 05:14 Hydrocodone/Apap 10-325mg 1 Each Tab PO Not Given 5XD CINTHIA Al Hydroxide/Mg Hydroxide 15 ml 06/05/24 00:00 Mag Hydrox/Al Hydrox/Simeth 30 Ml Cup PO Q6HR PRN Indigestion Albuterol/Ipratropium 3 ml 06/05/24 09:20 Ipratropium-Albuterol 3 Ml Neb INHALATION RT-QID PRN Shortness Of Breath Or Wheezing Alprazolam 1 mg 06/05/24 00:00 Alprazolam 1 Mg Tab PO TID PRN Anxiety Alprazolam 0.25 mg 06/05/24 08:51 Alprazolam 0.25 Mg Tab PO Q6HR PRN Mild Anxiety Alprazolam 0.5 mg 06/05/24 08:51 Alprazolam 0.5 Mg Tab PO Q6HR PRN Moderate Anxiety Aspirin 81 mg 06/06/24 09:00 Aspirin 81 Mg PO DAILY@0900 [facility] Atorvastatin Calcium 80 mg 06/05/24 21:00 Atorvastatin 80 Mg Tab PO HS@2100 [facility] Baclofen 20 mg 06/05/24 00:00 06/05/24 06:38 Baclofen 10 Mg Tab PO 20 mg TID PRN Administration Muscle Spasm Budesonide/Formoterol Fumarate 2 puff 06/05/24 08:00 06/05/24 08:18 Symbicort 160-4.5 Mcg Inhaler INHALATION Not Given RT-BID [facility] Calcium Carbonate/Glycine 1,000 mg 06/04/24 23:43 Calcium Carbonate 500 Mg Chewable PO Q4HR PRN Dyspepsia Ezetimibe 10 mg 06/05/24 21:00 Ezetimibe 10 Mg Tab PO HS@2100 [facility] Gabapentin 600 mg 06/05/24 00:00 06/05/24 06:25 Gabapentin 300 Mg Cap PO Not Given Q6H [facility] Heparin Sodium (Porcine) 10, 1,001 mls @ 999 mls/hr 06/06/24 07:00 000 unit/ Sodium Chloride IRRIGATION 06/06/24 23:00 ONCE PRN INTRA-OP Heparin Sodium (Porcine) 2,500 250.5 mls @ 250 mls/hr 06/06/24 07:00 unit/ Sodium Chloride IRRIGATION 06/06/24 23:00 ONCE PRN INTRA-OP Sodium Chloride 1,000 ml/ IV 1,000 mls @ 81.647 mls/hr 06/05/24 09:00 Solution IV .[id number] [facility] 1 ML/KG/HR Levothyroxine Sodium 112 mcg 06/05/24 06:30 06/05/24 06:24 Levothyroxine 112 Mcg Tab PO 112 mcg DAILY@0630 [facility] Administration Magnesium Oxide 400 mg 06/05/24 21:00 Magnesium Oxide 400 Mg Tab PO HS [facility] Metoprolol Tartrate 25 mg 06/05/24 09:00 06/05/24 09:13 Metoprolol Tartrate 25 Mg Tab PO 25 mg BID@0900,2100 [facility] Administration Naloxone HCl 0.2 mg 06/04/24 23:43 Naloxone 0.4 Mg/Ml 1 Ml Vial IV Q2M PRN Opioid Reversal Nicotine 1 patch 06/05/24 00:00 06/05/24 09:14 Nicotine 21mg/24hr Patch TRANSDERM Not Given DAILY [facility] Nitroglycerin 0.4 mg 06/04/24 23:44 Nitroglycerin Sl Tabs 0.4 Mg Tab SUBLINGUAL Q5M PRN Chest Pain Nitroglycerin 0.4 mg 06/05/24 08:51 Nitroglycerin Sl Tabs 0.4 Mg Tab SUBLINGUAL Q5M PRN Chest Pain Ondansetron HCl 4 mg 06/04/24 23:43 Ondansetron 4 Mg/2 Ml Vial IVP Q8HR PRN Nausea And Vomiting Ondansetron HCl 4 mg 06/05/24 00:00 Ondansetron Odt 4 Mg Tab PO Q8H PRN Nausea Pantoprazole Sodium 40 mg 06/05/24 09:00 06/05/24 09:13 Pantoprazole 40 Mg Tablet PO 40 mg DAILY@0900 [facility] Administration Quetiapine Fumarate 200 mg 06/05/24 21:00 Quetiapine 200 Mg Tab PO HS@2100 [facility] Ticagrelor 90 mg 06/05/24 09:00 06/05/24 09:13 Ticagrelor 90 Mg Tab PO 90 mg BID@0900,2100 [facility] Administration Intake and Output 06/04/24 06/05/24 06/05/24 22:59 06:59 14:59 Other: Weight 81.647 kg 06/04/24 20:27 06/04/24 20:27
[2024-06-05] MEDS: SODIUM CHLORIDE 0.9% 1,000 ML in EMPTY BAG 1 BAG IV SCH (09:33)
[2024-06-05] MEDS ORDERED: VERAPAMIL 2.5 MG/ML 2 ML AMP ONE (11:56)
[2024-06-05] MEDS ORDERED: LIDOCAINE 1% INJ 10MG/ML (20 ML MDV) ONE (11:56)
[2024-06-05] MEDS: IV FLUID CONTINUATION 1,000 ML IV ONE (12:11)
[2024-06-05] MEDS ORDERED: fentaNYL (PF) 50 MCG/ML 2 ML AMP ONE (12:14)
[2024-06-05] MEDS ORDERED: HEPARIN SODIUM 1,000 UN/ML (10ML VL) ONE (12:14)
[2024-06-05] MEDS: HEPARIN SODIUM,PORCINE 10,000 UNIT in SODIUM CHLORIDE 0.9% 1,000 ML IRRIGATION PRN (12:22)
[2024-06-05] MEDS: HEPARIN SODIUM,PORCINE (1 ML) 2,500 UNIT in SODIUM CHLORIDE 0.9% 250 ML IRRIGATION PRN (12:23)
[2024-06-05] MEDS: fentaNYL (PF) 50 MCG/ML 2 ML AMP IVP ONE (12:26)
[2024-06-05] MEDS: LIDOCAINE 1% INJ 10MG/ML (20 ML MDV) SQ ONE (12:31)
[2024-06-05] MEDS: VERAPAMIL SYRINGE (5 MG/10 ML) INTRAARTER ONE (12:34)
[2024-06-05] MEDS: HEPARIN SODIUM 1,000 UN/ML (10ML VL) IVP ONE (12:35)
[2024-06-05] MEDS: MIDAZOLAM 2 MG/2 ML VIAL IVP ONE (12:35)
[2024-06-05] MEDS: IOPAMIDOL-370 200ML BTL INJ ONE (12:42)
[2024-06-05] MEDS ORDERED: RX INFO: IV CONTRAST WAS GIVEN 1 EACH MISC MISCELLANE PRN (12:54)
--- NOTE | 2024-06-05 13:01 | P.CARDCATH ---
Date of Procedure: 06/05/24 Description of Procedure: Cardiac Catheterization: The patient is a 53-year-old female with known history of multiple sclerosis, diabetes, hypertension and hyperlipidemia, chronic tobacco use who presented in August 2023 with an acute myocardial infarction and underwent stenting of her dominant left circumflex. She has been complaining of chest discomfort for the last week, reminding her of the way she felt prior to her PCI and has used nitroglycerin sublingually for the first time. Her cardiac enzymes and EKG did not show any evidence of acute changes. She was evaluated by Dr. Thomas and recommendations were made regarding cardiac catheterization, the risks and the complications were discussed with the patient who is in full understanding and agreement. 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 Using Xylocaine Anesthesia and modified Seldinger technique, a 6-[place] sheath was introduced in the right radial artery . Subsequently, selective coronary angiography was performed using a 5-[place] 3.5 bend Jose Manuel catheter. Multiple views of the coronary artery including hemiaxial views were obtained. The right Jose Manuel catheter was used to cross the aortic valve and LVEDP was calculated. Following that, catheter and sheath were removed. Hemostasis was obtained with deployment of vascular band . There was no immediate complication. Patient was returned to room in stable condition. Of note, the patient received a total of 4500 units of intravenous heparin as well as intra-arterial verapamil. Findings: Left main: This is a short size vessel, bifurcating into LAD and left circumflex, left main has no obstructive disease. LAD: This is a large size vessel, reaching to the apex, tapers down in the distal third. It gives rise to a large diagonal branch proximally. After the takeoff of the diagonal branch there is a 20 to 30% plaque, the rest of the vessel has no high-grade stenosis Left circumflex: This is a large dominant vessel, bifurcating distally to PDA and PLV. The vessel gives rise to a large obtuse marginal branch in the proximal segment. The stented segment distally is patent with no evidence of in-stent restenosis. Proximal to the stent there is a 20 to 30% plaque with no high-grade stenosis. RCA: This is a nondominant vessel, small in caliber giving rise to an acute marginal branch. The mid RCA has a 40 to 50% plaque with no high-grade stenosis. Left Ventriculogram: Not performed Hemodynamics: There was no gradient across the aortic valve, LVEDP was 18-20 mmHg Conclusion: 1. Patent stent in the left circumflex with no evidence of in-stent restenosis 2. Mild disease in the RCA and mild to moderate disease in the small nondominant right 3. Left dominance Recommendations: I see no evidence of progression of disease. I have recommended to continue medical therapy with the aggressive coronary risks modification initiated including smoking cessation. The findings and the recommendations were discussed with the patient the she was in full understanding and agreement. Duration of sedation is 14 minutes.
[2024-06-05 13:48] VITALS: RESP 16
[2024-06-05] MEDS: INSULIN ASPART (NovoLOG) 100 UNIT/ML VIAL SQ SCH (14:36)
[2024-06-05] MEDS: SODIUM CHLORIDE 0.9% 1,000 ML IV SCH (14:36)
[2024-06-05] MEDS: ALPRAZolam 1 MG TAB PO PRN (14:44)
[2024-06-05] MEDS: ISOSORBIDE MONONITRATE ER 30 MG TAB.ER.24H PO SCH (14:44)
[2024-06-05 19:47] VITALS: BP 121/78; PULSE 80; TEMP 97.8
[2024-06-05] MEDS ORDERED: QUEtiapine 200 MG TAB PO SCH (21:00)
[2024-06-05] MEDS ORDERED: ATORVASTATIN 80 MG TAB PO SCH (21:00)
[2024-06-05] MEDS ORDERED: MAGNESIUM OXIDE 400 MG TAB PO SCH (21:00)
[2024-06-05] MEDS ORDERED: EZETIMIBE 10 MG TAB PO SCH (21:00)
[2024-06-06] MEDS ORDERED: ASPIRIN 81 MG PO SCH (09:00)
--- NOTE | 2024-06-06 15:01 | P.DS ---
Providers Date of admission: 06/04/24 23:46 Attending physician: Gordo Mulligan Consults: 06/04/24 23:43 Consult Physician Routine Consulting Provider: Luzmaria Meléndez Consult Reason/Comments: Chest pain Do you want consulting provider notified?: Yes, Notify in am Primary care physician: Hitesh Woodard [facility] Course: Final Diagnosis -Typical chest pain possibility of unstable angina: Cardiology evaluated the patient and patient is undergoing cardiac authorization today patient will be resumed on antiplatelet therapy statins. Smoking cessation counseling was provided -COPD with mild acute exacerbation patient will continue on inhaled steroids and we will order a DuoNeb nebulizations -Asymptomatic bacteriuria and hematuria. Patient had an ultrasound of the kidney which is within normal limits patient will not require antibiotics will require repeat urinalysis as an outpatient because of RBCs in the urine. -Type 2 diabetes mellitus metformin will be held and patient will be on sliding scale insulin -Fibromyalgia -Mild history of multiple sclerosis not in acute exacerbation but patient has frequent muscle spasms and patient is on high-dose of as needed muscle relaxers which will be resumed and continue -Sleep apnea -Hypothyroidism resume levothyroxine -Coronary disease with stents in the past Discharge Disposition For discharge home follow-up with cardiology and PCP outpatient. Hospital Course THis is a 53-year-old presenting with complaints of chest pain sharp in nature radiating from the jaw to the chest left side of the chest EKG is within normal limits patient chest pain is exertional. Patient patient took multiple nitroglycerin which relieved her chest pain patient had an WI with stents and patient takes Brilinta at home. Patient's troponins are negative. Patient had associated diaphoresis with the chest pain. Patient is a smoker continues to smoke. As per the patient patient had some EKG changes while she was ambulating when EMS arrived. Patient was admitted to the hospital with a consult placed to cardiology services. Patient underwent cardiac catheterization with findings of a patent stent in the left circumflex with no evidence of in-stent restenosis. There is mild disease in the RCA and mild to moderate disease in the small nondominant right. Left dominance. Per cardiology there is no evidence of disease progression they are recommending to continue medical therapy with the aggressive coronary risk factor modifications including smoking cessation. Patient be cleared for discharge home to continue all same home medications. Please see medication reconciliation for a list of current medications. Thank you for allowing us to participate in the care of this patient. The impression and plan of care has been dictated by Cece Hernandez Nurse Practitioner as directed. Dr. Bobby MD I have performed a history and physical examination and medical decision making of this patient, discussed the same with the dictator, and agree with the dictators assessment and plan as written, documented as a scribe. Based on total visit time, I have performed more than 50% of this visit. Patient Condition at Discharge: Good Plan - Discharge Summary New Discharge Prescriptions: New Isosorbide Mononitrate ER [Imdur] 30 mg PO DAILY #30 tab Continue Gabapentin 600 mg PO Q6H Baclofen [Lioresal] 20 mg PO TID PRN PRN Reason: Muscle Spasm ALPRAZolam [Xanax] 1 mg PO TID PRN PRN Reason: Anxiety metFORMIN HCL 500 mg PO DAILY@0900 Levothyroxine Sodium [Synthroid] 112 mcg PO DAILY@0900 Nitroglycerin Sl Tabs [Nitrostat] 0.4 mg SUBLINGUAL Q5M PRN PRN Reason: Chest Pain Ezetimibe [Zetia] 10 mg PO HS@2100 Atorvastatin [Lipitor] 80 mg PO HS@2100 Metoprolol Tartrate [Lopressor] 25 mg PO BID@0900,2100 Ticagrelor [Brilinta] 90 mg PO BID@0900,2100 Budesonide/Formoterol Fumarate [Symbicort 160-4.5 Mcg Inhaler] 2 puff INHALATION RT-BID HYDROcodone/APAP 10-325MG [[place] 10-325] 1 tab PO 5XD Omeprazole Magnesium [PriLOSEC OTC] 20 mg PO DAILY@0900 Albuterol Sulfate [Ventolin HFA] 2 puff INHALATION RT-QID PRN PRN Reason: Shortness Of Breath Magnesium Oxide [Magox 400] 400 mg PO HS QUEtiapine FUMARATE [SEROquel] 200 mg PO HS@2100 Aspirin 81 mg PO DAILY@0900 Ipratropium-Albuterol Nebulize [Duoneb 0.5 mg-3 mg/3 ml Soln] 3 ml INHALATION RT-QID PRN PRN Reason: Shortness Of Breath Ondansetron Odt [Zofran ODT] 4 mg PO Q8H PRN PRN Reason: Nausea Discharge Medication List Gabapentin 600 mg PO Q6H 02/04/15 [History] ALPRAZolam [Xanax] 1 mg PO TID PRN 01/18/21 [History] Baclofen [Lioresal] 20 mg PO TID PRN 01/18/21 [History] Budesonide/Formoterol Fumarate [Symbicort 160-4.5 Mcg Inhaler] 2 puff INHALATION RT-BID 01/18/21 [History] HYDROcodone/APAP 10-325MG [[place] 10-325] 1 tab PO 5XD 01/18/21 [History] Omeprazole Magnesium [PriLOSEC OTC] 20 mg PO DAILY@89902/28/23 [History] metFORMIN HCL 500 mg PO DAILY@89903/04/23 [History] Albuterol Sulfate [Ventolin HFA] 2 puff INHALATION RT-QID PRN 09/02/23 [History] Levothyroxine Sodium [Synthroid] 112 mcg PO DAILY@89909/02/23 [History] Magnesium Oxide [Magox 400] 400 mg PO HS 11/02/23 [History] Nitroglycerin Sl Tabs [Nitrostat] 0.4 mg SUBLINGUAL Q5M PRN 11/02/23 [History] QUEtiapine FUMARATE [SEROquel] 200 mg PO HS@209911/02/23 [History] Ezetimibe [Zetia] 10 mg PO HS@209903/07/24 [History] Aspirin 81 mg PO DAILY@89906/03/24 [History] Atorvastatin [Lipitor] 80 mg PO HS@209906/03/24 [History] Ipratropium-Albuterol Nebulize [Duoneb 0.5 mg-3 mg/3 ml Soln] 3 ml INHALATION RT-QID PRN 06/03/24 [History] Metoprolol Tartrate [Lopressor] 25 mg PO BID@899,209906/03/24 [History] Ondansetron Odt [Zofran ODT] 4 mg PO Q8H PRN 06/03/24 [History] Ticagrelor [Brilinta] 90 mg PO BID@0900,209906/03/24 [History] Isosorbide Mononitrate ER [Imdur] 30 mg PO DAILY #30 tab 06/05/24 [Rx] Follow up Appointment(s)/Referral(s): Luzmaria Meléndez MD [STAFF PHYSICIAN] - 1 Week Hitesh Woodard [Primary Care Provider] - 1-2 days Patient Instructions/Handouts: Heart Catheterization (DC) Activity/Diet/Wound Care/Special Instructions: Resume Metformin in 48 hours Discharge Disposition: HOME SELF-CARE
== END 2024-06-05 20:54 | disposition home or self-care (01) ==
LOC: EC 20:01 → 6NMEDSUR 23:46
PROVIDERS: ADMIT Hospitalist; ATTEND Hospitalist
DX: R07.89 Other chest pain (principal); R68.84 Jaw pain; J44.1 Chronic obstructive pulmonary disease with (acute) exacerbation; I25.10 Atherosclerotic heart disease of native coronary artery without angina pectoris; E11.9 Type 2 diabetes mellitus without complications; M79.7 Fibromyalgia; I10 Essential (primary) hypertension; E78.5 Hyperlipidemia, unspecified; I07.1 Rheumatic tricuspid insufficiency; G47.30 Sleep apnea, unspecified; E03.9 Hypothyroidism, unspecified; G35 Multiple sclerosis; M25.512 Pain in left shoulder; M25.511 Pain in right shoulder; R61 Generalized hyperhidrosis; R30.0 Dysuria; R31.9 Hematuria, unspecified; R82.71 Bacteriuria; R22.40 Localized swelling, mass and lump, unspecified lower limb; I25.2 Old myocardial infarction; F17.200 Nicotine dependence, unspecified, uncomplicated; Z79.02 Long term (current) use of antithrombotics/antiplatelets; Z79.51 Long term (current) use of inhaled steroids; Z79.84 Long term (current) use of oral hypoglycemic drugs; Z79.890 Hormone replacement therapy; Z79.82 Long term (current) use of aspirin; Z79.899 Other long term (current) drug therapy; Z79.891 Long term (current) use of opiate analgesic; Z88.1 Allergy status to other antibiotic agents; Z88.2 Allergy status to sulfonamides; Z95.5 Presence of coronary angioplasty implant and graft; I25.110 Atherosclerotic heart disease of native coronary artery with unstable angina pectoris; Z71.6 Tobacco abuse counseling
CPT/HCPCS: 36415; 71046; 76770; 80053; 81001; 83735; 84484; 85025; 85610; 85730; 87077; 87086; 87186; 93005; 93458; 94760; 99285

== ENCOUNTER 2024-08-11 21:02 | Emergency (ER) | payer MEDICARE, OTHER ==
[2024-08-11 21:09] VITALS: TEMP 97.4
--- NOTE | 2024-08-11 21:23 | ED ---
Weakness HPI - General Chief complaint: Urogenital Stated complaint: abd pain, dizzy, stumbling Time Seen by Provider: 08/11/24 21:21 Source: patient, RN notes reviewed, old records reviewed, Caregiver Mode of arrival: wheelchair Limitations: no limitations - History of Present Illness Initial comments: This is a 53-year-old female to ER with complicated medical history including MS history of heart disease and heart attack recent history of urine urinary bladder evaluation in regards to blood in the urine, uterine prolapse and bladder prolapse, patient comes in with abdominal pain concern for chronic UTI increasing weakness increasing fatigue and episodes of syncope unknown, concern for possible seizures MD Complaint: generalized weakness, lack of energy, difficulty walking -: week(s) Location: generalized Severity: moderate Severity scale (1-10): 4 Consistency: intermittent Improves with: none Worsens with: none Context: history of similar Associated Symptoms: confusion, syncope - Related Data Home Medications Medication Instructions Recorded Confirmed Gabapentin 600 mg PO Q6H 02/04/15 06/05/24 ALPRAZolam [Xanax] 1 mg PO TID PRN 01/18/21 06/05/24 Baclofen [Lioresal] 20 mg PO TID PRN 01/18/21 06/05/24 Budesonide/Formoterol Fumarate 2 puff INHALATION RT-BID 01/18/21 06/05/24 [Symbicort 160-4.5 Mcg Inhaler] HYDROcodone/APAP 10-325MG [[place] 1 tab PO 5XD 01/18/21 06/05/24 10-325] Omeprazole Magnesium [PriLOSEC OTC] 20 mg PO DAILY@89902/28/23 06/05/24 metFORMIN HCL 500 mg PO DAILY@89903/04/23 06/05/24 Albuterol Sulfate [Ventolin HFA] 2 puff INHALATION RT-QID PRN 09/02/23 06/05/24 Levothyroxine Sodium [Synthroid] 112 mcg PO DAILY@89909/02/23 06/05/24 Magnesium Oxide [Magox 400] 400 mg PO HS 11/02/23 06/05/24 Nitroglycerin Sl Tabs [Nitrostat] 0.4 mg SUBLINGUAL Q5M PRN 11/02/23 06/05/24 QUEtiapine FUMARATE [SEROquel] 200 mg PO HS@2100 11/02/24 09/10/24 Ezetimibe [Zetia] 10 mg PO HS@209903/07/24 06/05/24 Aspirin 81 mg PO DAILY@89906/03/24 06/05/24 Atorvastatin [Lipitor] 80 mg PO HS@209906/03/24 06/05/24 Ipratropium-Albuterol Nebulize 3 ml INHALATION RT-QID PRN 06/03/24 06/05/24 [Duoneb 0.5 mg-3 mg/3 ml Soln] Metoprolol Tartrate [Lopressor] 25 mg PO BID@0900,209906/03/24 06/05/24 Ondansetron Odt [Zofran ODT] 4 mg PO Q8H PRN 06/03/24 06/05/24 Ticagrelor [Brilinta] 90 mg PO BID@0900,209906/03/24 06/05/24 Previous Rx's Medication Instructions Recorded Isosorbide Mononitrate ER [Imdur] 30 mg PO DAILY #30 tab 06/05/24 Allergies Allergy/AdvReac Type Severity Reaction Status Date / Time sulfamethoxazole Allergy Swelling/turned Verified 08/11/24 21:06 [From Bactrim] red trimethoprim [From Bactrim] Allergy swelling/turned Verified 08/11/24 21:06 red Review of Systems ROS Statement: Those systems with pertinent positive or pertinent negative responses have been documented in the HPI. ROS Other: All systems not noted in ROS Statement are negative. Past Medical History Past Medical History: Cancer, COPD, Diabetes Mellitus, Fibromyalgia, Myocardial Infarction (IN), Neurologic Disorder, Osteoarthritis (OA), Skin Disorder, Sleep Apnea/CPAP/BIPAP, Thyroid Disorder Additional Past Medical History / Comment(s): Multiple Sclerosis, occasionally has flare up of MS that causes gastroparesis, keratosis pilaris, hx cervical cancer, supposed to uses CPAP, chronic back and knee pain Last Myocardial Infarction Date:: 09/02/2023 History of Any Multi-Drug Resistant Organisms: None Reported Past Surgical History: Bladder Surgery, Cholecystectomy, Heart Catheterization With Stent, Hysterectomy, Orthopedic Surgery Additional Past Surgical History / Comment(s): left knee arthroscopy, bladder sling, Bartholin gland removal, colonoscopy Past Anesthesia/Blood Transfusion Reactions: Previous Problems w/ Anesthesia Additional Past Anesthesia/Blood Transfusion Reaction / Comment(s): "I woke up alot with twilight", pt. adopted Date of Last Stent Placement:: 09/02/2023 Past Psychological History: Anxiety Smoking Status: Current every day smoker Past Alcohol Use History: None Reported Past Drug Use History: None Reported - Past Family History Mother History Unknown: Yes Family Medical History: Cancer Additional Family Medical History / Comment(s): esophageal General Exam Limitations: no limitations General appearance: alert, in no apparent distress Head exam: Present: atraumatic, normocephalic, normal inspection Eye exam: Present: normal appearance, PERRL, EOMI. Absent: scleral icterus, conjunctival injection, periorbital swelling ENT exam: Present: normal exam, mucous membranes moist Neck exam: Present: normal inspection. Absent: tenderness, meningismus, lymphadenopathy Respiratory exam: Present: normal lung sounds bilaterally. Absent: respiratory distress, wheezes, rales, rhonchi, stridor Cardiovascular Exam: Present: regular rate, normal rhythm, normal heart sounds. Absent: systolic murmur, diastolic murmur, rubs, gallop, clicks GI/Abdominal exam: Present: soft, normal bowel sounds. Absent: distended, tenderness, guarding, rebound, rigid Extremities exam: Present: normal inspection, full ROM, normal capillary refill. Absent: tenderness, pedal edema, joint swelling, calf tenderness Back exam: Present: normal inspection Neurological exam: Present: alert, oriented X3, CN II-XII intact Psychiatric exam: Present: normal affect, normal mood Skin exam: Present: warm, dry, intact, normal color. Absent: rash Course Vital Signs 08/11/24 08/12/24 21:06 01:28 Temperature 97.4 F L Pulse Rate 73 60 Respiratory 18 18 Rate Blood Pressure 103/67 114/65 O2 Sat by Pulse 92 L 94 L Oximetry - Reevaluation(s) Reevaluation #1: 08/11/24 21:22 Medical records reviewed Reevaluation #4: Was pt. sent in by a medical professional or institution (, PA, FIREARMS EXPERT, urgent care, hospital, or prison...) When possible be specific @ -no Did you speak to anyone other than the patient for history (EMS, parent, family, police, friend...)? What history was obtained from this source @ -no Did you review nursing and triage notes (agree or disagree)? Why? @ -agree Are old charts reviewed (outside hosp., previous admission, EMS record, old EKG, old radiological studies, urgent care reports/EKG's, prison records)? Report findings @ -yes Differential Diagnosis (chest pain, altered mental status, abdominal pain women, abdominal pain men, vaginal bleeding, weakness, fever, dyspnea, syncope, headache, dizziness, GI bleed, back pain, seizure, CVA, palpatations, mental health, musculoskeletal)? @ -prior EKG interpreted by me (3pts min.). @ -yes X-rays interpreted by me (1pt min.). @ -yes negative for acute disease CT interpreted by me (1pt min.). @ -no U/S interpreted by me (1pt. min.). @ -no What testing was considered but not performed or refused? (CT, X-rays, U/S, labs)? Why? @ -none What meds were considered but not given or refused? Why? @ -none Did you discuss the management of the patient with other professionals (professionals i.e. , PA, FIREARMS EXPERT, lab, RT, psych nurse, social studies department chair, microfilm technician, teacher, rating officer, director case)? Give summary @ -no Was smoking cessation discussed for >3mins.? @ -no Was critical care preformed (if so, how long)? @ -no Were there social determinants of health that impacted care today? How? (Homelessness, low income, unemployed, alcoholism, drug addiction, transportation, low edu. Level, literacy, decrease access to med. care, half-way, rehab)? @ -none Was there de-escalation of care discussed even if they declined (Discuss DNR or withdrawal of care, Hospice)? DNR status @ -no What co-morbidities impacted this encounter? (DM, HTN, Smoking, COPD, CAD, Cancer, CVA, ARF, Chemo, Hep., AIDS, mental health diagnosis, sleep apnea, morbid obesity)? @ -none Was patient admitted / discharged? Hospital course, mention meds given and route, prescriptions, significant lab abnormalities, going to OR and other pertinent info. @ - Undiagnosed new problem with uncertain prognosis? @ -no Drug Therapy requiring intensive monitoring for toxicity (Heparin, Nitro, Insulin, Cardizem)? @ -no Were any procedures done? @ -no Diagnosis/symptom? @ - Acute, or Chronic, or Acute on Chronic? @ -Acute Uncomplicated (without systemic symptoms) or Complicated (systemic symptoms)? @ -Complicated Side effects of treatment? @ -no Exacerbation, Progression, or Severe Exacerbation? @ -exacerbation Poses a threat to life or bodily function? How? (Chest pain, [place], [place], pneumonia, PE, COPD, DKA, ARF, appy, cholecystitis, CVA, Diverticulitis, Homicidal, Suicidal, threat to staff... and all critical care pts) @ -yes Reevaluation #5: Differential Weakness: Hypoglycemia, shock, sepsis, hyponatremia, anemia, infection, [place], ETOH, adverse medicine reaction, overdose, stroke, this is not meant to be an all-inclusive list. EKG Findings - EKG Comments: EKG Findings:: EKG is sinus 66 [address] 155 QRS 111 QTc 455 - EKG Results: EKG: interpreted by YUDITH Medical Decision Making - Lab Data Result diagrams: 08/11/24 21:29 08/11/24 21:29 Lab Results 08/11/24 08/11/24 08/11/24 Range/Units 21:29 21:29 21:29 WBC 8.7 (3.8-10.6) k/uL RBC 4.20 (3.80-5.40) m/uL Hgb 12.6 (11.4-16.0) gm/dL Hct 40.1 (34.0-46.0) % MCV 95.5 (80.0-100.0) fL MCH 30.0 (25.0-35.0) pg MCHC 31.4 (31.0-37.0) g/dL RDW 13.0 (11.5-15.5) % Plt Count 281 (150-450) k/uL MPV 7.7 Neutrophils % 74 % Lymphocytes % 20 % Monocytes % 3 % Eosinophils % 2 % Basophils % 0 % Neutrophils # 6.4 (1.3-7.7) k/uL Lymphocytes # 1.8 (1.0-4.8) k/uL Monocytes # 0.2 (0-1.0) k/uL Eosinophils # 0.2 (0-0.7) k/uL Basophils # 0.0 (0-0.2) k/uL PT 10.2 (10.0-12.5) sec INR 0.9 (<1.2) APTT 24.0 (22.0-30.0) sec Sodium 139 (137-145) mmol/L Potassium 4.1 (3.5-5.1) mmol/L Chloride 108 H (98-107) mmol/L Carbon Dioxide 23 (22-30) mmol/L Anion Gap 8 mmol/L BUN 19 H (7-17) mg/dL Creatinine 1.36 H (0.52-1.04) mg/dL Est GFR (CKD-EPI)AfAm 51 (>60 ml/min/1.73 sqM) Est GFR (CKD-EPI)NonAf 44 (>60 ml/min/1.73 sqM) Glucose 123 H (74-99) mg/dL Plasma Lactic Acid Brent (0.7-2.0) mmol/L Calcium 9.3 (8.4-10.2) mg/dL Phosphorus 6.1 H (2.5-4.5) mg/dL Magnesium 1.7 (1.6-2.3) mg/dL Total Bilirubin 0.3 (0.2-1.3) mg/dL AST 24 (14-36) U/L ALT 14 (4-34) U/L Alkaline Phosphatase 81 (38-126) U/L Troponin I (0.000-0.034) ng/mL NT-Pro-B Natriuret Pep 90 pg/mL Total Protein 6.7 (6.3-8.2) g/dL Albumin 4.2 (3.5-5.0) g/dL TSH 0.391 L (0.465-4.680) mIU/L Urine Color Urine Appearance (Clear) Urine pH (5.0-8.0) Ur Specific [place] (1.001-1.035) Urine Protein (Negative) Urine Glucose (UA) (Negative) Urine Ketones (Negative) Urine Blood (Negative) Urine Nitrite (Negative) Urine Bilirubin (Negative) Urine Urobilinogen (<2.0) mg/dL Ur Leukocyte Esterase (Negative) Urine RBC (0-5) /hpf Urine WBC (0-5) /hpf Ur Squamous Epith Cells (0-4) /hpf Amorphous Sediment (None) /hpf Hyaline Casts (0-2) /lpf Urine Mucus (None) /hpf 08/11/24 08/11/24 08/12/24 Range/Units 21:29 21:29 02:00 WBC (3.8-10.6) k/uL RBC (3.80-5.40) m/uL Hgb (11.4-16.0) gm/dL Hct (34.0-46.0) % MCV (80.0-100.0) fL MCH (25.0-35.0) pg MCHC (31.0-37.0) g/dL RDW (11.5-15.5) % Plt Count (150-450) k/uL MPV Neutrophils % % Lymphocytes % % Monocytes % % Eosinophils % % Basophils % % Neutrophils # (1.3-7.7) k/uL Lymphocytes # (1.0-4.8) k/uL Monocytes # (0-1.0) k/uL Eosinophils # (0-0.7) k/uL Basophils # (0-0.2) k/uL PT (10.0-12.5) sec INR (<1.2) APTT (22.0-30.0) sec Sodium (137-145) mmol/L Potassium (3.5-5.1) mmol/L Chloride (98-107) mmol/L Carbon Dioxide (22-30) mmol/L Anion Gap mmol/L BUN (7-17) mg/dL Creatinine (0.52-1.04) mg/dL Est GFR (CKD-EPI)AfAm (>60 ml/min/1.73 sqM) Est GFR (CKD-EPI)NonAf (>60 ml/min/1.73 sqM) Glucose (74-99) mg/dL Plasma Lactic Acid Brent 1.1 (0.7-2.0) mmol/L Calcium (8.4-10.2) mg/dL Phosphorus (2.5-4.5) mg/dL Magnesium (1.6-2.3) mg/dL Total Bilirubin (0.2-1.3) mg/dL AST (14-36) U/L ALT (4-34) U/L Alkaline Phosphatase (38-126) U/L Troponin I <0.012 (0.000-0.034) ng/mL NT-Pro-B Natriuret Pep pg/mL Total Protein (6.3-8.2) g/dL Albumin (3.5-5.0) g/dL TSH (0.465-4.680) mIU/L Urine Color Colorless Urine Appearance Clear (Clear) Urine pH 6.0 (5.0-8.0) Ur Specific [place] 1.008 (1.001-1.035) Urine Protein Negative (Negative) Urine Glucose (UA) Negative (Negative) Urine Ketones Negative (Negative) Urine Blood Small H (Negative) Urine Nitrite Negative (Negative) Urine Bilirubin Negative (Negative) Urine Urobilinogen <2.0 (<2.0) mg/dL Ur Leukocyte Esterase Negative (Negative) Urine RBC 20 H (0-5) /hpf Urine WBC 1 (0-5) /hpf Ur Squamous Epith Cells 3 (0-4) /hpf Amorphous Sediment Rare H (None) /hpf Hyaline Casts 6 H (0-2) /lpf Urine Mucus Rare H (None) /hpf Disposition Clinical Impression: Weakness Disposition: HOME SELF-CARE Condition: Good Instructions (If sedation given, give patient instructions): Weakness (ED) Is patient prescribed a controlled substance at d/c from ED?: No Referrals: Hitesh Woodard [Primary Care Provider] - 1-2 days Time of Disposition: 03:00
[2024-08-11 21:41] LABS: Basophils % (A) 0 %; Eosinophils # (A) 0.2 k/uL (0-0.7); Eosinophils % (A) 2 %; HCT 40.1 % (34.0-46.0); HGB 12.6 gm/dL (11.4-16.0); Lymphocytes # (A) 1.8 k/uL (1.0-4.8); Lymphocytes % (A) 20 %; MCHC 31.4 g/dL (31.0-37.0); MCV 95.5 fL (80.0-100.0); Mean Platelet Volume 7.7; Monocytes # (A) 0.2 k/uL (0-1.0); Monocytes % (A) 3 %; Neutrophils # (A) 6.4 k/uL (1.3-7.7); Neutrophils % (A) 74 %; Platelet Count 281 k/uL (150-450); WBC 8.7 k/uL (3.8-10.6)
[2024-08-11 21:54] LABS: ALT 14 U/L (4-34); AST 24 U/L (14-36); African American GFR (CKD) 51 (>60 ml/min/1.73 sqM); Albumin 4.2 g/dL (3.5-5.0); Alkaline Phosphatase 81 U/L (38-126); Anion Gap 8 mmol/L; Blood Urea Nitrogen 19 mg/dL (7-17); Calcium 9.3 mg/dL (8.4-10.2); Carbon Dioxide 23 mmol/L (22-30); Chloride 108 mmol/L (98-107); Glucose 123 mg/dL (74-99); INR 0.9 (<1.2); Magnesium 1.7 mg/dL (1.6-2.3); Non-African American GFR(CKD) 44 (>60 ml/min/1.73 sqM); Phosphorus 6.1 mg/dL (2.5-4.5); Potassium 4.1 mmol/L (3.5-5.1); Prothrombin Time 10.2 sec (10.0-12.5); Sodium 139 mmol/L (137-145); Total Bilirubin 0.3 mg/dL (0.2-1.3); Total Protein 6.7 g/dL (6.3-8.2)
[2024-08-11 22:02] LABS: NT-Pro-B-Type Natriuretic Pept 90 pg/mL
[2024-08-11] MEDS: SODIUM CHLORIDE 0.9% 1,000 ML IV STA (22:05)
--- NOTE | 2024-08-12 00:25 | CT ---
EXAM: CT Head Without Intravenous Contrast CLINICAL HISTORY: ITS.REASON CT Reason: weakness TECHNIQUE: Axial computed tomography images of the head/brain without intravenous contrast. CTDI is 49.1 mGy and DLP is 1141 mGy-cm. This CT exam was performed using one or more of the following dose reduction techniques: automated exposure control, adjustment of the mA and/or kV according to patient size, and/or use of iterative reconstruction technique. COMPARISON: CT Head dated 11/03/23 FINDINGS: Limitations: Some artifact. Brain: Unremarkable. No hemorrhage. No significant white matter disease. No edema. Ventricles: Stable 7 mm calcification/lesion in the fourth ventricle. Bones/joints: Unremarkable. No acute fracture. Soft tissues: Unremarkable. Sinuses: Unremarkable as visualized. No acute sinusitis. Mastoid air cells: Unremarkable as visualized. No mastoid effusion. IMPRESSION: 1. No evidence of acute intracranial abnormality. 2. Stable 7 mm calcification/lesion in the fourth ventricle.
--- NOTE | 2024-08-12 01:12 | CT ---
EXAM: CT Abdomen and Pelvis Without Intravenous Contrast CLINICAL HISTORY: ITS.REASON CT Reason: pain TECHNIQUE: Axial computed tomography images of the abdomen and pelvis without intravenous contrast. CTDI is 11.3 mGy and DLP is 628.8 mGy-cm. This CT exam was performed using one or more of the following dose reduction techniques: automated exposure control, adjustment of the mA and/or kV according to patient size, and/or use of iterative reconstruction technique. COMPARISON: No relevant prior studies available. FINDINGS: Lung bases: Mild bibasilar atelectasis. ABDOMEN: Liver: Unremarkable. Gallbladder and bile ducts: Cholecystectomy. No ductal dilation. Pancreas: Unremarkable. No ductal dilation. Spleen: Unremarkable. No splenomegaly. Adrenals: Unremarkable. No mass. Kidneys and ureters: Multiple nonobstructing bilateral renal calculi. Largest left renal calculus 4 mm. Punctate calculi on the right. No obstructing urinary tract calculi or hydronephrosis. 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 Normal-appearing right kidney. Stomach and bowel: Colonic diverticulosis. No obstruction. No mucosal thickening. PELVIS: Appendix: Normal appendix. Bladder: Unremarkable. No stones. Reproductive: Absent uterus. ABDOMEN and PELVIS: Intraperitoneal space: Unremarkable. No free air. No significant fluid collection. Bones/joints: No acute fracture. No dislocation. Soft tissues: Unremarkable. Vasculature: Moderate aortoiliac atherosclerotic calcifications. Mildly ectatic aorta. No abdominal aortic aneurysm. Lymph nodes: Unremarkable. No enlarged lymph nodes. IMPRESSION: 1. No acute findings. 2. Multiple nonobstructing bilateral renal calculi. 3. 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 Normal-appearing right kidney. 4. Colonic diverticulosis.
[2024-08-12 01:29] VITALS: PULSE 60
--- NOTE | 2024-08-12 01:44 | XR ---
EXAM: XR Chest, 1 View CLINICAL HISTORY: ITS.REASON XR Reason: weakness TECHNIQUE: Frontal view of the chest. COMPARISON: XR Chest dated 06/04/24 FINDINGS: Lungs: Unremarkable. No consolidation. Pleural space: Unremarkable. No pneumothorax. Heart: Unremarkable. No cardiomegaly. Mediastinum: Unremarkable. Normal mediastinal contour. Bones/joints: Unremarkable. No acute fracture. IMPRESSION: No evidence of acute cardiopulmonary disease.
[2024-08-12 02:40] LABS: Amorphous Sediment,Urine Rare /hpf; Appearance,Urine Clear (Clear); Bilirubin,Urine Negative (Negative); Blood,Urine Small (Negative); Color,Urine Colorless; Glucose,Urine (UA) Negative (Negative); Hyaline Casts,Urine 6 /lpf (0-2); Ketones,Urine Negative (Negative); Leukocyte Esterase,Urine Negative (Negative); Mucus,Urine Rare /hpf; Nitrite,Urine Negative (Negative); Protein,Urine Negative (Negative); RBC,Urine 20 /hpf (0-5); Specific Gravity,Urine 1.008 (1.001-1.035); Squamous Epithelial Cell,Urine 3 /hpf (0-4); Urobilinogen,Urine <2.0 mg/dL (<2.0); WBC,Urine 1 /hpf (0-5)
[2024-08-12 03:39] VITALS: BP 110/73; RESP 20
== END 2024-08-12 03:44 | disposition home or self-care (01) ==
LOC: EC 21:02
DX: K57.30 Diverticulosis of large intestine without perforation or abscess without bleeding (principal); N20.0 Calculus of kidney; F17.200 Nicotine dependence, unspecified, uncomplicated; Z88.1 Allergy status to other antibiotic agents; Z88.2 Allergy status to sulfonamides; Z90.49 Acquired absence of other specified parts of digestive tract
CPT/HCPCS: 36415; 70450; 71045; 74176; 80053; 81001; 83605; 83735; 83880; 84100; 84443; 84484; 85025; 85610; 85730; 93005; 96360; 96361; 99285

== ENCOUNTER → 2024-08-22 | Outpatient (CLI) | payer MEDICARE, OTHER ==
[2024-08-22 16:03] VITALS: BP 127/82; PULSE 74; RESP 16; TEMP 97.8
--- NOTE | 2024-08-22 17:08 | P.PROGSL ---
Subjective DATE: 08/22/2024 FOLLOW UP VISIT. Patient with obstructive sleep apnea hypopnea syndrome return to sleep center for follow-up visit. Recently patient had sleep study which documented obstructive sleep apnea hypopnea syndrome. Patient was initiated on PAP therapy and today is first visit after treatment was started. Patient was able to use PAP equipment every night for the whole night. Patient has difficulties with the mask, because she used to sleep on the belly position. [place] sleepiness scale is 2. I checked information from PAP unit. PAP unit pressure 5-10, average 9.9 cm H2O. Usage is more than 70% for more then 4 hours, average 8 hours per night. Leak is 8.6 l/m, which is in acceptable range. Apnea Hypopnea Index is increased to 21.4 and that includes 7.2 central events, 12.9 obstructive and 0.4 unknown. MEDICATIONS: Have been reviewed, please see below During physical exam: GENERAL: A pleasant patient without any distress. VITAL SIGNS: Please see below, weight 183 pounds. HEENT: PERRLA, EOMI.low position of soft palate, [place] 3. NECK: Supple. No JVD. LUNGS: Clear to percussion and to auscultation. Good air exchange. No wheezing or rhonchi. HEART: S1, S2 regular. ABDOMEN: Soft and nontender.[] EXTREMITIES: No clubbing or cyanosis. CHIEF MINISTER: Awake, alert, and oriented x3. No focal deficit. Impressions: 1. Severe obstructive sleep apnea-hypopnea syndrome. Patient demonstrated good compliance with treatment. Apnea-hypopnea index still significantly increased and include obstructive and central abnormal respiratory events. 2. Coronary artery disease, status post heart attack. 3. COPD with history of smoking for more than 40 pack years. 4. Multiple sclerosis. 5. History of sleep paralysis and hypnagogic hallucinations. 6. Nasal septum deviation. 7. Status post left knee replacement. 8. Status post cholecystectomy. 9. Status post total hysterectomy. Plan: 1. Continue using PAP equipment every night for the whole night. I increased range of the pressure 5-13 cm of water. 2. To change air filter at least 1-2 times per month. 3. PAP unit should stay lower then position of the head. 4. Advised patient to remove all remaining water from humidifier canister daily and make it dry after each usage. Refill canister with fresh distilled water before each usage. 5. Sleep hygiene with regular time in bed for at least 8 hours. 6. Precautions related to driving. No driving if feel any sleepiness. 7. I will maintain prescription for PAP supplies including mask, tube, filters. 8. Follow up visit in 2 months or earlier if patient has any problems. 9. Watching and losing weight. Thank you very much for allowing me to participate in the management of your patient. Glen Landry MD, PhD, FAASM. Diplomat of [place] [employer], Sleep Medicine Board by [place] [employer] [facility] [place] cc: Hitesh Woodard MD Objective - Vital Signs Vital Signs: Vital Signs Temp 97.8 F 08/22/24 16:02 Pulse 74 08/22/24 16:02 Resp 16 08/22/24 16:02 BP 127/82 08/22/24 16:02 Pulse Ox 94 L 08/22/24 16:02 FiO2 Intake & Output 08/21/24 08/22/24 08/22/24 18:59 06:59 18:59 Weight 83.007 kg Home Medications: Home Medications Medication Instructions Recorded Confirmed Type Gabapentin 600 mg PO Q6H 02/04/15 06/05/24 History ALPRAZolam [Xanax] 1 mg PO TID PRN 01/18/21 06/05/24 History Baclofen [Lioresal] 20 mg PO TID PRN 01/18/21 06/05/24 History Budesonide/Formoterol Fumarate 2 puff INHALATION RT-BID 01/18/21 06/05/24 Histor y [Symbicort 160-4.5 Mcg Inhaler] HYDROcodone/APAP 10-325MG [[place] 1 tab PO 5XD 01/18/21 06/05/24 History 10-325] Omeprazole Magnesium [PriLOSEC OTC] 20 mg PO DAILY@89902/28/23 06/05/24 History metFORMIN HCL 500 mg PO DAILY@89903/04/23 06/05/24 History Albuterol Sulfate [Ventolin HFA] 2 puff INHALATION RT-QID PRN 09/02/23 06/05/24 History Levothyroxine Sodium [Synthroid] 112 mcg PO DAILY@89909/02/23 06/05/24 History Magnesium Oxide [Magox 400] 400 mg PO HS 11/02/23 06/05/24 History Nitroglycerin Sl Tabs [Nitrostat] 0.4 mg SUBLINGUAL Q5M PRN 11/02/23 06/05/24 History QUEtiapine FUMARATE [SEROquel] 200 mg PO HS@209911/02/23 06/05/24 History Ezetimibe [Zetia] 10 mg PO HS@209903/07/24 06/05/24 History Aspirin 81 mg PO DAILY@89906/03/24 06/05/24 History Atorvastatin [Lipitor] 80 mg PO HS@209906/03/24 06/05/24 History Ipratropium-Albuterol Nebulize 3 ml INHALATION RT-QID PRN 06/03/24 06/05/24 History [Duoneb 0.5 mg-3 mg/3 ml Soln] Metoprolol Tartrate [Lopressor] 25 mg PO BID@899,209906/03/24 06/05/24 History Ondansetron Odt [Zofran ODT] 4 mg PO Q8H PRN 06/03/24 06/05/24 History Ticagrelor [Brilinta] 90 mg PO BID@00,209906/03/24 06/05/24 History Isosorbide Mononitrate ER [Imdur] 30 mg PO DAILY #30 tab 06/05/24 Rx
== END ==
LOC: 3 N SLEEP 15:48
PROVIDERS: ATTEND Internal Medicine
DX: G47.33 Obstructive sleep apnea (adult) (pediatric) (principal); I25.10 Atherosclerotic heart disease of native coronary artery without angina pectoris; J44.9 Chronic obstructive pulmonary disease, unspecified; G35 Multiple sclerosis; J34.2 Deviated nasal septum; R44.2 Other hallucinations; Z96.652 Presence of left artificial knee joint; Z90.49 Acquired absence of other specified parts of digestive tract; Z90.710 Acquired absence of both cervix and uterus; Z87.891 Personal history of nicotine dependence; Z86.74 Personal history of sudden cardiac arrest; Z99.89 Dependence on other enabling machines and devices; Z88.2 Allergy status to sulfonamides; Z88.1 Allergy status to other antibiotic agents; Z79.899 Other long term (current) drug therapy; Z79.51 Long term (current) use of inhaled steroids
CPT/HCPCS: 99212

== ENCOUNTER → 2024-09-04 | Outpatient (CLI) | payer MEDICARE, OTHER ==
[2024-09-05 02:45] LABS: Basophils # (A) 0.09 X 10*3/uL (0.00-0.10); Basophils % (A) 1.4 %; Eosinophils # (A) 0.17 X 10*3/uL (0.04-0.35); Eosinophils % (A) 2.7 %; HCT 44.5 % (37.2-46.3); Lymphocytes # (A) 2.26 X 10*3/uL (0.90-5.00); Lymphocytes % (A) 35.3 %; MCHC 31.5 g/dL (32.0-37.0); MCV 95.5 FL (80.0-97.0); Mean Platelet Volume 10.3 FL (9.5-12.2); Monocytes # (A) 0.33 X 10*3/uL (0.20-1.00); Monocytes % (A) 5.2 %; NRBC Per 100 WBC 0 X 10*3/uL (0.00-0.01); Neutrophils # (A) 3.53 X 10*3/uL (1.80-7.70); Neutrophils % (A) 55.1 %; Platelet Count 330 X 10*3/uL (140-440); RBC 4.66 X 10*6/uL (4.10-5.20); RDW 13.7 % (11.5-14.5)
[2024-09-05 03:40] LABS: ALT 12 U/L (8-44); AST 19 U/L (13-35); Albumin 4.5 g/dL (3.8-4.9); Alkaline Phosphatase 83 U/L (41-126); BUN/Creat Ratio 18.75 Ratio (12.00-20.00); Calcium 9.5 mg/dL (8.7-10.3); Carbon Dioxide 24.6 mmol/L (21.6-31.8); Chloride 106 mmol/L (96-109); Globulin 2.5 g/dL (1.6-3.3); Glucose 94 mg/dL (70-110); Immunoglobulin E <5.00 IU/mL (0.00-114.00); Potassium 4.4 mmol/L (3.5-5.5); Sodium 146 mmol/L (135-145); Total Bilirubin 0.2 mg/dL (0.3-1.2)
[2024-09-05 04:02] LABS: Hepatitis A Antibody IgM Nonreactive (Nonreactive); Hepatitis B Surface Antigen Nonreactive (Nonreactive); Hepatitis C IgG Antibody Nonreactive (Nonreactive)
[2024-09-05 04:15] LABS: Immunoglobulin M 82.5 mg/dL (40.0-280.0)
[2024-09-05 15:21] LABS: Hepatitis B Core IgM Nonreactive (Nonreactive)
== END | disposition home or self-care (01) ==
LOC: LABWHC1 16:00
PROVIDERS: ATTEND Psychiatry & Neurology Neurology
DX: G35 Multiple sclerosis (principal); G56.20 Lesion of ulnar nerve, unspecified upper limb; E55.9 Vitamin D deficiency, unspecified; R40.4 Transient alteration of awareness
CPT/HCPCS: 36415; 80053; 80074; 82306; 82784; 82785; 85025; 86480; 86787

== ENCOUNTER → 2024-10-04 | Outpatient (CLI) | payer MEDICARE, OTHER ==
--- NOTE | 2024-10-03 12:05 | CDI ---
Documentation Clarification Form Date: 10/03/2024 11:27:47 AM From: Pooja Lerner Admit Date: 10/01/2024 08:36:00 AM Patient Name: Ilene Borges Visit Number: [id number] Discharge Date: 10/02/2024 05:34:00 PM ATTENTION: The Clinical Documentation Specialists (CDI) and [facility] Coding Staff appreciate your assistance in clarifying documentation. Please respond to the clarification below the line at the bottom and electronically sign. The CDI & [facility] Coding staff will review the response and follow-up if needed. Please note: Queries are made part of the Legal Health Record. If you have any questions, please contact the author of this message via ITS. Doctor/Provider: Trudy Chavez, Your patient has the documented diagnosis of acute on chronic CHF, unspecified. Additional information regarding the type and acuity of CHF is requested. 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 Pedal edema. Fluid overload. P 89, T 98.8, R 18, BP 175/80, O2 SAT 93 VS/Pulse OX: BNP: 51039 09/28/24 Echocardiogram Results: MildlyimpairedLV function with EF between 45 to 50% 09/27/24 Chest X Ray: Clinical consideration for mildcongestive heart failure. Follow-upcan be performed. Treatment: Oral Lasix 80 mg po daily, Toprol XL 25 mg po In your professional opinion, can you please clarify the [acuity and type] of CHF if known? [ ] Acute Systolic Heart Failure (reduced EF) [ ] Chronic Systolic Heart Failure (reduced EF) [ x ] Acute on Chronic Systolic Heart Failure (reduced EF) [ ] Acute Diastolic Heart Failure (preserved EF) [ ] Chronic Diastolic Heart Failure (preserved EF) [ ] Acute on Chronic Diastolic Heart Failure (preserved EF) [ ] Acute Systolic & Diastolic Heart Failure [ ] Chronic Systolic & Diastolic Heart Failure [ ] Acute on Chronic Heart Failure Systolic & Diastolic Heart Failure [ ] Other, please specify [ ] Unable to determine MTDD
--- NOTE | 2024-10-04 16:07 | CT ---
CT right knee, JORGE protocol. HISTORY: Right Knee pain COMPARISON: None TECHNIQUE: Multiple axial images are obtained through the lower extremities without use of IV contras t material. The exam was performed according to the JORGE protocol FINDINGS: There is moderate to marked narrowing, moderate hypertrophic spurring and moderate subchondral sclero sis and cyst formation in the lateral compartment knee consistent with moderate osteoarthritis. The t he medial joint space is well preserved and there is mild hypertrophic spurring. There is no signific ant narrowing or subchondral changes in the patellofemoral compartment. There is mild hypertrophic sp urring. There is no acute fracture or dislocation. The hips are normal and symmetric bilaterally without fracture, dislocation or arthritic change. The ankles are normal and symmetrical without osteoarthritic change, fracture, dislocation or focal i ntraosseous abnormality. IMPRESSION: 1. Moderate to marked osteoarthritis of the lateral compartment of the right knee. 2. Medial compartment joint space well preserved with minimal hypertrophic spurring. 3. Minimal degenerative changes of the patellofemoral compartment. 4. Unremarkable hips and ankles. [facility], , 10/04/2024 4:04 PM
== END | disposition home or self-care (01) ==
LOC: RADCTMAIN 14:53
PROVIDERS: ATTEND Orthopaedic Surgery
DX: M17.11 Unilateral primary osteoarthritis, right knee (principal); G35 Multiple sclerosis; E11.22 Type 2 diabetes mellitus with diabetic chronic kidney disease; I12.0 Hypertensive chronic kidney disease with stage 5 chronic kidney disease or end stage renal disease; N18.6 End stage renal disease; N17.8 Other acute kidney failure; Z99.2 Dependence on renal dialysis

== ENCOUNTER → 2024-10-04 | Outpatient (CLI) | payer MEDICARE, OTHER ==
[2024-10-04 16:18] LABS: INR 0.8 (<1.2); Partial Thromboplastin Time 22.8 sec (22.0-30.0); Prothrombin Time 9.7 sec (10.0-12.5)
[2024-10-04 19:01] LABS: HGB 13.7 g/dL (12.0-15.0); MCH 30.9 pg (27.0-32.0); MCHC 33.4 g/dL (32.0-37.0); MCV 92.6 FL (80.0-97.0); Mean Platelet Volume 10.1 FL (9.5-12.2); NRBC Per 100 WBC 0 X 10*3/uL (0.00-0.01); Platelet Count 319 X 10*3/uL (140-440); RBC 4.43 X 10*6/uL (4.10-5.20); RDW 13.9 % (11.5-14.5); WBC 9.23 X 10*3/uL (4.50-10.00)
[2024-10-05 03:44] LABS: ALT 10 U/L (8-44); AST 17 U/L (13-35); Albumin 4.7 g/dL (3.8-4.9); Albumin/Globulin Ratio 1.81 Ratio (1.60-3.17); Alkaline Phosphatase 94 U/L (41-126); BUN/Creat Ratio 12.22 Ratio (12.00-20.00); Calcium 9.4 mg/dL (8.7-10.3); Carbon Dioxide 24.6 mmol/L (21.6-31.8); Chloride 101 mmol/L (96-109); Globulin 2.6 g/dL (1.6-3.3); Glucose 85 mg/dL (70-110); Potassium 4.8 mmol/L (3.5-5.5); Sodium 137 mmol/L (135-145); Total Bilirubin 0.3 mg/dL (0.3-1.2); Total Protein 7.3 g/dL (6.2-8.2)
== END | disposition home or self-care (01) ==
LOC: LABPAT 15:23
PROVIDERS: ATTEND Orthopaedic Surgery
DX: Z01.818 Encounter for other preprocedural examination (principal); Z22.322 Carrier or suspected carrier of Methicillin resistant Staphylococcus aureus; E11.9 Type 2 diabetes mellitus without complications; M17.11 Unilateral primary osteoarthritis, right knee
CPT/HCPCS: 80053; 83036; 85027; 85610; 85730; 87070; 93005

== ENCOUNTER → 2024-10-17 | Outpatient (CLI) | payer MEDICARE, OTHER ==
[2024-10-17 15:19] LABS: ALT 9 U/L (8-44); AST 15 U/L (13-35)
== END | disposition home or self-care (01) ==
LOC: LABWHC1 10:13
PROVIDERS: ATTEND Internal Medicine Interventional Cardiology
DX: E78.2 Mixed hyperlipidemia (principal)
CPT/HCPCS: 36415; 80061; 84450; 84460

== ENCOUNTER → 2024-10-24 | Outpatient (CLI) | payer MEDICARE, OTHER ==
[2024-10-24 15:59] VITALS: BP 126/82; PULSE 72; RESP 16; TEMP 98.2
--- NOTE | 2024-10-24 17:32 | P.PROGSL ---
Subjective DATE: 10/24/2024 FOLLOW UP VISIT. Patient with obstructive sleep apnea hypopnea syndrome return to sleep center for follow-up visit. Information from previous visit have been reviewed. Patient is using PAP equipment every night for the whole night, getting PAP supplies in time. The patient does not have significant problems with the mask, PAP unit and humidification. [place] sleepiness scale is 1, which is perfect. I checked information from PAP unit. PAP unit pressure 5-13, average 12.8 cm H2O. Usage is average 5.8 hours per night. Leak is 0 l/m, which is in acceptable range. Apnea Hypopnea Index is increased to 12.4, but it showed improvements comparing with the previous visit when apnea hypopnea index was 21.4 and during previous visit pressure was increased to maximal pressure 13 instead of 10 cm of water. MEDICATIONS have been reviewed, please see below. During physical exam: GENERAL: A pleasant patient without any distress. VITAL SIGNS: Please see below, weight is 193 lbs. HEENT: PERRLA, EOMI.low position of soft palate, Mallapati 3. NECK: Supple. No JVD. LUNGS: Clear to percussion and to auscultation. Good air exchange. No wheezing or rhonchi. HEART: S1, S2 regular. ABDOMEN: Soft and nontender.[] EXTREMITIES: No clubbing or cyanosis. PROGRAM ENGINEER: Awake, alert, and oriented x3. No focal deficit. Impressions: 1. Obstructive sleep apnea-hypopnea syndrome. Respiration improved, but not fully normalized. 2. Coronary artery disease, status post heart attack. 3. COPD with history of smoking for more than 40 pack years. 4. Multiple sclerosis. 5. History of sleep paralysis and hypercritical hallucinations. 6. Nasal septum deviation. 7. Status post left knee replacement. 8. Status post total hysterectomy. 9. Status post cholecystectomy. I increased range of the pressure to the level of 5-16 cm of water. Plan: 1. Continue using PAP equipment every night for the whole night. We will extend trial period for another 90 nights. 2. Sleep hygiene with regular time in bed for at least 7.5-8 hours 3. PAP unit should stay lower then position of the head. 4. Advised patient to remove all remaining water from humidifier canister daily and make it dry after each usage. Refill canister with fresh distilled water before each usage. 5. Watching weight. 6. Precautions related to driving. No driving if feel any sleepiness. 7. I will maintain prescription for PAP supplies including mask, tube, filters. 8. Follow up visit in 3 months or earlier if patient has any problems. Thank you very much for allowing me to participate in the management of your patient. Glen Landry MD, PhD, FAASM. Diplomat of [place] [employer], Sleep Medicine Board by [place] [employer] [facility] [place] Objective - Vital Signs Vital Signs: Vital Signs Temp 98.2 F 10/24/24 15:58 Pulse 72 10/24/24 15:58 Resp 16 10/24/24 15:58 BP 126/82 10/24/24 15:58 Pulse Ox 93 L 10/24/24 15:58 FiO2 Home Medications: Home Medications Medication Instructions Recorded Confirmed Type Gabapentin 600 mg PO Q6H 02/04/15 10/24/24 History ALPRAZolam [Xanax] 1 mg PO TID PRN 01/18/21 10/24/24 History Baclofen [Lioresal] 20 mg PO TID PRN 01/18/21 10/24/24 History Budesonide/Formoterol Fumarate 2 puff INHALATION RT-BID 01/18/21 10/24/24 History [Symbicort 160-4.5 Mcg Inhaler] HYDROcodone/APAP 10-325MG [Staley 1 tab PO 5XD 01/18/21 10/24/24 History 10-325] Omeprazole Magnesium [PriLOSEC OTC] 20 mg PO DAILY@89902/28/23 10/24/24 History metFORMIN HCL 500 mg PO DAILY@89903/04/23 10/24/24 History Albuterol Sulfate [Ventolin HFA] 2 puff INHALATION RT-QID PRN 09/02/23 06/05/24 History Levothyroxine Sodium [Synthroid] 112 mcg PO DAILY@89909/02/23 10/24/24 History Magnesium Oxide [Magox 400] 400 mg PO HS 11/02/23 10/24/24 History Nitroglycerin Sl Tabs [Nitrostat] 0.4 mg SUBLINGUAL Q5M PRN 11/02/23 10/24/24 History QUEtiapine FUMARATE [SEROquel] 200 mg PO HS@2100 07/24 01/29/25 History Ezetimibe [Zetia] 10 mg PO HS@209903/07/24 10/24/24 History Aspirin 81 mg PO DAILY@89906/03/24 10/24/24 History Atorvastatin [Lipitor] 80 mg PO HS@209906/03/24 10/24/24 History Ipratropium-Albuterol Nebulize 3 ml INHALATION RT-QID PRN 06/03/24 06/05/24 History [Duoneb 0.5 mg-3 mg/3 ml Soln] Metoprolol Tartrate [Lopressor] 25 mg PO BID@0900,209906/03/24 10/24/24 History Ondansetron Odt [Zofran ODT] 4 mg PO Q8H PRN 06/03/24 06/05/24 History Ticagrelor [Brilinta] 90 mg PO BID@0900,209906/03/24 06/05/24 History Isosorbide Mononitrate ER [Imdur] 30 mg PO DAILY #30 tab 06/05/24 10/24/24 Rx Cholecalciferol (Vitamin D3) 5,000 unit PO DAILY 10/24/24 10/24/24 History [Vitamin D3 (125 MCG = 5,000 IU)] Docusate [Colace] 200 mg PO DAILY 10/24/24 10/24/24 History Ranolazine [Ranexa] 500 mg PO BID 10/24/24 10/24/24 History Repaglinide 0.5 mg PO ONCE PRN 10/24/24 10/24/24 History
== END ==
LOC: 3 N SLEEP 15:19
PROVIDERS: ATTEND Internal Medicine
DX: G47.33 Obstructive sleep apnea (adult) (pediatric) (principal); I25.10 Atherosclerotic heart disease of native coronary artery without angina pectoris; J44.9 Chronic obstructive pulmonary disease, unspecified; I25.2 Old myocardial infarction; G35 Multiple sclerosis; J34.2 Deviated nasal septum; Z86.69 Personal history of other diseases of the nervous system and sense organs; Z96.652 Presence of left artificial knee joint; Z90.710 Acquired absence of both cervix and uterus; Z90.49 Acquired absence of other specified parts of digestive tract; F17.210 Nicotine dependence, cigarettes, uncomplicated; Z88.2 Allergy status to sulfonamides; Z88.8 Allergy status to other drugs, medicaments and biological substances
CPT/HCPCS: 99212

== ENCOUNTER 2024-12-14 10:14 | Inpatient (IN) | payer MEDICARE, OTHER ==
--- NOTE | 2024-12-14 10:39 | ED ---
General Adult HPI - General Chief complaint: Altered Mental Status Stated complaint: AMS Time Seen by Provider: 12/14/24 10:25 Source: patient, family, RN notes reviewed Mode of arrival: wheelchair Limitations: no limitations - History of Present Illness Initial comments: Patient is a 54-year-old female presenting to the emergency department with with concern for altered mental status. Patient was at rehab today for her knee. Patient had knee surgery a month ago. Patient looked slightly off to the this morning however not that severe. Patient did have a cup of coffee this morning. Patient admits to being drowsy. Patient is oriented and does follow commands. Patient just states she does not feel well. Patient does have a history of recent pneumonia. Patient is a smoker. - Related Data Home Medications Medication Instructions Recorded Confirmed Gabapentin 600 mg PO Q6H 02/04/15 10/26/24 ALPRAZolam [Xanax] 1 mg PO TID PRN 01/18/21 10/26/24 Baclofen [Lioresal] 20 mg PO TID PRN 01/18/21 10/26/24 Budesonide/Formoterol Fumarate 2 puff INHALATION RT-BID 01/18/21 10/26/24 [Symbicort 160-4.5 Mcg Inhaler] Omeprazole Magnesium [PriLOSEC OTC] 20 mg PO DAILY@89902/28/23 10/26/24 metFORMIN HCL 500 mg PO DAILY@89903/04/23 10/26/24 Albuterol Sulfate [Ventolin HFA] 2 puff INHALATION RT-QID PRN 09/02/23 10/26/24 Levothyroxine Sodium [Synthroid] 112 mcg PO DAILY@89909/02/23 10/26/24 Magnesium Oxide [Magox 400] 400 mg PO HS 11/02/23 10/26/24 Nitroglycerin Sl Tabs [Nitrostat] 0.4 mg SUBLINGUAL Q5M PRN 11/02/23 11/02/24 QUEtiapine FUMARATE [SEROquel] 200 mg PO HS@209911/02/23 10/26/24 Ezetimibe [Zetia] 10 mg PO HS@209903/07/24 10/26/24 Aspirin 81 mg PO DAILY@89906/03/24 10/26/24 Atorvastatin [Lipitor] 80 mg PO HS@2100 06/03/24 10/26/24 Ipratropium-Albuterol Nebulize 3 ml INHALATION RT-QID PRN 06/03/24 10/26/24 [Duoneb 0.5 mg-3 mg/3 ml Soln] Metoprolol Tartrate [Lopressor] 25 mg PO BID@0900,2100 06/03/24 10/26/24 Ondansetron Odt [Zofran ODT] 4 mg PO Q8H PRN 06/03/24 10/26/24 Cholecalciferol (Vitamin D3) 5,000 unit PO DAILY 10/24/24 10/26/24 [Vitamin D3 (125 MCG = 5,000 IU)] Docusate [Colace] 200 mg PO DAILY 10/24/24 10/26/24 Ranolazine [Ranexa] 500 mg PO BID 10/24/24 10/26/24 Repaglinide 0.5 mg PO ONCE PRN 10/24/24 10/26/24 Previous Rx's Medication Instructions Recorded Isosorbide Mononitrate ER [Imdur] 30 mg PO DAILY #30 tab 06/05/24 oxyCODONE HCL/ACETAMINOPHEN 1 tab PO Q6HR PRN #28 tab 11/06/24 [Percocet 7.5-325 mg] Allergies Allergy/AdvReac Type Severity Reaction Status Date / Time sulfamethoxazole Allergy Swelling/turned Verified 12/14/24 10:19 [From Bactrim] red trimethoprim [From Bactrim] Allergy swelling/turned Verified 12/14/24 10:19 red Review of Systems ROS Statement: Those systems with pertinent positive or pertinent negative responses have been documented in the HPI. ROS Other: All systems not noted in ROS Statement are negative. Constitutional: Denies: fever Eyes: Denies: eye pain ENT: Denies: ear pain Respiratory: Reports: as per HPI, cough Cardiovascular: Denies: chest pain Endocrine: Reports: fatigue Gastrointestinal: Denies: abdominal pain Neurological: Reports: as per HPI Past Medical History Past Medical History: Cancer, COPD, Diabetes Mellitus, Fibromyalgia, Myocardial Infarction (DC), Neurologic Disorder, Osteoarthritis (OA), Skin Disorder, Sleep Apnea/CPAP/BIPAP, Thyroid Disorder Additional Past Medical History / Comment(s): Multiple Sclerosis, occasionally has flare up of MS that causes gastroparesis, keratosis pilaris, hx cervical cancer, supposed to uses CPAP, chronic back and knee pain Last Myocardial Infarction Date:: 09/02/2023 History of Any Multi-Drug Resistant Organisms: None Reported Past Surgical History: Bladder Surgery, Cholecystectomy, Heart Catheterization With Stent, Hysterectomy, Orthopedic Surgery Additional Past Surgical History / Comment(s): left knee arthroscopy, bladder sling, Bartholin gland removal, colonoscopy Past Anesthesia/Blood Transfusion Reactions: Previous Problems w/ Anesthesia Additional Past Anesthesia/Blood Transfusion Reaction / Comment(s): "I woke up alot with twilight", pt. adopted Date of Last Stent Placement:: 09/02/2023 Past Psychological History: Anxiety Smoking Status: Current every day smoker Past Alcohol Use History: None Reported Past Drug Use History: None Reported - Past Family History Mother History Unknown: Yes Family Medical History: Cancer Additional Family Medical History / Comment(s): esophageal General Exam Limitations: no limitations General appearance: alert Head exam: Present: atraumatic Eye exam: Present: normal appearance, PERRL, EOMI ENT exam: Present: normal oropharynx Neck exam: Present: normal inspection. Absent: tenderness Respiratory exam: Present: rales Cardiovascular Exam: Present: regular rate, normal rhythm GI/Abdominal exam: Present: soft. Absent: tenderness Extremities exam: Present: normal inspection. Absent: pedal edema, calf tenderness Neurological exam: Present: CN II-XII intact. Absent: motor sensory deficit Expanded Neurological exam: Present: protecting the airway, other (Drowsy. Arousable to loud voice or light touch) Patient oriented to: Present: person, place, time Cranial nerves: EOM's Intact: Normal Motor strength exam: RUE: 5, LUE: 5, RLE: 5, LLE: 5 Eye Response: (3) open to voice Motor Response: (6) obeys commands Verbal Response: (5) oriented Psychiatric exam: Present: flat affect Skin exam: Present: normal color Course Vital Signs 12/14/24 12/14/24 12/14/24 10:16 10:30 10:57 Temperature 97.7 F Pulse Rate 63 59 L 60 Respiratory 14 12 Rate Blood Pressure 80/52 85/63 O2 Sat by Pulse 82 L 94 L Oximetry 12/14/24 12/14/24 12/14/24 11:00 11:08 11:26 Temperature Pulse Rate 58 L 58 L 60 Respiratory 12 Rate Blood Pressure 91/65 O2 Sat by Pulse 93 L Oximetry 12/14/24 12/14/24 12/14/24 11:30 12:09 12:30 Temperature Pulse Rate 60 61 65 Respiratory 12 12 12 Rate Blood Pressure 85/66 95/62 111/84 O2 Sat by Pulse 94 L 94 L 94 L Oximetry 12/14/24 13:19 Temperature Pulse Rate Respiratory 16 Rate Blood Pressure O2 Sat by Pulse Oximetry EKG Findings - EKG Results: EKG: interpreted by ERMD, sinus rhythm, normal axis, normal QRS, normal ST/T EKG shows: bradycardia Procedures - ABG Interpretation Ph: 7.28 PCO2: 61.7 PO2: 74.6 Medical Decision Making - Medical Decision Making Was pt. sent in by a medical professional or institution (, PA, CHILD AND ADOLESCENT THERAPIST, urgent care, hospital, or half-way...) When possible be specific @ -No Did you speak to anyone other than the patient for history (EMS, parent, family, police, friend...)? What history was obtained from this source @ - is present and provides majority of history as patient is a poor historian and very drowsy Did you review nursing and triage notes (agree or disagree)? Why? @ -I reviewed and agree with nursing and triage notes Were old charts reviewed (outside hosp., previous admission, EMS record, old EKG, old radiological studies, urgent care reports/EKG's, half-way records)? Report findings @ -No old charts were reviewed Differential Diagnosis (chest pain, altered mental status, abdominal pain women, abdominal pain men, vaginal bleeding, weakness, fever, dyspnea, syncope, headache, dizziness, GI bleed, back pain, seizure, CVA, palpatations, mental health, musculoskeletal)? @ -Differential Altered Mental Status: Hypoglycemia, DKA, hypercapnia, ETOH, overdose, CO poisoning, trauma, myxedema coma, HTN encephalopathy, infection, encephalitis, psychosis, intercranial hemorrhage, hepatic encephalopathy, meningitis, CVA, this is not meant to be an all-inclusive list EKG interpreted by me (3pts min.). @ -As above X-rays interpreted by me (1pt min.). @ -Chest x-ray does not reveal acute abnormality CT interpreted by me (1pt min.). @ -CT scan of the brain shows no acute abnormality. CT scan of the chest negative for pulmonary embolism U/S interpreted by me (1pt. min.). @ -None done What testing was considered but not performed or refused? (CT, X-rays, U/S, labs)? Why? @ -None What meds were considered but not given or refused? Why? @ -Consider Narcan however concern for putting patient into withdrawal. Patient denies overdose. feels unlikely. I also feel unlikely Did you discuss the management of the patient with other professionals (professionals i.e. , PA, CHILD AND ADOLESCENT THERAPIST, lab, RT, psych nurse, social sciences chair, sewing inspector, teacher, chief merchandising officer, high risk case manager)? Give summary @ -Case was discussed with Dr. Mulligan who will admit covering Dr. Bermeo. Case also discussed with . His son, who will consult Was smoking cessation discussed for >3mins.? @ -No Was critical care preformed (if so, how long)? @ -No Were there social determinants of health that impacted care today? How? (Homeles sness, low income, unemployed, alcoholism, drug addiction, transportation, low edu. Level, literacy, decrease access to med. care, assisted, rehab)? @ -No Was there de-escalation of care discussed even if they declined (Discuss DNR or withdrawal of care, Hospice)? DNR status @ -No What co-morbidities impacted this encounter? (DM, HTN, Smoking, COPD, CAD, Cancer, CVA, ARF, Chemo, Hep., AIDS, mental health diagnosis, sleep apnea, morbid obesity)? @ -History of COPD Was patient admitted / discharged? Hospital course, mention meds given and route, prescriptions, significant lab abnormalities, going to OR and other pertinent info. @ -Patient presents with fairly quick onset of altered mental status. Altered mental status is mostly drowsiness. Patient does answer questions appropriately and does arouse to stimulation. Evaluation does have some concern for pulmonary. Patient will be admitted with consults with neurology and pulmonary. Admission orders written. Patient reevaluated. Family updated. Undiagnosed new problem with uncertain prognosis? @ -No Drug Therapy requiring intensive monitoring for toxicity (Heparin, Nitro, Insulin, Cardizem)? @ -No Were any procedures done? @ -No Diagnosis/symptom? @ -Altered mental status, COPD Acute, or Chronic, or Acute on Chronic? @ -Acute, acute Uncomplicated (without systemic symptoms) or Complicated (systemic symptoms)? @ -Default Side effects of treatment? @ -No Exacerbation, Progression, or Severe Exacerbation? @ -No Poses a threat to life or bodily function? How? (Chest pain, USA, DC, pneumonia, PE, COPD, DKA, ARF, appy, cholecystitis, CVA, Diverticulitis, Homicidal, Suicidal, threat to staff... and all critical care pts) @ -Threat to pulmonary and neurological status - Lab Data Result diagrams: 12/14/24 11:02 12/14/24 11:02 Lab Results 12/14/24 12/14/24 12/14/24 Range/Units 10:56 11:02 11:02 WBC 7.4 (3.8-10.6) k/uL RBC 4.22 (3.80-5.40) m/uL Hgb 12.3 (11.4-16.0) gm/dL Hct 39.4 (34.0-46.0) % MCV 93.3 (80.0-100.0) fL MCH 29.0 (25.0-35.0) pg MCHC 31.1 (31.0-37.0) g/dL RDW 14.7 (11.5-15.5) % Plt Count 264 (150-450) k/uL MPV 7.6 Neutrophils % 52 % Lymphocytes % 37 % Monocytes % 5 % Eosinophils % 4 % Basophils % 1 % Neutrophils # 3.8 (1.3-7.7) k/uL Lymphocytes # 2.7 (1.0-4.8) k/uL Monocytes # 0.4 (0-1.0) k/uL Eosinophils # 0.3 (0-0.7) k/uL Basophils # 0.0 (0-0.2) k/uL Hypochromasia Marked PT 11.1 (10.0-12.5) sec INR 1.0 (<1.2) APTT 22.8 (22.0-30.0) sec D-Dimer 4.95 H (<0.60) mg/L FEU Sample Site Right Radial ABG pH 7.29 L (7.35-7.45) ABG pCO2 62 H (35-45) mmHg ABG pO2 75 L (83-108) mmHg ABG HCO3 29 H (21-25) mmol/L ABG Total CO2 31 H (19-24) mmol/L ABG O2 Saturation 94.0 (94-97) % ABG Base Excess 1.4 mmol/L Nacho Test Yes Hemoglobin 11.9 (11.4-16.0) gm/dL FiO2 28 % Sodium (137-145) mmol/L Potassium (3.5-5.1) mmol/L Chloride (98-107) mmol/L Carbon Dioxide (22-30) mmol/L Anion Gap mmol/L BUN (7-17) mg/dL Creatinine (0.52-1.04) mg/dL Est GFR (CKD-EPI)AfAm (>60 ml/min/1.73 sqM) Est GFR (CKD-EPI)NonAf (>60 ml/min/1.73 sqM) Glucose (74-99) mg/dL POC Glucose (mg/dL) (70-110) mg/dL POC Glu Salesperson [employer] Supp[employer] ID Calcium (8.4-10.2) mg/dL Total Bilirubin (0.2-1.3) mg/dL AST (14-36) U/L ALT (4-34) U/L Alkaline Phosphatase (38-126) U/L Troponin I (0.000-0.034) ng/mL Total Protein (6.3-8.2) g/dL Albumin (3.5-5.0) g/dL Influenza Type A (PCR) (Not Detectd) Influenza Type B (PCR) (Not Detectd) RSV (PCR) (Not Detectd) SARS-CoV-2 (PCR) (Not Detectd) 12/14/24 12/14/24 12/14/24 Range/Units 11:02 11:02 11:02 WBC (3.8-10.6) k/uL RBC (3.80-5.40) m/uL Hgb (11.4-16.0) gm/dL Hct (34.0-46.0) % MCV (80.0-100.0) fL MCH (25.0-35.0) pg MCHC (31.0-37.0) g/dL RDW (11.5-15.5) % Plt Count (150-450) k/uL MPV Neutrophils % % Lymphocytes % % Monocytes % % Eosinophils % % Basophils % % Neutrophils # (1.3-7.7) k/uL Lymphocytes # (1.0-4.8) k/uL Monocytes # (0-1.0) k/uL Eosinophils # (0-0.7) k/uL Basophils # (0-0.2) k/uL Hypochromasia PT (10.0-12.5) sec INR (<1.2) APTT (22.0-30.0) sec D-Dimer (<0.60) mg/L FEU Sample Site ABG pH (7.35-7.45) ABG pCO2 (35-45) mmHg ABG pO2 (83-108) mmHg ABG HCO3 (21-25) mmol/L ABG Total CO2 (19-24) mmol/L ABG O2 Saturation (94-97) % ABG Base Excess mmol/L Nacho Test Hemoglobin (11.4-16.0) gm/dL FiO2 % Sodium 138 (137-145) mmol/L Potassium 5.1 (3.5-5.1) mmol/L Chloride 104 (98-107) mmol/L Carbon Dioxide 29 (22-30) mmol/L Anion Gap 5 mmol/L BUN 18 H (7-17) mg/dL Creatinine 0.76 (0.52-1.04) mg/dL Est GFR (CKD-EPI)AfAm >90 (>60 ml/min/1.73 sqM) Est GFR (CKD-EPI)NonAf 89 (>60 ml/min/1.73 sqM) Glucose 113 H (74-99) mg/dL POC Glucose (mg/dL) (70-110) mg/dL POC Glu Salesperson [employer] Supp[employer] ID Calcium 9.0 (8.4-10.2) mg/dL Total Bilirubin 0.7 (0.2-1.3) mg/dL AST 28 (14-36) U/L ALT 12 (4-34) U/L Alkaline Phosphatase 64 (38-126) U/L Troponin I <0.012 (0.000-0.034) ng/mL Total Protein 6.1 L (6.3-8.2) g/dL Albumin 3.7 (3.5-5.0) g/dL Influenza Type A (PCR) Not Detected (Not Detectd) Influenza Type B (PCR) Not Detected (Not Detectd) RSV (PCR) Not Detected (Not Detectd) SARS-CoV-2 (PCR) Not Detected (Not Detectd) 12/14/24 Range/Units 11:07 WBC (3.8-10.6) k/uL RBC (3.80-5.40) m/uL Hgb (11.4-16.0) gm/dL Hct (34.0-46.0) % MCV (80.0-100.0) fL MCH (25.0-35.0) pg MCHC (31.0-37.0) g/dL RDW (11.5-15.5) % Plt Count (150-450) k/uL MPV Neutrophils % % Lymphocytes % % Monocytes % % Eosinophils % % Basophils % % Neutrophils # (1.3-7.7) k/uL Lymphocytes # (1.0-4.8) k/uL Monocytes # (0-1.0) k/uL Eosinophils # (0-0.7) k/uL Basophils # (0-0.2) k/uL Hypochromasia PT (10.0-12.5) sec INR (<1.2) APTT (22.0-30.0) sec D-Dimer (<0.60) mg/L FEU Sample Site ABG pH (7.35-7.45) ABG pCO2 (35-45) mmHg ABG pO2 (83-108) mmHg ABG HCO3 (21-25) mmol/L ABG Total CO2 (19-24) mmol/L ABG O2 Saturation (94-97) % ABG Base Excess mmol/L Nacho Test Hemoglobin (11.4-16.0) gm/dL FiO2 % Sodium (137-145) mmol/L Potassium (3.5-5.1) mmol/L Chloride (98-107) mmol/L Carbon Dioxide (22-30) mmol/L Anion Gap mmol/L BUN (7-17) mg/dL Creatinine (0.52-1.04) mg/dL Est GFR (CKD-EPI)AfAm (>60 ml/min/1.73 sqM) Est GFR (CKD-EPI)NonAf (>60 ml/min/1.73 sqM) Glucose (74-99) mg/dL POC Glucose (mg/dL) 125 H (70-110) mg/dL POC Glu Salesperson [employer] ID [place] Yelitza Calcium (8.4-10.2) mg/dL Total Bilirubin (0.2-1.3) mg/dL AST (14-36) U/L ALT (4-34) U/L Alkaline Phosphatase (38-126) U/L Troponin I (0.000-0.034) ng/mL Total Protein (6.3-8.2) g/dL Albumin (3.5-5.0) g/dL Influenza Type A (PCR) (Not Detectd) Influenza Type B (PCR) (Not Detectd) RSV (PCR) (Not Detectd) SARS-CoV-2 (PCR) (Not Detectd) Disposition Clinical Impression: Altered mental status, COPD (chronic obstructive pulmonary disease) Disposition: ADMITTED IP TO THIS HOSP Is patient prescribed a controlled substance at d/c from ED?: No Referrals: Hitesh Woodard [Primary Care Provider] - 1-2 days Time of Disposition: 13:29
[2024-12-14] MEDS: IPRATROPIUM-ALBUTEROL 3 ML NEB INHALATION STA (10:56)
[2024-12-14 11:00] LABS: ABG Base Excess 1.4 mmol/L; ABG HCO3 29 mmol/L (21-25); ABG PCO2 62 mmHg (35-45); ABG PH 7.29 (7.35-7.45); ABG PO2 75 mmHg (83-108); ABG TCO2 31 mmol/L (19-24); Allen Test Performed? Yes
--- NOTE | 2024-12-14 11:03 | XR ---
EXAMINATION TYPE: XR chest 1V portable DATE OF EXAM: 12/14/2024 10:58 AM COMPARISON: Chest radiographs from 08/11/2024 CLINICAL INDICATION: Female, 54 years old with history of sabino; TECHNIQUE: XR chest 1V portable Frontal view of the chest. FINDINGS: Lungs/Pleura: There is no evidence of pleural effusion, focal consolidation, or pneumothorax. Pulmonary vascularity: Unremarkable. Heart/mediastinum: Cardiomediastinal silhouette is unremarkable. Musculoskeletal: No acute osseous pathology. IMPRESSION: No acute cardiopulmonary disease/process. [facility], , 12/14/2024 11:01 AM
[2024-12-14] MEDS: ALBUTEROL NEBULIZED 2.5 MG/3 ML INHALATION STA (11:06)
[2024-12-14] MEDS: LACTATED RINGERS 1,000 ML BAG IV STA (11:08)
[2024-12-14] MEDS: LACTATED RINGERS 1,000 ML IV STA (11:09)
[2024-12-14 11:10] LABS: Basophils % (A) 1 %; Eosinophils # (A) 0.3 k/uL (0-0.7); Eosinophils % (A) 4 %; HCT 39.4 % (34.0-46.0); HGB 12.3 gm/dL (11.4-16.0); Hypochromasia Marked; Lymphocytes # (A) 2.7 k/uL (1.0-4.8); Lymphocytes % (A) 37 %; MCHC 31.1 g/dL (31.0-37.0); MCV 93.3 fL (80.0-100.0); Mean Platelet Volume 7.6; Monocytes # (A) 0.4 k/uL (0-1.0); Monocytes % (A) 5 %; Neutrophils # (A) 3.8 k/uL (1.3-7.7); Neutrophils % (A) 52 %; Platelet Count 264 k/uL (150-450); RBC 4.22 m/uL (3.80-5.40); RDW 14.7 % (11.5-15.5); WBC 7.4 k/uL (3.8-10.6)
[2024-12-14 11:15] LABS: Glucose,Whole Blood 125 mg/dL (70-110)
[2024-12-14 11:25] LABS: ALT 12 U/L (4-34); African American GFR (CKD) >90 (>60 ml/min/1.73 sqM); Albumin 3.7 g/dL (3.5-5.0); Anion Gap 5 mmol/L; Blood Urea Nitrogen 18 mg/dL (7-17); Carbon Dioxide 29 mmol/L (22-30); Chloride 104 mmol/L (98-107); Glucose 113 mg/dL (74-99); Non-African American GFR(CKD) 89 (>60 ml/min/1.73 sqM); Sodium 138 mmol/L (137-145); Total Bilirubin 0.7 mg/dL (0.2-1.3); Total Protein 6.1 g/dL (6.3-8.2)
[2024-12-14 11:28] LABS: AST 28 U/L (14-36); Alkaline Phosphatase 64 U/L (38-126); Partial Thromboplastin Time 22.8 sec (22.0-30.0); Potassium 5.1 mmol/L (3.5-5.1); Prothrombin Time 11.1 sec (10.0-12.5)
[2024-12-14 12:06] LABS: Influenza A Not Detected (Not Detectd); Influenza B Not Detected (Not Detectd); RSV Not Detected (Not Detectd)
--- NOTE | 2024-12-14 12:36 | CT ---
EXAMINATION TYPE: CT brain wo con DATE OF EXAM: 12/14/2024 COMPARISON: CLINICAL INDICATION: Female, 54 years old with history of Altered mental status; PHH, ams TECHNIQUE: CT scan of the head is performed without contrast. CT DLP: 1127.[address] CTDI: mGy Automated exposure control for dose reduction was used. FINDINGS: There is no acute intracranial hemorrhage or midline shift identified. There is diffuse v entricular and sulcal prominence consistent with diffuse age-related cerebral atrophy. There is low- attenuation in the periventricular white matter consistent with chronic small vessel ischemic change. The globes are intact and the visualized sinuses are clear. IMPRESSION: No acute intracranial hemorrhage or midline shift. There is diffuse age-related cerebra l atrophy and chronic small vessel ischemic change noted. [facility], , 12/14/2024 12:33 PM
--- NOTE | 2024-12-14 12:38 | CT ---
EXAMINATION TYPE: CT angio chest DATE OF EXAM: 12/14/2024 12:33 PM COMPARISON: None. CLINICAL INDICATION: Female, 54 years old with history of sabino, elevated d-dimer, TECHNIQUE: Axial CT was performed with sagittal and coronal reformats. 3D reconstruction and/or MIP imaging was also performed on a separate workstation. IV CONTRAST: with IV Contrast, patient injected with 100 ml mL of Isovue 300. (None if empty) CT DLP: 1619.7 mGycm, Automated exposure control for dose reduction was used. FINDINGS: PULMONARY ARTERIES: The pulmonary arteries and their major tributaries are patent. I do not see trey dence for sizable filling defect to suggest pulmonary embolic process. LUNGS: The lungs are clear and free of infiltrate. No evidence for atelectasis. No pulmonary nodule or mass is detected. No pleural effusion. MEDIASTINUM: Thoracic aorta is of normal caliber.No evidence for mediastinal mass. No mediastinal l ymph nodes greater than 1cm. HEART: Size within normal limits. No significant coronary artery calcifications. HILAR STRUCTURES: No evidence for mass. No hilar lymph nodes greater than 1 cm. UPPER ABDOMEN: No significant abnormality is seen. IMPRESSION: 1. No evidence for Pulmonary embolism at this time. [facility], , 12/14/2024 12:36 PM
[2024-12-14] MEDS: cefTRIAXone IN SWFI 1,000 MG/10 ML SYRINGE IVP STA (13:11)
[2024-12-14] MEDS: methylPREDNISolone SOD SUCCI 125 MG/2 ML VIAL IV STA (13:16)
[2024-12-14] MEDS: NALOXONE 0.4 MG/ML 1 ML VIAL IVP STA (13:19)
[2024-12-14] MEDS: HEPARIN SODIUM,PORCINE 5,000 UNIT/ML 1 ML VIAL SQ SCH (13:32)
[2024-12-14] MEDS: PANTOPRAZOLE 40 MG/10 ML VIAL IVP SCH (13:32)
[2024-12-14 13:46] LABS: Appearance,Urine Clear (Clear); Bilirubin,Urine Negative (Negative); Blood,Urine Negative (Negative); Color,Urine Yellow; Glucose,Urine (UA) Negative (Negative); Ketones,Urine Negative (Negative); Leukocyte Esterase,Urine Negative (Negative); Nitrite,Urine Negative (Negative); Protein,Urine Trace (Negative); Urobilinogen,Urine <2.0 mg/dL (<2.0)
[2024-12-14 13:56] LABS: Amphetamine Screen,Urine Not Detected (NotDetected); Barbiturate Screen,Urine Not Detected (NotDetected); Benzodiazepines Screen,Urine Detected (NotDetected); Cocaine Screen,Urine Not Detected (NotDetected); Methadone Screen, Urine Not Detected (NotDetected); Opiate Screen,Urine Detected (NotDetected); Oxycodone Screen, Urine Detected (NotDetected); Phencyclidine Screen,Urine Not Detected (NotDetected); Tricyclic Antidepressant,Urine Detected (NotDetected); Urn Cannabinoid Scrn Not Detected (NotDetected)
[2024-12-14 14:05] LABS: Specific Gravity,Urine >1.050 (1.001-1.035)
--- NOTE | 2024-12-14 14:22 | US ---
EXAMINATION TYPE: US venous doppler duplex LE BI DATE OF EXAM: 12/14/2024 2:12 PM COMPARISON: 03/15/23 CLINICAL INDICATION: Female, 54 years old with history of dvt; no hx of dvt. not on blood thinners. P t is altered mental status, Pain TECHNIQUE: The lower extremity deep venous system is examined utilizing real time linear array sonog morenita with graded compression, color doppler sonography, and spectral doppler. SIDE PERFORMED: Bilateral FINDINGS: VESSELS IMAGED: Common Femoral Vein Deep Femoral Vein Greater Saphenous Vein * Femoral Vein Popliteal Vein Small Saphenous Vein * Proximal Calf Veins (* superficial vessels) Right Leg: No evidence for DVT. Popliteal vein limited due to pt unable to move leg, Color Doppler i maging shows patency of the vessels. Spectral waveforms are within normal limits. Left Leg: No evidence for DVT, Color Doppler imaging shows patency of the vessels. Spectral waveform s are within normal limits. IMPRESSION: No ultrasound evidence for deep venous thrombosis. [facility], , 12/14/2024 2:20 PM
[2024-12-14] MEDS ORDERED: IPRATROPIUM-ALBUTEROL 3 ML NEB INHALATION PRN (14:38)
[2024-12-14] MEDS ORDERED: ONDANSETRON ODT 4 MG TAB PO PRN (14:38)
[2024-12-14] MEDS ORDERED: ALBUTEROL NEBULIZED 2.5 MG/3 ML INHALATION PRN (14:38)
[2024-12-14] MEDS ORDERED: guaiFENesin-Coden 100-10MG/5ML 10 ML CUP PO PRN (14:38)
[2024-12-14] MEDS: BUDESONIDE 1 MG/2 ML NEBU INHALATION SCH (15:58)
[2024-12-14] MEDS: FORMOTEROL FUMARATE 20 MCG/2 ML NEBU INHALATION SCH (15:59)
[2024-12-14] MEDS: IPRATROPIUM-ALBUTEROL 3 ML NEB INHALATION SCH (15:59)
--- NOTE | 2024-12-14 17:04 | P.CNPUL ---
History of Present Illness Consult date: 12/14/24 Requesting physician: Félix Garcia Reason for consult: hypoxemia Chief complaint: Altered mental status History of present illness: This is a 54-year-old female with a known history of diabetes mellitus, type II, hypothyroidism, gastroesophageal reflux disease, multiple sclerosis, chronic and ongoing tobacco dependence who had recently undergone a right knee total arthroplasty on 11/02/2024. She had recovered well and today she was at physical therapy when they found her to be minimally responsive and called her to bring her to the hospital. Arrival she was drowsy but able to follow commands. Stating she was not feeling well. Urine drug screen positive for opiates, oxycodone, tricyclic antidepressants and benzodiazepines. Her states she was still having significant knee pain and continue taking those medications. CT scan of the brain revealed no acute intracranial process. Her viral screen was negative. White count 7.4. Hemoglobin 12.3. Platelets 264. D-dimer 4.95. Sodium 138. Potassium 5.1. Bicarb 29. BUN 18. Creatinine 0.76. Glucose 125. Arterial blood gases on 28% FiO2 revealed a PaO2 of 75, pCO2 62 and a pH of 7.29. Chest x-ray revealed no acute cardiopulmonary process. CT angiogram ruled out pulmonary embolism. Lung robb were clear. S he is seen today in consultation in the emergency department. She is arousable. Drifts off easily. Maintaining O2 saturations in the low 90s on 2 L/min per nasal cannula. Afebrile. Hemodynamically stable. We placed her on BiPAP 12/6 and 35% FiO2. Review of Systems ROS unobtainable: due to mental status Past Medical History Past Medical History: Cancer, COPD, Diabetes Mellitus, Fibromyalgia, Myocardial Infarction ([place]), Neurologic Disorder, Osteoarthritis (OA), Skin Disorder, Sleep Apnea/CPAP/BIPAP, Thyroid Disorder Additional Past Medical History / Comment(s): Multiple Sclerosis, occasionally has flare up of MS that causes gastroparesis, keratosis pilaris, hx cervical cancer, supposed to uses CPAP, chronic back and knee pain Last Myocardial Infarction Date:: 09/02/2023 History of Any Multi-Drug Resistant Organisms: None Reported Past Surgical History: Bladder Surgery, Cholecystectomy, Heart Catheterization With Stent, Hysterectomy, Orthopedic Surgery Additional Past Surgical History / Comment(s): left knee arthroscopy, bladder sling, Bartholin gland removal, colonoscopy Past Anesthesia/Blood Transfusion Reactions: Previous Problems w/ Anesthesia Additional Past Anesthesia/Blood Transfusion Reaction / Comment(s): "I woke up alot with twilight", pt. adopted Date of Last Stent Placement:: 09/02/2023 Past Psychological History: Anxiety Smoking Status: Current every day smoker Past Alcohol Use History: None Reported Past Drug Use History: None Reported - Past Family History Mother History Unknown: Yes Family Medical History: Cancer Additional Family Medical History / Comment(s): esophageal Medications and Allergies Home Medications Medication Instructions Recorded Confirmed Type Gabapentin 600 mg PO Q6H 02/04/15 12/14/24 History ALPRAZolam [Xanax] 1 mg PO TID PRN 01/18/21 12/14/24 History Baclofen [Lioresal] 20 mg PO TID PRN 01/18/21 12/14/24 History Budesonide/Formoterol Fumarate 2 puff INHALATION RT-BID 01/18/21 12/14/24 History [Symbicort 160-4.5 Mcg Inhaler] Omeprazole Magnesium [PriLOSEC OTC] 20 mg PO DAILY 02/28/23 12/14/24 History Albuterol Sulfate [Ventolin HFA] 2 puff INHALATION RT-QID PRN 09/02/23 12/14/24 History Levothyroxine Sodium [Synthroid] 112 mcg PO DAILY 09/02/23 12/14/24 History Magnesium Oxide [Magox 400] 400 mg PO HS 11/02/23 12/14/24 History Nitroglycerin Sl Tabs [Nitrostat] 0.4 mg SL Q5M PRN 11/02/23 12/14/24 History QUEtiapine FUMARATE [SEROquel] 200 mg PO HS 11/02/23 12/14/24 History Ezetimibe [Zetia] 10 mg PO HS 03/07/24 12/14/24 History Aspirin 81 mg PO DAILY 06/03/24 12/14/24 History Atorvastatin [Lipitor] 80 mg PO HS 06/03/24 12/14/24 History Ipratropium-Albuterol Nebulize 3 ml INHALATION RT-QID PRN 06/03/24 12/14/24 History [Duoneb 0.5 mg-3 mg/3 ml Soln] Metoprolol Tartrate [Lopressor] 25 mg PO BID 06/03/24 12/14/24 History Ondansetron Odt [Zofran ODT] 4 mg PO Q8H PRN 06/03/24 12/14/24 History Isosorbide Mononitrate ER [Imdur] 30 mg PO DAILY #30 tab 06/05/24 12/14/24 Rx Cholecalciferol (Vitamin D3) 125 mcg PO DAILY 10/24/24 12/14/24 History [Vitamin D3 (125 MCG = 5,000 IU)] Docusate [Colace] 200 mg PO DAILY 10/24/24 12/14/24 History Ranolazine [Ranexa] 500 mg PO BID 10/24/24 12/14/24 History Repaglinide 0.5 mg PO TID PRN 10/24/24 12/14/24 History Ibuprofen [Motrin] 600 mg PO Q6HR PRN 12/14/24 12/14/24 History Nicotine 21Mg/24Hr Patch [Habitrol] 1 patch TRANSDERM DAILY 12/14/24 12/14/24 History guaiFENesin-Coden 100-10MG/5ML 5 ml PO BID PRN 12/14/24 12/14/24 History [Robitussin AC] metFORMIN HCL ER [Glucophage XR] 500 mg PO DAILY 12/14/24 12/14/24 History oxyCODONE HCL [oxyCODONE HCL (IR)] 15 mg PO Q8H 12/14/24 12/14/24 History Allergies Allergy/AdvReac Type Severity Reaction Status Date / Time sulfamethoxazole Allergy Swelling/turned Verified 12/14/24 14:23 [From Bactrim] red trimethoprim [From Bactrim] Allergy swelling/turned Verified 12/14/24 14:23 red Physical Exam Vitals: Vital Signs Temp Pulse Resp BP Pulse Ox FiO2 12/14/24 16:26 35 12/14/24 16:25 68 12/14/24 16:14 35 12/14/24 16:00 69 15 104/58 91 L 12/14/24 15:00 67 8 L 104/58 94 L 12/14/24 14:00 67 10 L 118/71 94 L 12/14/24 13:19 16 12/14/24 13:00 64 10 L 166/105 93 L 12/14/24 12:30 65 12 111/84 94 L 12/14/24 12:09 61 12 95/62 94 L 12/14/24 11:30 60 12 85/66 94 L 12/14/24 11:26 60 12/14/24 11:08 58 L 12/14/24 11:00 58 L 12 91/65 93 L 12/14/24 10:57 60 12/14/24 10:30 59 L 12 85/63 94 L 12/14/24 10:16 97.7 F 63 14 80/52 82 L Intake and Output 12/14/24 12/14/24 12/14/24 06:59 14:59 22:59 Other: Weight 83.915 kg GENERAL EXAM: Drowsy but arousable 54-year-old female, on 2 L nasal cannula, comfortable in no apparent distress. HEAD: Normocephalic. EYES: Normal reaction of pupils, equal size. NOSE: Clear with pink turbinates. THROAT: No erythema or exudates. NECK: No masses, no JVD. CHEST: No chest wall deformity. LUNGS: Equal air entry with no crackles, wheeze, rhonchi or dullness. CVS: S1 and S2 normal with no audible murmur, regular rhythm. ABDOMEN: No hepatosplenomegaly, normal bowel sounds, no guarding or rigidity. SPINE: No scoliosis or deformity SKIN: No rashes CENTRAL NERVOUS SYSTEM: No focal deficits, tone is normal in all 4 extremities. EXTREMITIES: Right knee surgical site clean and dry. There is no peripheral edema. No clubbing, no cyanosis. Peripheral pulses are intact. Results - Laboratory Findings CBC and BMP: 12/14/24 11:02 12/14/24 11:02 ABG ABG pH 7.29 (7.35-7.45) L 12/14/24 10:56 ABG pCO2 62 mmHg (35-45) H 12/14/24 10:56 ABG pO2 75 mmHg (83-108) L 12/14/24 10:56 ABG O2 Saturation 94.0 % (94-97) 12/14/24 10:56 PT/INR, D-dimer PT 11.1 sec (10.0-12.5) 12/14/24 11:02 INR 1.0 (<1.2) 12/14/24 11:02 D-Dimer 4.95 mg/L FEU (<0.60) H 12/14/24 11:02 Abnormal lab findings: Abnormal Labs 12/14/24 12/14/24 12/14/24 10:56 11:02 11:02 D-Dimer 4.95 H ABG pH 7.29 L ABG pCO2 62 H ABG pO2 75 L ABG HCO3 29 H ABG Total CO2 31 H BUN 18 H Glucose 113 H POC Glucose (mg/dL) Total Protein 6.1 L Ur Specific [place] Urine Protein Urine Opiates Screen Ur Oxycodone Screen U Tricyclic Antidepress U Benzodiazepines Scrn 12/14/24 12/14/24 11:07 13:11 D-Dimer ABG pH ABG pCO2 ABG pO2 ABG HCO3 ABG Total CO2 BUN Glucose POC Glucose (mg/dL) 125 H Total Protein Ur Specific [place] >1.050 H Urine Protein Trace H Urine Opiates Screen Detected H Ur Oxycodone Screen Detected H U Tricyclic Antidepress Detected H U Benzodiazepines Scrn Detected H - Diagnostic Findings Chest x-ray: image reviewed CT scan - chest: image reviewed Assessment and Plan Assessment: Altered mental status secondary to polypharmacy. Urine drug screen positive for opiates, oxycodone, tricyclic antidepressants and benzodiazepines Acute hypercapnic respiratory failure secondary to above, placed on BiPAP 12/6 and 35% FiO2 Recent right total knee arthroplasty on 11/02/2024, receiving outpatient physical therapy Chronic and ongoing tobacco dependence Chronic obstructive pulmonary disease Diabetes mellitus Hypertension Hypothyroidism Hyperlipidemia Anxiety Multiple sclerosis Plan: The patient was seen and evaluated All imaging, labs and medications reviewed Placed patient on BiPAP 12/6 and 35% FiO2 Hold all narcotics, anxiolytics, sedatives Transition patient to nasal cannula when awake and alert To be educated regarding the dangers of polypharmacy To be educated regarding complete smoking cessation NicoDerm patch will be offered We will continue to follow and make further recommendations based on her clinical status I have personally seen and examined the patient, performed the documentation and the assessment and plan as written. Number of minutes spent on the visit: 20 Dictation was produced using [employer] dictation software. Please excuse any grammatical, word or spelling errors. Time with Patient: Greater than 30
[2024-12-14] MEDS ORDERED: methylPREDNISolone SOD SUCCI 125 MG/2 ML VIAL IV SCH (18:00)
[2024-12-14] MEDS ORDERED: SYMBICORT 160-4.5 MCG INHALER INHALATION SCH (20:00)
[2024-12-14] MEDS: RANOLAZINE 500 MG TAB.ER.12H PO SCH (20:32)
[2024-12-14] MEDS: GABAPENTIN 300 MG CAP PO SCH (20:33)
[2024-12-14] MEDS: MAGNESIUM OXIDE 400 MG TAB PO SCH (20:33)
[2024-12-14] MEDS: EZETIMIBE 10 MG TAB PO SCH (20:33)
[2024-12-14] MEDS: ATORVASTATIN 80 MG TAB PO SCH (20:34)
[2024-12-14] MEDS: metFORMIN 500 MG TAB PO SCH (20:34)
[2024-12-14] MEDS: METOPROLOL TARTRATE 25 MG TAB PO SCH (20:34)
[2024-12-14] MEDS: QUEtiapine 200 MG TAB PO SCH (20:34)
[2024-12-14] MEDS: SYMBICORT 160-4.5 MCG INHALER INHALATION SCH (21:14)
[2024-12-14] MEDS: ALPRAZolam 1 MG TAB PO SCH (22:07)
--- NOTE | 2024-12-14 23:06 | HP ---
HISTORY AND PHYSICAL CHIEF COMPLAINT: Shortness of breath and change in mental status. HISTORY OF PRESENT ILLNESS: This is a 54-year-old woman with a past medical history of multiple medical problems including COPD, diabetes mellitus type 2, underwent right knee arthroplasty about a month ago. The patient today was noted to have some change in mental status and shortness of breath and the patient was taken to [facility] and admitted for further evaluation and treatment. Currently, the patient is barely responsive and the patient will be admitted for acute hypoxic respiratory failure. The patient has significant wheezing also. The patient apparently had an episode of pneumonia also recently according to the family. The D-dimer was elevated, but CT angio showed no evidence of pulmonary embolism, but bilateral mild pneumonia is noted. PAST MEDICAL HISTORY: History of COPD, diabetes mellitus, fibromyalgia. Rest of history and rest of the chart are also reviewed. HOME MEDICATIONS: Reviewed include oxycodone. Rest of medications reviewed, but they are confirmed yet. ALLERGIES: Bactrim. FAMILY HISTORY: History of esophageal cancer. SOCIAL HISTORY: History of smoking. REVIEW OF SYSTEMS: Could not be taken. PHYSICAL EXAMINATION: VITAL SIGNS: Pulse is 65, blood pressure 111/84, respiratory rate 12. HEENT: Conjunctivae normal. NECK: No JVD. CARDIOVASCULAR: S1, S2. RESPIRATIONS: Breath sounds diminished at the bases. Bilateral scattered rhonchi and crackles. Expiratory wheezing. ABDOMEN: Soft. LEGS: Status post arthroplasty. NERVOUS SYSTEM: Complete exam could not be done. No neck stiffness. LEGS: No edema. No swelling. LABORATORY DATA: Reviewed. ASSESSMENT: 1. Change in mental status, possible acute metabolic encephalopathy with acute hypoxic hypercarbic respiratory failure with respiratory acidosis. Rule out acute stroke. 2. Elevated D-dimer. 3. Possible minimal bilateral pneumonia. 4. History of right knee joint arthroplasty. 5. Chronic obstructive pulmonary disease acute exacerbation. 6. Diabetes mellitus, type 2. 7. History of degenerative joint disease. 8. History of multiple sclerosis. 9. Multiple complex medical issues. RECOMMENDATIONS AND DISCUSSION: This is a 54-year-old woman, who presented with multiple complex medical issues, we will monitor the patient closely. Recommend broad-spectrum IV antibiotics. Empiric antibiotics. Neurology consultation. Complete neurovascular workup and I would also recommend pulmonary consultation with Dr. Patel. I would recommend a dose of Narcan, IV steroids. Monitor blood sugars closely. Resume the home medications. Continue DVT prophylaxis. Also, recommend ultrasound of the legs to rule out the possibility of DVT. Prognosis guarded. Further recommendations to follow. Discussed with her at the bedside. PATRICIA / CHANTELLE: [id number] /
[2024-12-15] MEDS: IBUPROFEN 600 MG TAB PO PRN (03:47)
[2024-12-15 06:05] LABS: Basophils % (A) 0 %; Eosinophils % (A) 0 %; HCT 37.8 % (34.0-46.0); HGB 12.1 gm/dL (11.4-16.0); Hypochromasia Moderate; Lymphocytes # (A) 0.9 k/uL (1.0-4.8); Lymphocytes % (A) 17 %; MCH 29.7 pg (25.0-35.0); MCHC 32.1 g/dL (31.0-37.0); MCV 92.5 fL (80.0-100.0); Mean Platelet Volume 8.3; Monocytes # (A) 0.2 k/uL (0-1.0); Monocytes % (A) 4 %; Neutrophils # (A) 4.3 k/uL (1.3-7.7); Neutrophils % (A) 78 %; Platelet Count 257 k/uL (150-450); RBC 4.08 m/uL (3.80-5.40); RDW 14.3 % (11.5-15.5); WBC 5.4 k/uL (3.8-10.6)
[2024-12-15 06:26] LABS: ALT 12 U/L (4-34); AST 18 U/L (14-36); African American GFR (CKD) >90 (>60 ml/min/1.73 sqM); Albumin 3.3 g/dL (3.5-5.0); Alkaline Phosphatase 76 U/L (38-126); Anion Gap 4 mmol/L; Blood Urea Nitrogen 15 mg/dL (7-17); Calcium 9.4 mg/dL (8.4-10.2); Carbon Dioxide 29 mmol/L (22-30); Chloride 103 mmol/L (98-107); Glucose 147 mg/dL (74-99); Non-African American GFR(CKD) >90 (>60 ml/min/1.73 sqM); Potassium 4.8 mmol/L (3.5-5.1); Sodium 136 mmol/L (137-145); Total Bilirubin 0.4 mg/dL (0.2-1.3); Total Protein 5.6 g/dL (6.3-8.2)
[2024-12-15] MEDS: LEVOTHYROXINE 112 MCG TAB PO SCH (06:42)
[2024-12-15] MEDS: IPRATROPIUM-ALBUTEROL 3 ML NEB INHALATION SCH (07:48)
[2024-12-15 08:44] VITALS: RESP 18
[2024-12-15] MEDS: oxyCODONE ER 15 MG TAB.ER.12H PO SCH (08:44)
[2024-12-15] MEDS: DOCUSATE 100 MG CAP PO SCH (08:46)
[2024-12-15] MEDS: NICOTINE 21MG/24HR PATCH TRANSDERM SCH (08:46)
[2024-12-15] MEDS: ASPIRIN 81 MG PO SCH (08:47)
[2024-12-15] MEDS: ISOSORBIDE MONONITRATE ER 30 MG TAB.ER.24H PO SCH (08:47)
[2024-12-15] MEDS: CHOLECALCIFEROL 125 MCG (5000 IU) TABLET PO SCH (08:47)
[2024-12-15] MEDS ORDERED: NON FORMULARY DRUG (Omeprazole Magnesium [Prilosec Otc] 20 MG Tablet) PO SCH (09:00)
--- NOTE | 2024-12-15 09:19 | P.CNOR ---
History of Present Illness - [facility] Consult date: 12/15/24 History of present illness: The patient is a very pleasant 54-year-old female who is well-known to me. The patient has multiple medical issues including cigarette smoking, COPD, diabetes, and chronic pain on oral opioids at baseline. The patient has been seeing me for bilateral knee arthritis. She previously underwent a left total knee replacement in February 2023. She had some issues with perioperative pain control following that procedure but ultimately did very well. She recently has undergone a right total knee replacement. She has done relatively well postoperatively despite having some issues with pain which is expected given her chronic dependence on oral opioid pain medications. The patient was able to quit smoking prior to her knee replacement but says she has resumed smoking up to a pack a day in the postoperative period. She was seen in the office last week and was doing well. She presented to physical therapy at my office yesterday and was found to have altered mental status. She was also found to be hypoxic and was sent to the ER. This morning the patient is seen in the ER. She has some pain in her knee but says she is doing well in regards to her knee. She denies chest pain or shortness of breath. She is asking to go home. Past Medical History Past Medical History: Cancer, COPD, Diabetes Mellitus, Fibromyalgia, Myocardial Infarction ([place]), Neurologic Disorder, Osteoarthritis (OA), Skin Disorder, Sleep Apnea/CPAP/BIPAP, Thyroid Disorder Additional Past Medical History / Comment(s): Multiple Sclerosis, occasionally has flare up of MS that causes gastroparesis, keratosis pilaris, hx cervical cancer, supposed to uses CPAP, chronic back and knee pain Last Myocardial Infarction Date:: 09/02/2023 History of Any Multi-Drug Resistant Organisms: None Reported Past Surgical History: Bladder Surgery, Cholecystectomy, Heart Catheterization With Stent, Hysterectomy, Orthopedic Surgery Additional Past Surgical History / Comment(s): left knee arthroscopy, bladder sling, Bartholin gland removal, colonoscopy Past Anesthesia/Blood Transfusion Reactions: Previous Problems w/ Anesthesia Additional Past Anesthesia/Blood Transfusion Reaction / Comm: "I woke up alot with twilight", pt. adopted Date of Last Stent Placement:: 09/02/2023 Past Psychological History: Anxiety Smoking Status: Current every day smoker Past Alcohol Use History: None Reported Past Drug Use History: None Reported - Past Family History Mother History Unknown: Yes Family Medical History: Cancer Additional Family Medical History / Comment(s): esophageal Medications and Allergies Home Medications Medication Instructions Recorded Confirmed Type Gabapentin 600 mg PO Q6H 02/04/15 12/14/24 History ALPRAZolam [Xanax] 1 mg PO TID PRN 01/18/21 12/14/24 History Baclofen [Lioresal] 20 mg PO TID PRN 01/18/21 12/14/24 History Budesonide/Formoterol Fumarate 2 puff INHALATION RT-BID 01/18/21 12/14/24 History [Symbicort 160-4.5 Mcg Inhaler] Omeprazole Magnesium [PriLOSEC OTC] 20 mg PO DAILY 02/28/23 12/14/24 History Albuterol Sulfate [Ventolin HFA] 2 puff INHALATION RT-QID PRN 09/02/23 12/14/24 History Levothyroxine Sodium [Synthroid] 112 mcg PO DAILY 09/02/23 12/14/24 History Magnesium Oxide [Magox 400] 400 mg PO HS 11/02/23 12/14/24 History Nitroglycerin Sl Tabs [Nitrostat] 0.4 mg SL Q5M PRN 11/02/23 12/14/24 History QUEtiapine FUMARATE [SEROquel] 200 mg PO HS 11/02/23 12/14/24 History Ezetimibe [Zetia] 10 mg PO HS 03/07/24 12/14/24 History Aspirin 81 mg PO DAILY 06/03/24 12/14/24 History Atorvastatin [Lipitor] 80 mg PO HS 06/03/24 12/14/24 History Ipratropium-Albuterol Nebulize 3 ml INHALATION RT-QID PRN 06/03/24 12/14/24 History [Duoneb 0.5 mg-3 mg/3 ml Soln] Metoprolol Tartrate [Lopressor] 25 mg PO BID 06/03/24 12/14/24 History Ondansetron Odt [Zofran ODT] 4 mg PO Q8H PRN 06/03/24 12/14/24 History Isosorbide Mononitrate ER [Imdur] 30 mg PO DAILY #30 tab 06/05/24 12/14/24 Rx Cholecalciferol (Vitamin D3) 125 mcg PO DAILY 10/24/24 12/14/24 History [Vitamin D3 (125 MCG = 5,000 IU)] Docusate [Colace] 200 mg PO DAILY 10/24/24 12/14/24 History Ranolazine [Ranexa] 500 mg PO BID 10/24/24 12/14/24 History Repaglinide 0.5 mg PO TID PRN 10/24/24 12/14/24 History Ibuprofen [Motrin] 600 mg PO Q6HR PRN 12/14/24 12/14/24 History Nicotine 21Mg/24Hr Patch [Habitrol] 1 patch TRANSDERM DAILY 12/14/24 12/14/24 History guaiFENesin-Coden 100-10MG/5ML 5 ml PO BID PRN 12/14/24 12/14/24 History [Robitussin AC] metFORMIN HCL ER [Glucophage XR] 500 mg PO DAILY 12/14/24 12/14/24 History oxyCODONE HCL [oxyCODONE HCL (IR)] 15 mg PO Q8H 12/14/24 12/14/24 History Allergies Allergy/AdvReac Type Severity Reaction Status Date / Time sulfamethoxazole Allergy Swelling/turned Verified 12/14/24 14:23 [From Bactrim] red trimethoprim [From Bactrim] Allergy swelling/turned Verified 12/14/24 14:23 red Physical Examination The patient is resting comfortably in a hospital bed. She is alert and able to answer questions. A focused exam of the right lower extremity was conducted. On inspection she has a well-healing surgical incision with no erythema or warmth. There is a trace knee effusion. She has mild tenderness diffusely throughout the knee. Range of motion is nonpainful. Her thigh and calf are soft. Femoral nerve function is intact. She is able to actively plantarflex and dorsiflex her ankle and her toes. Results Ultrasound of the lower extremity shows no evidence of DVT CT scan of the patient's chest shows no evidence of thromboembolic disease - Labs Labs: Abnormal Lab Results - Last 24 Hours (Table) 12/14/24 12/14/24 12/14/24 Range/Units 10:56 11:02 11:02 Lymphocytes # (1.0-4.8) k/uL D-Dimer 4.95 H (<0.60) mg/L FEU ABG pH 7.29 L (7.35-7.45) ABG pCO2 62 H (35-45) mmHg ABG pO2 75 L (83-108) mmHg ABG HCO3 29 H (21-25) mmol/L ABG Total CO2 31 H (19-24) mmol/L Sodium (137-145) mmol/L BUN 18 H (7-17) mg/dL Glucose 113 H (74-99) mg/dL POC Glucose (mg/dL) (70-110) mg/dL Total Protein 6.1 L (6.3-8.2) g/dL Albumin (3.5-5.0) g/dL Ur Specific [place] (1.001-1.035) Urine Protein (Negative) Urine Opiates Screen (NotDetected) Ur Oxycodone Screen (NotDetected) U Tricyclic Antidepress (NotDetected) U Benzodiazepines Scrn (NotDetected) 12/14/24 12/14/24 12/15/24 Range/Units 11:07 13:11 05:40 Lymphocytes # 0.9 L (1.0-4.8) k/uL D-Dimer (<0.60) mg/L FEU ABG pH (7.35-7.45) ABG pCO2 (35-45) mmHg ABG pO2 (83-108) mmHg ABG HCO3 (21-25) mmol/L ABG Total CO2 (19-24) mmol/L Sodium (137-145) mmol/L BUN (7-17) mg/dL Glucose (74-99) mg/dL POC Glucose (mg/dL) 125 H (70-110) mg/dL Total Protein (6.3-8.2) g/dL Albumin (3.5-5.0) g/dL Ur Specific [place] >1.050 H (1.001-1.035) Urine Protein Trace H (Negative) Urine Opiates Screen Detected H (NotDetected) Ur Oxycodone Screen Detected H (NotDetected) U Tricyclic Antidepress Detected H (NotDetected) U Benzodiazepines Scrn Detected H (NotDetected) 12/15/24 Range/Units 05:40 Lymphocytes # (1.0-4.8) k/uL D-Dimer (<0.60) mg/L FEU ABG pH (7.35-7.45) ABG pCO2 (35-45) mmHg ABG pO2 (83-108) mmHg ABG HCO3 (21-25) mmol/L ABG Total CO2 (19-24) mmol/L Sodium 136 L (137-145) mmol/L BUN (7-17) mg/dL Glucose 147 H (74-99) mg/dL POC Glucose (mg/dL) (70-110) mg/dL Total Protein 5.6 L (6.3-8.2) g/dL Albumin 3.3 L (3.5-5.0) g/dL Ur Specific [place] (1.001-1.035) Urine Protein (Negative) Urine Opiates Screen (NotDetected) Ur Oxycodone Screen (NotDetected) U Tricyclic Antidepress (NotDetected) U Benzodiazepines Scrn (NotDetected) H & H 12/14/24 12/15/24 Range/Units 11:02 05:40 Hgb 12.3 12.1 (11.4-16.0) gm/dL Hct 39.4 37.8 (34.0-46.0) % Coagulation 12/14/24 Range/Units 11:02 INR 1.0 (<1.2) Result Diagrams: 12/15/24 05:40 12/15/24 05:40 Assessment and Plan Assessment: Status post right total knee replacement, no acute perioperative surgical complication Chronic opioid dependence Chronic tobacco use COPD Altered mental status secondary to underlying and pre-existing COPD, likely ac oliver exacerbation of COPD, polypharmacy, and tobacco use Plan: The patient is doing relatively well in regards to her knee replacement. Her x- rays in the office postoperatively were normal. Her range of motion is improving and greater than 90 degrees. Her pain is as expected due to her chronic opioid use. She had a similar recovery in regards to pain following her left total knee replacement but ultimately did well. We discussed full recovery can take 3 to 12 months which she understands again having ultimately done well after her left knee replacement. She also understands that taking opioid medications preoperatively makes postoperative pain control harder given her tolerance and lower pain threshold. We also discussed smoking and how it relates to her recovery. I strongly encouraged with the patient quit smoking again to optimize her recovery. She states this morning that she is doing well and is recovering as she expected. Her present episode of altered mental status is likely related to chronic COPD, tobacco use, opioid dependence, and polypha rmacy and not in acute complication from her surgery. I have no plans for operative intervention. I would encourage gentle range of motion and physical therapy while she is in the hospital. The patient is okay to discharge from an orthopedic standpoint when she is medically stable. Time with Patient: Greater than 30
[2024-12-15 10:16] VITALS: BP 131/77; PULSE 70; TEMP 98.4
--- NOTE | 2024-12-15 13:09 | P.PN ---
Subjective Progress Note Date: 12/15/24 This is a 54-year-old female with a known history of diabetes mellitus, type II, hypothyroidism, gastroesophageal reflux disease, multiple sclerosis, chronic and ongoing tobacco dependence who had recently undergone a right knee total arthroplasty on 11/02/2024. She had recovered well and today she was at physical therapy when they found her to be minimally responsive and called her to bring her to the hospital. Arrival she was drowsy but able to follow commands. Stating she was not feeling well. Urine drug screen positive for opiates, oxycodone, tricyclic antidepressants and benzodiazepines. Her states she was still having significant knee pain and continue taking those medicat ions. CT scan of the brain revealed no acute intracranial process. Her viral screen was negative. White count 7.4. Hemoglobin 12.3. Platelets 264. D- dimer 4.95. Sodium 138. Potassium 5.1. Bicarb 29. BUN 18. Creatinine 0.76. Glucose 125. Arterial blood gases on 28% FiO2 revealed a PaO2 of 75, pCO2 62 and a pH of 7.29. Chest x-ray revealed no acute cardiopulmonary process. CT angiogram ruled out pulmonary embolism. Lung robb were clear. She is seen today in consultation in the emergency department. She is arousable. Drifts off easily. Maintaining O2 saturations in the low 90s on 2 L/min per nasal cannula. Afebrile. Hemodynamically stable. We placed her on BiPAP 12/6 and 35% FiO2. The patient is seen today December 15, 2024 in follow-up in the emergency department. She is awake and alert in no acute distress. Oriented x 3. Maintaining O2 saturations in the mid 90s on 6 L/min per nasal cannula. She is afebrile. Hemodynamically stable. White count 5.4. Hemoglobin 12.1. Platelets 257. Sodium 136. Potassium 4.8. Bicarb 29. BUN 15. Creatinine 0.56. Glucose 147. She is continued on DuoNeb inhalations, Symbicort, Solu- Medrol. NicoDerm patch in place. Heparin for DVT prophylaxis. Antibiotics in the form of ceftriaxone. Objective - Vital Signs Vital signs: Vital Signs Temp 98.4 F 12/15/24 10:15 Pulse 70 12/15/24 10:15 Resp 18 12/15/24 10:15 BP 131/77 12/15/24 10:15 Pulse Ox 94 L 12/15/24 10:15 FiO2 35 12/14/24 16:26 Intake & Output 12/14/24 12/15/24 12/15/24 18:59 06:59 18:59 Weight 83.915 kg - Exam GENERAL EXAM: Awake, alert, oriented x 3, 54-year-old female, on 6 L nasal cannula, comfortable in no apparent distress. HEAD: Normocephalic. EYES: Normal reaction of pupils, equal size. NOSE: Clear with pink turbinates. THROAT: No erythema or exudates. NECK: No masses, no JVD. CHEST: No chest wall deformity. LUNGS: Equal air entry with no crackles, wheeze, rhonchi or dullness. CVS: S1 and S2 normal with no audible murmur, regular rhythm. ABDOMEN: No hepatosplenomegaly, normal bowel sounds, no guarding or rigidity. SPINE: No scoliosis or deformity SKIN: No rashes CENTRAL NERVOUS SYSTEM: No focal deficits, tone is normal in all 4 extremities. EXTREMITIES: Right knee surgical site clean and dry. There is no peripheral edema. No clubbing, no cyanosis. Peripheral pulses are intact. - Labs CBC & Chem 7: 12/15/24 05:40 12/15/24 05:40 Labs: Abnormal Lab Results - Last 24 Hours (Table) 12/14/24 12/15/24 12/15/24 Range/Units 13:11 05:40 05:40 Lymphocytes # 0.9 L (1.0-4.8) k/uL Sodium 136 L (137-145) mmol/L Glucose 147 H (74-99) mg/dL Total Protein 5.6 L (6.3-8.2) g/dL Albumin 3.3 L (3.5-5.0) g/dL Ur Specific [place] >1.050 H (1.001-1.035) Urine Protein Trace H (Negative) Urine Opiates Screen Detected H (NotDetected) Ur Oxycodone Screen Detected H (NotDetected) U Tricyclic Antidepress Detected H (NotDetected) U Benzodiazepines Scrn Detected H (NotDetected) Assessment and Plan Assessment: Altered mental status secondary to polypharmacy. Urine drug screen positive for opiates, oxycodone, tricyclic antidepressants and benzodiazepines Acute hypercapnic respiratory failure secondary to above, placed on BiPAP 12/6 and 35% FiO2 Recent right total knee arthroplasty on 11/02/2024, receiving outpatient physical therapy Chronic and ongoing tobacco dependence Chronic obstructive pulmonary disease Diabetes mellitus Hypertension Hypothyroidism Hyperlipidemia Anxiety Multiple sclerosis Plan: The patient was seen and evaluated Labs and medications reviewed Currently on 6 L high flow nasal cannula Educated regarding cautious use of narcotics, anxiolytics, sedatives Educated regarding complete smoking cessation Titrate down the FiO2 as tolerated We will continue to follow I have personally seen and examined the patient, performed the documentation and the assessment and plan as written. Number of minutes spent on the visit: 10 Dictation was produced using [employer] dictation software. Please excuse any grammatical, word or spelling errors.
--- NOTE | 2024-12-15 19:50 | DS ---
DISCHARGE SUMMARY FINAL DIAGNOSES: Acute metabolic encephalopathy with acute hypoxic respiratory failure, secondary to obstructive sleep apnea, obesity hypoventilation syndrome, and multiple complex medical issues. DISCHARGE DISPOSITION: The patient left the hospital against medical advice. HISTORY OF PRESENT ILLNESS: This 54-year-old woman admitted with multiple complex medical issues left the hospital against medical advise. The patient's condition remained extremely guarded. Please refer to the previous history and physical and consultation for further details. MMODL / IJN: [id number] /
== END 2024-12-15 10:22 | disposition left against medical advice (07) | DRG 189 ==
LOC: EC 10:14 → 3SCARD 14:41
PROVIDERS: ADMIT Hospitalist; ATTEND Hospitalist
PROC: 5A09357 Assistance with Respiratory Ventilation, Less than 24 Consecutive Hours, Continuous Positive Airway Pressure (ICD-10-PCS; principal; 2024-12-14)
DX: J96.02 Acute respiratory failure with hypercapnia (principal); J18.9 Pneumonia, unspecified organism; G92.8 Other toxic encephalopathy; E66.2 Morbid (severe) obesity with alveolar hypoventilation; J44.0 Chronic obstructive pulmonary disease with (acute) lower respiratory infection; E11.9 Type 2 diabetes mellitus without complications; G35 Multiple sclerosis; I10 Essential (primary) hypertension; E03.9 Hypothyroidism, unspecified; J44.1 Chronic obstructive pulmonary disease with (acute) exacerbation; J96.01 Acute respiratory failure with hypoxia; F17.210 Nicotine dependence, cigarettes, uncomplicated; M19.90 Unspecified osteoarthritis, unspecified site; F41.9 Anxiety disorder, unspecified; T40.605A Adverse effect of unspecified narcotics, initial encounter; T40.2X5A Adverse effect of other opioids, initial encounter; T42.4X5A Adverse effect of benzodiazepines, initial encounter; E78.5 Hyperlipidemia, unspecified; R79.89 Other specified abnormal findings of blood chemistry; Z96.653 Presence of artificial knee joint, bilateral; Z79.51 Long term (current) use of inhaled steroids; Z79.890 Hormone replacement therapy; Z79.82 Long term (current) use of aspirin; Z79.899 Other long term (current) drug therapy; Z85.41 Personal history of malignant neoplasm of cervix uteri; I25.2 Old myocardial infarction; Z90.710 Acquired absence of both cervix and uterus; Z79.84 Long term (current) use of oral hypoglycemic drugs; Z79.891 Long term (current) use of opiate analgesic; Z87.01 Personal history of pneumonia (recurrent)
CPT/HCPCS: 36415; 36600; 51702; 70450; 71045; 71275; 80053; 80171; 80306; 81003; 82805; 84484; 85025; 85379; 85610; 85730; 87040; 87086; 87636; 93005; 93970; 94640; 94660; 96361; 96365; 96372; 96375; 96376; 99285

== ENCOUNTER → 2025-02-05 | Outpatient (CLI) | payer MEDICARE, OTHER ==
[2025-02-05 19:14] LABS: Alternaria alternata IgE <0.10 kU/L; Aspergillus fumagatus IgE <0.10 kU/L; Birch IgE <0.10 kU/L; Cat Epith & Dander IgE <0.10 kU/L; Cladosporian herbarum IgE <0.10 kU/L; Cockroach IgE <0.10 kU/L; Dermato. farinae IgE <0.10 kU/L; Dog Dander IgE <0.10 kU/L; Elm IgE <0.10 kU/L; Maple (Box Elder) IgE <0.10 kU/L; Oak IgE <0.10 kU/L; Ragweed,Common IgE <0.10 kU/L; Red Top (Bentgrass) IgE <0.10 kU/L
[2025-02-05 20:04] LABS: Immunoglobulin E <5.00 IU/mL (0.00-114.00)
== END | disposition home or self-care (01) ==
LOC: LABWHC1 10:10
PROVIDERS: ATTEND Internal Medicine
DX: R05.3 Chronic cough (principal)
CPT/HCPCS: 36415; 82785; 85008; 86003

== ENCOUNTER 2025-03-08 00:41 | Observation (INO) | payer MEDICARE, OTHER ==
[2025-03-08 00:57] VITALS: TEMP 98.2
--- NOTE | 2025-03-08 01:21 | ED ---
General Adult HPI - General Chief complaint: Shortness of Breath Stated complaint: Difficulty Breathing Time Seen by Provider: 03/08/25 00:42 Source: patient, EMS, RN notes reviewed, old records reviewed Mode of arrival: EMS Limitations: no limitations - History of Present Illness Initial comments: 54-year-old female presenting for evaluation of cough and dyspnea. Patient has history of oxygen dependent COPD. reports that they have had a dif ficult time maintaining oxygen saturations today. 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 She recently was placed on oxygen about 2 weeks ago. Denies central chest pain. Denies lower extremity pain or swelling. No measured fever. - Related Data Home Medications Medication Instructions Recorded Confirmed Gabapentin 600 mg PO Q6H 02/04/15 12/14/24 ALPRAZolam [Xanax] 1 mg PO TID PRN 01/18/21 12/14/24 Baclofen [Lioresal] 20 mg PO TID PRN 01/18/21 12/14/24 Budesonide/Formoterol Fumarate 2 puff INHALATION RT-BID 01/18/21 12/14/24 [Symbicort 160-4.5 Mcg Inhaler] Omeprazole Magnesium [PriLOSEC OTC] 20 mg PO DAILY 02/28/23 12/14/24 Albuterol Sulfate [Ventolin HFA] 2 puff INHALATION RT-QID PRN 09/02/23 12/14/24 Levothyroxine Sodium [Synthroid] 112 mcg PO DAILY 09/02/23 12/14/24 Magnesium Oxide [Magox 400] 400 mg PO HS 11/02/23 12/14/24 Nitroglycerin Sl Tabs [Nitrostat] 0.4 mg SL Q5M PRN 11/02/23 12/14/24 QUEtiapine FUMARATE [SEROquel] 200 mg PO HS 11/02/23 12/14/24 Ezetimibe [Zetia] 10 mg PO HS 03/07/24 12/14/24 Aspirin 81 mg PO DAILY 06/03/24 12/14/24 Atorvastatin [Lipitor] 80 mg PO HS 06/03/24 12/14/24 Ipratropium-Albuterol Nebulize 3 ml INHALATION RT-QID PRN 06/03/24 12/14/24 [Duoneb 0.5 mg-3 mg/3 ml Soln] Metoprolol Tartrate [Lopressor] 25 mg PO BID 06/03/24 12/14/24 Ondansetron Odt [Zofran ODT] 4 mg PO Q8H PRN 06/03/24 12/14/24 Cholecalciferol (Vitamin D3) 125 mcg PO DAILY 10/24/24 12/14/24 [Vitamin D3 (125 MCG = 5,000 IU)] Docusate [Colace] 200 mg PO DAILY 10/24/24 12/14/24 Ranolazine [Ranexa] 500 mg PO BID 10/24/24 12/14/24 Repaglinide 0.5 mg PO TID PRN 10/24/24 12/14/24 Ibuprofen [Motrin] 600 mg PO Q6HR PRN 12/14/24 12/14/24 Nicotine 21Mg/24Hr Patch [Habitrol] 1 patch TRANSDERM DAILY 12/14/24 12/14/24 guaiFENesin-Coden 100-10MG/5ML 5 ml PO BID PRN 12/14/24 12/14/24 [Robitussin AC] metFORMIN HCL ER [Glucophage XR] 500 mg PO DAILY 12/14/24 12/14/24 oxyCODONE HCL [oxyCODONE HCL (IR)] 15 mg PO Q8H 12/14/24 12/14/24 Previous Rx's Medication Instructions Recorded Isosorbide Mononitrate ER [Imdur] 30 mg PO DAILY #30 tab 06/05/24 Allergies Allergy/AdvReac Type Severity Reaction Status Date / Time sulfamethoxazole Allergy Swelling/turned Verified 12/14/24 14:23 [From Bactrim] red trimethoprim [From Bactrim] Allergy swelling/turned Verified 12/14/24 14:23 red Review of Systems ROS Statement: Those systems with pertinent positive or pertinent negative responses have been documented in the HPI. ROS Other: All systems not noted in ROS Statement are negative. Past Medical History Past Medical History: Cancer, COPD, Diabetes Mellitus, Fibromyalgia, Myocardial Infarction (NE), Neurologic Disorder, Osteoarthritis (OA), Skin Disorder, Sleep Apnea/CPAP/BIPAP, Thyroid Disorder Additional Past Medical History / Comment(s): Multiple Sclerosis, occasionally has flare up of MS that causes gastroparesis, keratosis pilaris, hx cervical cancer, supposed to uses CPAP, chronic back and knee pain Last Myocardial Infarction Date:: 09/02/2023 History of Any Multi-Drug Resistant Organisms: None Reported Past Surgical History: Bladder Surgery, Cholecystectomy, Heart Catheterization With Stent, Hysterectomy, Orthopedic Surgery Additional Past Surgical History / Comment(s): left knee arthroscopy, bladder sling, Bartholin gland removal, colonoscopy Past Anesthesia/Blood Transfusion Reactions: Previous Problems w/ Anesthesia Additional Past Anesthesia/Blood Transfusion Reaction / Comment(s): "I woke up alot with twilight", pt. adopted Date of Last Stent Placement:: 09/02/2023 Past Psychological History: Anxiety Smoking Status: Current every day smoker Past Alcohol Use History: None Reported Past Drug Use History: None Reported - Past Family History Mother History Unknown: Yes Family Medical History: Cancer Additional Family Medical History / Comment(s): esophageal General Exam Limitations: no limitations General appearance: lethargic, in distress (Mild respiratory distress) Head exam: Present: atraumatic, normocephalic Eye exam: Present: normal appearance, PERRL Respiratory exam: Present: respiratory distress, wheezes, decreased breath sounds, prolonged expiratory Cardiovascular Exam: Present: regular rate, normal rhythm GI/Abdominal exam: Present: soft. Absent: distended, tenderness, guarding Extremities exam: Present: normal inspection, normal capillary refill. Absent: pedal edema, calf tenderness Neurological exam: Present: alert, oriented X3, CN II-XII intact. Absent: motor sensory deficit Psychiatric exam: Present: normal affect, normal mood Skin exam: Present: warm, dry, intact Course Vital Signs 03/08/25 03/08/25 03/08/25 00:50 01:41 02:37 Temperature 98.2 F Pulse Rate 84 73 65 Respiratory 18 24 20 Rate Blood Pressure 133/87 114/55 140/83 O2 Sat by Pulse 92 L 91 L 92 L Oximetry 03/08/25 03/08/25 02:44 02:54 Temperature Pulse Rate 65 66 Respiratory Rate Blood Pressure O2 Sat by Pulse Oximetry Medical Decision Making - Medical Decision Making Was pt. sent in by a medical professional or institution (, PA, [employer], urgent care, hospital, or shelter...) When possible be specific @ -No Did you speak to anyone other than the patient for history (EMS, parent, family, police, friend...)? What history was obtained from this source @ -No Did you review nursing and triage notes (agree or disagree)? Why? @ -I reviewed and agree with nursing and triage notes Were old charts reviewed (outside hosp., previous admission, EMS record, old EKG, old radiological studies, urgent care reports/EKG's, shelter records)? Report findings @ -No old charts were reviewed Differential Dyspnea: Coronary syndrome, arrhythmia, tamponade, asthma, COPD, pulmonary embolism, pneumonia, pneumothorax, pulmonary effusion, anaphylaxis, diabetic ketoacidosis, flailed chest, pulmonary contusion, diaphragmatic rupture, anemia, neuromuscular, this is not meant to be an all-inclusive list. EKG interpreted by me (3pts min.). @Sinus rhythm rate of 84, CO interval 108, QRS duration 94, QTc [address] segment elevation. X-rays interpreted by me (1pt min.). @ -Chest x-ray negative for acute cardiopulmonary findings CT interpreted by me (1pt min.). @ -None done U/S interpreted by me (1pt. min.). @ -None done What testing was considered but not performed or refused? (CT, X-rays, U/S, labs)? Why? @ -None What meds were considered but not given or refused? Why? @ -None Did you discuss the management of the patient with other professionals (professionals i.e. , PA, [employer], lab, RT, psych nurse, social services coordinator, retail loss prevention officer, teacher, student liaison officer, manager of case)? Give summary @ -No Was smoking cessation discussed for >3mins.? @ -No Was critical care preformed (if so, how long)? @ -No Were there social determinants of health that impacted care today? How? (Homelessness, low income, unemployed, alcoholism, drug addiction, transportation, low edu. Level, literacy, decrease access to med. care, shelter, rehab)? @ -No Was there de-escalation of care discussed even if they declined (Discuss DNR or withdrawal of care, Hospice)? DNR status @ -No What co-morbidities impacted this encounter? (DM, HTN, Smoking, COPD, CAD, Cancer, CVA, ARF, Chemo, Hep., AIDS, mental health diagnosis, sleep apnea, morbid obesity)? @ -COPD Was patient admitted / discharged? Hospital course, mention meds given and route, prescriptions, significant lab abnormalities, going to OR and other pertinent info. @ -[Patient admitted with COPD exacerbation, started on steroids, albuterol, antibiotics. Chest x-ray is clear without consolidative pneumonia or pneumothorax. Patient admitted to [facility], Dr. Mulligan is aware. Laboratory testing unremarkable. Undiagnosed new problem with uncertain prognosis? @ -No Drug Therapy requiring intensive monitoring for toxicity (Heparin, Nitro, Insulin, Cardizem)? @ -No Were any procedures done? @ -No Diagnosis/symptom? @ -[COPD exacerbation Acute, or Chronic, or Acute on Chronic? @ -Acute on chronic Uncomplicated (without systemic symptoms) or Complicated (systemic symptoms)? @ -[default Side effects of treatment? @ -No Exacerbation, Progression, or Severe Exacerbation? @ -No Poses a threat to life or bodily function? How? (Chest pain, [place], NE, pneumonia, PE, COPD, DKA, ARF, appy, cholecystitis, CVA, Diverticulitis, Homicidal, Suicidal, threat to staff... and all critical care pts) @Yes, respiratory failure - Lab Data Result diagrams: 03/08/25 01:20 03/08/25 01:20 Lab Results 03/08/25 03/08/25 03/08/25 Range/Units 01:20 01:20 01:20 WBC 10.13 H (4.50-10.00) 10*3/uL RBC 4.85 (4.10-5.20) 10*6/uL Hgb 13.8 (12.0-15.0) g/dL Hct 42.3 (37.2-46.3) % MCV 87.2 (80.0-97.0) fL MCH 28.5 (27.0-32.0) pg MCHC 32.6 (32.0-37.0) g/dL Plt Count 253 (140-440) 10*3/uL MPV 9.5 (9.5-12.2) fL Immature Gran % (Auto) 0.2 % Neutrophils % 70.3 % Lymphocytes % 23.3 % Monocytes % 4.6 % Eosinophils % 1.0 % Basophils % 0.6 % Immature Gran # 0.02 (0.00-0.04) 10*3/uL Neutrophils # 7.12 (1.80-7.70) 10*3/uL Lymphocytes # 2.36 (0.90-5.00) 10*3/uL Monocytes # 0.47 (0.20-1.00) 10*3/uL Eosinophils # 0.10 (0.04-0.35) 10*3/uL Basophils # 0.06 (0.00-0.10) 10*3/uL VBG pH 7.50 H (7.31-7.41) VBG pCO2 41 (37-51) mmHg VBG HCO3 32 H (24-28) mmol/L Sodium 138 (137-145) mmol/L Potassium 4.5 (3.5-5.1) mmol/L Chloride 102 (98-107) mmol/L Carbon Dioxide 33 H (22-30) mmol/L Anion Gap 3 mmol/L BUN 13 (7-17) mg/dL Creatinine 0.50 L (0.52-1.04) mg/dL Est GFR (CKD-EPI)AfAm >90 (>60 ml/min/1.73 sqM) Est GFR (CKD-EPI)NonAf >90 (>60 ml/min/1.73 sqM) Glucose 126 H (74-99) mg/dL Plasma Lactic Acid Brent (0.7-2.0) mmol/L Calcium 9.2 (8.4-10.2) mg/dL Total Bilirubin 0.9 (0.2-1.3) mg/dL AST 20 (14-36) U/L ALT 10 (4-34) U/L Alkaline Phosphatase 66 (38-126) U/L Total Protein 6.5 (6.3-8.2) g/dL Albumin 4.2 (3.5-5.0) g/dL 03/08/25 Range/Units 01:20 WBC (4.50-10.00) 10*3/uL RBC (4.10-5.20) 10*6/uL Hgb (12.0-15.0) g/dL Hct (37.2-46.3) % MCV (80.0-97.0) fL MCH (27.0-32.0) pg MCHC (32.0-37.0) g/dL Plt Count (140-440) 10*3/uL MPV (9.5-12.2) fL Immature Gran % (Auto) % Neutrophils % % Lymphocytes % % Monocytes % % Eosinophils % % Basophils % % Immature Gran # (0.00-0.04) 10*3/uL Neutrophils # (1.80-7.70) 10*3/uL Lymphocytes # (0.90-5.00) 10*3/uL Monocytes # (0.20-1.00) 10*3/uL Eosinophils # (0.04-0.35) 10*3/uL Basophils # (0.00-0.10) 10*3/uL VBG pH (7.31-7.41) VBG pCO2 (37-51) mmHg VBG HCO3 (24-28) mmol/L Sodium (137-145) mmol/L Potassium (3.5-5.1) mmol/L Chloride (98-107) mmol/L Carbon Dioxide (22-30) mmol/L Anion Gap mmol/L BUN (7-17) mg/dL Creatinine (0.52-1.04) mg/dL Est GFR (CKD-EPI)AfAm (>60 ml/min/1.73 sqM) Est GFR (CKD-EPI)NonAf (>60 ml/min/1.73 sqM) Glucose (74-99) mg/dL Plasma Lactic Acid [place] 0.8 (0.7-2.0) mmol/L Calcium (8.4-10.2) mg/dL Total Bilirubin (0.2-1.3) mg/dL AST (14-36) U/L ALT (4-34) U/L Alkaline Phosphatase (38-126) U/L Total Protein (6.3-8.2) g/dL Albumin (3.5-5.0) g/dL Disposition Clinical Impression: COPD (chronic obstructive pulmonary disease) Disposition: ADMITTED IP TO THIS HOSP Condition: Stable Is patient prescribed a controlled substance at d/c from ED?: No Time of Disposition: 02:30
[2025-03-08 02:11] LABS: ALT 10 U/L (4-34); African American GFR (CKD) >90 (>60 ml/min/1.73 sqM); Albumin 4.2 g/dL (3.5-5.0); Anion Gap 3 mmol/L; Blood Urea Nitrogen 13 mg/dL (7-17); Calcium 9.2 mg/dL (8.4-10.2); Carbon Dioxide 33 mmol/L (22-30); Chloride 102 mmol/L (98-107); Glucose 126 mg/dL (74-99); Non-African American GFR(CKD) >90 (>60 ml/min/1.73 sqM); Sodium 138 mmol/L (137-145); Total Bilirubin 0.9 mg/dL (0.2-1.3); Total Protein 6.5 g/dL (6.3-8.2)
[2025-03-08 02:15] LABS: VBG PH 7.5 (7.31-7.41)
[2025-03-08 02:18] LABS: AST 20 U/L (14-36); Alkaline Phosphatase 66 U/L (38-126); Potassium 4.5 mmol/L (3.5-5.1)
[2025-03-08 02:40] LABS: Basophils # (A) 0.06 10*3/uL (0.00-0.10); Basophils % (A) 0.6 %; HCT 42.3 % (37.2-46.3); HGB 13.8 g/dL (12.0-15.0); Lymphocytes # (A) 2.36 10*3/uL (0.90-5.00); Lymphocytes % (A) 23.3 %; MCH 28.5 pg (27.0-32.0); MCHC 32.6 g/dL (32.0-37.0); MCV 87.2 fL (80.0-97.0); Mean Platelet Volume 9.5 fL (9.5-12.2); Monocytes # (A) 0.47 10*3/uL (0.20-1.00); Monocytes % (A) 4.6 %; Neutrophils # (A) 7.12 10*3/uL (1.80-7.70); Neutrophils % (A) 70.3 %; Platelet Count 253 10*3/uL (140-440); RBC 4.85 10*6/uL (4.10-5.20); RDW 18.8 % (11.5-14.5); WBC 10.13 10*3/uL (4.50-10.00)
[2025-03-08] MEDS: IPRATROPIUM-ALBUTEROL 3 ML NEB INHALATION STA (02:42)
[2025-03-08] MEDS: ALBUTEROL NEBULIZED 2.5 MG/3 ML INHALATION STA (02:42)
[2025-03-08] MEDS ORDERED: ACETAMINOPHEN TAB 325 MG TAB PO PRN (03:11)
[2025-03-08] MEDS ORDERED: NALOXONE 0.4 MG/ML 1 ML VIAL IVP PRN (03:11)
[2025-03-08] MEDS ORDERED: IPRATROPIUM-ALBUTEROL 3 ML NEB INHALATION PRN (03:11)
[2025-03-08] MEDS: ALPRAZolam 1 MG TAB PO PRN (03:43)
[2025-03-08] MEDS: NICOTINE 14MG/24HR PATCH TRANSDERM STA (03:45)
--- NOTE | 2025-03-08 05:25 | XR ---
EXAM: XR Chest, 2 Views CLINICAL HISTORY: ITS.REASON XR Reason: SOB TECHNIQUE: Frontal and lateral views of the chest. COMPARISON: No relevant prior studies available. FINDINGS: Lungs: Unremarkable. No consolidation. Pleural space: Unremarkable. No pneumothorax. Heart: Cardiomegaly. Mediastinum: Unremarkable. Bones/joints: Unremarkable. IMPRESSION: No acute findings in the chest.
[2025-03-08] MEDS: methylPREDNISolone SOD SUCCI 125 MG/2 ML VIAL IV SCH (06:56)
[2025-03-08] MEDS: IPRATROPIUM-ALBUTEROL 3 ML NEB INHALATION SCH (08:27)
[2025-03-08] MEDS: AZITHROMYCIN 500 MG TAB PO SCH (11:37)
[2025-03-08] MEDS ORDERED: IBUPROFEN 600 MG TAB PO PRN (12:40)
[2025-03-08] MEDS ORDERED: NITROGLYCERIN SL TABS 0.4 MG TAB SUBLINGUAL PRN (12:40)
[2025-03-08] MEDS ORDERED: REPAGLINIDE 1 MG TAB PO PRN (12:40)
--- NOTE | 2025-03-08 12:53 | P.HPIM ---
History of Present Illness 54-year-old female with known history of COPD oxygen dependent about 2 to 3 L of oxygen at home came in with complaints of shortness of breath has been using more oxygen. Patient has a chest x-ray did not show any pneumonia patient was complaining of cough without any sputum production patient is complaining of some lightheadedness patient advised multiple medications that can cause lightheadedness. Patient blood pressure is within normal limits obtaining orthostatic vitals patient will use this because she did not hit anything since yesterday. Patient denied any vertigo. Patient is presently dysfunction which is her baseline patient was given system steroids inhalational treatments her lung exam fairly clear diminished but no wheezing. REVIEW OF SYSTEMS: All other systems are negative except those mentioned in the HPI PHYSICAL EXAMINATION: GENERAL: The patient is alert and oriented x3, not in any acute distress. Well developed, well nourished. HEENT: Pupils are round and equally reacting to light. EOMI. No scleral icterus. No conjunctival pallor. Normocephalic, atraumatic. No pharyngeal erythema. No thyromegaly. CARDIOVASCULAR: S1 and S2 present. No murmurs, rubs, or gallops. PULMONARY: Chest is clear to auscultation, no wheezing or crackles. Diminished air entry in the bilateral lung robb ABDOMEN: Soft, nontender, nondistended, normoactive bowel sounds. No palpable organomegaly. MUSCULOSKELETAL: No joint swelling or deformity. EXTREMITIES: No cyanosis, clubbing, or pedal edema. NEUROLOGICAL: Gross neurological examination did not reveal any focal deficits. SKIN: No rashes. Assessment and plan Acute on chronic hypercapnic respiratory failure secondary to COPD exacerbation. Patient oxygen requirements are at her baseline but she believes her dizziness may be secondary to hypoxemia because of which we will obtain ABG. Dizziness may be because of hypovolemia patient was given 5 did bolus-the dizziness does improve will give 500 mL bolus will obtain orthostatic vitals patient will be resumed on her home medications for coronary artery disease which can cause some dizziness. -Coronary disease with stents in the past - Type 2 diabetes mellitus - Fibromyalgia - Osteoarthritis - Sleep apnea - Hypothyroidism - History of multiple sclerosis for which patient is on magnesium and high-dose baclofen as needed for flareups - Gastroparesis - Cervical cancer history which is in remission If ABG does not show any significant abnormality and if her dizziness improves, patient will be discharged later today on Medrol Dosepak her blood sugars are expected to stay high while she is on steroids. Past Medical History Past Medical History: Cancer, COPD, Diabetes Mellitus, Fibromyalgia, Myocardial Infarction ([place]), Neurologic Disorder, Osteoarthritis (OA), Skin Disorder, Sleep Apnea/CPAP/BIPAP, Thyroid Disorder Additional Past Medical History / Comment(s): Multiple Sclerosis, occasionally has flare up of MS that causes gastroparesis, keratosis pilaris, hx cervical cancer, supposed to uses CPAP, chronic back and knee pain Last Myocardial Infarction Date:: 09/02/2023 History of Any Multi-Drug Resistant Organisms: None Reported Past Surgical History: Bladder Surgery, Cholecystectomy, Heart Catheterization With Stent, Hysterectomy, Orthopedic Surgery Additional Past Surgical History / Comment(s): left knee arthroscopy, bladder sling, Bartholin gland removal, colonoscopy Past Anesthesia/Blood Transfusion Reactions: Previous Problems w/ Anesthesia Additional Past Anesthesia/Blood Transfusion Reaction / Comment(s): "I woke up alot with twilight", pt. adopted Date of Last Stent Placement:: 09/02/2023 Past Psychological History: Anxiety Smoking Status: Current every day smoker Past Alcohol Use History: None Reported Past Drug Use History: None Reported - Past Family History Mother History Unknown: Yes Family Medical History: Cancer Additional Family Medical History / Comment(s): esophageal Medications and Allergies Home Medications Medication Instructions Recorded Confirmed Type Gabapentin 600 mg PO QID 02/04/15 03/08/25 History ALPRAZolam [Xanax] 1 mg PO TID PRN 01/18/21 03/08/25 History Baclofen [Lioresal] 20 mg PO TID PRN 01/18/21 03/08/25 History Budesonide/Formoterol Fumarate 2 puff INHALATION RT-BID 01/18/21 03/08/25 History [Symbicort 160-4.5 Mcg Inhaler] Omeprazole Magnesium [PriLOSEC OTC] 20 mg PO DAILY@0900 02/28/23 03/08/25 Hist ory Albuterol Sulfate [Ventolin HFA] 2 puff INHALATION RT-Q4H PRN 09/02/23 03/08/25 History Levothyroxine Sodium [Synthroid] 112 mcg PO DAILY 09/02/23 03/08/25 History Magnesium Oxide [Magox 400] 400 mg PO HS@2100 24 06/13/25 History Nitroglycerin Sl Tabs [Nitrostat] 0.4 mg SL Q5M PRN 11/02/23 03/08/25 History QUEtiapine FUMARATE [SEROquel] 200 mg PO HS@209911/02/23 03/08/25 History Ezetimibe [Zetia] 10 mg PO HS@209903/07/24 03/08/25 History Aspirin 81 mg PO DAILY@89906/03/24 03/08/25 History Atorvastatin [Lipitor] 80 mg PO HS@209906/03/24 03/08/25 History Ipratropium-Albuterol Nebulize 3 ml INHALATION RT-Q6H PRN 06/03/24 03/08/25 History [Duoneb 0.5 mg-3 mg/3 ml Soln] Metoprolol Tartrate [Lopressor] 25 mg PO BID@899,209906/03/24 03/08/25 History Isosorbide Mononitrate ER [Imdur] 30 mg PO DAILY #30 tab 06/05/24 03/08/25 Rx Cholecalciferol (Vitamin D3) 125 mcg PO DAILY@89910/24/24 03/08/25 History [Vitamin D3 (125 MCG = 5,000 IU)] Docusate [Colace] 200 mg PO DAILY 10/24/24 03/08/25 History Ranolazine [Ranexa] 500 mg PO BID@899,209910/24/24 03/08/25 History Repaglinide 0.5 mg PO TID PRN 10/24/24 03/08/25 History Ibuprofen [Motrin] 600 mg PO Q6HR PRN 12/14/24 03/08/25 History HYDROcodone/APAP 10-325MG [[place] 1 tab PO 5XD 03/08/25 03/08/25 History 10-325] metFORMIN HCL [Glucophage] 500 mg PO DAILY@89903/08/25 03/08/25 History Allergies Allergy/AdvReac Type Severity Reaction Status Date / Time sulfamethoxazole Allergy Swelling/turned Verified 03/08/25 07:28 [From Bactrim] red trimethoprim [From Bactrim] Allergy swelling/turned Verified 03/08/25 07:28 red Physical Exam Vitals: Vital Signs Temp Pulse Resp BP Pulse Ox 03/08/25 08:38 70 03/08/25 08:28 69 03/08/25 05:00 65 20 128/79 92 L 03/08/25 02:54 66 03/08/25 02:44 65 03/08/25 02:37 65 20 140/83 92 L 03/08/25 01:41 73 24 114/55 91 L 03/08/25 00:50 98.2 F 84 18 133/87 92 L Intake and Output 03/07/25 03/08/25 03/08/25 22:59 06:59 14:59 Other: Weight 90.718 kg Results CBC & Chem 7: 03/08/25 01:20 03/08/25 01:20 Labs: Abnormal Lab Results - Last 24 Hours (Table) 03/08/25 03/08/25 03/08/25 Range/Units 01:20 01:20 01:20 WBC 10.13 H (4.50-10.00) 10*3/uL VBG pH 7.50 H (7.31-7.41) VBG HCO3 32 H (24-28) mmol/L Carbon Dioxide 33 H (22-30) mmol/L Creatinine 0.50 L (0.52-1.04) mg/dL Glucose 126 H (74-99) mg/dL
[2025-03-08] MEDS: LEVOTHYROXINE 112 MCG TAB PO SCH (13:02)
[2025-03-08] MEDS: SODIUM CHLORIDE 0.9% 500 ML 500 ML IV ONE (13:02)
[2025-03-08] MEDS: GABAPENTIN 300 MG CAP PO SCH (13:02)
--- NOTE | 2025-03-08 14:10 | P.CNPUL ---
History of Present Illness Consult date: 03/08/25 Requesting physician: Dirk Pink Reason for consult: COPD Chief complaint: Altered mental status, shortness of breath, hypoxemia History of present illness: This is a 54-year-old female patient with a known history of chronic obstructive pulmonary disease, diabetes mellitus, fibromyalgia, obstructive sleep apnea, hypothyroidism, multiple sclerosis, coronary disease with previous stent placement, anxiety, chronic and ongoing heavy tobacco dependence. She was brought in to the emergency room early this morning after her was not able to wake her up when he got home. She was having difficulty maintaining good O2 saturations. Her also stated she had recently been placed on antibiotics by her garment inspector. She is seen today in consultation in the emergency department. She is currently awake and alert in no acute distress. Maintaining O2 saturations in the 90s on 3 L/min per nasal cannula. She is afebrile. Hemodynamically stable. Chest x-ray reveals no acute pulmonary process. White count 10.1. Hemoglobin 13.8. Platelets 253. Sodium 138. Potassium 4.5. Bicarb 33. BUN 13. Creatinine 0.5. Glucose 126. She has been initiated on DuoNeb and elations, Symbicort. Empiric antibiotics in the form of azithromycin. Review of Systems REVIEW OF SYSTEMS: CONSTITUTIONAL: Denies any recent significant weight loss or weight gain. EYES: Denies change in vision. EARS, NOSE, MOUTH, THROAT: Denies headaches, denies sore throat. CARDIOVASCULAR: Denies chest pain, palpitations or syncopal episodes. RESPIRATORY: Positive for shortness of breath, cough, congestion no hemoptysis. GASTROINTESTINAL: Denies change in appetite, denies abdominal pain GENITOURINARY: Denies hematuria, denies infections. MUSKULOSKELETAL: Denies pain, denies swelling. INTEGUMENTARY: Denies rash, denies eczema. NEUROLOGICAL: Denies recent memory loss, no recent seizure activity. PSYCHIATRIC: Denies anxiety, denies depression. HEMATOLOGIC/LYMPHATIC: Denies anemia, denies enlarged lymph nodes. Past Medical History Past Medical History: Cancer, COPD, Diabetes Mellitus, Fibromyalgia, Myocardial Infarction ([place]), Neurologic Disorder, Osteoarthritis (OA), Skin Disorder, Sleep Apnea/CPAP/BIPAP, Thyroid Disorder Additional Past Medical History / Comment(s): Multiple Sclerosis, occasionally has flare up of MS that causes gastroparesis, keratosis pilaris, hx cervical cancer, supposed to uses CPAP, chronic back and knee pain Last Myocardial Infarction Date:: 09/02/2023 History of Any Multi-Drug Resistant Organisms: None Reported Past Surgical History: Bladder Surgery, Cholecystectomy, Heart Catheterization With Stent, Hysterectomy, Orthopedic Surgery Additional Past Surgical History / Comment(s): left knee arthroscopy, bladder sling, Bartholin gland removal, colonoscopy Past Anesthesia/Blood Transfusion Reactions: Previous Problems w/ Anesthesia Additional Past Anesthesia/Blood Transfusion Reaction / Comment(s): "I woke up alot with twilight", pt. adopted Date of Last Stent Placement:: 09/02/2023 Past Psychological History: Anxiety Smoking Status: Current every day smoker Past Alcohol Use History: None Reported Past Drug Use History: None Reported - Past Family History Mother History Unknown: Yes Family Medical History: Cancer Additional Family Medical History / Comment(s): esophageal Medications and Allergies Home Medications Medication Instructions Recorded Confirmed Type Gabapentin 600 mg PO QID 02/04/15 03/08/25 History ALPRAZolam [Xanax] 1 mg PO TID PRN 01/18/21 03/08/25 History Baclofen [Lioresal] 20 mg PO TID PRN 01/18/21 03/08/25 History Budesonide/Formoterol Fumarate 2 puff INHALATION RT-BID 01/18/21 03/08/25 Hi story [Symbicort 160-4.5 Mcg Inhaler] Omeprazole Magnesium [PriLOSEC OTC] 20 mg PO DAILY@0900 02/28/23 03/08/25 History Albuterol Sulfate [Ventolin HFA] 2 puff INHALATION RT-Q4H PRN 09/02/23 03/08/25 History Levothyroxine Sodium [Synthroid] 112 mcg PO DAILY 09/02/23 03/08/25 History Magnesium Oxide [Magox 400] 400 mg PO HS@209911/02/23 03/08/25 History Nitroglycerin Sl Tabs [Nitrostat] 0.4 mg SL Q5M PRN 11/02/23 03/08/25 History QUEtiapine FUMARATE [SEROquel] 200 mg PO HS@209911/02/23 03/08/25 History Ezetimibe [Zetia] 10 mg PO HS@209903/07/24 03/08/25 History Aspirin 81 mg PO DAILY@89906/03/24 03/08/25 History Atorvastatin [Lipitor] 80 mg PO HS@209906/03/24 03/08/25 History Ipratropium-Albuterol Nebulize 3 ml INHALATION RT-Q6H PRN 06/03/24 03/08/25 History [Duoneb 0.5 mg-3 mg/3 ml Soln] Metoprolol Tartrate [Lopressor] 25 mg PO BID@09,209906/03/24 03/08/25 History Isosorbide Mononitrate ER [Imdur] 30 mg PO DAILY #30 tab 06/05/24 03/08/25 Rx Cholecalciferol (Vitamin D3) 125 mcg PO DAILY@89910/24/24 03/08/25 History [Vitamin D3 (125 MCG = 5,000 IU)] Docusate [Colace] 200 mg PO DAILY 10/24/24 03/08/25 History Ranolazine [Ranexa] 500 mg PO BID@09,209910/24/24 03/08/25 History Repaglinide 0.5 mg PO TID PRN 10/24/24 03/08/25 History Ibuprofen [Motrin] 600 mg PO Q6HR PRN 12/14/24 03/08/25 History HYDROcodone/APAP 10-325MG [[place] 1 tab PO 5XD 03/08/25 03/08/25 History 10-325] metFORMIN HCL [Glucophage] 500 mg PO DAILY@89903/08/25 03/08/25 History methylPREDNISolone Dose Pack 4 mg PO DIRECTED #1 packet 03/08/25 Rx [Medrol Dose Pack] Allergies Allergy/AdvReac Type Severity Reaction Status Date / Time sulfamethoxazole Allergy Swelling/turned Verified 03/08/25 07:28 [From Bactrim] red trimethoprim [From Bactrim] Allergy swelling/turned Verified 03/08/25 07:28 red Physical Exam Vitals: Vital Signs Temp Pulse Resp BP Pulse Ox 03/08/25 08:38 70 03/08/25 08:28 69 03/08/25 05:00 65 20 128/79 92 L 03/08/25 02:54 66 03/08/25 02:44 65 03/08/25 02:37 65 20 140/83 92 L 03/08/25 01:41 73 24 114/55 91 L 03/08/25 00:50 98.2 F 84 18 133/87 92 L Intake and Output 03/07/25 03/08/25 03/08/25 22:59 06:59 14:59 Other: Weight 90.718 kg GENERAL EXAM: Alert, 54-year-old female, sitting up on a stretcher, on 3 L nasal cannula, comfortable in no apparent distress. HEAD: Normocephalic. EYES: Normal reaction of pupils, equal size. NOSE: Clear with pink turbinates. THROAT: No erythema or exudates. NECK: No masses, no JVD. CHEST: No chest wall deformity. LUNGS: Equal air entry with no crackles, wheeze, rhonchi or dullness. CVS: S1 and S2 normal with no audible murmur, regular rhythm. ABDOMEN: No hepatosplenomegaly, normal bowel sounds, no guarding or rigidity. SPINE: No scoliosis or deformity SKIN: No rashes CENTRAL NERVOUS SYSTEM: No focal deficits, tone is normal in all 4 extremities. EXTREMITIES: There is no peripheral edema. No clubbing, no cyanosis. Peripheral pulses are intact. Results - Laboratory Findings CBC and BMP: 03/08/25 01:20 03/08/25 01:20 Abnormal lab findings: Abnormal Labs 03/08/25 03/08/25 03/08/25 01:20 01:20 01:20 WBC 10.13 H VBG pH 7.50 H VBG HCO3 32 H Carbon Dioxide 33 H Creatinine 0.50 L Glucose 126 H - Diagnostic Findings Chest x-ray: image reviewed Assessment and Plan Assessment: Acute on chronic hypoxic respiratory failure secondary to an acute exacerbation of COPD. Failed outpatient treatment History of hypercapnic/hypoxic respiratory failure secondary to polypharmacy in November 2024 Chronic obstructive pulmonary disease Chronic and ongoing tobacco dependence Fibromyalgia Multiple sclerosis Coronary disease with previous stent placement Hypothyroidism Obstructive sleep apnea Anxiety Plan: The patient was seen and evaluated Chest x-ray, labs and medications reviewed Continue DuoNeb inhalations Continue Symbicort Add prednisone taper Continue empiric antibiotics Resume home medications Titrate down the FiO2 as tolerated Increase her activity as tolerated Probable discharge in the a.m. We will continue to follow and make further recommendations based on her clinical status I have personally seen and examined the patient, performed the documentation and the assessment and plan as written. Number of minutes spent on the visit: 20 Dictation was produced using [employer]™ dictation software. Please excuse any gra mmatical, word or spelling errors. Time with Patient: Greater than 30
[2025-03-08] MEDS ORDERED: predniSONE 10 MG TAB PO SCH (15:00)
[2025-03-08 15:01] VITALS: BP 131/74; PULSE 64; RESP 22
[2025-03-08] MEDS ORDERED: HYDROcodone/APAP 10-325MG 1 EACH TAB PO SCH (16:00)
[2025-03-08] MEDS ORDERED: SYMBICORT 160-4.5 MCG INHALER INHALATION SCH ×2 (20:00)
[2025-03-08] MEDS ORDERED: ATORVASTATIN 80 MG TAB PO SCH (21:00)
[2025-03-08] MEDS ORDERED: EZETIMIBE 10 MG TAB PO SCH (21:00)
[2025-03-08] MEDS ORDERED: RANOLAZINE 500 MG TAB.ER.12H PO SCH (21:00)
[2025-03-08] MEDS ORDERED: QUEtiapine 200 MG TAB PO SCH (21:00)
[2025-03-08] MEDS ORDERED: METOPROLOL TARTRATE 25 MG TAB PO SCH (21:00)
[2025-03-08] MEDS ORDERED: MAGNESIUM OXIDE 400 MG TAB PO SCH (21:00)
[2025-03-09] MEDS ORDERED: DOCUSATE 100 MG CAP PO SCH (09:00)
[2025-03-09] MEDS ORDERED: ISOSORBIDE MONONITRATE ER 30 MG TAB.ER.24H PO SCH (09:00)
[2025-03-09] MEDS ORDERED: PANTOPRAZOLE 40 MG TABLET PO SCH (09:00)
[2025-03-09] MEDS ORDERED: ASPIRIN 81 MG PO SCH (09:00)
[2025-03-09] MEDS ORDERED: metFORMIN 500 MG TAB PO SCH (09:00)
== END 2025-03-08 15:02 | disposition home or self-care (01) ==
LOC: EC 00:41 → 6NMEDSUR 03:12
PROVIDERS: ADMIT Hospitalist; ATTEND Hospitalist
DX: J44.1 Chronic obstructive pulmonary disease with (acute) exacerbation (principal); J96.21 Acute and chronic respiratory failure with hypoxia; J96.22 Acute and chronic respiratory failure with hypercapnia; R42 Dizziness and giddiness; E03.9 Hypothyroidism, unspecified; E11.43 Type 2 diabetes mellitus with diabetic autonomic (poly)neuropathy; K31.84 Gastroparesis; F17.200 Nicotine dependence, unspecified, uncomplicated; F41.9 Anxiety disorder, unspecified; G35 Multiple sclerosis; G47.33 Obstructive sleep apnea (adult) (pediatric); I25.10 Atherosclerotic heart disease of native coronary artery without angina pectoris; I25.2 Old myocardial infarction; M19.90 Unspecified osteoarthritis, unspecified site; M79.7 Fibromyalgia; Z79.51 Long term (current) use of inhaled steroids; Z79.82 Long term (current) use of aspirin; Z79.84 Long term (current) use of oral hypoglycemic drugs; Z79.890 Hormone replacement therapy; Z79.899 Other long term (current) drug therapy; Z85.41 Personal history of malignant neoplasm of cervix uteri; Z95.5 Presence of coronary angioplasty implant and graft; Z99.81 Dependence on supplemental oxygen; Z88.8 Allergy status to other drugs, medicaments and biological substances
CPT/HCPCS: 96374; 99285; 36415; 94640; 80053; 82803; 83605; 85025; 87040; 71046; G0378; S4990; J2919